=== PATIENT | female | born 1950 | race Caucasian/White ===

== ENCOUNTER 2021-08-24 08:28 | Inpatient (IN) | payer MEDICARE, MEDICAID, SELFPAY ==
[2021-08-24] VITALS (44 sets, daily range): BP systolic 87–152; BP diastolic 54–97; PULSE 95–133; RESP 16–34; TEMP 37.3–38.4; O2SAT 93–99; BMI 37.9
--- NOTE | 2021-08-24 08:39 | CT_ITS ---
WS: [id number] CT HEAD TECHNIQUE: Noncontrast CT of the head obtained from the skullbase to the vertex. CLINICAL INFORMATION: AMS COMPARISON: 2011 DLP: 1774.[address] scans at [facility] use at least one of these dose optimization techniques: automated e xposure control; mA and/or kV adjustment per patient size (includes targeted exams where dose is matc hed to clinical indication); or iterative reconstruction. FINDINGS: No evidence of intracranial hemorrhage or mass effect. Ventricular system and basal cisterns are guerrero nt. Mild small vessel changes with mild parenchymal volume loss. No extra-axial fluid collections. No evidence of mass or mass effect. Intracranial vascular calcification. Paranasal sinuses and mastoid air cells are well aerated. .Normal visualized soft tissues. CT/CT head wo con* [id number] IMPRESSION: 1. No evidence of intracranial hemorrhage or mass effect. 2. Mild small vessel changes. Mild parenchymal volume loss. 3. No acute intracranial findings.
--- NOTE | 2021-08-24 08:39 | XR_ITS ---
WS: [id number] Portable AP upright chest, 08/24/2021 Clinical Data: dyspnea/cough Comparison: Portable chest, 06/11/2011. Findings: No nodules, masses or effusions are seen. The heart is normal. The pulmonary vascularity is not increased. No pneumonia or pneumothorax is seen. The aortic arch and descending thoracic aorta s how mild tortuosity. Epidural stimulator leads overlie the mid thoracic epidural space. XR/XR chest 1V portable [id number] Impression: Atherosclerosis.
--- NOTE | 2021-08-24 08:45 | W.ED.AMS ---
HPI - Altered Mental Status General: Chief Complaint: Altered Mental Status Stated Complaint: ALOC Time Seen by Provider: 08/24/21 08:35 Source: EMS Mode of arrival: EMS Limitations: altered mental status History of Present Illness: 71-year-old female brought in by EMS from local skilled nursing. She is found this morning sitting in front of her wheelchair. Last evening. She has a low-grade fever and is requiring 10 L by mask to maintain oxygen sats. She is will grimace to painful stimuli but otherwise has no response she is mildly tachycardic and hypotensive. Legs are swollen and inflamed reddened she also has decubitus ulcers at the gluteal cleft. No other history given by nursing staff or EMS on their initial arrival here. Supposedly while she is demented normally she is up and ambulatory. MD complaint: altered mental status and decreased responsiveness Onset (ago): hour(s) Severity: severe Consistency of symptoms: Constant Context: recent fever, diabetes and other (Dementia) Treatments prior to arrival: oxygen Review of Systems General: Reports: ROS unobtainable due to medical condition PFSH ED PFSH: Medical History (Updated 08/24/21 @ 12:43 by López Connell DO) Bipolar disorder CHF (congestive heart failure) COPD (chronic obstructive pulmonary disease) Dementia Depression Diabetes mellitus type 2 in obese DJD (degenerative joint disease) Fibromyalgia GERD (gastroesophageal reflux disease) History of breast cancer History of DVT (deep vein thrombosis) Hyperlipidemia Hypertension Surgical History (Updated 08/24/21 @ 12:03 by Saturnino Hernandez MD) History of hysterectomy History of mastectomy Family History (Updated 08/24/21 @ 12:04 by Saturnino Hernandez MD) Other CAD (coronary artery disease) Diabetes Social History (Updated 08/24/21 @ 12:04 by Saturnino Hernandez MD) Smoking and tobacco status: never smoked Alcohol intake: never Physical Exam Const: NUTRITIONAL APPEARANCE: obese morbidly obese ORIENTATION/CONSCIOUSNESS: Yes patient obtunded HENMT: COMMON NORMALS: normocephalic and atraumatic HEAD & SCALP: normocephalic and atraumatic Cardio: COMMON NORMALS: regular rhythm RATE: tachycardic RHYTHM: regular rhythm GI: COMMON NORMALS: Soft to palpation; negative for No hepatosplenomegaly present AUSCULTATION: Yes normoactive bowel sounds PALPATION: Yes Soft to palpation, No Tenderness to palpation present (GI), No Guarding due to palpation present (GI) and No No hepatosplenomegaly present Back/Pelvis: OTHER: Decubitus ulcer at the superior aspect of the gluteal cleft bilaterally partial-thickness Extremity: OTHER: 3+ edema with erythema some vesicles of the skin from chronic edema redness erythema some ulcerations as well as some proximal lymphatic spread. Skin: OTHER: Lower extremities have thickening of the skin induration and some vesicle formation are reddened and warm to the touch. Additionally there is partial-thickness ulcerations in the superior gluteal area at the cleft does not seem to overlie the bone directly. Is also red and mildly inflamed with no induration. Course Vital Signs: Vital signs: Vital Signs Temperature 99.2 F 08/24/21 08:34 Pulse Rate 97 08/24/21 12:00 Respiratory Rate 18 08/24/21 12:00 Blood Pressure 144/81 08/24/21 12:00 Pulse Oximetry 95 08/24/21 12:00 MDM - Altered Mental Status Medical Decision Making Acute headache low kalemia cystitis and cellulitis discussed Dr. Hernandez. He has written orders. Admit to his services. EKG and CT did not show anything acute. Note patient is on Xarelto. Medical Records I reviewed the patient's medical records. Lab Data I reviewed the patient's lab results. : 08/24/21 09:40 08/24/21 09:40 Radiology Impressions Chest X-Ray 08/24/21 08:39 Impression: Atherosclerosis. Head CT 08/24/21 08:39 IMPRESSION: 1. No evidence of intracranial hemorrhage or mass effect. 2. Mild small vessel changes. Mild parenchymal volume loss. 3. No acute intracranial findings. Laboratory Results WBC 22.6 10^3/uL (4.0-10.0) H 08/24/21 09:40 RBC 4.84 10^6/uL (4.1-5.3) 08/24/21 09:40 Hgb 13.8 g/dL (11.5-15.3) 08/24/21 09:40 Hct 43.3 % (37.0-47.0) 08/24/21 09:40 MCV 89.5 fl (81-99) 08/24/21 09:40 MCH 28.5 pg (28.0-34.0) 08/24/21 09:40 MCHC 31.9 g/dL (30.0-36.0) 08/24/21 09:40 RDW 15.3 % (12.1-15.1) H 08/24/21 09:40 Plt Count 373 10^3/cmm (130-400) 08/24/21 09:40 MPV 9.7 fL (7.4-10.4) 08/24/21 09:40 Lymph % (Auto) Not Reportable 08/24/21 09:40 [place] % (Auto) Not Reportable 08/24/21 09:40 Lymph # (Auto) Not Reportable 08/24/21 09:40 [place] # (Auto) Not Reportable 08/24/21 09:40 Total Counted 100 (0-100) 08/24/21 09:40 Atypical Lymphs % 2.0 % (0-5) 08/24/21 09:40 Absolute Neutrophils 20.6 10^3/cmm (1.4-6.5) H 08/24/21 09:40 Segmented Neutrophils 70 % 08/24/21 09:40 Abs Segm Neuts (Man) 15.8 10/cmm (1.6-7.1) H 08/24/21 09:40 Band Neutrophils 21.0 % 08/24/21 09:40 Abs Band Neuts (Man) 4.7 10^3/cmm (0.0-1.2) H 08/24/21 09:40 Absolute Lymphocytes 1.6 10^3/cmm (1.2-3.4) 08/24/21 09:40 Lymphocytes (Manual) 5 % 08/24/21 09:40 Monocytes (Manual) 0.0 % 08/24/21 09:40 Absolute Monocytes 0.0 10^3/cmm (0.1-0.6) L 08/24/21 09:40 Eosinophils (Manual) 0 % 08/24/21 09:40 Absolute Eosinophils 0.0 10^3/cmm (0.0-0.7) 08/24/21 09:40 Basophils (Manual) 0.0 % 08/24/21 09:40 Absolute Basophils 0.0 10^3/cmm (0.0-0.2) 08/24/21 09:40 Metamyelocytes 2.0 % 08/24/21 09:40 Platelet Estimate Normal (Normal) 08/24/21 09:40 Specimen Type Arterial 08/24/21 09:22 Sample Site Radial, right 08/24/21 09:22 ABG pH 7.40 (7.35-7.45) 08/24/21 09:22 ABG pCO2 51.0 mmHg (35-45) H 08/24/21 09:22 ABG pO2 174.0 mmHg (80.0-100.0) H 08/24/21 09:22 ABG HCO3 31.8 mmol/L (22-26) H 08/24/21 09:22 ABG O2 Saturation 99.9 08/24/21 09:22 ABG Base Excess 5.7 mmol/L (-2.0-2.0) H 08/24/21 09:22 David Test Pos 08/24/21 09:22 Hematocrit 42.0 % (37-47) 08/24/21 09:22 Hgb O2 Saturation 98.2 % (95-100) 08/24/21 09:22 Carboxyhemoglobin 0.9 %THgb (0.4-20.1) 08/24/21 09:22 Methemoglobin 0.8 % (0.4-1.5) 08/24/21 09:22 Total Hemoglobin 13.7 g/dL (12-16) 08/24/21 09:22 Sodium 141.0 mmol/L (131-143) 08/24/21 09:22 Potassium 2.3 mmol/L (3.5-5.0) L 08/24/21 09:22 Glucose 191.0 mg/dL (70-115) H 08/24/21 09:22 Ionized Calcium 1.2 mmol/L (1.1-1.4) 08/24/21 09:22 O2 Delivery Device Nrb 08/24/21 09:22 O2 Liters/Min 10.0 % 08/24/21 09:22 Rn Radiation Oncology ID Ed 08/24/21 09:22 Sodium 140 mmol/L (136-145) 08/24/21 09:40 Potassium 2.6 mmol/L (3.5-5.1) L* 08/24/21 09:40 Chloride 93 mmol/L (98-107) L 08/24/21 09:40 Carbon Dioxide 30 mmol/L (22-29) H 08/24/21 09:40 Anion Gap 19.6 (5-19) H 08/24/21 09:40 BUN 30 mg/dL (8-23) H 08/24/21 09:40 Creatinine 1.9 mg/dL (0.5-0.9) H 08/24/21 09:40 GFR Calculation Not Reportable 08/24/21 09:40 Glucose 173 mg/dL (65-115) H 08/24/21 09:40 Calculated Osmolality 300 mOsm/kg (285-295) H 08/24/21 09:40 Lactic Acid 4.7 mmol/L (0.5-2.2) H* 08/24/21 09:40 Calcium 8.9 mg/dL (8.5-10.5) 08/24/21 09:40 Magnesium 1.8 mg/dL (1.7-2.3) 08/24/21 09:40 Total Bilirubin 0.6 mg/dL (0.15-1.2) 08/24/21 09:40 AST 30 U/L (0-32) 08/24/21 09:40 ALT 15 U/L (0-33) 08/24/21 09:40 Alkaline Phosphatase 88 IU/L (35-105) 08/24/21 09:40 Creatine Kinase 3268 U/L (26-192) H* 08/24/21 09:40 Total Protein 7.5 g/dL (6.6-8.7) 08/24/21 09:40 Albumin 3.8 g/dL (3.5-5.2) 08/24/21 09:40 Globulin 3.7 g/dL (1.3-4.6) 08/24/21 09:40 Lipase 9 U/L (13-60) L 08/24/21 09:40 Urine Color Yellow (Yellow) 08/24/21 11:14 Urine Appearance Cloudy (CLEAR) 08/24/21 11:14 Urine pH 5 (5-7) 08/24/21 11:14 Ur Specific Cecil 1.015 (1.005-1.030) 08/24/21 11:14 Urine Protein 1+ (Negative) H 08/24/21 11:14 Urine Glucose (UA) Norm (Normal) 08/24/21 11:14 Urine Ketones Negative (Negative) 08/24/21 11:14 Urine Blood 3+ (Negative) H 08/24/21 11:14 Urine Nitrate Positive (Negative) H 08/24/21 11:14 Urine Bilirubin Neg (Negative) 08/24/21 11:14 Urine Urobilinogen Norm mg/dL (Negative) 08/24/21 11:14 Ur Leukocyte Esterase 2+ (Negative) H 08/24/21 11:14 Urine RBC 0-4 /hpf (0-2) H 08/24/21 11:14 Urine WBC Too numerous to cnt /hpf (0-5) H 08/24/21 11:14 Ur Squamous Epith Cells 0-4 /hpf (0-5) H 08/24/21 11:14 Amorphous Sediment Not Reportable 08/24/21 11:14 Urine Bacteria 4+ /hpf (NONE) H 08/24/21 11:14 Discharge Plan Discharge Patient Disposition: Admitted As Inpatient Clinical Impression: Sepsis, Cellulitis, UTI (urinary tract infection), Acute metabolic encephalopathy, History of DVT (deep vein thrombosis), COPD (chronic obstructive pulmonary disease), Diabetes mellitus type 2 in obese Condition: Stable Prescriptions: No Action multivitamin Tablet 1 tab PO DAILY@08 0RF acetaminophen 325 mg Tablet 650 mg PO Q6H PRN (Reason: pain/temp) 0RF atorvastatin 20 mg Tablet 30 mg PO DAILY@20 0RF metolazone 5 mg tablet 5 mg PO BID@08,14 0RF hydralazine 25 mg tablet 25 mg PO TID@08,14,20 0RF Rx Instructions: hold for sbp <100,dbp <60, or hr<60 potassium chloride 20 mEq/15 mL liquid 40 meq PO BID@08,20 0RF pantoprazole 20 mg tablet,delayed release (DR/EC) 20 mg PO DAILY@08 0RF oxycodone-acetaminophen 5-325 mg tablet 1 tab PO Q6H PRN (Reason: Pain) 0RF Xanax 0.5 mg Tablet 0.5 mg PO Q6H PRN (Reason: Anxiety) 0RF amlodipine 10 mg Tablet 10 mg PO DAILY@08 0RF ropinirole 2 mg tablet 2 mg PO DAILY@08 0RF FeroSul 325 mg (65 mg iron) Tablet 325 mg PO .EVERY 2 DAYS 0RF metoprolol tartrate 50 mg tablet 50 mg PO BID 0RF Rx Instructions: hold for sbp <100,dbp <60, or hr<60 bumetanide 1 mg Tablet 1 mg PO DAILY@08 0RF gabapentin 100 mg capsule 200 mg PO TID@08,14,20 0RF Nyamyc 100,000 unit/gram powder 1 applic TOPICAL DAILY 0RF Rx Instructions: apply to abdominal folds albuterol sulfate 90 mcg/actuation Hfa Aerosol Inhaler 2 puff INHALATION Q4H PRN (Reason: Shortness Of Breath) 0RF Almacone-2 400-400-40 mg/5 mL Suspension 30 ml PO Q24H PRN (Reason: Heartburn) 0RF ropinirole 4 mg tablet 4 mg PO DAILY@20 0RF bisacodyl 5 mg Tablet 5 mg PO Q24H PRN (Reason: Constipation) 0RF duloxetine 60 mg Capsule,Delayed Release(Dr/Ec) 60 mg PO DAILY@08 0RF Lantus Solostar U-100 Insulin 100 unit/mL (3 mL) insulin pen 10 unit SUBCUT DAILY@08 0RF diclofenac sodium 1 % Gel See Rx Instructions .ROUTE .COMPLEX 0RF Rx Instructions: apply topically to bilateral knee every 8 hours prn pain Xarelto 10 mg tablet 10 mg PO DAILY@08 0RF Myrbetriq 50 mg tablet extended release 24 hr 50 mg PO DAILY@08 0RF Referrals: Darell Anaya MD [Referring] - Coding Level of Care Code ED Sweatband Flanger for Luisg Fwd Exam Expanded Problem Focused
[2021-08-24 09:32] LABS: Base Excess ABG 5.7 mmol/L (-2.0-2.0); Blood Gas Allen Test Pos; Blood Gas Sample Type Arterial; Carboxyhemoglobin 0.9 %THgb (0.4-20.1); HCO3 ABG 31.8 mmol/L (22-26); HGB O2 Sat 98.2 % (95-100); Ionized Calcium Level - ABG 1.2 mmol/L (1.1-1.4); Methemoglobin 0.8 % (0.4-1.5); Oxygen Saturation ABG 99.9; Potassium Level - ABG 2.3 mmol/L (3.5-5.0); Total Hemoglobin 13.7 g/dL (12-16)
[2021-08-24 09:33] LABS: Blood Gas Operator Identificat ED; Blood Gas Sample Site Radial, right; Oxygen Device NRB
[2021-08-24 09:57] LABS: Hematocrit 43.3 % (37.0-47.0); Hemoglobin 13.8 g/dL (11.5-15.3); Mean Corpuscular HGB Conc 31.9 g/dL (30.0-36.0); Mean Corpuscular Hemoglobin 28.5 pg (28.0-34.0); Mean Corpuscular Volume 89.5 fl (81-99); Mean Platelet Volume 9.7 fL (7.4-10.4); Platelet Count 373 10^3/cmm (130-400); Red Blood Count 4.84 10^6/uL (4.1-5.3); Red Cell Distribution Width 15.3 % (12.1-15.1); White Blood Count 22.6 10^3/uL (4.0-10.0)
[2021-08-24 10:15] LABS: Alanine Aminotransferase 15 U/L (0-33); Albumin Level 3.8 g/dL (3.5-5.2); Alkaline Phosphatase 88 IU/L (35-105); Blood Urea Nitrogen 30 mg/dL (8-23); Calcium 8.9 mg/dL (8.5-10.5); Carbon Dioxide 30 mmol/L (22-29); Chloride 93 mmol/L (98-107); Globulin 3.7 g/dL (1.3-4.6); Glucose 173 mg/dL (65-115); Lipase 9 U/L (13-60); Magnesium 1.8 mg/dL (1.7-2.3); Osmolality Calculated 300 mOsm/kg (285-295); Sodium 140 mmol/L (136-145); Total Bilirubin 0.6 mg/dL (0.15-1.2); Total Protein 7.5 g/dL (6.6-8.7)
[2021-08-24 10:22] LABS: Anion Gap 19.6 (5-19); Aspartate Amino Transferase 30 U/L (0-32); Potassium 2.6 mmol/L (3.5-5.1)
--- NOTE | 2021-08-24 10:25 | PC.PHAR ---
pt is from [facility] [phone]-per wilberto nurse at [facility] states the pt had no medications or prn meds today
[2021-08-24 10:28] LABS: Absolute Neutrophil 20.6 10^3/cmm (1.4-6.5); Absolute Segmented Neutrophil 15.8 10/cmm (1.6-7.1); Band Neutrophils Absolute 4.7 10^3/cmm (0.0-1.2); Eosinophils 0 %; Lymphocytes 5 %; Lymphocytes Absolute 1.6 10^3/cmm (1.2-3.4); Platelet Estimate Normal (Normal); Segmented Neutrophils 70 %; Slide Review Slide Review Perform; Total Cells Counted 100 (0-100)
[2021-08-24 10:29] LABS: Creatine Phosphokinase 3268 U/L (26-192); Lactic Sepsis W/Reflex 4.7 mmol/L (0.5-2.2)
[2021-08-24] MEDS: piperacillin-tazobactam 3.375 GM in sodium chloride 0.9% (plus) 50 ML IV ×2 (10:55→22:31)
--- NOTE | 2021-08-24 11:40 | PM.HP ---
Providers/Chief Complaint Admitting Physician: Saturnino Hernandez MD Primary Care Provider: Rasheeda Hernandez MD Chief Complaint: ALOC History of Present Illness Fany Webber is a 71 year old female nursing facility resident at [facility] with a diagnosis of underlying dementia who presents to the emergency department with lethargy, history of low blood pressure at the nursing facility, concerns of respiratory distress. According to nurses at the nursing facility she was acting normally yesterday. This morning she slid out of her wheelchair, did not sustain an injury, but was difficult to arouse. She would answer a few questions and immediately go back to sleep. She was noted to be hypotensive. There was concerns with erythema on her legs, particularly the right side. She was sent to the emergency department for evaluation, where there was concern for sepsis. A fluid bolus for sepsis was initiated. Vancomycin and Zosyn were ordered. Her was with her when I interviewed her. She was not able to give any history, arousing only briefly to say no once. Her indicates that she is verbal, usually in a wheelchair but can take steps, and is typically alert and oriented although Hetz x1 behavior is an issue. Review of Systems General: Reports: ROS unobtainable due to medical condition (Lethargic, not with reliable responses) Medications/Allergies Home Medications Medication Instructions Recorded Confirmed Last Taken Type acetaminophen 325 mg tablet 650 mg PO Q6H PRN 08/24/21 08/24/21 Unknown History albuterol sulfate 90 mcg/actuation 2 puff INHALATION Q4H PRN 08/24/21 08/24/21 Unknown History aerosol inhaler alprazolam 0.5 mg tablet (Xanax) 0.5 mg PO Q6H PRN 08/24/21 08/24/21 Unknown History aluminum-mag hydroxide-simethicone 30 ml PO Q24H PRN 08/24/21 08/24/21 Unknown History 400 mg-400 mg-40 mg/5 mL oral susp (Almacone-2) amlodipine 10 mg tablet 10 mg PO DAILY@08 08/24/21 08/24/21 08/23/21 History atorvastatin 20 mg tablet 30 mg PO DAILY@20 08/24/21 08/24/21 08/23/21 History bisacodyl 5 mg tablet 5 mg PO Q24H PRN 08/24/21 08/24/21 Unknown History bumetanide 1 mg tablet 1 mg PO DAILY@08 08/24/21 08/24/21 08/23/21 History diclofenac sodium 1 % topical gel See Rx Instructions .ROUTE .COMPLEX 08/24/21 08/24/21 Unknown History duloxetine 60 mg capsule,delayed 60 mg PO DAILY@08 08/24/21 08/24/21 08/23/21 History release ferrous sulfate 325 mg (65 mg 325 mg PO .EVERY 2 DAYS 08/24/21 08/24/21 08/23/21 History iron) tablet (FeroSul) gabapentin 100 mg capsule 200 mg PO TID@08,,08/24/21 08/24/21 08/23/21 History hydralazine 25 mg tablet 25 mg PO TID@08,,08/24/21 08/24/21 08/23/21 History insulin glargine 100 unit/mL (3 10 unit SUBCUT DAILY@08/24/21 08/24/21 08/23/21 History mL) subcutaneous pen (Lantus Solostar U-100 Insulin) metolazone 5 mg tablet 5 mg PO BID@08,14 08/24/21 08/24/21 08/23/21 History metoprolol tartrate 50 mg tablet 50 mg PO BID 08/24/21 08/24/21 08/23/21 History mirabegron 50 mg tablet,extended 50 mg PO DAILY@08 08/24/21 08/24/21 08/23/21 History release 24 hr (Myrbetriq) multivitamin 1 tab PO DAILY@08/24/21 08/24/21 08/23/21 History nystatin 100,000 unit/gram topical 1 applic TOPICAL DAILY 08/24/21 08/24/21 Unknown History powder (Nyamyc) oxycodone-acetaminophen 5 mg-325 1 tab PO Q6H PRN 08/24/21 08/24/21 08/23/21 13:30 History mg tablet pantoprazole 20 mg tablet,delayed 20 mg PO DAILY@08 08/24/21 08/24/21 08/23/21 History release potassium chloride 20 mEq/15 mL 40 meq PO BID@08,20 08/24/21 08/24/21 08/23/21 History oral liquid rivaroxaban 10 mg tablet (Xarelto) 10 mg PO DAILY@08/24/21 08/24/21 08/23/21 History ropinirole 2 mg tablet 2 mg PO DAILY@08/24/21 08/24/21 08/23/21 History ropinirole 4 mg tablet 4 mg PO DAILY@08/24/21 08/24/21 08/23/21 History Allergies Allergy/AdvReac Type Severity Reaction Status Date / Time levofloxacin [From Levaquin] Allergy Unknown Verified 08/24/21 09:55 PFSH Acute PFSH: Medical History (Updated 08/24/21 @ 12:10 by Saturnino Hernandez MD) Bipolar disorder CHF (congestive heart failure) COPD (chronic obstructive pulmonary disease) Dementia Depression Diabetes mellitus type 2 in obese DJD (degenerative joint disease) Fibromyalgia GERD (gastroesophageal reflux disease) History of breast cancer History of DVT (deep vein thrombosis) Hyperlipidemia Hypertension Surgical History (Updated 08/24/21 @ 12:03 by Saturnino Hernandez MD) History of hysterectomy History of mastectomy Family History (Updated 08/24/21 @ 12:04 by Saturnino Hernandez MD) Other CAD (coronary artery disease) Diabetes Social History (Updated 08/24/21 @ 12:04 by Saturnino Hernandez MD) Smoking and tobacco status: never smoked Alcohol intake: never Vitals/I&O/Wt Last Vital Signs Temp 99.2 F 08/24/21 08:34 Pulse 98 08/24/21 10:24 Resp 16 08/24/21 10:24 BP 134/90 08/24/21 10:24 Pulse Ox 95 08/24/21 10:24 Weight last 48 hrs Weight 106.594 kg Physical Exam Narrative: General exam is lethargic appearing white female, who can arouse with noxious stimuli and say 1 or 2 words before going back to sleep. HEENT: Pupils equally round. Oropharynx clear but with dry mucous membranes Neck is supple no lymphadenopathy thyromegaly Cardiovascular regular rate and rhythm, borderline tachycardic, with 3/6 systolic murmur heard best at the mitral area Lungs clear but with diminished breath sounds bilaterally. No wheezes or crackles Abdomen is soft obese nontender with positive bowel sounds. No obvious organomegaly demonstrates Wolfe, with slightly cloudy sharifa Tristin urine Buttock: Stage I decubitus noted, left buttock Extremities 2+ edema, with erythema and venous stasis changes with evidence of cellulitis, extending up the leg into the thigh on the right. Skin see findings above Neuro no obvious focal deficits, although lethargic and not cooperative with exam Data : 08/24/21 09:40 08/24/21 09:40 Other Labs: CT head no acute findings Chest x-ray atherosclerosis, no infiltrate. Epidural stimulator noted Blood cultures were collected ABG demonstrates pH 7.4, PCO2 51, PO2 174 Lactic acid 4.7, calcium 8.9, magnesium 1.8, LFTs normal, CK3 268, lipase 9 Urinalysis with too numerous to count white blood cells, 0-4 red blood cells Micro: Microbiology 08/24/21 10:15 Blood Culture - Preliminary Blood SPECIMEN COLLECTED 08/24/21 09:40 Blood Culture - Preliminary Blood SPECIMEN COLLECTED A&P Assessment and plan (1) Sepsis: Patient with evidence of acute severe sepsis present on admission with elevated lactic acid level, endorgan dysfunction with acute encephalopathy. This could be secondary to cellulitis in the right leg which is ascending, or UTI. Blood cultures have been drawn. Urine culture being done Continue vancomycin and Zosyn Appropriate fluid bolus ordered by emergency department. Monitor for fluid overload. Note she had some evidence of shock upon arrival with hypotension but this corrected quickly with fluid bolus. Status: Acute (2) Cellulitis: Significant cellulitis, right lower extremity, in the setting of underlying bilateral venous stasis. Status: Acute (3) Acute metabolic encephalopathy: Secondary to infection. CT head negative. Monitor closely for improvement. Patient's baseline mental status is alert and oriented, with some behavior secondary to her mental health/dementia issues. Status: Acute (4) UTI (urinary tract infection): Urine culture will be done Continue Zosyn and vancomycin IV Status: Acute (5) Heart murmur: Patient has a significant heart murmur. In the setting of sepsis, will obtain a transthoracic echocardiogram Status: Acute (6) Diabetes mellitus type 2 in obese: Mild sliding scale insulin initially Status: Acute (7) COPD (chronic obstructive pulmonary disease): DuoNeb as needed Status: Acute (8) History of DVT (deep vein thrombosis): Patient with history of DVT, for which she is on chronic anticoagulation. At this point secondary to sepsis we will continue DVT prophylaxis anticoagulation with Lovenox. I will obtain a bilateral venous duplex. If clot is still present could consider continuing full anticoagulation with Xarelto at discharge, or DVT prophylaxis with Xarelto at discharge depending upon shared decision making. Status: Acute Plan Multiple other medical problems as outlined in past medical history Does not want intubation/mechanical ventilation or CPR. Okay with ICU placement and/or pressors. Attestations Medical Necessity Statement*: Will need greater than 2 midnight stay for evaluation and treatment of sepsis, to include IV antibiotics. 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
[2021-08-24 11:42] LABS: Reflex Lactate Order REFLEX LACTIC ORDERD
[2021-08-24 11:44] LABS: Add Urine Culture? Yes; Add Urine Microscopic? YES; Bacteria Urine 4+ /hpf; Bilirubin Urine Neg (Negative); Blood Urine 3+ (Negative); Glucose Urine UA Norm (Normal); Ketones Urine Negative (Negative); Leukocyte Esterase Urine 2+ (Negative); Nitrate Urine Positive (Negative); Protein Urine 1+ (Negative); RBC Urine 0-4 /hpf (0-2); Specific Gravity, Urine 1.015 (1.005-1.030); Squamous Epithelial Cell Urine 0-4 /hpf (0-5); Urine Appearance Cloudy (CLEAR); Urine Color Yellow (Yellow); Urobilinogen Urine Norm (Negative); WBC Urine TOO NUMEROUS TO CNT /hpf (0-5); pH Urine 5 (5-7)
[2021-08-24] MEDS: vancomycin 1,000 MG in sodium chloride 0.9% 250 ML 250 MG IV (11:46)
[2021-08-24] MEDS: potassium chloride premix 100 ML 25 MEQ IV ×2 (12:03→17:29)
--- NOTE | 2021-08-24 12:05 | USCV_ITS ---
Fany Webber Age: 71 Gender: F : 1950 Exam Date: 08/24/2021 12:19 Ordering Phys: Saturnino Hernandez MD Technologist: Christopher Salvador [place] [facility] [place]: EDEMA PROCEDURES: Venous duplex imaging was performed in bilateral lower extremities. The following venous structures were evaluated: common femoral vein, profunda vein, proximal portion of the greater saphenous vein, superficial femoral vein, and the popliteal vein. In addition, the posterior tibial and peroneal trunk were evaluated. Serial compression, augmentation maneuvers, and spectral Doppler flow evaluation were performed. FINDINGS: TDS due to patient size and condition. Incomplete occlusive thrombus located within the RIGHT gsv/fem junction extending through the distal common femoral vein. The popliteal and peroneal veins were limited and technically difficult to examine bilaterally. All other veins examined appear free of thrombus at this time. CONCLUSIONS Incomplete occlusive thrombus right CFV junction with GSV. Maybe chronic . Otherwise negative for DVT. Dr. Radha Tavares DO (Electronically Signed) Final Date: 24 August 2021 14:43 S
[2021-08-24] MEDS: sodium chloride 0.9% 500 ML 125 ML IV (13:28)
[2021-08-24 13:33] LABS: Lactic Acid level (Lactate) 3.4 mmol/L (0.5-2.2)
[2021-08-24] MEDS: sodium chloride 0.9% 1,000 ML 75 ML IV (21:54)
[2021-08-24] MEDS: enoxaparin 40 mg/0.4 mL Syringe SUBCUT (21:54)
[2021-08-24 22:04] LABS: Glucose Point of Care 171 mg/dL (70-110)
--- NOTE | 2021-08-24 22:14 | PC.PHAR ---
Vancomycin is dosed at 1gm IVPB every 24 hours to produce a predicted trough level of 16.43 (population based pharmacokinetic analysis). A trough level has been ordered from the lab to be obtained before the fourth dose to confirm and adjust if needed.
[2021-08-24] MEDS: insulin lispro 100 unit/1 mL SUBCUT (22:25)
[2021-08-24] MEDS: metoprolol tartrate 1 mg/1 mL SDV 5 mL 5 MG IVP (22:40)
[2021-08-24] MEDS: acetaminophen 650 mg Supp PR (22:47)
[2021-08-24 23:07] LABS: ABG PCO2 39.3 mmHg (35-45); ABG PH Result 7.52 (7.35-7.45); Alveolar-Arterial Oxygen Gradi 3.1 mmHg (5-10); Arterial Blood Gas Hematocrit 42.2 % (37-47); Base Excess ABG 8.7 mmol/L (-2.0-2.0); Blood Gas Allen Test Pos; Blood Gas Sample Site Radial, right; Blood Gas Sample Type Arterial; Carboxyhemoglobin 1.1 %THgb (0.4-20.1); HCO3 ABG 32.2 mmol/L (22-26); Ionized Calcium Level - ABG 1.1 mmol/L (1.1-1.4); Methemoglobin 0.7 % (0.4-1.5); Oxygen Device NC; Oxygen Saturation ABG 97.8; PO2 ABG 78.5 mmHg (80.0-100.0); Potassium Level - ABG 2.9 mmol/L (3.5-5.0); Total Hemoglobin 13.8 g/dL (12-16)
[2021-08-24 23:13] LABS: Lactate (Lactic Acid level) 2.8 mmol/L (0.5-2.2)
[2021-08-25] VITALS (111 sets, daily range): BP systolic 87–176; BP diastolic 46–105; PULSE 90–139; RESP 12–32; TEMP 37.2–38.7; O2SAT 88–99
[2021-08-25] MEDS: piperacillin-tazobactam 3.375 GM in sodium chloride 0.9% (plus) 50 ML IV ×3 (05:21→21:10)
--- NOTE | 2021-08-25 05:30 | USCV_ITS ---
Fany Webber Age: 71 Gender: F : 1950 Exam Date: 08/25/2021 23:23 Ordering Phys: Saturnino Hernandez MD Technologist: Amanda Win [place] [facility] [place]: HEART MURMUR BP: 91 / 52 HR: 104 Rhythm: Other Technical Quality: Adequate MEASUREMENTS (Male / Female) Normal Values 2D ECHO LVOT Diameter 2.0 cm LV Ejection Fraction MOD 2C 72.8 % LV Ejection Fraction 2C AL 75.3 % LA Diameter 3.8 cm LA Width 2.5 cm LA Height 4.6 cm RA Width 3.1 cm RA Height 4.3 cm Aorta at Sinotubular Diameter 1.6 cm M-MODE Aortic Annulus Diameter 2.9 cm LA Ao Ratio MM 1.4 DOPPLER AV Peak Velocity 250.7 cm/s LVOT Peak Velocity 167.0 cm/s AV Area Cont Eq vti 2.0 cm squared AV Area Cont Eq pk 2.1 cm squared MV Area PHT 2.6 cm squared MV E' Velocity 77.5 cm/s Mitral E to MV E' Ratio 11.7 Mitral E to LV E' Lateral Ratio 11.0 Mitral E to LV E' Septal Ratio 12.7 TR Peak Velocity 245.1 cm/s TR Peak Gradient 24.0 mmHg TR Mean Velocity 169.0 cm/s TR Mean Gradient 12.9 mmHg TR Velocity Time Integral 50.7 cm TV Peak E Velocity 69.0 cm/s Right Atrial Pressure 3.0 mmHg Pulmonary Artery Systolic Pressu 27.0 mmHg FINDINGS Left Ventricle Limited visibility due to the ventricle is normal in size and function. No significant left ventricular hypertrophy. Ejection fraction is probably 65%. Grade 1 diastolic dysfunction. Right Ventricle Normal right ventricular size and systolic function. Right Atrium Normal right atrial size. Left Atrium Mildly increased left atrial size. Mitral Valve Structurally normal mitral valve. Mild mitral valve regurgitation. Aortic Valve Structurally normal aortic valve without significant sclerosis or stenosis. There is no aortic regurgitation. Tricuspid Valve Structurally normal tricuspid valve. Trace tricuspid valve regurgitation. Pulmonary artery pressure 27 mmHg. Pulmonic Valve Pulmonic valve not well visualized. Pericardium Normal pericardium without effusion. Aorta Normal ascending aorta dimension. CONCLUSIONS Limited visibility due to the ventricle is normal in size and function. No significant left ventricular hypertrophy. Ejection fraction is probably 65%. Grade 1 diastolic dysfunction. Mildly increased left atrial size. Structurally normal mitral valve. Mild mitral valve regurgitation. There are no prior echocardiogram studies to compare. Dr. Ventura Gallo MD (Electronically Signed) Final Date: 26 August 2021 07:43 S
[2021-08-25 05:53] LABS: Glucose Point of Care 161 mg/dL (70-110)
[2021-08-25] MEDS: metoprolol tartrate 1 mg/1 mL SDV 5 mL 5 MG IVP ×4 (05:57→21:09)
[2021-08-25 06:07] LABS: Basophils # 0.1 10^3/uL (0.0-0.1); Basophils % 0.4 %; Hematocrit 48.1 % (37.0-47.0); Hemoglobin 14.6 g/dL (11.5-15.3); Lymphocytes # 1.1 10^3/uL (0.8-4.8); Lymphocytes % 5.2 %; Mean Corpuscular HGB Conc 30.4 g/dL (30.0-36.0); Mean Corpuscular Hemoglobin 28.5 pg (28.0-34.0); Mean Corpuscular Volume 93.9 fl (81-99); Mean Platelet Volume 9.6 fL (7.4-10.4); Monocytes # 0.7 10^3/uL (0.2-0.9); Monocytes % 3.2 %; Neutrophils # 19.28 10^3/uL (1.8-7.7); Neutrophils % 90.8 %; Nucleated Red Blood Cells % 0 %; Platelet Count 308 10^3/cmm (130-400); Red Blood Count 5.12 10^6/uL (4.1-5.3); Red Cell Distribution Width 15.5 % (12.1-15.1); White Blood Count 21.2 10^3/uL (4.0-10.0)
[2021-08-25 06:25] LABS: Alanine Aminotransferase 14 U/L (0-33); Albumin Level 2.6 g/dL (3.5-5.2); Alkaline Phosphatase 81 IU/L (35-105); Anion Gap 13.7 (5-19); Aspartate Amino Transferase 47 U/L (0-32); Blood Urea Nitrogen 35 mg/dL (8-23); Calcium 8.6 mg/dL (8.5-10.5); Carbon Dioxide 30 mmol/L (22-29); Chloride 99 mmol/L (98-107); Globulin 4.8 g/dL (1.3-4.6); Glucose 174 mg/dL (65-115); Osmolality Calculated 302 mOsm/kg (285-295); Sodium 140 mmol/L (136-145); Total Bilirubin 0.6 mg/dL (0.15-1.2); Total Protein 7.4 g/dL (6.6-8.7)
[2021-08-25 06:47] LABS: Creatine Phosphokinase 3071 U/L (26-192); Potassium 2.7 mmol/L (3.5-5.1)
[2021-08-25 06:56] LABS: Slide Review Slide Review Perform
--- NOTE | 2021-08-25 07:16 | CT_ITS ---
WS: [id number] CT RIGHT TIBIA/FIBULA, NONCONTRAST. HISTORY: edema Technique: All CT scans at [facility] use at least one of these dose optimization techniques: automated exposure control; mA and/or kV adjustment per patient size (includes targeted exams where dose is matched to clinical indication); or iterative reconstruction. DLP: 1035.42 mGy.cm COMPARISON: None available. CT is performed from just above the knee joint to the distal tibia and fibula. Images are reformatted in sagittal and coronal planes. There is no fracture identified. Advanced degenerative changes at the patellofemoral and medial and l ateral compartments of the knee. There is bone upon bone and large osteophytes. Moderate suprapatella r effusion. No fractures or cortical destructive bone changes. There is extensive soft tissue edema throughout the lower extremity. There is only mild soft tissue e mildred around the knee to the mid tibia. Progressive increase in the amount of soft tissue edema and in tramuscular edema begins in the mid to distal tibia. There is no focal collection. This is a diffuse process with marked skin thickening. CT/CT lower leg RT wo con* 23057 IMPRESSION: 1. Extensive, severe subcutaneous edema and intramuscular edema which is progr essive beginning from the mid to distal lower extremity. 2. No focal fluid collection and no fracture. 3. Advanced osteoarthritic changes at the knee joint and a moderate suprapatel lar effusion.
--- NOTE | 2021-08-25 07:16 | CT_ITS ---
WS: [id number] CT RIGHT FOOT, NONCONTRAST. HISTORY: edema, possible abscess Technique: All CT scans at [facility] use at least one of these dose optimization techniques: automated exposure control; mA and/or kV adjustment per patient size (includes targeted exams where dose is matched to clinical indication); or iterative reconstruction. DLP: 256.13 mGy.cm COMPARISON: None available. There is extensive soft tissue edema and intramuscular edema throughout the ankle and foot. No focal collection is identified. Very difficult to evaluate for an abscess or cellulitis without IV contrast. The soft tissue edema is diffuse. Bones are osteopenic. Subchondral cystic changes are noted in the midfoot and the anterior talar process. These findings more likely degenerative than related to an acute infection. Moderate size calcaneal spur. Thickening along the plantar aponeurosis is edema. Rowena severino CT/CT foot RT wo con* [id number] IMPRESSION: 1. Severe diffuse soft tissue edema surrounding the ankle and foot. No focal c ollection is identified without IV contrast. 2. Advanced degenerative changes of osteoarthritis noted in the midfoot.
--- NOTE | 2021-08-25 07:22 | P.PN_ITS ---
Subjective Subjective: Fany is able to respond some to pain today. She is not yet talking. This limits her review of systems. Last night metoprolol was changed to IV as there was concerns with her taking p.o. Medications: Reviewed: Yes Vitals/I&O/Wt Last Vital Signs Temp 99.0 F 08/25/21 04:00 Pulse 110 H 08/25/21 06:00 Resp 21 H 08/25/21 06:00 BP 167/91 08/25/21 06:00 Pulse Ox 96 08/25/21 05:55 08/24/21 08/25/21 08/25/21 22:59 06:59 14:59 Intake Total 600 / 900 150 / 1050 Output Total 500 / 500 1150 / 1650 Balance 100 / 400 -1000 / -600 Weight last 48 hrs Weight 103.873 kg Weight 106.594 kg Physical Exam Narrative: General exam is a female who is resting, who responds to any noxious stimuli by withdrawing and seems to have purposeful movement. She is not yet verbal. Heart rate is tachycardic, sinus, with occasional premature beats. Neck is supple no lymphadenopathy thyromegaly Cardiovascular regular rate and rhythm, borderline tachycardic, with 3/6 systolic murmur heard best at the mitral area Lungs clear but with diminished breath sounds bilaterally. No wheezes or crackles Abdomen is soft obese nontender with positive bowel sounds. No obvious organomegaly demonstrates Wolfe, with slightly cloudy sharifa Tristin urine Buttock: Stage I decubitus noted, left buttock Extremities 2+ edema, with erythema and venous stasis changes with evidence of cellulitis, extending up the leg into the thigh on the right. The right foot is more swollen today than it was yesterday. Cap refill is brisk. Skin see findings above Neuro no obvious focal deficits, although nonverbal and not able to follow directions. Urinary Catheter Management: Wolfe: Cath Placed During This Visit: no Reason for Continuing Indwelling Catheter: Accurate Measurement of Urinary Output in Critically Ill Patients Data : 08/25/21 05:59 08/25/21 05:59 Micro: Microbiology 08/24/21 10:15 Blood Culture - Preliminary Blood SPECIMEN COLLECTED 08/24/21 09:40 Blood Culture - Preliminary Blood SPECIMEN COLLECTED A&P Assessment and plan (1) Sepsis: Patient with evidence of acute severe sepsis present on admission with elevated lactic acid level, endorgan dysfunction with acute encephalopathy. This could be secondary to cellulitis in the right leg which is ascending, or UTI. Blood cultures have been drawn. Urine culture has been ordered Continue vancomycin and Zosyn Continue hydration Note she had some evidence of shock upon arrival with hypotension but this corrected quickly with fluid bolus. Status: Acute (2) Cellulitis: Significant cellulitis, right lower extremity, in the setting of underlying bilateral venous stasis. Right foot appears more swollen today. Must rule out abscess. Will check CT right lower extremity and right foot without contrast. Concern regarding her renal function, prevents use of IV contrast currently. Although creatinine improving I am reluctant to give. Continue vancomycin and Zosyn Status: Acute (3) Acute metabolic encephalopathy: Secondary to infection. CT head negative. Monitor closely for improvement. Patient's baseline mental status is alert and oriented, with some behavior secondary to her mental health/dementia issues. This has not yet improved Status: Acute (4) UTI (urinary tract infection): Urine culture will be done Continue Zosyn and vancomycin IV Status: Acute (5) Heart murmur: Patient has a significant heart murmur. Await echocardiogram Status: Acute (6) Diabetes mellitus type 2 in obese: Mild sliding scale insulin initially Status: Acute (7) COPD (chronic obstructive pulmonary disease): DuoNeb as needed Status: Acute (8) History of DVT (deep vein thrombosis): Patient with history of DVT, for which she is on chronic anticoagulation. Venous duplex obtained demonstrates incomplete occlusive thrombus right common femoral vein at junction with greater saphenous vein. There is some evidence this may be chronic. Initiate full dose anticoagulation with Lovenox, her Xarelto was held on admission. Status: Acute Plan Rhabdomyolysis. CK improving. Continue to hold any diuretic. Continue hydration. Hypokalemia. Supplement. Magnesium level normal. Multiple other medical problems as outlined in past medical history Does not want intubation/mechanical ventilation or CPR. Okay with ICU placement and/or pressors. Attestations Medical Necessity Statement*: Needs continued hospital stay secondary to sepsis requiring IV antibiotics with underlying encephalopathy. Critical Care Time: The high probability of a clinically significant, sudden or life threatening deterioration of the patient's [neurologic, renal, infectious disease system(s) required my full and direct attention, intervention and personal management. The critical care time is as shown. This time is in addition to time spent performing any reported procedures but includes the following: [x] Data and vital sign review and interpretation [x] Patient assessment, examination and intervention [x] Documentation [x] Medication orders and management Critical Care Time (min): 33 Coding Level of Care Code Acute Nursing Executive for g Fwd Diagnoses Sepsis A41.9 Cellulitis L03.90 Acute metabolic encephalopathy G93.41 UTI (urinary tract infection) N39.0 Heart murmur R01.1 Diabetes mellitus type 2 in obese E11.69; E66.9 COPD (chronic obstructive pulmonary disease) J44.9 History of DVT (deep vein thrombosis) Z86.718
[2021-08-25] MEDS: lidocaine 1% 5 ML in potassium chloride premix 100 ML 25 ML IV ×2 (07:35→12:03)
[2021-08-25] MEDS: insulin lispro 100 unit/1 mL SUBCUT ×4 (07:36→21:09)
[2021-08-25] MEDS: pantoprazole 40 mg SDV IVP (08:13)
[2021-08-25] MEDS: acetaminophen 650 mg Supp PR (10:07)
[2021-08-25] MEDS: enoxaparin 100 mg/mL Syringe SUBCUT ×2 (10:30→21:08)
[2021-08-25] MEDS: vancomycin 1,000 MG in sodium chloride 0.9% 250 ML 250 MG IV (11:49)
[2021-08-25] MEDS: sodium chloride 0.9% 1,000 ML 75 ML IV ×2 (11:52→21:10)
[2021-08-25 11:56] LABS: Glucose Point of Care 179 mg/dL (70-110)
[2021-08-25 16:48] LABS: Glucose Point of Care 147 mg/dL (70-110)
[2021-08-25 23:26] LABS: Glucose Point of Care 151 mg/dL (70-110)
[2021-08-26] VITALS (32 sets, daily range): BP systolic 89–167; BP diastolic 50–104; PULSE 87–132; RESP 13–35; TEMP 37.2–38.5; O2SAT 90–98
[2021-08-26] MEDS: metoprolol tartrate 1 mg/1 mL SDV 5 mL 5 MG IVP ×5 (04:38→22:00)
--- NOTE | 2021-08-26 04:50 | PC.NURSE ---
Discussed with Dr. Dow regarding Metoprolol order being QID not q6hr. Noted she was having short runs of PAT. Changed Metoprolol order to Q6hr.
[2021-08-26 05:10] LABS: Basophils % 0.2 %; Lymphocytes # 1.2 10^3/uL (0.8-4.8); Mean Corpuscular HGB Conc 30.8 g/dL (30.0-36.0); Mean Corpuscular Hemoglobin 28.1 pg (28.0-34.0); Mean Corpuscular Volume 91.3 fl (81-99); Mean Platelet Volume 9.7 fL (7.4-10.4); Monocytes # 0.6 10^3/uL (0.2-0.9); Monocytes % 3.6 %; Neutrophils # 14.58 10^3/uL (1.8-7.7); Neutrophils % 88.5 %; Nucleated Red Blood Cells % 0 %; Platelet Count 278 10^3/cmm (130-400); Red Blood Count 4.27 10^6/uL (4.1-5.3); Red Cell Distribution Width 15.5 % (12.1-15.1); White Blood Count 16.5 10^3/uL (4.0-10.0)
[2021-08-26 05:28] LABS: Alanine Aminotransferase 13 U/L (0-33); Albumin Level 2.1 g/dL (3.5-5.2); Alkaline Phosphatase 95 IU/L (35-105); Anion Gap 13.5 (5-19); Aspartate Amino Transferase 41 U/L (0-32); Blood Urea Nitrogen 31 mg/dL (8-23); Calcium 8.5 mg/dL (8.5-10.5); Carbon Dioxide 29 mmol/L (22-29); Chloride 106 mmol/L (98-107); Globulin 4.5 g/dL (1.3-4.6); Glucose 143 mg/dL (65-115); Magnesium 2.1 mg/dL (1.7-2.3); Osmolality Calculated 311 mOsm/kg (285-295); Sodium 146 mmol/L (136-145); Total Bilirubin 0.6 mg/dL (0.15-1.2); Total Protein 6.6 g/dL (6.6-8.7)
[2021-08-26 05:35] LABS: Creatine Phosphokinase 949 U/L (26-192); Potassium 2.5 mmol/L (3.5-5.1)
[2021-08-26] MEDS: piperacillin-tazobactam 3.375 GM in sodium chloride 0.9% (plus) 50 ML IV ×3 (06:14→22:00)
[2021-08-26] MEDS: potassium chloride premix 100 ML 25 MEQ IV ×2 (06:21→15:21)
--- NOTE | 2021-08-26 07:30 | PC.NURSE ---
received bedside report. pt answers name correctly. pt repositioned, clean and dry. decub noted upon assessment of coccyx. reviewed plan of care and assumed care of patient.
[2021-08-26] MEDS: pantoprazole 40 mg SDV IVP (08:03)
[2021-08-26] MEDS: insulin lispro 100 unit/1 mL SUBCUT (08:04)
--- NOTE | 2021-08-26 08:59 | ECG_ITS ---
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 Measurements Intervals Lyons Rate: 101 P: 9 MD: 193 QRS: -19 QRSD: 109 T: 32 QT: 407 QTc: 528 Interpretive Statements SINUS TACHYCARDIA WITH OCCASIONAL VENTRICULAR PREMATURE COMPLEXES WITH OCCASIONAL SUPRAVENTRICULAR PREMATURE COMPLEXES ABNORMAL RHYTHM ECG No previous ECG available for comparison Electronically Signed On 08-26-2021 16:51:32 CDT by Ventura Gallo M.D. [id number]
--- NOTE | 2021-08-26 09:27 | PC.NURSE ---
Dr Moses at bedside. Pt in afib, rate 110-150's. 5mg metoprolol iv given. 12 lead ekg ordered. pt not in distress. will continue to monitor hr and vital signs.
--- NOTE | 2021-08-26 10:07 | PC.CHAP ---
Pastoral Care Encounter/Spiritual Assessment Type of Contact [] Declined circulation man visit [] Patient/Family/Request visit [] Outpatient visit [] Follow-up visit [] Physician referral [] Code/Alert [x] Routine visit [] Staff referral [] Actively dying [] Patient sleeping [] Family support [] [] Out of room [] Palliative care [] [] Receiving care in room [] Pre-surgical visit [] Trauma [] Long length of stay [x] ICU visit [] Other: Relational/Emotional Strength [] Patient feels connected with others/family/visitors/staff [] Distress [] Loneliness/isolation [] Abandonment Spirituality of Patient [] Person of [place] [] Attends Adventism of their [place] [] Believes in Prayer [] Reads Bible or Advent materials [] There are Spiritual issues to be addressed Child Study Team Director Interventions [x] Prayer [x] Active listening [x] Non-anxious presence [x] Spiritual/emotional support [] Crisis/trauma care [] Spiritual counseling [] Bereavement support [] Provided bereavement packet [] Provided Bible/devotional materials [] Provided toy/stuffed animal, coloring book to patient or family member [] Provided Communion [] Anointing/[place] [] Salvation [x] Completed spiritual assessment [] Other: Impact on Illness or Injury [] Angry [] Fearful [] Anxious [] Often cries [] Exhaustion [] Unable to work [] Unable to attend methodist [] Unable to walk/stand [] Unable to read [] Unable to drive [] Unable to eat/drink [] Unable to sleep [] Unable to be with family [] Patient intubated [] Other: Summary Time spent with patient
[2021-08-26] MEDS: enoxaparin 100 mg/mL Syringe SUBCUT ×2 (10:45→22:00)
--- NOTE | 2021-08-26 11:00 | PC.NURSE ---
Pt yelling more and getting more restless. Upon review of home medications we are currently not giving her any of her pain medication and several others. I informed Dr Moses of this and requested that she review the home medications. She stated that she would and gave me a verbal order to give 0.5 mg ativan iv prn for anxiety and aggitation.
[2021-08-26 11:15] LABS: Glucose Point of Care 119 mg/dL (70-110)
[2021-08-26] MEDS: LORazepam 2 mg/mL INJ 1 mL 0.5 MG IVP (11:54)
[2021-08-26] MEDS: vancomycin 1,000 MG in sodium chloride 0.9% 250 ML 250 MG IV (11:55)
--- NOTE | 2021-08-26 12:52 | PM.PN ---
Subjective Subjective: Seen this morning. Patient is confused and making different sounds in the room. She is unable to communicate with me today. However she does appear awake and alert. Vitals/I&O/Wt Last Vital Signs Temp 99.8 F H 08/26/21 09:00 Pulse 102 H 08/26/21 11:00 Resp 32 H 08/26/21 11:00 BP 141/92 08/26/21 11:00 Pulse Ox 94 08/26/21 11:00 08/25/21 08/26/21 08/26/21 22:59 06:59 14:59 Intake Total 852.5 / 2257.5 50 / 2307.5 1150 / 1150 Output Total 750 / 1450 950 / 2400 Balance 102.5 / 807.5 -900 / -92.5 1150 / 1150 Weight last 48 hrs Weight 104.326 kg Weight 103.873 kg Physical Exam Narrative: General exam is a female laying in bed. She is making loud noises but is awake and alert. She is confused however unable to fully answer any questions. Appears she is able to protect her airway. Cardiovascular tachycardic, irregular rhythm, 3/6 systolic murmur heard best at the mitral area Lungs clear but with diminished breath sounds bilaterally.? No wheezes or crackles Abdomen is soft obese nontender with positive bowel sounds.? No obvious organomegaly Buttock: Stage I decubitus noted, left buttock Extremities 1+ edema, with erythema and venous stasis changes with evidence of cellulitis, extending up the leg into the thigh on the right.? Do not have a visual comparison but swelling seems to be better. Cap refill is brisk. Skin see findings above Neuro no obvious focal deficits, although nonverbal and not able to follow directions. Urinary Catheter Management: Wolfe: Cath Placed During This Visit: no Reason for Continuing Indwelling Catheter: Accurate Measurement of Urinary Output in Critically Ill Patients Data : 08/26/21 04:35 08/26/21 04:35 Micro: Microbiology 08/24/21 11:14 Urine Culture - Final Urine,Clean Catch Escherichia coli 08/24/21 10:15 Blood Culture - Preliminary Blood NEGATIVE TO DATE 08/24/21 09:40 Blood Culture - Preliminary Blood NEGATIVE TO DATE Other data: 08/24/2021: Head CT: 1.? No evidence of intracranial hemorrhage or mass effect. 2.? Mild small vessel changes. Mild parenchymal volume loss. 3.? No acute intracranial findings. 08/24/2021: Venous Dopplers Incomplete occlusive thrombus right CFV junction with GSV may be chronic. 08/25/2021: Foot CT 1.? Severe diffuse soft tissue edema surrounding the ankle and foot. No focal collection is identified without IV contrast. 2.? Advanced degenerative changes of osteoarthritis noted in the midfoot. lower extremity CT 1.? Extensive, severe subcutaneous edema and intramuscular edema which is progressive beginning from the mid to distal lower extremity. 2.? No focal fluid collection and no fracture. 3.? Advanced osteoarthritic changes at the knee joint and a moderate suprapatellar effusion A&P Assessment and plan (1) History of DVT (deep vein thrombosis): Status: Acute (2) Heart murmur: Status: Acute (3) COPD (chronic obstructive pulmonary disease): Status: Acute (4) Diabetes mellitus type 2 in obese: Status: Acute (5) UTI (urinary tract infection): Status: Acute (6) Acute metabolic encephalopathy: Status: Acute (7) Cellulitis: Status: Acute (8) Sepsis: Status: Acute Plan #Sepsis secondary to right lower extremity cellulitis #Acute metabolic encephalopathy with underlying dementia #Acute UTI #Rhabdomyolysis #Hypokalemia #Mild mitral regurgitation #Diabetes mellitus type 2 #COPD #History of DVT, on chronic anticoagulation #Atrial fibrillation -WBC count still elevated, bandemia present. ? Blood cultures x2 drawn. Urine culture ordered and growing E. coli sensitive to Zosyn. ? Continue vancomycin and Zosyn. If leg does worsen will obtain orthopedic consult. - Continue IV hydration -Right foot appeared more swollen yesterday. CT right lower extremity and foot was done without contrast. Shows extensive severe subcutaneous edema and intramuscular edema which is progressive beginning from mid to distal lower extremity. No focal fluid collection and no fracture. Advanced osteoarthritic changes at knee. CT foot showed severe diffuse soft tissue edema surrounding ankle and foot. No focal collection identified without IV contrast. ? Monitor closely for mental status improvement. She does have underlying dementia. ? Echocardiogram reviewed. Normal EF. Mild mitral regurgitation noted ? Continue sliding scale insulin ? DuoNeb every 4 hours as needed ? Continue full dose Lovenox. Xarelto held at admission -Replete electrolytes as needed DNR DNI. Okay with ICU placement and or pressors. Attestations Medical Necessity Statement*: Requires ICU level care. Coding Level of Care Code Acute Delinquent Tax Collection Assistant for Chg Fwd Diagnoses History of DVT (deep vein thrombosis) Z86.718 Heart murmur R01.1 COPD (chronic obstructive pulmonary disease) J44.9 Diabetes mellitus type 2 in obese E11.69; E66.9 UTI (urinary tract infection) N39.0 Acute metabolic encephalopathy G93.41 Cellulitis L03.90 Sepsis A41.9
[2021-08-26 14:31] LABS: Anion Gap 15.5 (5-19); Blood Urea Nitrogen 23 mg/dL (8-23); Calcium 8.6 mg/dL (8.5-10.5); Carbon Dioxide 28 mmol/L (22-29); Chloride 104 mmol/L (98-107); Glucose 123 mg/dL (65-115); Osmolality Calculated 305 mOsm/kg (285-295); Sodium 145 mmol/L (136-145)
[2021-08-26 14:35] LABS: Creatinine Clr Calc Pharmacy 61.1504
[2021-08-26 14:38] LABS: Potassium 2.5 mmol/L (3.5-5.1)
[2021-08-26] MEDS: sodium chloride 0.9% 1,000 ML 100 ML IV (14:45)
[2021-08-26 19:39] LABS: Glucose Point of Care 117 mg/dL (70-110)
[2021-08-26] MEDS: acetaminophen 650 mg Supp PR (20:12)
[2021-08-27] VITALS (19 sets, daily range): BP systolic 80–170; BP diastolic 52–116; PULSE 79–107; RESP 10–28; TEMP 36.6–37.6; O2SAT 90–98
[2021-08-27 01:16] LABS: Glucose Point of Care 118 mg/dL (70-110)
[2021-08-27] MEDS: metoprolol tartrate 1 mg/1 mL SDV 5 mL 10 MG IVP (01:40)
[2021-08-27] MEDS: potassium chloride premix 100 ML 25 MEQ IV (01:40)
[2021-08-27 02:14] LABS: Basophils % 0.3 %; Eosinophils % 0.1 %; Hematocrit 41.4 % (37.0-47.0); Hemoglobin 13.2 g/dL (11.5-15.3); Lymphocytes # 2.1 10^3/uL (0.8-4.8); Lymphocytes % 13.2 %; Mean Corpuscular HGB Conc 31.9 g/dL (30.0-36.0); Mean Corpuscular Hemoglobin 28.3 pg (28.0-34.0); Mean Corpuscular Volume 88.7 fl (81-99); Mean Platelet Volume 9.4 fL (7.4-10.4); Monocytes # 0.8 10^3/uL (0.2-0.9); Monocytes % 4.7 %; Neutrophils # 12.86 10^3/uL (1.8-7.7); Neutrophils % 81.1 %; Nucleated Red Blood Cells % 0 %; Platelet Count 274 10^3/cmm (130-400); Red Blood Count 4.67 10^6/uL (4.1-5.3); White Blood Count 15.9 10^3/uL (4.0-10.0)
[2021-08-27 02:37] LABS: Anion Gap 16.2 (5-19); Blood Urea Nitrogen 17 mg/dL (8-23); Calcium 8.9 mg/dL (8.5-10.5); Chloride 102 mmol/L (98-107)
[2021-08-27 02:49] LABS: Carbon Dioxide 31 mmol/L (22-29); Glucose 145 mg/dL (65-115); Osmolality Calculated 306 mOsm/kg (285-295); Potassium 3.2 mmol/L (3.5-5.1); Sodium 146 mmol/L (136-145)
[2021-08-27 03:04] LABS: Magnesium 1.8 mg/dL (1.7-2.3)
[2021-08-27] MEDS: sodium chloride 0.9% 1,000 ML 100 ML IV (05:12)
[2021-08-27] MEDS: piperacillin-tazobactam 3.375 GM in sodium chloride 0.9% (plus) 50 ML IV ×2 (05:15→16:02)
--- NOTE | 2021-08-27 05:38 | PC.NURSE ---
Patient is becoming more alert and having appropriate conversations with staff. She wants her to be called cause she wants to go home. Explained to her that she was in the hospital for an infection and that she needed to stay for IV antibiotics. At which point she started screaming NO, and attempting to hit and kick at this RN. Explained that I would call her when it was later in the morning.
--- NOTE | 2021-08-27 07:21 | US_ITS ---
WS: [id number] RENAL ULTRASOUND HISTORY: urinary tract infection with sepsis COMPARISON: None available. TECHNIQUE: 2-D and color Doppler imaging of the kidney submitted. Right kidney: 11.1 cm x 5.1 cm x 4.2 cm. Normal echogenicity with no hydronephrosis or mass. Left kidney: Not visualized. Difficult patient due to inability to move. Aorta: Mild atherosclerosis aorta. Urinary Bladder: Wolfe catheter present in a nondistended bladder. US/US renal BI* [id number] IMPRESSION: 1. Normal RIGHT kidney. 2. LEFT kidney is not identified.
[2021-08-27 07:26] LABS: Glucose Point of Care 128 mg/dL (70-110)
[2021-08-27] MEDS: metoprolol tartrate 1 mg/1 mL SDV 5 mL 5 MG IVP ×2 (07:35→21:35)
--- NOTE | 2021-08-27 08:02 | PM.PN ---
Subjective Subjective: Fany is able to converse today. She denies any chest discomfort or shortness of breath. She relates she would like to eat. She also wants to set up. Medications: Reviewed: Yes Vitals/I&O/Wt Last Vital Signs Temp 99.1 F 08/26/21 22:00 Pulse 105 H 08/27/21 06:00 Resp 14 08/27/21 06:00 BP 149/90 08/27/21 06:00 Pulse Ox 92 08/27/21 06:00 08/26/21 08/27/21 08/27/21 22:59 06:59 14:59 Intake Total 50 / 1450 1050 / 2500 Output Total 1200 / 2800 2700 / 5500 Balance -1150 / -1350 -1650 / -3000 Weight last 48 hrs Weight 104.326 kg Weight 104.326 kg Physical Exam Narrative: General exam is a female who is able to talk with me, although there is some delay in responses. Neck is supple no lymphadenopathy thyromegaly Cardiovascular regular rate and rhythm, borderline tachycardic, with 3/6 systolic murmur heard best at the mitral area Lungs clear but with diminished breath sounds bilaterally. No wheezes or crackles Abdomen is soft obese nontender with positive bowel sounds. No obvious organomegaly demonstrates Wolfe Extremities 1+ edema, with erythema and venous stasis changes with evidence of cellulitis, extending up the leg into the thigh on the right. This has greatly improved as far as erythema, and edema. Skin see findings above Neuro no obvious focal deficits, verbal and able to follow directions. Urinary Catheter Management: Wolfe: Cath Placed During This Visit: no Reason for Continuing Indwelling Catheter: Accurate Measurement of Urinary Output in Critically Ill Patients Data : 08/27/21 02:06 08/27/21 02:06 Micro: Microbiology 08/24/21 11:14 Urine Culture - Final Urine,Clean Catch Escherichia coli A&P Assessment and plan (1) Sepsis: Patient with evidence of acute severe sepsis present on admission with elevated lactic acid level, endorgan dysfunction with acute encephalopathy. This could be secondary to cellulitis in the right leg which is ascending, or UTI. Blood cultures negative to date Urine culture is growing E. coli Continue vancomycin and Zosyn Note she had some evidence of shock upon arrival with hypotension but this corrected quickly with fluid bolus. Status: Acute (2) Cellulitis: Significant cellulitis, right lower extremity, in the setting of underlying bilateral venous stasis. This is now improving CT right lower extremity demonstrated no obvious fracture, or abscess. Status: Acute (3) Acute metabolic encephalopathy: Secondary to infection. CT head negative. Improving Initiate diet, pur?ed with nectar thick liquids. Speech therapy consult pending. Status: Acute (4) UTI (urinary tract infection): Continue Zosyn and vancomycin IV Status: Acute (5) Heart murmur: Patient has a significant heart murmur. Echocardiogram of poor quality but demonstrated preserved ejection fraction, mild mitral regurgitation, 1/4 diastolic dysfunction Status: Acute (6) Diabetes mellitus type 2 in obese: Mild sliding scale insulin initially Status: Acute (7) COPD (chronic obstructive pulmonary disease): DuoNeb as needed Status: Acute (8) History of DVT (deep vein thrombosis): Patient with history of DVT, for which she is on chronic anticoagulation. At this point secondary to sepsis we will continue DVT prophylaxis anticoagulation with Lovenox. Venous duplex demonstrated thrombus right side probably chronic. Currently on full dose Lovenox. Status: Acute Plan UTI. Urine culture grew E. coli. Secondary to the severity of her illness on presentation check renal ultrasound. Hypokalemia, supplement Paroxysmal atrial fibrillation. While in the hospital patient has been having paroxysmal atrial fibrillation, occasional episodes of supraventricular tachycardia. She has been receiving IV metoprolol as she was not able to receive her regular metoprolol p.o. As she is much more mentally alert today, will initiate metoprolol 50 mg twice daily which is her home dose regimen. Continue to monitor on telemetry. Multiple other medical problems as outlined in past medical history Does not want intubation/mechanical ventilation or CPR. Okay with ICU placement and/or pressors. 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
[2021-08-27] MEDS: duloxetine 60 mg Capsule PO (08:26)
[2021-08-27] MEDS: metoprolol tartrate 50 mg Tablet PO ×2 (08:26→17:16)
[2021-08-27] MEDS: sodium chlor 0.45% +KCl 20 mEq 20 MEQ/1,000 ML BAG 75 MEQ IV (08:27)
[2021-08-27] MEDS: pantoprazole 40 mg SDV IVP (08:29)
--- NOTE | 2021-08-27 08:42 | PC.SOCIAL ---
IMM Update pg 2 of IMM updated and reviewed w/ son Ken via telephone. Copy left @ Bedside and copy placed in chart.
[2021-08-27 08:59] LABS: Basophils % 0.3 %; Eosinophils % 0.3 %; Hematocrit 42.2 % (37.0-47.0); Hemoglobin 13.4 g/dL (11.5-15.3); Lymphocytes # 1.4 10^3/uL (0.8-4.8); Lymphocytes % 9.7 %; Mean Corpuscular HGB Conc 31.8 g/dL (30.0-36.0); Mean Corpuscular Hemoglobin 28.1 pg (28.0-34.0); Mean Corpuscular Volume 88.5 fl (81-99); Mean Platelet Volume 9.8 fL (7.4-10.4); Monocytes # 0.7 10^3/uL (0.2-0.9); Monocytes % 4.7 %; Neutrophils # 11.77 10^3/uL (1.8-7.7); Neutrophils % 84.5 %; Nucleated Red Blood Cells % 0 %; Platelet Count 304 10^3/cmm (130-400); Red Blood Count 4.77 10^6/uL (4.1-5.3); Red Cell Distribution Width 14.7 % (12.1-15.1); White Blood Count 13.9 10^3/uL (4.0-10.0)
--- NOTE | 2021-08-27 09:00 | PC.NURSE ---
Report called to TEODORO Toth. Patient and belongings taken to 273-1. Sitter at bedside.
[2021-08-27 09:30] LABS: Anion Gap 12.7 (5-19); Blood Urea Nitrogen 18 mg/dL (8-23); Calcium 9.8 mg/dL (8.5-10.5); Carbon Dioxide 32 mmol/L (22-29); Chloride 104 mmol/L (98-107); Glucose 139 mg/dL (65-115); Osmolality Calculated 306 mOsm/kg (285-295); Sodium 146 mmol/L (136-145)
--- NOTE | 2021-08-27 09:36 | PC.NURSE ---
Patient transferred from ICU. Patient is resting with eyes closed. Fluids hooked up to fluids per order. 1:1 sitter in at bedside
[2021-08-27 09:46] LABS: Potassium 2.7 mmol/L (3.5-5.1)
[2021-08-27] MEDS: enoxaparin 100 mg/mL Syringe SUBCUT ×2 (11:07→21:35)
[2021-08-27 11:24] LABS: Vancomycin Trough 7.5 ug/mL (10-15)
[2021-08-27] MEDS: vancomycin 1,000 MG in sodium chloride 0.9% 250 ML 250 MG IV ×2 (12:18→12:20)
[2021-08-27 18:43] LABS: Glucose Point of Care 127 mg/dL (70-110)
--- NOTE | 2021-08-27 21:12 | ECG_ITS ---
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 Measurements Intervals Delia Rate: 94 P: 63 CT: 145 QRS: -22 QRSD: 110 T: 57 QT: 394 QTc: 494 Interpretive Statements SINUS RHYTHM WITH OCCASIONAL VENTRICULAR PREMATURE COMPLEXES WITH OCCASIONAL SUPRAVENTRICULAR PREMATURE COMPLEXES POSSIBLE LATERAL MYOCARDIAL INFARCTION , PROBABLY OLD [30 ms Q WAVE IN I/aVL/V5/V6] Compared to ECG 08/26/2021 09:13:45 Myocardial infarct finding now present Sinus tachycardia no longer present Electronically Signed On 08-27-2021 23:50:57 CDT by Donta Ambrocio M.D. [id number]
[2021-08-27 21:34] LABS: Glucose Point of Care 167 mg/dL (70-110)
[2021-08-27 21:34] LABS: Glucose Point of Care 169 mg/dL (70-110)
[2021-08-27] MEDS: insulin lispro 100 unit/1 mL SUBCUT (21:35)
[2021-08-28] VITALS (10 sets, daily range): BP systolic 99–152; BP diastolic 65–86; PULSE 77–173; RESP 18–24; TEMP 36.3–36.9; O2SAT 93–98; BMI 35.2
[2021-08-28] MEDS: piperacillin-tazobactam 3.375 GM in sodium chloride 0.9% (plus) 50 ML IV ×3 (00:04→20:45)
[2021-08-28] MEDS: metoprolol tartrate 1 mg/1 mL SDV 5 mL 5 MG IVP (04:10)
[2021-08-28] MEDS: vancomycin 1,000 MG in sodium chloride 0.9% 250 ML 150 MG IV (05:47)
[2021-08-28 06:00] LABS: Basophils % 0.4 %; Eosinophils # 0.1 10^3/uL (0.0-0.8); Eosinophils % 1.3 %; Hematocrit 40.5 % (37.0-47.0); Hemoglobin 12.6 g/dL (11.5-15.3); Lymphocytes # 1.9 10^3/uL (0.8-4.8); Lymphocytes % 19.2 %; Mean Corpuscular HGB Conc 31.1 g/dL (30.0-36.0); Mean Corpuscular Hemoglobin 27.7 pg (28.0-34.0); Mean Platelet Volume 9.6 fL (7.4-10.4); Monocytes # 0.7 10^3/uL (0.2-0.9); Monocytes % 7.1 %; Neutrophils # 7.08 10^3/uL (1.8-7.7); Neutrophils % 71.4 %; Nucleated Red Blood Cells % 0 %; Platelet Count 309 10^3/cmm (130-400); Red Blood Count 4.55 10^6/uL (4.1-5.3); White Blood Count 9.9 10^3/uL (4.0-10.0)
[2021-08-28 06:42] LABS: Glucose Point of Care 152 mg/dL (70-110)
--- NOTE | 2021-08-28 08:07 | XRR_ITS ---
PROCEDURE INFORMATION: Exam: XR Chest Exam date and time: 08/28/2021 8:13 AM Age: 71 years old Clinical indication: Other: Hypoxia; Patient HX: AMS TECHNIQUE: Imaging protocol: XR of the chest. Views: 1 view. COMPARISON: CR XR chest 1V portable [id number] 08/24/2021 8:47 AM FINDINGS: Tubes, catheters and devices: Neurostimulator leads project over the midthoracic spine. Surgical clips are seen projecting over the left axillary region. Lungs: Low lung volumes. No consolidation. Pleural spaces: Unremarkable. No pleural effusion. No pneumothorax. Heart/Mediastinum: Stable cardiomediastinal silhouette. Bones/joints: Unremarkable. XR/XR chest 1V portable [id number] IMPRESSION: No evidence of active cardiopulmonary disease.
--- NOTE | 2021-08-28 08:10 | P.PN_ITS ---
Subjective Subjective: Fany is alert and oriented at this morning. Responses are brisk. She wonders when she can go back to the nursing facility. Overnight she had at least 2 episodes of SVT, treated with metoprolol IV. She denies any chest pain or shortness of breath. Medications: Reviewed: Yes Vitals/I&O/Wt Last Vital Signs Temp 97.6 F 08/28/21 08:00 Pulse 83 08/28/21 08:00 Resp 18 08/28/21 08:00 BP 152/69 08/28/21 08:00 Pulse Ox 93 08/28/21 08:00 08/27/21 08/28/21 08/28/21 22:59 06:59 14:59 Intake Total 310 / 1261.667 790 / 2051.667 120 / 120 Output Total 1301 / 1301 800 / 2101 Balance -991 / -39.333 -10 / -49.333 120 / 120 Weight last 48 hrs Weight 98.883 kg Weight 104.326 kg Physical Exam Narrative: General exam is a female without distress who is alert and oriented. Neck is supple no lymphadenopathy thyromegaly Cardiovascular regular rate and rhythm, borderline tachycardic, with 3/6 systolic murmur heard best at the mitral area Lungs clear but with diminished breath sounds bilaterally. No wheezes or crackles Abdomen is soft obese nontender with positive bowel sounds. No obvious organomegaly demonstrates Wolfe Extremities 1+ edema, with erythema and venous stasis changes with evidence of cellulitis, extending up the leg into the thigh on the right. This has significantly improved further. Skin see findings above Neuro no obvious focal deficits, verbal and able to follow directions. Urinary Catheter Management: Wolfe: Cath Placed During This Visit: no Reason for Continuing Indwelling Catheter: Accurate Measurement of Urinary Output in Critically Ill Patients Data : 08/28/21 05:47 08/27/21 08:10 A&P Assessment and plan (1) Sepsis: Patient with evidence of acute severe sepsis present on admission with elevated lactic acid level, endorgan dysfunction with acute encephalopathy. This could be secondary to cellulitis in the right leg which is ascending, or UTI. Blood cultures negative to date Urine culture is growing E. coli, sensitive to Zosyn Continue vancomycin and Zosyn Note she had some evidence of shock upon arrival with hypotension but this corrected quickly with fluid bolus. Status: Acute (2) Cellulitis: Significant cellulitis, right lower extremity, in the setting of underlying bilateral venous stasis. This is now improving CT right lower extremity demonstrated no obvious fracture, or abscess. Status: Acute (3) Acute metabolic encephalopathy: Secondary to infection. CT head negative. Back to baseline Initiate diet, pur?ed with nectar thick liquids. Speech therapy will advance diet as appropriate Status: Acute (4) UTI (urinary tract infection): Continue Zosyn. E. coli isolated. Status: Acute (5) Heart murmur: Patient has a significant heart murmur. Echocardiogram of poor quality but demonstrated preserved ejection fraction, mild mitral regurgitation, 1/4 diastolic dysfunction Status: Acute (6) Diabetes mellitus type 2 in obese: Mild sliding scale insulin initially Status: Acute (7) COPD (chronic obstructive pulmonary disease): DuoNeb as needed Status: Acute (8) History of DVT (deep vein thrombosis): Patient with history of DVT, for which she is on chronic anticoagulation. At this point secondary to sepsis we will continue DVT prophylaxis ant icoagulation with Lovenox. Venous duplex demonstrated thrombus right side probably chronic. We will change her Lovenox back to Xarelto, lower dose secondary to chronicity of abnormality right side Status: Acute Plan UTI. Urine culture grew E. coli. Renal ultrasound check no obvious obstruction Hypokalemia, awaiting level today. She has had significant hypokalemia during this hospital stay. Magnesium has been normal. Paroxysmal atrial fibrillation/SVT. this appears to be more significant for SVT overnight. Correct electrolyte abnormalities, continue metoprolol p.o Continue to monitor on telemetry. Oxygen need went up overnight. Check chest x-ray. I suspect this is secondary to fluids that were needed during her hospital stay. Hopefully can discontinue them today Multiple other medical problems as outlined in past medical history Does not want intubation/mechanical ventilation or CPR. Okay with ICU placement and/or pressors. 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
[2021-08-28] MEDS: duloxetine 60 mg Capsule PO (08:32)
[2021-08-28] MEDS: metoprolol tartrate 50 mg Tablet PO ×2 (08:32→18:11)
[2021-08-28] MEDS: rivaroxaban 10 mg Tablet PO (08:32)
[2021-08-28] MEDS: pantoprazole DR 40 mg Tablet PO (08:32)
[2021-08-28] MEDS: sodium chlor 0.45% +KCl 20 mEq 20 MEQ/1,000 ML BAG 75 MEQ IV ×2 (08:33→22:47)
[2021-08-28 09:02] LABS: Anion Gap 13.6 (5-19); Blood Urea Nitrogen 16 mg/dL (8-23); Calcium 9.2 mg/dL (8.5-10.5); Carbon Dioxide 31 mmol/L (22-29); Chloride 100 mmol/L (98-107); Glucose 146 mg/dL (65-115); Magnesium 1.8 mg/dL (1.7-2.3); Osmolality Calculated 298 mOsm/kg (285-295); Sodium 142 mmol/L (136-145)
[2021-08-28 09:03] LABS: Potassium 2.6 mmol/L (3.5-5.1)
[2021-08-28] MEDS: lidocaine 1% 5 ML in potassium chloride premix 100 ML 25 ML IV ×2 (10:08→16:23)
[2021-08-28 12:38] LABS: Glucose Point of Care 196 mg/dL (70-110)
[2021-08-28] MEDS: insulin lispro 100 unit/1 mL SUBCUT ×2 (12:46→20:45)
[2021-08-28 17:21] LABS: Glucose Point of Care 157 mg/dL (70-110)
[2021-08-28 21:40] LABS: Blood Urea Nitrogen 18 mg/dL (8-23); Carbon Dioxide 27 mmol/L (22-29); Chloride 105 mmol/L (98-107); Creatinine Clr Calc Pharmacy 66.0314; Glucose 169 mg/dL (65-115); Osmolality Calculated 306 mOsm/kg (285-295); Sodium 145 mmol/L (136-145)
[2021-08-28 21:53] LABS: Anion Gap 16.6 (5-19); Potassium 3.6 mmol/L (3.5-5.1)
[2021-08-29] VITALS (10 sets, daily range): BP systolic 128–180; BP diastolic 77–101; PULSE 72–107; RESP 16–24; TEMP 36.2–37.1; O2SAT 94–99
[2021-08-29] MEDS: vancomycin 1,000 MG in sodium chloride 0.9% 250 ML 250 MG IV (00:26)
[2021-08-29] MEDS: piperacillin-tazobactam 3.375 GM in sodium chloride 0.9% (plus) 50 ML IV ×2 (03:40→13:12)
[2021-08-29 04:46] LABS: Basophils # 0.1 10^3/uL (0.0-0.1); Basophils % 0.5 %; Eosinophils # 0.3 10^3/uL (0.0-0.8); Eosinophils % 2.9 %; Hematocrit 38.8 % (37.0-47.0); Hemoglobin 12.2 g/dL (11.5-15.3); Lymphocytes # 1.7 10^3/uL (0.8-4.8); Lymphocytes % 18.5 %; Mean Corpuscular HGB Conc 31.4 g/dL (30.0-36.0); Mean Corpuscular Volume 89.2 fl (81-99); Mean Platelet Volume 9.7 fL (7.4-10.4); Monocytes # 0.5 10^3/uL (0.2-0.9); Monocytes % 5.5 %; Neutrophils # 6.68 10^3/uL (1.8-7.7); Neutrophils % 71.7 %; Nucleated Red Blood Cells % 0 %; Platelet Count 325 10^3/cmm (130-400); Red Blood Count 4.35 10^6/uL (4.1-5.3); Red Cell Distribution Width 14.8 % (12.1-15.1); White Blood Count 9.3 10^3/uL (4.0-10.0)
[2021-08-29 05:12] LABS: Blood Urea Nitrogen 17 mg/dL (8-23); Calcium 9.1 mg/dL (8.5-10.5); Carbon Dioxide 28 mmol/L (22-29); Chloride 105 mmol/L (98-107); Glucose 129 mg/dL (65-115); Osmolality Calculated 305 mOsm/kg (285-295); Sodium 146 mmol/L (136-145)
[2021-08-29] MEDS: duloxetine 60 mg Capsule PO (08:05)
[2021-08-29] MEDS: rivaroxaban 10 mg Tablet PO (08:05)
[2021-08-29] MEDS: pantoprazole DR 40 mg Tablet PO (08:05)
[2021-08-29] MEDS: metoprolol tartrate 50 mg Tablet PO ×2 (08:05→17:37)
[2021-08-29] MEDS: insulin lispro 100 unit/1 mL SUBCUT ×2 (08:09→21:13)
[2021-08-29] MEDS: potassium chloride oral liq 20 mEq/15 mL UDC 40 MEQ PO ×2 (09:38→20:53)
[2021-08-29] MEDS: metoprolol tartrate 25 mg Tablet PO (09:38)
--- NOTE | 2021-08-29 10:30 | PC.SOCIAL ---
IMM Update pg 2 of IMM updated and reviewed w/ patient. Copy provided and copy in chart updated.
--- NOTE | 2021-08-29 11:20 | PC.NURSE ---
Dressings changed Cluster wound to sacral area with surrounding erythema and suspected deep tissue injury. Cleansed with NS and gauze 4x4, hydrofera blue applied and secured with optifoam. Right lateral leg wound cleansed with NS and gauze 4x4 covered with hydrofera blue ready and optifoam applied. Blister area to right calcaneus. Blister still intact and partially fluid filled covered with optifoam and heel protectors applied. Left lower leg stasis ulceraration left open to air. Moisturizer applied to dry legs. Verbal orders obtained by Dr. Taveras for dressing changes as described above.
--- NOTE | 2021-08-29 19:39 | PM.PN ---
Subjective Subjective: She is not feeling the best. He is having aches and pains in multiple locations. Calmer, does not appear to be trying to climb out of bed during my visit. Vitals/I&O/Wt Last Vital Signs Temp 98.3 F 08/29/21 15:00 Pulse 75 08/29/21 15:00 Resp 20 H 08/29/21 15:00 BP 176/82 08/29/21 15:00 Pulse Ox 97 08/29/21 15:00 08/29/21 08/29/21 08/29/21 06:59 14:59 22:59 Intake Total 445 / 3547.000 516 / 516 50 / 566 Output Total 1000 / 4901 Balance -555 / -1354.000 516 / 516 50 / 566 Weight last 48 hrs Weight 96.36 kg Weight 98.883 kg Physical Exam Const: COMMON NORMALS: alert GENERAL APPEARANCE: cooperative NUTRITIONAL APPEARANCE: obese ORIENTATION/CONSCIOUSNESS: Yes awake HENMT: COMMON NORMALS: normocephalic, EAC's normal, Normal external nose present and moist oral mucous membranes HEAD & SCALP: normocephalic NOSE: Normal external nose present EXTERNAL AUDITORY CANAL: EAC's normal Neck/C-Spine: COMMON NORMALS: no meningeal signs Chest: CHEST: Yes Symmetrical chest wall rise Resp: COMMON NORMALS: clear to auscultation bilaterally AUSCULTATION: clear to auscultation bilaterally Cardio: COMMON NORMALS: regular rate, regular rhythm and No murmurs present (Cardio) RATE: regular rate RHYTHM: regular rhythm GI: COMMON NORMALS: Normal to inspection, nondistended, normoactive bowel sounds present, Soft to palpation and non-tender PALPATION: Yes Soft to palpation Extremity: COMMON NORMALS: no pedal edema Neuro: COMMON NORMALS: moves all extremities SENSORIUM/ORIENTATION: Yes alert MENINGEAL SIGNS: Yes no meningeal signs Psych: COMMON NORMALS: mental status grossly normal Skin: NARRATIVE SKIN EXAM: Extensive area of deep tissue injury on buttocks, maceration, extending as stage 2 ulcer on sacrum Right heel posterior/medial blisters, heels floated RASHES: no rashes Urinary Catheter Management: Wolfe: Cath Placed During This Visit: no Reason for Continuing Indwelling Catheter: Accurate Measurement of Urinary Output in Critically Ill Patients Data : 08/29/21 04:20 08/29/21 04:20 Micro: Microbiology 08/24/21 10:15 Blood Culture - Final Blood NO GROWTH AFTER 5 DAYS 08/24/21 09:40 Blood Culture - Final Blood NO GROWTH AFTER 5 DAYS A&P Assessment and plan (1) Deep tissue injury: Buttocks. May benefit from debridement, please have surgery assess when back on Mon. Wound care for now. Reposition. Add protein supplements. Status: Acute (2) Cellulitis: Cont vanco, zosyn. Blisteration on posterior R heel, DTI buttocks would benefit from surgical assessment for debridement. Resolving cellulitis, right lower extremity, in the setting of underlying bilateral venous stasis. CT right lower extremity demonstrated no obvious fracture, or abscess. Status: Acute (3) Sepsis: Resolved. Patient with evidence of acute severe sepsis present on admission with elevated lactic acid level, endorgan dysfunction with acute encephalopathy. This could be secondary to cellulitis in the right leg which is ascending, or UTI. Shock upon arrival with hypotension but this corrected quickly with fluid bolus. Status: Acute (4) Acute metabolic encephalopathy: Secondary to infection. CT head negative. Back to baseline Initiate diet, pur?ed with nectar thick liquids. Speech therapy Status: Acute (5) UTI (urinary tract infection): Continue Zosyn. E. coli isolated. Status: Acute (6) Heart murmur: Patient has a significant heart murmur. Echocardiogram of poor quality but demonstrated preserved ejection fraction, mild mitral regurgitation, 1/4 diastolic dysfunction Status: Acute (7) Diabetes mellitus type 2 in obese: Mild sliding scale insulin initially Status: Acute (8) COPD (chronic obstructive pulmonary disease): DuoNeb as needed Status: Acute (9) History of DVT (deep vein thrombosis): Change to Lovenox in anticipation of possible wound debridement. Patient with history of DVT, for which she is on chronic anticoagulation. At this point secondary to sepsis we will continue DVT prophylaxis anticoagulation with Lovenox. Status: Acute Plan Hypokalemia: resume potassium supplements Paroxysmal atrial fibrillation/SVT: Increase metoprolol dose to 75 mg twice daily. Continue to monitor on telemetry. Oxygen need went up overnight. Stop IVF Multiple other medical problems as outlined in past medical history Does not want intubation/mechanical ventilation or CPR. Okay with ICU placement and/or pressors. Pending placement arrangements back to skilled nursing, will require skilled care, prior authorization. Attestations Medical Necessity Statement*: Continue admission for optimization of control of A. fib, assessment of DTI buttocks, continue treatment of cellulitis, UTI, arrangements for return to skilled care. Coding Level of Care Code Acute Physiotherapist'S Assistant for g Fwd Diagnoses Sepsis A41.9 Cellulitis L03.90 Acute metabolic encephalopathy G93.41 UTI (urinary tract infection) N39.0 Heart murmur R01.1 Diabetes mellitus type 2 in obese E11.69; E66.9 COPD (chronic obstructive pulmonary disease) J44.9 History of DVT (deep vein thrombosis) Z86.718 Deep tissue injury T14.8XXA
[2021-08-29 19:46] LABS: Vancomycin Trough 17.1 ug/mL (10-15)
[2021-08-30] VITALS (7 sets, daily range): BP systolic 124–161; BP diastolic 70–86; PULSE 75–109; RESP 17–20; TEMP 36.4–36.9; O2SAT 97–98
[2021-08-30] MEDS: vancomycin 1,000 MG in sodium chloride 0.9% 250 ML 250 MG IV ×2 (03:46→21:00)
[2021-08-30 04:54] LABS: Basophils % 0.5 %; Eosinophils # 0.3 10^3/uL (0.0-0.8); Eosinophils % 4.3 %; Hematocrit 40.2 % (37.0-47.0); Hemoglobin 12.2 g/dL (11.5-15.3); Lymphocytes # 1.8 10^3/uL (0.8-4.8); Lymphocytes % 22.8 %; Mean Corpuscular HGB Conc 30.3 g/dL (30.0-36.0); Mean Corpuscular Volume 92.4 fl (81-99); Monocytes # 0.4 10^3/uL (0.2-0.9); Monocytes % 5.6 %; Neutrophils # 5.04 10^3/uL (1.8-7.7); Neutrophils % 65.5 %; Nucleated Red Blood Cells % 0 %; Platelet Count 334 10^3/cmm (130-400); Red Blood Count 4.35 10^6/uL (4.1-5.3); Red Cell Distribution Width 14.9 % (12.1-15.1); White Blood Count 7.7 10^3/uL (4.0-10.0)
[2021-08-30 05:16] LABS: Anion Gap 15.3 (5-19); Blood Urea Nitrogen 15 mg/dL (8-23); Calcium 9.2 mg/dL (8.5-10.5); Carbon Dioxide 27 mmol/L (22-29); Chloride 104 mmol/L (98-107); Glucose 113 mg/dL (65-115); Osmolality Calculated 298 mOsm/kg (285-295); Potassium 3.3 mmol/L (3.5-5.1); Sodium 143 mmol/L (136-145)
[2021-08-30] MEDS: piperacillin-tazobactam 3.375 GM in sodium chloride 0.9% (plus) 50 ML IV ×3 (06:23→22:24)
[2021-08-30] MEDS: duloxetine 60 mg Capsule PO (08:46)
[2021-08-30] MEDS: potassium chloride oral liq 20 mEq/15 mL UDC 40 MEQ PO (08:46)
[2021-08-30] MEDS: metoprolol tartrate 50 mg Tablet 75 MG PO ×2 (08:46→16:35)
[2021-08-30] MEDS: pantoprazole DR 40 mg Tablet PO (08:46)
[2021-08-30] MEDS: enoxaparin 100 mg/mL Syringe SUBCUT (08:47)
[2021-08-30] MEDS: insulin lispro 100 unit/1 mL SUBCUT (17:28)
--- NOTE | 2021-08-30 20:33 | P.PN_ITS ---
Subjective Subjective: She says she is doing a bit better today. She is oriented to year, not to place. She states breathing is okay. Denies chest pain or pressure. No nausea or vomiting. No appetite, however, drink low bit of strawberry Ensure. Did not touch her breakfast. Vitals/I&O/Wt Last Vital Signs Temp 97.6 F 08/30/21 19:56 Pulse 75 08/30/21 19:56 Resp 17 08/30/21 19:56 BP 128/77 08/30/21 19:56 Pulse Ox 98 08/30/21 19:56 08/30/21 08/30/21 08/30/21 06:59 14:59 22:59 Intake Total 350 / 1156 50 / 50 50 / 100 Output Total 1000 / 1000 680 / 680 250 / 930 Balance -650 / 156 -630 / -630 -200 / -830 Weight last 48 hrs Weight 97.477 kg Weight 96.36 kg Physical Exam Const: COMMON NORMALS: alert GENERAL APPEARANCE: cooperative NUTRITIONAL APPEARANCE: obese ORIENTATION/CONSCIOUSNESS: Yes awake HENMT: COMMON NORMALS: normocephalic, EAC's normal, Normal external nose present and moist oral mucous membranes HEAD & SCALP: normocephalic NOSE: Normal external nose present EXTERNAL AUDITORY CANAL: EAC's normal Neck/C-Spine: COMMON NORMALS: no meningeal signs Chest: CHEST: Yes Symmetrical chest wall rise Resp: COMMON NORMALS: clear to auscultation bilaterally AUSCULTATION: clear to auscultation bilaterally Cardio: COMMON NORMALS: regular rate, regular rhythm and No murmurs present (Cardio) RATE: regular rate RHYTHM: regular rhythm GI: COMMON NORMALS: Normal to inspection, nondistended, normoactive bowel sounds present, Soft to palpation and non-tender PALPATION: Yes Soft to palpation Extremity: COMMON NORMALS: no pedal edema Neuro: COMMON NORMALS: moves all extremities SENSORIUM/ORIENTATION: Yes alert MENINGEAL SIGNS: Yes no meningeal signs Psych: COMMON NORMALS: mental status grossly normal Skin: NARRATIVE SKIN EXAM: Extensive area of deep tissue injury on buttocks, maceration, extending as stage 2 ulcer on sacrum Right heel posterior/medial blisters, heels floated RASHES: no rashes Urinary Catheter Management: Wolfe: Cath Placed During This Visit: no Reason for Continuing Indwelling Catheter: Accurate Measurement of Urinary Output in Critically Ill Patients Data : 08/30/21 04:10 08/30/21 04:10 A&P Assessment and plan (1) Deep tissue injury: Buttocks. May benefit from debridement, please have surgery assess when back on Mon. Wound care for now. Reposition. Add protein supplements. Status: Acute (2) Cellulitis: Cont vanco, zosyn. Blisteration on posterior R heel, DTI buttocks would benefit from surgical assessment for debridement. Resolving cellulitis, right lower extremity, in the setting of underlying bilateral venous stasis. CT right lower extremity demonstrated no obvious fracture, or abscess. Status: Acute (3) Sepsis: Resolved. Patient with evidence of acute severe sepsis present on admission with elevated lactic acid level, endorgan dysfunction with acute encephalopathy. This could be secondary to cellulitis in the right leg which is ascending, or UTI. Shock upon arrival with hypotension but this corrected quickly with fluid bolus. Status: Acute (4) Acute metabolic encephalopathy: Continue to improve. She is Colmer today. One-to-one sitter discontinued. Poor appetite. Encourage oral intake as tolerating. Secondary to infection. CT head negative. Continue speech therapy Status: Acute (5) UTI (urinary tract infection): Continue Zosyn. E. coli isolated. Status: Acute (6) Heart murmur: Patient has a significant heart murmur. Echocardiogram of poor quality but demonstrated preserved ejection fraction, mild mitral regurgitation, 1/4 diastolic dysfunction Status: Acute (7) Diabetes mellitus type 2 in obese: Mild sliding scale insulin initially Status: Acute (8) COPD (chronic obstructive pulmonary disease): DuoNeb as needed Status: Acute (9) History of DVT (deep vein thrombosis): Changed to Lovenox in anticipation of possible wound debridement. Patient with history of DVT, for which she is on chronic anticoagulation. At this point secondary to sepsis we will continue DVT prophylaxis anticoagulation with Lovenox. Status: Acute Plan Hypokalemia: resume potassium supplements Paroxysmal atrial fibrillation/SVT: Improved with increase of metoprolol dose to 75 mg twice daily. Continue to monitor on telemetry. Oxygen need went up overnight. Off IVF Multiple other medical problems as outlined in past medical history Does not want intubation/mechanical ventilation or CPR. Okay with ICU placement and/or pressors. Pending placement arrangements back to long term, will require skilled care, prior authorization. Attestations Medical Necessity Statement*: Continue admission for additional assessment and management of deep tissue injury of buttocks, treatment of cellulitis, pending also prior authorization for additional skilled care after discharge. Coding Level of Care Code Acute Business Management Specialist for [facility] Fwd Diagnoses Deep tissue injury T14.8XXA Cellulitis L03.90 Sepsis A41.9 Acute metabolic encephalopathy G93.41 UTI (urinary tract infection) N39.0 Heart murmur R01.1 Diabetes mellitus type 2 in obese E11.69; E66.9 COPD (chronic obstructive pulmonary disease) J44.9 History of DVT (deep vein thrombosis) Z86.718
--- NOTE | 2021-08-30 20:53 | PC.NURSE ---
Late Entry for 08/28 0500: At approx 2115 08/27, pt converted to SVT with rate sustaining 180s; no PRNs available; pt asymptomatic at this time. call placed to Dr Dow with orders received for metoprolol 5mg IVP scheduled; EKG obtained showing NSR 90s, notified MD with order received to change metoprolol to PRN HR >140s. MD states monitor pt and notify if metoprolol ineffective in controlling SVT. Pt again converted to SVT 180s sustaining, remains asymptomatic. Metoprolol 5mg given IVP at 2135. pt returned to SR with rate in 80s after about 15min (see tele strip recorded for 2199 assessment). pt remained SR throughout shift unit approx 0400 when pt again converted to SVT 160-180s sustaining. sitter at bedside states pt was resting quietly in bed at time of conversion, remains currently asymptomatic. Metoprolol 5mg given PRN IVP at 0410 with pt converting to NSR within 15 minutes of admin.
[2021-08-31] VITALS: BP 123/72; PULSE 72; PULSE 78; RESP 16; TEMP 36.6; O2SAT 95
[2021-08-31 04:00] VITALS: BP 143/84; PULSE 83; RESP 17; TEMP 36.3; O2SAT 100
[2021-08-31 04:23] VITALS: PULSE 78
[2021-08-31 04:50] LABS: Basophils # 0.1 10^3/uL (0.0-0.1); Basophils % 1.1 %; Eosinophils # 0.3 10^3/uL (0.0-0.8); Eosinophils % 4.3 %; Hematocrit 44.5 % (37.0-47.0); Hemoglobin 12.9 g/dL (11.5-15.3); Lymphocytes # 1.7 10^3/uL (0.8-4.8); Lymphocytes % 22.8 %; Mean Corpuscular Hemoglobin 28.2 pg (28.0-34.0); Mean Corpuscular Volume 97.4 fl (81-99); Mean Platelet Volume 10.6 fL (7.4-10.4); Monocytes # 0.5 10^3/uL (0.2-0.9); Monocytes % 6.1 %; Neutrophils # 4.75 10^3/uL (1.8-7.7); Neutrophils % 64.3 %; Nucleated Red Blood Cells % 0 %; Platelet Count 287 10^3/cmm (130-400); Red Blood Count 4.57 10^6/uL (4.1-5.3); White Blood Count 7.4 10^3/uL (4.0-10.0)
[2021-08-31] MEDS: piperacillin-tazobactam 3.375 GM in sodium chloride 0.9% (plus) 50 ML IV (05:21)
[2021-08-31 08:00] VITALS: BP 139/82; PULSE 84; RESP 17; RESP 20; TEMP 36.5; O2SAT 96; O2SAT 98
[2021-08-31 08:04] LABS: Glucose Point of Care 145 mg/dL (70-110)
[2021-08-31 08:04] LABS: Glucose Point of Care 106 mg/dL (70-110)
[2021-08-31 08:04] LABS: Glucose Point of Care 104 mg/dL (70-110)
[2021-08-31 08:04] LABS: Glucose Point of Care 127 mg/dL (70-110)
[2021-08-31 08:04] LABS: Glucose Point of Care 198 mg/dL (70-110)
[2021-08-31 08:04] LABS: Glucose Point of Care 117 mg/dL (70-110)
[2021-08-31 08:04] LABS: Glucose Point of Care 126 mg/dL (70-110)
[2021-08-31 08:04] LABS: Glucose Point of Care 159 mg/dL (70-110)
[2021-08-31 08:04] LABS: Glucose Point of Care 108 mg/dL (70-110)
[2021-08-31 08:04] LABS: Glucose Point of Care 154 mg/dL (70-110)
[2021-08-31] MEDS: metoprolol tartrate 50 mg Tablet 75 MG PO (08:29)
[2021-08-31] MEDS: enoxaparin 100 mg/mL Syringe SUBCUT (08:29)
[2021-08-31] MEDS: potassium chloride oral liq 20 mEq/15 mL UDC 40 MEQ PO (08:29)
[2021-08-31] MEDS: duloxetine 60 mg Capsule PO (08:29)
[2021-08-31] MEDS: pantoprazole DR 40 mg Tablet PO (08:29)
[2021-08-31] MEDS: sodium hypochlorite 0.25% Btl 473 mL 1 APPLIC TOPICAL (11:19)
--- NOTE | 2021-08-31 11:19 | PC.NURSE ---
Applied wet to dry dressing to both buttocks. Patient's heels floated and call light in reach.
[2021-08-31 11:28] VITALS: BP 128/81; PULSE 77; RESP 18; TEMP 36.2; O2SAT 94
[2021-08-31 11:29] LABS: Glucose Point of Care 102 mg/dL (70-110)
[2021-08-31 11:37] LABS: Glucose Point of Care 200 mg/dL (70-110)
[2021-08-31] MEDS: insulin lispro 100 unit/1 mL SUBCUT (11:54)
--- NOTE | 2021-08-31 12:38 | PM.DCS ---
Discharge Providers Date of Admission: 08/24/21 21:21 Date of Discharge: August 31, 2021 Attending Provider at Admission: Saturnino Hernandez MD Attending Provider at Discharge: Dimitri Do MD Primary Care Provider: Rasheeda Hernandez MD Diagnoses at Discharge Discharge Diagnosis (1) Deep tissue injury: Status: Acute (2) Cellulitis: Status: Acute (3) Sepsis: Status: Acute (4) Acute metabolic encephalopathy: Status: Acute (5) UTI (urinary tract infection): Status: Acute (6) Heart murmur: Status: Acute (7) Diabetes mellitus type 2 in obese: Status: Acute (8) COPD (chronic obstructive pulmonary disease): Status: Acute (9) History of DVT (deep vein thrombosis): Status: Acute Reason for Visit Reason for Visit: [place] Hospital Course Hospital Course This is a 71-year-old female longterm resident at [facility], with underlying dementia, CHF, COPD, type 2 diabetes mellitus, GERD, history of DVT on Xarelto, hypertension, hyperlipidemia Who presented to [facility] for acute encephalopathy, cellulitis of the right lower extremity and UTIs initial hypotension, acute kidney injury, with sepsis, rhabdomyolysis, endorgan dysfunction elevated lactic acid, endorgan dysfunction. Patient was admitted to the intensive care unit, received broad-spectrum antibiotic therapy, fluid therapy, and clinically improved. Patient was moved to general medical floors, her mentation improved, remained afebrile. Patient will be discharged on 7 remaining days of doxycycline and Augmentin with close follow-up with primary care provider as outpatient. For acute encephalopathy, her mentation did improve, however at baseline she intermittently is alert to person, place, not to time. Patient does have a sacral decubitus ulcer, stage II, measuring 1 x 1 cm, no significant tunneling, requires wound care, instruction provided to longterm,off loading, repositioning, follow-up up with wound care. She also has a heal ulcer on the right, 1 x 1 cm, superficial, that requires offloading, wound care wet-to-dry dressings, follow-up with wound care as outpatient. Patient was also found to have paroxysmal atrial fibrillation and SVT during hospitalization, metoprolol dose increased to 75 mg twice daily Also had hypokalemia during hospitalization, requiring replacement Physical Exam Const: COMMON NORMALS: no acute distress and patient oriented x3 Resp: COMMON NORMALS: normal respiratory effort, No retractions, No use of accessory muscles and clear to auscultation bilaterally AUSCULTATION: clear to auscultation bilaterally Cardio: COMMON NORMALS: regular rate, regular rhythm, S1 normal heart sound present and S2 normal heart sound present RATE: regular rate RHYTHM: regular rhythm HEART SOUNDS: S1 normal heart sound present and S2 normal heart sound present GI: COMMON NORMALS: Normal to inspection, nondistended, normoactive bowel sounds present, Soft to palpation and non-tender PALPATION: Yes Soft to palpation Extremity: COMMON NORMALS: no pedal edema Neuro: COMMON NORMALS: patient oriented x3 Psych: COMMON NORMALS: mental status grossly normal Urinary Catheter Management: Wolfe: Cath Placed During This Visit: no Reason for Continuing Indwelling Catheter: Assist Healing of Perineal & Sacral Wounds- Incontinent Patients Discharge Data Studies Completed and Pending Completed Studies During Hospitalization Category Date Time Status CT foot RT wo con* [id number] Routine Cat Scan 08/25/21 07:[address] head wo con* [id number] Stat Cat Scan 08/24/21 08:[address] lower leg RT wo con* [id number] Routine Cat Scan 08/25/21 07:16 Completed XR chest 1V portable [id number] Routine Exams 08/28/21 08:07 Completed XR chest 1V portable [id number] Stat Exams 08/24/21 08:39 Completed CV. echo complete* [id number] Routine Ultrasound 08/25/21 05:30 Completed US renal BI* [id number] Routine Ultrasound 08/27/21 07:21 Completed US venous duplex lower extremity bilat [CV venous Ultrasound 08/24/21 12:05 [place] [id number]] Routine Pending at discharge Category Date Time Status Arterial Blood Gas Full Stat Lab 08/24/21 09:22 Results Basic Metabolic Panel AM LABS Lab 09/01/21 04:00 Ordered Basic Metabolic Panel Routine Lab 08/31/21 11:53 Ordered Complete Blood Count w/Auto AM LABS Lab 09/01/21 04:00 Ordered Vancomycin Trough Timed Lab 08/31/21 14:00 Ordered Radiology Impressions Head CT 08/24/21 08:39 IMPRESSION: 1. No evidence of intracranial hemorrhage or mass effect. 2. Mild small vessel changes. Mild parenchymal volume loss. 3. No acute intracranial findings. Foot CT 08/25/21 07:16 IMPRESSION: 1. Severe diffuse soft tissue edema surrounding the ankle and foot. No focal collection is identified without IV contrast. 2. Advanced degenerative changes of osteoarthritis noted in the midfoot. Lower Extremity CT 08/25/21 07:16 IMPRESSION: 1. Extensive, severe subcutaneous edema and intramuscular edema which is progressive beginning from the mid to distal lower extremity. 2. No focal fluid collection and no fracture. 3. Advanced osteoarthritic changes at the knee joint and a moderate suprapatellar effusion. Renal Ultrasound 08/27/21 07:21 IMPRESSION: 1. Normal RIGHT kidney. 2. LEFT kidney is not identified. Chest X-Ray 08/28/21 08:07 IMPRESSION: No evidence of active cardiopulmonary disease. Laboratory Results WBC 7.4 10^3/uL (4.0-10.0) 08/31/21 04:05 Corrected WBC Cancelled 08/27/21 02:06 RBC 4.57 10^6/uL (4.1-5.3) 08/31/21 04:05 Hgb 12.9 g/dL (11.5-15.3) 08/31/21 04:05 Hct 44.5 % (37.0-47.0) 08/31/21 04:05 MCV 97.4 fl (81-99) D 08/31/21 04:05 MCH 28.2 pg (28.0-34.0) 08/31/21 04:05 MCHC 29.0 g/dL (30.0-36.0) L 08/31/21 04:05 RDW 15.0 % (12.1-15.1) 08/31/21 04:05 Plt Count 287 10^3/cmm (130-400) 08/31/21 04:05 MPV 10.6 fL (7.4-10.4) H 08/31/21 04:05 Gran % Cancelled 08/27/21 02:06 Neut % (Auto) 64.3 % 08/31/21 04:05 Lymph % (Auto) 22.8 % 08/31/21 04:05 Pender % (Auto) 6.1 % 08/31/21 04:05 Eos % (Auto) 4.3 % 08/31/21 04:05 Baso % (Auto) 1.1 % 08/31/21 04:05 Neut # (Auto) 4.75 10^3/uL (1.8-7.7) 08/31/21 04:05 Lymph # (Auto) 1.7 10^3/uL (0.8-4.8) 08/31/21 04:05 Pender # (Auto) 0.5 10^3/uL (0.2-0.9) 08/31/21 04:05 Eos # (Auto) 0.3 10^3/uL (0.0-0.8) 08/31/21 04:05 Baso # (Auto) 0.1 10^3/uL (0.0-0.1) 08/31/21 04:05 Absolute Gran (auto) Cancelled 08/27/21 02:06 Nucleated RBC % (auto) 0 % 08/31/21 04:05 Total Counted 100 (0-100) 08/24/21 09:40 Atypical Lymphs % 2.0 % (0-5) 08/24/21 09:40 Absolute Neutrophils 20.6 10^3/cmm (1.4-6.5) H 08/24/21 09:40 Segmented Neutrophils 70 % 08/24/21 09:40 Abs Segm Neuts (Man) 15.8 10/cmm (1.6-7.1) H 08/24/21 09:40 Band Neutrophils 21.0 % 08/24/21 09:40 Abs Band Neuts (Man) 4.7 10^3/cmm (0.0-1.2) H 08/24/21 09:40 Absolute Lymphocytes 1.6 10^3/cmm (1.2-3.4) 08/24/21 09:40 Lymphocytes (Manual) 5 % 08/24/21 09:40 Monocytes (Manual) 0.0 % 08/24/21 09:40 Absolute Monocytes 0.0 10^3/cmm (0.1-0.6) L 08/24/21 09:40 Eosinophils (Manual) 0 % 08/24/21 09:40 Absolute Eosinophils 0.0 10^3/cmm (0.0-0.7) 08/24/21 09:40 Basophils (Manual) 0.0 % 08/24/21 09:40 Absolute Basophils 0.0 10^3/cmm (0.0-0.2) 08/24/21 09:40 Metamyelocytes 2.0 % 08/24/21 09:40 Nucleated RBCs # 0.0 /100WBC 08/31/21 04:05 Platelet Estimate Normal (Normal) 08/24/21 09:40 Specimen Type Arterial 08/24/21 22:11 Sample Site Radial, right 08/24/21 22:11 ABG pH 7.52 (7.35-7.45) H 08/24/21 22:11 ABG pCO2 39.3 mmHg (35-45) 08/24/21 22:11 ABG pO2 78.5 mmHg (80.0-100.0) L 08/24/21 22:11 ABG HCO3 32.2 mmol/L (22-26) H 08/24/21 22:11 ABG O2 Saturation 97.8 08/24/21 22:11 ABG Base Excess 8.7 mmol/L (-2.0-2.0) H 08/24/21 22:11 David Test Pos 08/24/21 22:11 A-a O2 Gradient 3.1 mmHg (5-10) L 08/24/21 22:11 Hematocrit 42.2 % (37-47) 08/24/21 22:11 Hgb O2 Saturation 96.0 % (95-100) 08/24/21 22:11 Carboxyhemoglobin 1.1 %THgb (0.4-20.1) 08/24/21 22:11 Methemoglobin 0.7 % (0.4-1.5) 08/24/21 22:11 Total Hemoglobin 13.8 g/dL (12-16) 08/24/21 22:11 Sodium 141.0 mmol/L (131-143) 08/24/21 22:11 Potassium 2.9 mmol/L (3.5-5.0) L 08/24/21 22:11 Glucose 174.0 mg/dL (70-115) H 08/24/21 22:11 Ionized Calcium 1.1 mmol/L (1.1-1.4) 08/24/21 22:11 O2 Delivery Device Nc 08/24/21 22:11 O2 Liters/Min 2.0 % 08/24/21 22:11 Tearer ID ellpe 08/24/21 22:11 Sodium Cancelled 08/31/21 10:52 Potassium Cancelled 08/31/21 10:52 Chloride Cancelled 08/31/21 10:52 Carbon Dioxide Cancelled 08/31/21 10:52 Anion Gap Cancelled 08/31/21 10:52 BUN Cancelled 08/31/21 10:52 Creatinine Cancelled 08/31/21 10:52 GFR Calculation Cancelled 08/31/21 10:52 Glucose Cancelled 08/31/21 10:52 POC Glucose 200 mg/dL (70-110) H 08/31/21 11:20 Calculated Osmolality Cancelled 08/31/21 10:52 Lactic Acid 4.7 mmol/L (0.5-2.2) H* 08/24/21 09:40 Lactic Acid (Sepsis) 3.4 mmol/L (0.5-2.2) H 08/24/21 13:04 Lactate 2.8 mmol/L (0.5-2.2) H 08/24/21 22:40 Calcium Cancelled 08/31/21 10:52 Magnesium 2.0 mg/dL (1.7-2.3) 08/29/21 04:20 Total Bilirubin 0.6 mg/dL (0.15-1.2) 08/26/21 04:35 AST 41 U/L (0-32) H 08/26/21 04:35 ALT 13 U/L (0-33) 08/26/21 04:35 Alkaline Phosphatase 95 IU/L (35-105) 08/26/21 04:35 Creatine Kinase 949 U/L (26-192) H* 08/26/21 04:35 Creatine Kinase Cancelled 08/26/21 04:35 Total Protein 6.6 g/dL (6.6-8.7) 08/26/21 04:35 Albumin 2.1 g/dL (3.5-5.2) L 08/26/21 04:35 Globulin 4.5 g/dL (1.3-4.6) 08/26/21 04:35 Lipase 9 U/L (13-60) L 08/24/21 09:40 Urine Color Yellow (Yellow) 08/24/21 11:14 Urine Appearance Cloudy (CLEAR) 08/24/21 11:14 Urine pH 5 (5-7) 08/24/21 11:14 Ur Specific [place] 1.015 (1.005-1.030) 08/24/21 11:14 Urine Protein 1+ (Negative) H 08/24/21 11:14 Urine Glucose (UA) Norm (Normal) 08/24/21 11:14 Urine Ketones Negative (Negative) 08/24/21 11:14 Urine Blood 3+ (Negative) H 08/24/21 11:14 Urine Nitrate Positive (Negative) H 08/24/21 11:14 Urine Bilirubin Neg (Negative) 08/24/21 11:14 Urine Urobilinogen Norm mg/dL (Negative) 08/24/21 11:14 Ur Leukocyte Esterase 2+ (Negative) H 08/24/21 11:14 Urine RBC 0-4 /hpf (0-2) H 08/24/21 11:14 Urine WBC Too numerous to cnt /hpf (0-5) H 08/24/21 11:14 Ur Squamous Epith Cells 0-4 /hpf (0-5) H 08/24/21 11:14 Amorphous Sediment Not Reportable 08/24/21 11:14 Urine Bacteria 4+ /hpf (NONE) H 08/24/21 11:14 Vancomycin Trough 17.1 ug/mL (10-15) H 08/29/21 18:32 Vitals Last Vital Signs Temp 97.2 F L 08/31/21 11:28 Pulse 77 08/31/21 11:28 Resp 18 08/31/21 11:28 BP 128/81 08/31/21 11:28 Pulse Ox 94 08/31/21 11:28 Discharge Plan Discharge Patient Disposition: Xfer SNF Condition: Stable Prescriptions: New doxycycline hyclate 100 mg tablet 100 mg PO BID 7 Days Qty: 14 0RF amoxicillin-pot clavulanate 875-125 mg tablet 1 tab PO BID 7 Days Qty: 14 0RF insulin aspart U-100 [Novolog Flexpen U-100 Insulin] 100 unit/mL (3 mL) insulin pen See Rx Instructions .ROUTE .COMPLEX Qty: 15 0RF Rx Instructions: Inject, subcu, 3 times daily, after meals, based on sliding scale Continued multivitamin Tablet 1 tab PO DAILY@08 0RF acetaminophen 325 mg Tablet 650 mg PO Q6H PRN (Reason: pain/temp) 0RF atorvastatin 20 mg Tablet 30 mg PO DAILY@20 0RF potassium chloride 20 mEq/15 mL liquid 40 meq PO BID@08,20 0RF pantoprazole 20 mg tablet,delayed release (DR/EC) 20 mg PO DAILY@08 0RF oxycodone-acetaminophen 5-325 mg tablet 1 tab PO Q6H PRN (Reason: Pain) 0RF Xanax 0.5 mg Tablet 0.5 mg PO Q6H PRN (Reason: Anxiety) 0RF ropinirole 2 mg tablet 2 mg PO DAILY@08 0RF FeroSul 325 mg (65 mg iron) Tablet 325 mg PO .EVERY 2 DAYS 0RF bumetanide 1 mg Tablet 1 mg PO DAILY@08 0RF gabapentin 100 mg capsule 200 mg PO TID@08,,20 0RF Nyamyc 100,000 unit/gram powder 1 applic TOPICAL DAILY 0RF Rx Instructions: apply to abdominal folds albuterol sulfate 90 mcg/actuation Hfa Aerosol Inhaler 2 puff INHALATION Q4H PRN (Reason: Shortness Of Breath) 0RF Almacone-2 400-400-40 mg/5 mL Suspension 30 ml PO Q24H PRN (Reason: Heartburn) 0RF ropinirole 4 mg tablet 4 mg PO DAILY@20 0RF bisacodyl 5 mg Tablet 5 mg PO Q24H PRN (Reason: Constipation) 0RF duloxetine 60 mg Capsule,Delayed Release(Dr/Ec) 60 mg PO DAILY@08 0RF Lantus Solostar U-100 Insulin 100 unit/mL (3 mL) insulin pen 10 unit SUBCUT DAILY@08 0RF diclofenac sodium 1 % Gel See Rx Instructions .ROUTE .COMPLEX 0RF Rx Instructions: apply topically to bilateral knee every 8 hours prn pain Xarelto 10 mg tablet 10 mg PO DAILY@08 0RF Myrbetriq 50 mg tablet extended release 24 hr 50 mg PO DAILY@08 0RF Changed metoprolol tartrate 50 mg tablet 75 mg PO BID Qty: 0 0RF Rx Instructions: hold for sbp <100,dbp <60, or hr<60 Discontinued metolazone 5 mg tablet 5 mg PO BID@08,14 0RF hydralazine 25 mg tablet 25 mg PO TID@08,,20 0RF Rx Instructions: hold for sbp <100,dbp <60, or hr<60 amlodipine 10 mg Tablet 10 mg PO DAILY@08 0RF Discharge Orders: Discharge Order (Routine); Ordered 08/31/21 Ordered By: Dimitri Do Referrals: [facility] [Outside] Darell Anaya MD [Referring] - [facility], [Staff Physician] - 1-3 days (decubitus ulcer and right heel ulcer) Activity Restrictions/Additional Instructions: Wound care to Stage II Pressure Ulcer to sacrum BID and PRN for excessive drainage or dislodgment: Cleanse wound with saline moistened gauze and pat dry. Pack wound with 1/2 Dakins moistened gauze and cover with dry 4x4 gauze, cover with 4x4 gauze and/or ABD, secure with tegarderm. May use tape if Tegaderm doesn't hold. -Wound care for disturbance ulcer, right heel ulcer -Type 2 diabetes mellitus, will check blood sugars 3 times daily -If blood sugar in the 500, primary care -If blood sugar less than 60, drink or juice or eat a hard candy go to emergency room -NovoLog sliding scale Insulin sliding fingerstick? Insulin 141-180?2 units/sq 181-220?4 units/sq 221-260?6 units/sq 261-300?8 units/sq 301-350 10 units/sq 351-400 12 units/sq > 400? 14 units/sq NovoLog sliding scale as prescribed Discharge Attestations Time Spent in Discharge Care*: less than 30 min Quality Metrics Clinical Quality Measures [ No reported AMI, CVA or VTE this stay] Coding Level of Care Code Acute g FW DC note Diagnoses Deep tissue injury T14.8XXA Cellulitis L03.90 Sepsis A41.9 Acute metabolic encephalopathy G93.41 UTI (urinary tract infection) N39.0 Heart murmur R01.1 Diabetes mellitus type 2 in obese E11.69; E66.9 COPD (chronic obstructive pulmonary disease) J44.9 History of DVT (deep vein thrombosis) Z86.718
--- NOTE | 2021-08-31 12:49 | PC.SOCIAL ---
IMM Update Pg. 2 of IMM Updated. Patient sleeping. Called and explained to patient's over the phone, copy left at bedside.
[2021-08-31 14:48] LABS: Anion Gap 13.8 (5-19); Blood Urea Nitrogen 14 mg/dL (8-23); Calcium 7.9 mg/dL (8.5-10.5); Carbon Dioxide 28 mmol/L (22-29); Chloride 102 mmol/L (98-107); Glucose 173 mg/dL (65-115); Osmolality Calculated 295 mOsm/kg (285-295); Potassium 3.8 mmol/L (3.5-5.1); Sodium 140 mmol/L (136-145); Vancomycin Trough 13.9 ug/mL (10-15)
[2021-08-31 15:42] VITALS: BP 128/81; PULSE 77; RESP 18; TEMP 36.2; O2SAT 94
== END 2021-08-31 15:48 | disposition skilled nursing facility (03) | DRG 871 ==
LOC: ER 18:18 → ICU 18:54 → MEDSURG 08-27 09:11
PROVIDERS: Internal Medicine; Admitting Provider Internal Medicine; Emergency Provider Family Medicine; PCP Family Medicine; Visit Provider Family Medicine
DX: A41.9 Sepsis, unspecified organism (principal); R65.21 Severe sepsis with septic shock; G93.41 Metabolic encephalopathy; L03.115 Cellulitis of right lower limb; N39.0 Urinary tract infection, site not specified; I47.1 Supraventricular tachycardia; M62.82 Rhabdomyolysis; N17.9 Acute kidney failure, unspecified; F31.9 Bipolar disorder, unspecified; I50.9 Heart failure, unspecified; J44.9 Chronic obstructive pulmonary disease, unspecified; Z99.81 Dependence on supplemental oxygen; F03.90 Unspecified dementia, unspecified severity, without behavioral disturbance, psychotic disturbance, mood disturbance, and anxiety; E11.9 Type 2 diabetes mellitus without complications; E66.9 Obesity, unspecified; Z68.35 Body mass index [BMI] 35.0-35.9, adult; K21.9 Gastro-esophageal reflux disease without esophagitis; M79.7 Fibromyalgia; Z85.3 Personal history of malignant neoplasm of breast; Z86.718 Personal history of other venous thrombosis and embolism; E78.5 Hyperlipidemia, unspecified; I11.0 Hypertensive heart disease with heart failure; Z90.10 Acquired absence of unspecified breast and nipple; Z79.01 Long term (current) use of anticoagulants; Z79.51 Long term (current) use of inhaled steroids; Z79.891 Long term (current) use of opiate analgesic; C43.72 Malignant melanoma of left lower limb, including hip; L89.152 Pressure ulcer of sacral region, stage 2; B96.20 Unspecified Escherichia coli [E. coli] as the cause of diseases classified elsewhere; I48.0 Paroxysmal atrial fibrillation; I34.0 Nonrheumatic mitral (valve) insufficiency; E87.6 Hypokalemia; Z66 Do not resuscitate; R01.1 Cardiac murmur, unspecified; Z99.3 Dependence on wheelchair; I95.9 Hypotension, unspecified
CPT/HCPCS: 36415; 36416; 36600; 70450; 71045; 73700; 76770; 80048; 80051; 80053; 80202; 81001; 82330; 82550; 82805; 82962; 83605; 83690; 83735; 85007; 85025; 87040; 87077; 87086; 87186; 92523; 92526; 92610; 93005; 93306; 93970; 96365; 96366; 96367; 96372; 97161; 97167; 97530; 99285; C9113; J1650; J1815; J2060; J2543; J3370; J3475; J3480; J3490; J7030; J7040; J7050

== ENCOUNTER 2021-10-24 11:35 | Inpatient (IN) | payer MEDICARE, MEDICAID, SELFPAY ==
[2021-10-24] VITALS (26 sets, daily range): BP systolic 52–204; BP diastolic 34–127; PULSE 61–102; RESP 14–34; TEMP 39.2; O2SAT 87–99; BMI 40.3
--- NOTE | 2021-10-24 11:37 | W.ED.AMS ---
HPI - Altered Mental Status General: Chief Complaint: Altered Mental Status Stated Complaint: AMS; SOB Time Seen by Provider: 10/24/21 11:37 Limitations: altered mental status History of Present Illness: Ms. Webber is a 71-year-old lady with, per chart review, underlying dementia, CHF, COPD, diabetes, history of DVT on Xarelto, hypertension, hyperlipidemia, and sacral ulcer who presents from a long term due to altered mental status and concern for infection. Per EMS report patient has been more confused for approximately 1 week and has had fever. Upon initial evaluation here the patient provides no meaningful information and is ill-appearing. History is otherwise limited by mental status. Review of Systems General: Reports: ROS unobtainable due to mental status PFSH ED PFSH: Medical History Bipolar disorder CHF (congestive heart failure) COPD (chronic obstructive pulmonary disease) Dementia Depression Diabetes mellitus type 2 in obese DJD (degenerative joint disease) Fibromyalgia GERD (gastroesophageal reflux disease) History of breast cancer History of DVT (deep vein thrombosis) Hyperlipidemia Hypertension Surgical History History of hysterectomy History of mastectomy Family History Other CAD (coronary artery disease) Diabetes Social History Smoking and tobacco status: never smoked Alcohol intake: never Physical Exam Const: GENERAL APPEARANCE: disheveled and ill appearing ORIENTATION/CONSCIOUSNESS: Yes Other orientation findings (Somnolent) HENMT: COMMON NORMALS: normocephalic and atraumatic HEAD & SCALP: normocephalic and atraumatic OTHER: Dry mucous membranes Eye: COMMON NORMALS: conjunctivae normal CONJUNCTIVA: Yes conjunctivae normal SCLERA: sclerae normal Neck/C-Spine: COMMON NORMALS: supple GENERAL: Yes trachea midline Resp: EFFORT & INSPECTION: Yes tachypneic, No grunting and No uses accessory muscles AUSCULTATION: bronchial breath sounds Cardio: COMMON NORMALS: regular rhythm RATE: tachycardic RHYTHM: regular rhythm GI: COMMON NORMALS: Soft to palpation PALPATION: Yes Soft to palpation, Yes Tenderness to palpation present (GI), No Guarding due to palpation present (GI) and No Rigid due to palpation Extremity: NARRATIVE EXTREMITY EXAM: Chronic appearing wounds and chronic skin changes. Lower extremities GENERAL: Yes normal exam except as noted and Yes edema (Trace to 1+) Neuro: COMMON NORMALS: moves all extremities SENSORIUM/ORIENTATION: Yes Orientation impaired and Yes somnolent Psych: THOUGHT PROCESS: confused ATTENTION/CONCENTRATION: Yes attention grossly impaired MEMORY/COGNITION: Yes memory grossly impaired and Yes cognition grossly impaired Skin: NARRATIVE SKIN EXAM: Sacral ulcer present Procedures Central Line Placement Right IJ: Time Out Performed: Yes Patient Placed on Monitor/Pulse Ox: Yes MD Prep: mask, gown and gloves Central Line Prep: Chlorhexidine scrub and sterile drapes applied Local Anesthetic: lidocaine 1% Amount of anesthesia used (mL): 2 Ultrasound Used for Placement: Yes Complications: arterial puncture/cannulation (Inadvertent arterial puncture and guidewire insertion however no dilation, identified and removed, direct pressure held for greater than 20 minutes) Additional Comments: Unsuccessful as noted under complications. Course ED course: - Patient was seen and evaluated by me at bedside - Patient placed on cardiac monitors - Initial evaluation notable for exam as above. Febrile. - Labs personally interpreted by me - Fluids and antibiotics ordered. Unfortunately there was a delay due to difficulty with IV access. Multiple peripheral IVs initially successful but subsequently failed. Multiple attempts via ultrasound guidance. We did obtain IV access prior to patient leaving ED however significantly challenging. - Labs notable for leukocytosis, normal hemoglobin. Metabolic panel with hypokalemia, potassium replenishment ordered. Initial troponin elevated with negative delta troponin, No evidence of urinary tract infection. Viral studies negative. - EKG without evidence of STEMI. I feel that increased troponin is secondary to type II NSTEMI in the context of sepsis/critical illness. - Imaging notable for no acute finding on head CT. CT chest abdomen pelvis without acute pathology to explain patient's symptoms. - Given absence of obvious other etiology of infection I believe that skin/chronic wound is most likely - Upon serial reexamination after treatment the patient was similar - Based on patient history, evaluation, and testing as interpreted the most likely cause of the patient's condition is sepsis with altered mental status, hypokalemia, type II NSTEMI. - The results of ED evaluation were discussed with the patient including plan for admission due to requirement for level of care not available if discharged to prevent significant worsening/deterioration. - Admitting service was contacted and Dr Moses with the hospitalist service agreed to admit the patient - Patient was admitted without further deterioration or significant events. Note: Click bubbles or prepopulated rubio in note writing are used for assistance with data collection and billing and are inherently more limited than narrative and other text portions of this note. Please use narrative for additional clinical history and defer to narrative/free test for any case of contradictory information. If information appears in only free text or click bubble it should be considered present or absent as reported. Please contact note securities underwriter for clarifications of clinical information or contradictory information. MDM is a brief summary, contradictory or erroneous seeming information should be clarified and full note should be reviewed. Vital Signs: Vital signs: Vital Signs Temperature 102.5 F H 10/24/21 11:43 Pulse Rate 54 L 10/25/21 08:00 Respiratory Rate 14 10/25/21 08:00 Blood Pressure 106/64 10/25/21 04:10 Pulse Oximetry 100 10/25/21 08:00 MDM - Altered Mental Status Medical Decision Making 71-year-old lady with underlying dementia who resides at long term and complex past medical history presenting with 1 week history of increasing altered mental status with concern over infection. Patient appears to have sepsis with only etiology identified possibly skin. Unfortunately there was a delay in antibiotics as there was challenge getting peripheral IVs despite multiple attempts including ultrasound-guided peripheral IV attempts, we did eventually get peripheral IVs. Patient received 1 L bolus from EMS and the balance of fluids for 30 cc/kg ideal body weight (given patient's obesity/body habitus) were given. Patient admitted to ICU for further management. I was subsequently requested after admission to come to the ICU as the patient had developed torsades and her peripheral IVs had failed. Mental status prohibits informed consent and right IJ central line access was attempted. Unfortunately, despite attempted anxiolysis with medications the patient had difficulty staying still which made the procedure more challenging. Despite Trendelenburg position IVC was very collapsible and inadvertently finder needle went through the back wall and into the carotid artery. I did insert a guidewire however that identified to that wire was an incorrect location prior to dilation and the wire was removed. Direct pressure was held for prolonged period of time to ensure hemostasis. There was no evidence on serial reexamination of hematoma formation or continued bleeding. Given that patient still had intermittent episodes of torsades/arrhythmia I requested that Dr. Blanchard, and place a femoral line. Please see his note for separate documentation of his procedure. I have included critical care time from both the emergency department and subsequent ICU visit and procedure in this note. Medical Records I reviewed the patient's medical records. Lab Data I reviewed the patient's lab results. : 10/25/21 04:50 10/25/21 04:50 Radiology Impressions Chest/Abdomen/Pelvis CT 10/24/21 11:47 IMPRESSION: Multivessel atherosclerotic disease which involves the coronary arteries. IMPRESSION: No acute findings.Non acute findings as described above. Head CT 10/24/21 11:47 IMPRESSION: No change. Chest X-Ray 10/24/21 23:23 IMPRESSION: Endotracheal tube and NG tube in appropriate positions. Reinflation of the left lung. Laboratory Results WBC 20.5 10^3/uL (4.0-10.0) H 10/24/21 11:06 RBC 4.82 10^6/uL (4.1-5.3) 10/24/21 11:06 Hgb 13.5 g/dL (11.5-15.3) 10/24/21 11:06 Hct 41.2 % (37.0-47.0) 10/24/21 11:06 MCV 85.5 fl (81-99) 10/24/21 11:06 MCH 28.0 pg (28.0-34.0) 10/24/21 11:06 MCHC 32.8 g/dL (30.0-36.0) 10/24/21 11:06 RDW 16.2 % (12.1-15.1) H 10/24/21 11:06 Plt Count 246 10^3/cmm (130-400) 10/24/21 11:06 MPV 10.8 fL (7.4-10.4) H 10/24/21 11:06 Neut % (Auto) 88.5 % 10/24/21 11:06 Lymph % (Auto) 5.6 % 10/24/21 11:06 [place] % (Auto) 4.1 % 10/24/21 11:06 Eos % (Auto) 0.0 % 10/24/21 11:06 Baso % (Auto) 0.4 % 10/24/21 11:06 Neut # (Auto) 18.14 10^3/uL (1.8-7.7) H 10/24/21 11:06 Lymph # (Auto) 1.1 10^3/uL (0.8-4.8) 10/24/21 11:06 [place] # (Auto) 0.8 10^3/uL (0.2-0.9) 10/24/21 11:06 Eos # (Auto) 0.0 10^3/uL (0.0-0.8) 10/24/21 11:06 Baso # (Auto) 0.1 10^3/uL (0.0-0.1) 10/24/21 11:06 Nucleated RBC % (auto) 0 % 10/24/21 11:06 Nucleated RBCs # 0.0 /100WBC 10/24/21 11:06 Specimen Type Arterial 10/24/21 12:53 Sample Site Radial, left 10/24/21 12:53 ABG pH 7.54 (7.35-7.45) H 10/24/21 12:53 ABG pCO2 33.0 mmHg (35-45) L 10/24/21 12:53 ABG pO2 87.9 mmHg (80.0-100.0) 10/24/21 12:53 ABG HCO3 28.5 mmol/L (22-26) H 10/24/21 12:53 ABG Base Excess 6.2 mmol/L (-2.0-2.0) H 10/24/21 12:53 David Test Pos 10/24/21 12:53 Hematocrit 41.8 % (37-47) 10/24/21 12:53 O2 Delivery Device Nc 10/24/21 12:53 O2 Liters/Min 4.0 % 10/24/21 12:53 FiO2 36.0 % 10/24/21 12:53 Kitchen Food Assembler ID Cak 10/24/21 12:53 Sodium 139 mmol/L (136-145) 10/24/21 11:06 Potassium 2.6 mmol/L (3.5-5.1) L* 10/24/21 11:06 Chloride 97 mmol/L (98-107) L 10/24/21 11:06 Carbon Dioxide 27 mmol/L (22-29) 10/24/21 11:06 Anion Gap 17.6 (5-19) 10/24/21 11:06 BUN 15 mg/dL (8-23) 10/24/21 11:06 Creatinine 1.0 mg/dL (0.5-0.9) H 10/24/21 11:06 GFR Calculation Not Reportable 10/24/21 11:06 Glucose 160 mg/dL (65-115) H 10/24/21 11:06 POC Glucose 206 mg/dL (70-110) H 10/24/21 12:56 Estimat Average Glucose 146 10/24/21 11:06 Hemoglobin A1c 6.7 % (4.0-6.0) H 10/24/21 11:06 Calculated Osmolality 292 mOsm/kg (285-295) 10/24/21 11:06 Lactic Acid 2.0 mmol/L (0.5-2.2) 10/24/21 11:06 Calcium 9.4 mg/dL (8.5-10.5) 10/24/21 11:06 Magnesium 1.7 mg/dL (1.7-2.3) 10/24/21 11:06 Total Bilirubin 0.5 mg/dL (0.15-1.2) 10/24/21 11:06 AST 34 U/L (0-32) H 10/24/21 11:06 ALT 18 U/L (0-33) 10/24/21 11:06 Alkaline Phosphatase 99 IU/L (35-105) 10/24/21 11:06 Creatine Kinase 169 U/L (26-192) 10/24/21 11:06 Troponin T Baseline 260 ng/L (0-10) H* 10/24/21 11:06 C-Reactive Protein 76.4 mg/L (0.0-4.9) H 10/24/21 11:06 Total Protein 8.5 g/dL (6.6-8.7) 10/24/21 11:06 Albumin 3.9 g/dL (3.5-5.2) 10/24/21 11:06 Globulin 4.6 g/dL (1.3-4.6) 10/24/21 11:06 TSH 0.71 uIU/mL (0.27-4.20) 10/24/21 11:06 Urine Color Yellow (Yellow) 10/24/21 12:41 Urine Appearance Clear (CLEAR) 10/24/21 12:41 Urine pH 7 (5-7) 10/24/21 12:41 Ur Specific [place] 1.010 (1.005-1.030) 10/24/21 12:41 Urine Protein 3+ (Negative) H 10/24/21 12:41 Urine Glucose (UA) Norm (Normal) 10/24/21 12:41 Urine Ketones 1+ (Negative) H 10/24/21 12:41 Urine Blood 3+ (Negative) H 10/24/21 12:41 Urine Nitrate Negative (Negative) 10/24/21 12:41 Urine Bilirubin Neg (Negative) 10/24/21 12:41 Urine Urobilinogen Norm mg/dL (Negative) 10/24/21 12:41 Ur Leukocyte Esterase Negative (Negative) 10/24/21 12:41 Urine RBC 0-4 /hpf (0-2) H 10/24/21 12:41 Urine WBC None /hpf (0-5) 10/24/21 12:41 Ur Squamous Epith Cells Rare /hpf (0-5) 10/24/21 12:41 Amorphous Sediment Not Reportable 10/24/21 12:41 Urine Bacteria 1+ /hpf (NONE) H 10/24/21 12:41 Coronavirus 229E (PCR) Not detected (NOT DETECT) 10/24/21 12:41 SARS-CoV-2 (PCR) Not detected (NOT DETECT) 10/24/21 12:41 Critical Care Time Critical Care Time: Critical Care Time: Yes Total Critical Care Time: 110 Attestation: Due to a high probability of clinically significant, possibly life threatening deterioration, the patient required my highest level of attention and preparedness to intervene emergently and I personally spent this critical care time directly and personally managing the patient. This critical care time included obtaining a history; examining the patient; pulse oximetry; ordering and review of laboratory and imaging studies; arranging urgent treatment with development of a management plan; evaluation of patient's response to treatment; frequent reassessment; and, discussions with other providers as applicable. It was exclusive of separately billable procedures. Primary system involved is neuro, cardiovascular, and ID. Discharge Plan Discharge Patient Disposition: Admitted As Inpatient Admit Provider: Kat Moses Clinical Impression: Altered mental status, Sepsis, Fever, Leukocytosis, Hypokalemia, Acute non-ST elevation myocardial infarction (NSTEMI) Condition: Stable Coding Level of Care Code ED Cloth Grader for Chg Fwd Exam Comprehensive
--- NOTE | 2021-10-24 11:47 | CTR_ITS ---
PROCEDURE INFORMATION: Exam: CT Head Without Contrast Exam date and time: 10/24/2021 12:11 PM Age: 71 years old Clinical indication: Altered mental status/memory loss; Additional info: AMS TECHNIQUE: Imaging protocol: Computed tomography of the head without contrast. Radiation optimization: All CT scans at this facility use at least one of these dose optimization techniques: automated exposure control; mA and/or kV adjustment per patient size (includes targeted exams where dose is matched to clinical indication); or iterative reconstruction. COMPARISON: CT head wo con* [id number] 08/24/2021 8:57 AM RADIATION DOSE METRICS: Total DLP (mGy-cm): 1043.88 FINDINGS: Brain: Moderate central and cortical atrophy and small vessel ischemic changes. Cerebral ventricles: No ventriculomegaly. Paranasal sinuses: Visualized sinuses are unremarkable. No fluid levels. Mastoid air cells: Visualized mastoid air cells are well aerated. Bones/joints: Unremarkable. No acute fracture. Soft tissues: Unremarkable. Other findings: Motion is seen on the inferior images. CT/CT head wo con* [id number] IMPRESSION: No change.
--- NOTE | 2021-10-24 11:47 | CTR_ITS ---
PROCEDURE INFORMATION: Exam: CT Chest Without Contrast; Diagnostic Exam date and time: 10/24/2021 12:14 PM Age: 71 years old Clinical indication: Other: Sepsis, AMS TECHNIQUE: Imaging protocol: Diagnostic computed tomography of the chest without contrast. Radiation optimization: All CT scans at this facility use at least one of these dose optimization techniques: automated exposure control; mA and/or kV adjustment per patient size (includes targeted exams where dose is matched to clinical indication); or iterative reconstruction. COMPARISON: CR XR chest 1V portable [id number] 08/28/2021 8:13 AM RADIATION DOSE METRICS: Total DLP (mGy-cm): 2353.27 FINDINGS: Tubes, catheters and devices: There are stimulator leads posterior to the thoracic canal. Lungs: Unremarkable. No consolidation. No masses. Pleural spaces: Unremarkable. No pneumothorax. No pleural effusion. Heart: Multivessel atherosclerotic disease which involves the coronary arteries. Lymph nodes: Unremarkable. No enlarged lymph nodes. Vasculature: Unremarkable. No aortic aneurysm. Bones/joints: Unremarkable. No acute fracture. Soft tissues: Unremarkable. PROCEDURE INFORMATION: Exam: CT Abdomen And Pelvis Without Contrast Exam date and time: 10/24/2021 12:14 PM Age: 71 years old Clinical indication: Other: Sepsis, AMS TECHNIQUE: Imaging protocol: Computed tomography of the abdomen and pelvis without contrast. Radiation optimization: All CT scans at this facility use at least one of these dose optimization techniques: automated exposure control; mA and/or kV adjustment per patient size (includes targeted exams where dose is matched to clinical indication); or iterative reconstruction. COMPARISON: US renal BI* [id number] 08/27/2021 8:03 AM RADIATION DOSE METRICS: Total DLP (mGy-cm): 2353.27 FINDINGS: Tubes, catheters and devices: There is a stimulator device implanted in the subcutaneous soft tissues of the lumbar spine with leads extending superiorly. Resultant artifact obscures adjacent structures. The patient is status post L3 through S1 posterior and interbody lumbar fusion with decompression and instrumentation. There are bilateral pedicle screws with intervening stabilization bars from the L3 through the L5 levels. There are degenerative changes throughout the visualized spine. Grade 1 retrolisthesis of L2 on L3. Liver: Normal. No mass. Gallbladder and bile ducts: Normal. No calcified stones. No ductal dilation. Pancreas: Normal. No ductal dilation. Spleen: Normal. No splenomegaly. Adrenal glands: Normal. No mass. Kidneys and ureters: Normal. No hydronephrosis. Stomach and bowel: Unremarkable. No obstruction. No mucosal thickening. Appendix: No evidence of appendicitis. Intraperitoneal space: Unremarkable. No free air. No significant fluid collection. Vasculature: Unremarkable. No abdominal aortic aneurysm. Lymph nodes: Unremarkable. No enlarged lymph nodes. Urinary bladder: Unremarkable as visualized. Reproductive: The uterus is not visualized, consistent with hysterectomy. Bones/joints: See Tubes, catheters and devices finding. Soft tissues: Fat containing ventral abdominal hernia. CT/[place] [id number] IMPRESSION: Multivessel atherosclerotic disease which involves the coronary arteries. IMPRESSION: No acute findings.Non acute findings as described above.
--- NOTE | 2021-10-24 11:48 | ECG_ITS ---
[facility] Test Date: 2021-10-24 Pat Name: Fany Webber Department: Room: Gender: Female School Nurse: : 1950 Requested By: Russell Cox Order Number: [id number] Moshe MD: Donta Ambrocio M.D. Measurements Intervals [place] Rate: 98 P: 74 KS: 146 QRS: -9 QRSD: 113 T: 14 QT: 387 QTc: 496 Interpretive Statements SINUS RHYTHM WITH OCCASIONAL SUPRAVENTRICULAR PREMATURE COMPLEXES MODERATE INTRAVENTRICULAR CONDUCTION DELAY [110+ ms QRS DURATION] NONSPECIFIC T-WAVE ABNORMALITY Compared to ECG 08/27/2021 20:16:13 Intraventricular conduction delay now present T-wave abnormality now present Ventricular premature complex(es) no longer present Myocardial infarct finding no longer present Electronically Signed On 10-25-2021 12:30:28 CDT by Donta Ambrocio M.D. [id number]
[2021-10-24 12:13] LABS: Basophils # 0.1 10^3/uL (0.0-0.1); Basophils % 0.4 %; Hematocrit 41.2 % (37.0-47.0); Hemoglobin 13.5 g/dL (11.5-15.3); Lymphocytes # 1.1 10^3/uL (0.8-4.8); Lymphocytes % 5.6 %; Mean Corpuscular HGB Conc 32.8 g/dL (30.0-36.0); Mean Corpuscular Volume 85.5 fl (81-99); Mean Platelet Volume 10.8 fL (7.4-10.4); Monocytes # 0.8 10^3/uL (0.2-0.9); Monocytes % 4.1 %; Neutrophils # 18.14 10^3/uL (1.8-7.7); Neutrophils % 88.5 %; Nucleated Red Blood Cells % 0 %; Platelet Count 246 10^3/cmm (130-400); Red Blood Count 4.82 10^6/uL (4.1-5.3); Red Cell Distribution Width 16.2 % (12.1-15.1); White Blood Count 20.5 10^3/uL (4.0-10.0)
[2021-10-24 12:44] LABS: Troponin(5th) Baseline 260 ng/L (0-10)
[2021-10-24 12:49] LABS: Albumin Level 3.9 g/dL (3.5-5.2); Alkaline Phosphatase 99 IU/L (35-105); Blood Urea Nitrogen 15 mg/dL (8-23); C Reactive Protein 76.4 mg/L (0.0-4.9); Calcium 9.4 mg/dL (8.5-10.5); Carbon Dioxide 27 mmol/L (22-29); Chloride 97 mmol/L (98-107); Creatine Phosphokinase 169 U/L (26-192); Globulin 4.6 g/dL (1.3-4.6); Glucose 160 mg/dL (65-115); Osmolality Calculated 292 mOsm/kg (285-295); Sodium 139 mmol/L (136-145); Thyroid Stimulating Hormone 0.71 uIU/mL (0.27-4.20); Total Bilirubin 0.5 mg/dL (0.15-1.2); Total Protein 8.5 g/dL (6.6-8.7)
[2021-10-24 12:58] LABS: Anion Gap 17.6 (5-19); Aspartate Amino Transferase 34 U/L (0-32)
[2021-10-24 12:59] LABS: Alanine Aminotransferase 18 U/L (0-33)
[2021-10-24 12:59] LABS: Glucose Point of Care 206 mg/dL (70-110)
[2021-10-24 13:00] LABS: Potassium 2.6 mmol/L (3.5-5.1)
[2021-10-24 13:04] LABS: ABG PH Result 7.54 (7.35-7.45); Arterial Blood Gas Hematocrit 41.8 % (37-47); Base Excess ABG 6.2 mmol/L (-2.0-2.0); Blood Gas Allen Test Pos; Blood Gas Operator Identificat CAK; Blood Gas Sample Site Radial, left; Blood Gas Sample Type Arterial; HCO3 ABG 28.5 mmol/L (22-26); Oxygen Device NC; PO2 ABG 87.9 mmHg (80.0-100.0)
[2021-10-24 13:37] LABS: Add Urine Microscopic? YES; Bilirubin Urine Neg (Negative); Blood Urine 3+ (Negative); Glucose Urine UA Norm (Normal); Ketones Urine 1+ (Negative); Leukocyte Esterase Urine Negative (Negative); Nitrate Urine Negative (Negative); Protein Urine 3+ (Negative); Urine Appearance Clear (CLEAR); Urine Color Yellow (Yellow); Urobilinogen Urine Norm (Negative); pH Urine 7 (5-7)
[2021-10-24 13:39] LABS: RBC Urine 0-4 /hpf (0-2)
[2021-10-24 13:40] LABS: Bacteria Urine 1+ /hpf; Squamous Epithelial Cell Urine RARE /hpf (0-5)
[2021-10-24 13:41] LABS: Add Urine Culture? No
[2021-10-24 13:43] LABS: Magnesium 1.7 mg/dL (1.7-2.3)
--- NOTE | 2021-10-24 13:48 | ECG_ITS ---
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 Measurements Intervals [place] Rate: 97 P: 42 MS: 193 QRS: -19 QRSD: 113 T: 5 QT: 472 QTc: 600 Interpretive Statements SINUS RHYTHM WITH OCCASIONAL VENTRICULAR PREMATURE COMPLEXES WITH OCCASIONAL SUPRAVENTRICULAR PREMATURE COMPLEXES MODERATE INTRAVENTRICULAR CONDUCTION DELAY [110+ ms QRS DURATION] MODERATE T-WAVE ABNORMALITY, CONSIDER ANTERIOR ISCHEMIA [-0.1+ mV T-WAVE IN V3/V4] Compared to ECG 10/24/2021 11:56:49 Ventricular premature complex(es) now present Possible ischemia now present T-wave abnormality still present Electronically Signed On 10-25-2021 13:28:23 CDT by Donta Ambrocio M.D. [id number]
--- NOTE | 2021-10-24 14:07 | P.HP_ITS ---
Providers/Chief Complaint Primary Care Provider: Rasheeda Hernandez MD Chief Complaint: AMS; SOB History of Present Illness Fany Webber is a 71 year old female with PMH of breast cancer, IDDM, DJD, GERD, DVT, HLD, HTN, CHF, Bipolar disorder, Dementia, and bipolar disorder presented to hospital from assisted with complaint of altered mental status and some shortness of breath. No other information is available to me. Will att empt to call assisted for more info. Labs checked in ER showed WBC 20.5, fever 102.5, BP 134/78 on arrival, K 2.6, Cr 1.0, Trop 260 baseline, Delta negative, ketones in urine. Patient when seen is altered and asking for water. She is not staying put in bed. She does have a stage 2-3 sacral ulcer and cellulits on right upper and lower extremity. Wolfe is in place draining clear yellow urine. CT unremarkable, CT chest/abd/pelvis did not show acute pathology. Medications/Allergies Home Medications Medication Instructions Recorded Confirmed Last Taken Type acetaminophen 325 mg tablet 650 mg PO Q6H PRN 08/24/21 10/24/21 Unknown History albuterol sulfate 90 mcg/actuation 2 puff INHALATION Q4H PRN 08/24/21 10/24/21 Unknown History aerosol inhaler aluminum-mag hydroxide-simethicone 30 ml PO Q24H PRN 08/24/21 10/24/21 Unknown History 400 mg-400 mg-40 mg/5 mL oral susp (Almacone-2) atorvastatin 20 mg tablet 30 mg PO DAILY@20 08/24/21 10/24/21 08/23/21 History bisacodyl 5 mg tablet 5 mg PO Q24H PRN 08/24/21 10/24/21 Unknown History bumetanide 1 mg tablet 1 mg PO DAILY@08 08/24/21 10/24/21 08/23/21 History diclofenac sodium 1 % topical gel See Rx Instructions .ROUTE .COMPLEX 08/24/21 10/24/21 Unknown History duloxetine 60 mg capsule,delayed 60 mg PO DAILY@08 08/24/21 10/24/21 08/23/21 History release gabapentin 100 mg capsule 200 mg PO TID@08,14,20 08/24/21 10/24/21 08/23/21 History insulin glargine 100 unit/mL (3 10 unit SUBCUT DAILY@08 08/24/21 10/24/21 08/23/21 History mL) subcutaneous pen (Lantus Solostar U-100 Insulin) mirabegron 50 mg tablet,extended 50 mg PO DAILY@08 08/24/21 10/24/21 08/23/21 History release 24 hr (Myrbetriq) multivitamin 1 tab PO DAILY@08/24/21 10/24/21 08/23/21 History nystatin 100,000 unit/gram topical 1 applic TOPICAL DAILY 08/24/21 10/24/21 Unknown History powder ([facility]) oxycodone-acetaminophen 5 mg-325 1 tab PO Q6H PRN 08/24/21 10/24/21 08/23/21 13:30 History mg tablet pantoprazole 20 mg tablet,delayed 20 mg PO DAILY@08 08/24/21 10/24/21 08/23/21 History release potassium chloride 20 mEq/15 mL 40 meq PO DAILY 08/24/21 10/24/21 08/23/21 History oral liquid rivaroxaban 10 mg tablet (Xarelto) 10 mg PO DAILY@08 08/24/21 10/24/21 08/23/21 History ropinirole 2 mg tablet 2 mg PO DAILY@08/24/21 10/24/21 08/23/21 History ropinirole 4 mg tablet 4 mg PO DAILY@08/24/21 10/24/21 08/23/21 History insulin aspart U-100 100 unit/mL See Rx Instructions .ROUTE 08/31/21 10/24/21 Unknown Rx (3 mL) subcutaneous pen (Novolog .COMPLEX #15 ml Flexpen U-100 Insulin aspart) metoprolol tartrate 50 mg tablet 75 mg PO BID #0 tab 08/31/21 10/24/21 08/23/21 Rx alprazolam 0.25 mg tablet 0.25 mg PO BID PRN 10/24/21 10/24/21 Unknown History triamcinolone acetonide 0.1 % 1 applic TOPICAL BID 10/24/21 10/24/21 Unknown History topical cream Allergies Allergy/AdvReac Type Severity Reaction Status Date / Time levofloxacin [From Levaquin] Allergy Unknown Verified 08/24/21 09:55 PFSH Acute PFSH: Medical History (Updated 09/01/21 @ 00:00 by ) Bipolar disorder CHF (congestive heart failure) COPD (chronic obstructive pulmonary disease) Dementia Depression Diabetes mellitus type 2 in obese DJD (degenerative joint disease) Fibromyalgia GERD (gastroesophageal reflux disease) History of breast cancer History of DVT (deep vein thrombosis) Hyperlipidemia Hypertension Surgical History (Updated 08/24/21 @ 12:03 by Saturnino Hernandez MD) History of hysterectomy History of mastectomy Family History (Updated 08/24/21 @ 12:04 by Saturnino Hernandez MD) Other CAD (coronary artery disease) Diabetes Social History (Updated 08/24/21 @ 12:04 by Saturnino Hernandez MD) Smoking and tobacco status: never smoked Alcohol intake: never Vitals/I&O/Wt Last Vital Signs Temp 102.5 F H 10/24/21 11:43 Pulse 100 10/24/21 11:43 Resp 32 H 10/24/21 11:43 BP 177/118 10/24/21 11:43 Pulse Ox 99 10/24/21 11:43 Weight last 48 hrs Weight 113.398 kg Physical Exam Narrative: General: awake but altered, on NC 2L, saturating 95%, on room air 90% when she pulls it off, appears distressed and wants water. HEENT: Normocephalic, atraumatic, EOMI, breathing normally Cardio: Regular rate rhythm, normal S1-S2, muffled heart sounds due to body habitus Respiratory: Fair b/l air entry, no crackles at bases, clear to auscultation GI: Abdomen soft, nontender, obese, large rounded abdomen, bowel sounds + Extremities:CHronic venous statis changes present b/l LE. Large area of erythema LE with another wound on right thigh Sacral stage 2-3 ulcer present, skin breakdown present to adipose layer Data : 10/24/21 11:06 10/24/21 11:06 Micro: Microbiology 10/24/21 13:00 Blood Culture - Preliminary Blood SPECIMEN COLLECTED 10/24/21 12:53 Blood Culture - Preliminary Blood SPECIMEN COLLECTED A&P Assessment and plan (1) Deep tissue injury: Status: Acute (2) History of DVT (deep vein thrombosis): Status: Acute (3) Heart murmur: Status: Acute (4) COPD (chronic obstructive pulmonary disease): Status: Acute (5) Diabetes mellitus type 2 in obese: Status: Acute (6) UTI (urinary tract infection): Status: Acute Plan #Sepsis 2/2 cellulitis vs sacral ulcer #AMS 2/2 to above #HTN, HLD #COPD #IDDM #GERD #Bipolar disorder #Underlying dementia #Hx of DVT - Continue IV fluids - Replete electrolytes - IV access has been an issue. Will order for PICC line. Nurses trying for US guided IV right now - Continue on vanc and zosyn - Tylenol for fever - Check BCx, UCx, Sputum GSCx, - Sliding scale insuling - Will hold home gabapentin, xanax - Continue rest of home meds including xarelto - Pt vitally stable. Not requiring vasopressors - May use haldol for agitation - Monitor in ICU overnight - Due to pt's altered state, will keep NPO until swallow eval. RN updated. - Monitor labs daily for now. detention paperwork done 1 month prior lists patient has DNR/DNI Spoke to spouse on phone to confirm code status. Patient is DNR/DNI. DVT PPX: on xarelto Attestations Medical Necessity Statement*: Will cross > 2 midnights for tx of above. 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
[2021-10-24] MEDS: piperacillin-tazobactam 4.5 GM in sodium chloride 0.9% (plus) 50 ML IV (15:01)
[2021-10-24] MEDS: sodium chloride 0.9% 1,000 ML 75 ML IV (15:01)
[2021-10-24 15:25] LABS: Adenovirus Not Detected (NOT DETECT); Chlamydia Pneumoniae Not Detected (NOT DETECT); Coronavirus 229E,HKU1,NL63,OC4 Not Detected (NOT DETECT); Human Metapneumovirus Not Detected (NOT DETECT); Human Rhinovirus/Enterovirus Not Detected (NOT DETECT); Influenza A Not Detected (NOT DETECT); Influenza A H1 Not Detected (NOT DETECT); Influenza A H1-2009 Not Detected (NOT DETECT); Influenza A H3 Not Detected (NOT DETECT); Influenza B Not Detected (NOT DETECT); Mycoplasma Pneumoniae Not Detected (NOT DETECT); Parainfluenza Virus Type 1 Not Detected (NOT DETECT); Parainfluenza Virus Type 2 Not Detected (NOT DETECT); Parainfluenza Virus Type 3 Not Detected (NOT DETECT); Parainfluenza Virus Type 4 Not Detected (NOT DETECT); Respiratory Syncytial Virus A Not Detected (NOT DETECT); Respiratory Syncytial Virus B Not Detected (NOT DETECT); SARS-COV-2 Not Detected (NOT DETECT)
[2021-10-24 15:30] LABS: Troponin 5 2HR 252.9 ng/L (0-10); Troponin 5 2HR Delta -7.1 ABS# (0-10)
[2021-10-24] MEDS: potassium chloride premix 100 ML 25 MEQ IV ×2 (15:42→23:25)
[2021-10-24] MEDS: magnesium sulfate premix 2 GM/50 ML PIGGYBACK IV ×2 (15:42→22:08)
--- NOTE | 2021-10-24 15:47 | PC.NURSE ---
This nurse spoke to Dr. Moses about concerns over pt moving to Med-Surg. Primary concern is pt needs to be placed in ICU temporarily.
[2021-10-24 15:55] LABS: Estmated Average Glucose 146; Hemoglobin A1C 6.7 % (4.0-6.0)
--- NOTE | 2021-10-24 17:48 | ECG_ITS ---
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 Measurements Intervals [place] Rate: 83 P: 82 MD: 154 QRS: -20 QRSD: 106 T: -26 QT: 424 QTc: 499 Interpretive Statements SINUS RHYTHM MINIMAL VOLTAGE CRITERIA FOR LVH, CONSIDER NORMAL VARIANT [MEETS CRITERIA IN ONE OF: R(aVL), S(V1), R(V5), R(V5/V6)+S(V1)] ST DEVIATION AND MODERATE T-WAVE ABNORMALITY, CONSIDER ANTERIOR ISCHEMIA [-0.1+ mV T-WAVE IN V3/V4] Compared to ECG 10/24/2021 14:19:06 Ventricular premature complex(es) no longer present Intraventricular conduction delay no longer present T-wave abnormality still present Possible ischemia still present Electronically Signed On 10-25-2021 13:26:10 CDT by Donta Ambrocio M.D. [email or web address]
[2021-10-24] MEDS: midazolam 1 mg/mL INJ 2 mL 2 MG IVP (19:16)
[2021-10-24] MEDS: LORazepam 2 mg/mL INJ 1 mL IVP (19:17)
--- NOTE | 2021-10-24 19:41 | PC.NURSE ---
Patient brought to ICU at approximately 1738. Patient had pulled out 1 IV, and the other IV has infiltrated. Nurse attempted multiple times to get IV and was unsuccessful. Patient is very uncooperative, borderline compbative and does not allow placement of IV. At this point, nurse Completed admission assessment, besides skin issues nurse did not find anything remarkable. At at 1813, patient went into torsades rhythm briefly. This occurred multiple times with patient occasionally unresponsive. Nurse was unable to reach Dr Moses, Dr au from the ER called to bedside, he is attempting to gain central line access and nurse recieved orders for magnesium after venous access obtained. This nurse stayed at bedside helping Dr au with patient positioning for IV access whil ICU nurse marvel took over care.
[2021-10-24 20:44] LABS: Troponin 5 6HR 203.1 ng/L (0-10)
--- NOTE | 2021-10-24 21:25 | P.PNCC_ITS ---
Critical Care Event Note 71 year old female with PMH of breast cancer, IDDM, DJD, GERD, DVT, HLD, HTN, CHF, Bipolar disorder, Dementia, and bipolar disorder presented to hospital from senior care with complaint of altered mental status and some shortness of breath, was being managed for sepsis secondary to cellulitis, sacral ulcer Patient was going into recurrent intermittent polymorphic VT, she also briefly lost pulse, CODE BLUE was called, high-quality chest CPR was initiated, ROSC was achieved, patient ROSC was achieved in preparation for defibrillation. Patient has been intubated sedated on mechanical ventilation, currently she is on Versed fentanyl and propofol. Amiodarone and lidocaine drip was started after bolus. Discussion was held with the over the phone regarding goals of care, and it was agreed upon that for now we need to do everything to save her life, including mechanical ventilation. CODE STATUS was changed from DNR/DNI to full code. Right femoral central line was placed by Dr. Blanchard. But my understanding based on the discussion with the is that if she fails to show signs of improvement, family will possibly make her comfort care. The high probability of a clinically significant, sudden or life threatening deterioration of the patient's [] system(s) required my full and direct attention, intervention and personal management. The critical care time is as shown. This time is in addition to time spent performing any reported procedures but includes the following: [x] Data and vital sign review and interpretation [x] Patient assessment, examination and intervention [x] Documentation [x] Medication orders and management Critical Care Time Code activated: Yes Critical Care Time (min): 90 Procedures Intubation Time out performed: Yes Sedative: etomidate Mg given: 30 Paralytic: succinylcholine Mg given: 130 Laryngoscope: fiber optic video scope ET tube uncuffed: Yes Tube placement confirmation: visualized tube passing through cords, equal breath sounds bilaterally, no breath sounds over epigastrium, confirmation by capnometry and color change noted Patient tolerated procedure: well and no complications Intubation complications: none Coding Level of Care Code Acute 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
--- NOTE | 2021-10-24 21:28 | PM.ACPR ---
Acute Procedures Intubation: Time out performed: Yes Sedative: etomidate Mg given: 30 Paralytic: succinylcholine Mg given: 130 Laryngoscope: fiber optic video scope ET tube size: 8 ET tube uncuffed: Yes Tube secured depth (cm): 20 Tube secured location: lips Tube placement confirmation: visualized tube passing through cords, equal breath sounds bilaterally, no breath sounds over epigastrium, confirmation by capnometry and color change noted Patient tolerated procedure: well and no complications Intubation complications: none
--- NOTE | 2021-10-24 21:29 | XRR_ITS ---
PROCEDURE INFORMATION: Exam: XR Chest Exam date and time: 10/24/2021 9:39 PM Age: 71 years old Clinical indication: Device placement; Other: E. T. Tube placement; Additional info: Placement of e. T tube TECHNIQUE: Imaging protocol: Radiologic exam of the chest. Views: 1 view. COMPARISON: [place] [id number] 10/24/2021 12:14 PM FINDINGS: Tubes, catheters and devices: There is an endotracheal tube with its tip entering the right mainstem bronchus. This should be pulled back 4 centimetres. There is an NG tube projecting along expected course of the esophagus with its tip in the stomach and sidehole above the GE junction. This should be advanced 5-10 cm further into the stomach. Electronic stimulator device projecting over the spine. There is fusion hardware in the lumbar spine which appears intact. Lungs: Poorly defined consolidation throughout the left mid and lower lung consistent with pneumonia. The right lung appears clear. Pleural spaces: Unremarkable. No pleural effusion. No pneumothorax. Heart/Mediastinum: Unremarkable. No cardiomegaly. Bones/joints: See Tubes, catheters and devices finding. Soft tissues: There are surgical clips in the left axilla. XR/XR chest 1V portable [id number] IMPRESSION: Endotracheal tube in the right mainstem bronchus should be pulled back 4 cm. NG tube with its side hole above the GE junction should be advanced 5-10 cm. Left lower lung pneumonia.
[2021-10-24] MEDS: succinylcholine 20 mg/mL SDV 10mL IVP (22:12)
[2021-10-24] MEDS: propofol 1,000 MG/100 ML INJ 34.02 MG IV (22:14)
--- NOTE | 2021-10-24 23:09 | PC.RESP ---
ET tube extracted 3CM to 20CM @lip
--- NOTE | 2021-10-24 23:11 | PC.RESP ---
ET tube extracted another 3CM to 20CM @the lip per Dr. Monge
--- NOTE | 2021-10-24 23:23 | XRR_ITS ---
PROCEDURE INFORMATION: Exam: XR Chest Exam date and time: 10/24/2021 11:55 PM Age: 71 years old Clinical indication: Device placement; Ett placement (vent status); Prior surgery; Surgery type: Spinal stimulator. Lumbar fusion. Patient HX: Check S/P readjustment of et and og lines. ; Additional info: Line/tube placement TECHNIQUE: Imaging protocol: Radiologic exam of the chest. Views: 1 view. COMPARISON: CR (CHEST, ) 10/24/2021 9:39 PM FINDINGS: Tubes, catheters and devices: The endotracheal tube has been pulled back so that its tip is now 2.1 cm above the rhonda. The NG tube has been advanced so that its tip and side hole are in the stomach. Lungs: There has been improved aeration of the left lower lung. Previously seen infiltrates or most likely atelectasis. Pleural spaces: Unremarkable. No pleural effusion. No pneumothorax. Heart/Mediastinum: Unremarkable. No cardiomegaly. Bones/joints: Unremarkable. XR/XR chest 1V portable [id number] IMPRESSION: Endotracheal tube and NG tube in appropriate positions. Reinflation of the left lung.
[2021-10-24] MEDS: piperacillin-tazobactam 3.375 GM in sodium chloride 0.9% (plus) 50 ML IV (23:38)
[2021-10-24 23:40] LABS: ABG PCO2 30.2 mmHg (35-45); ABG PH Result 7.54 (7.35-7.45); Arterial Blood Gas Hematocrit 35.9 % (37-47); Base Excess ABG 3.8 mmol/L (-2.0-2.0); Blood Gas Sample Type Arterial; HCO3 ABG 25.9 mmol/L (22-26); HGB O2 Sat 93.5 % (95-100); Ionized Calcium Level - ABG 1.2 mmol/L (1.1-1.4); Methemoglobin 0.8 % (0.4-1.5); Oxygen Saturation ABG 95.2; Potassium Level - ABG 3.1 mmol/L (3.5-5.0); Total Hemoglobin 11.7 g/dL (12-16)
[2021-10-24 23:41] LABS: Alveolar-Arterial Oxygen Gradi 23.7 mmHg (5-10); Blood Gas Operator Identificat ED; Blood Gas Sample Site Brachial, right; Oxygen Device VENT
[2021-10-25] VITALS (209 sets, daily range): BP systolic 72–177; BP diastolic 45–97; PULSE 41–148; RESP 14; TEMP 36.1–37; O2SAT 96–100
--- NOTE | 2021-10-25 00:45 | ECG_ITS ---
[facility] Test Date: 2021-10-25 Pat Name: Fany Webber Department: Room: [facility] Gender: Female Inspector Weights And Measures: : 1950 Requested By: Wyatt Monge Order Number: [id number] Moshe MD: Donta Ambrocio M.D. Measurements Intervals [place] Rate: 66 P: 19 AR: 132 QRS: -7 QRSD: 101 T: -29 QT: 422 QTc: 445 Interpretive Statements SINUS RHYTHM WITH OCCASIONAL SUPRAVENTRICULAR PREMATURE COMPLEXES NONSPECIFIC T-WAVE ABNORMALITY Compared to ECG 10/24/2021 20:47:05 Possible ischemia no longer present T-wave abnormality still present Electronically Signed On 10-25-2021 12:28:47 CDT by Donta Ambrocio M.D. [id number]
[2021-10-25] MEDS: potassium chloride oral liq 20 mEq/15 mL UDC 40 MEQ PO ×4 (00:58→20:12)
[2021-10-25] MEDS: propofol 1,000 MG/100 ML INJ 27.22 MG IV ×2 (01:11→05:15)
--- NOTE | 2021-10-25 01:54 | PC.NURSE ---
At approximately 0038, patient entered pulseless torsades rhythm. CPR started and pads applied, code rubi called. Dr. Monge at bedside. See code sheet.
[2021-10-25] MEDS: ipratropium-albuterol 3 mL Neb INHALATION ×4 (02:19→20:09)
--- NOTE | 2021-10-25 02:45 | PC.NURSE ---
200mg IM ketamine given by Dr. Cox at 2007. 300mg ketamine wasted with TEODORO Jimenez.
--- NOTE | 2021-10-25 02:50 | PC.PHAR ---
Vancomycin is dosed at 2000mg IVPB every 24 hours to produce a predicted trough level of 14.28 (population based pharmacokinetic analysis). A trough level has been ordered from the lab to be obtained before the fourth dose to confirm and adjust if needed.
[2021-10-25] MEDS: lidocaine drip 2,000 MG/500 ML PREMIX 30 MG IV (02:55)
[2021-10-25 05:00] LABS: Glucose Point of Care 300 mg/dL (70-110)
[2021-10-25 05:54] LABS: Basophils % 0.1 %; Hematocrit 35.4 % (37.0-47.0); Hemoglobin 11.4 g/dL (11.5-15.3); Lymphocytes # 0.9 10^3/uL (0.8-4.8); Lymphocytes % 6.3 %; Mean Corpuscular HGB Conc 32.2 g/dL (30.0-36.0); Mean Corpuscular Hemoglobin 27.9 pg (28.0-34.0); Mean Corpuscular Volume 86.6 fl (81-99); Mean Platelet Volume 10.5 fL (7.4-10.4); Monocytes # 0.6 10^3/uL (0.2-0.9); Neutrophils # 12.38 10^3/uL (1.8-7.7); Nucleated Red Blood Cells % 0 %; Platelet Count 266 10^3/cmm (130-400); Red Blood Count 4.09 10^6/uL (4.1-5.3); Red Cell Distribution Width 16.2 % (12.1-15.1); White Blood Count 13.9 10^3/uL (4.0-10.0)
[2021-10-25 06:11] LABS: Alanine Aminotransferase 16 U/L (0-33); Albumin Level 2.9 g/dL (3.5-5.2); Alkaline Phosphatase 73 IU/L (35-105); Anion Gap 16.9 (5-19); Aspartate Amino Transferase 29 U/L (0-32); Blood Urea Nitrogen 24 mg/dL (8-23); Calcium 8.5 mg/dL (8.5-10.5); Carbon Dioxide 23 mmol/L (22-29); Chloride 100 mmol/L (98-107); Glucose 289 mg/dL (65-115); Magnesium 2.6 mg/dL (1.7-2.3); Osmolality Calculated 299 mOsm/kg (285-295); Sodium 137 mmol/L (136-145); Total Bilirubin 0.5 mg/dL (0.15-1.2); Total Protein 6.9 g/dL (6.6-8.7)
[2021-10-25 06:15] LABS: Potassium 2.9 mmol/L (3.5-5.1)
[2021-10-25] MEDS: piperacillin-tazobactam 3.375 GM in sodium chloride 0.9% (plus) 50 ML IV ×3 (07:07→22:07)
[2021-10-25] MEDS: enoxaparin 120 mg/0.8 mL Syringe 110 MG SUBCUT ×2 (07:09→18:24)
[2021-10-25] MEDS: ferrous sulfate EC 325 mg Tablet PO (07:37)
[2021-10-25] MEDS: potassium chloride premix 100 ML 25 MEQ IV (07:39)
[2021-10-25 08:23] LABS: Glucose Point of Care 252 mg/dL (70-110)
[2021-10-25] MEDS: insulin lispro 100 unit/1 mL SUBCUT ×4 (08:25→22:06)
--- NOTE | 2021-10-25 10:02 | XRR_ITS ---
PROCEDURE INFORMATION: Exam: XR Chest Exam date and time: 10/25/2021 10:28 AM Age: 71 years old Clinical indication: Device placement; Ett placement (vent status); Additional info: R/O pneumonia TECHNIQUE: Imaging protocol: Radiologic exam of the chest. Views: 1 view. COMPARISON: CR (CHEST, ) 10/24/2021 11:55 PM FINDINGS: Tubes, catheters and devices: Endotracheal tube tip is 14.7 mm above the rhonda.. NG tube extends into the stomach. Electronic stimulator wire extends to the lower dorsal spine Lungs: Left lower lobe atelectasis. No consolidation. Pleural spaces: Unremarkable. No pleural effusion. No pneumothorax. Heart/Mediastinum: Unremarkable. No cardiomegaly. Bones/joints: Unremarkable. XR/XR chest 1V portable [id number] IMPRESSION: 1. No acute findings. 2. Endotracheal tube is above the rhonda 3. NG tube extends into the stomach. 4. Electronic stimulator wire extends to the dorsal spine 5. Left lower lobe atelectasis
--- NOTE | 2021-10-25 10:27 | PM.CONSULT ---
Providers/Reason For Consult Consulting Physician/Specialty*: Donta Ambrocio MD/Cardiology Reason for Consult*: Polymorphic VT Requesting Physician: Dr Moses Attending Physician: Kat Moses MD Primary Care Provider: Rasheeda Hernandez MD History of Present Illness History of Present Illness Fany Webber is a 71 year old female with past medical history of breast cancer, insulin-dependent diabetes, DVT, hypertension, hyperlipidemia, congestive heart failure and dementia was brought from long term secondary to altered mental status and shortness of breath. Patient is currently treated for sepsis secondary to cellulitis. Last night she went into polymorphic ventricular tachycardia and briefly lost pulse. CPR was initiated. She was intubated. She was initiated on amiodarone drip and lidocaine drip. Has stayed stable since. Since then there area no more episodes of significant ventricular tachycardia. Review of Systems General: Reports: ROS unobtainable due to endotracheal tube Medications/Allergies Home Medications Medication Instructions Recorded Confirmed Last Taken Type acetaminophen 325 mg tablet 650 mg PO Q6H PRN 08/24/21 10/24/21 Unknown History albuterol sulfate 90 mcg/actuation 2 puff INHALATION Q4H PRN 08/24/21 10/24/21 Unknown History aerosol inhaler aluminum-mag hydroxide-simethicone 30 ml PO Q24H PRN 08/24/21 10/24/21 Unknown History 400 mg-400 mg-40 mg/5 mL oral susp (Almacone-2) atorvastatin 20 mg tablet 30 mg PO DAILY@20 08/24/21 10/24/21 08/23/21 History bisacodyl 5 mg tablet 5 mg PO Q24H PRN 08/24/21 10/24/21 Unknown History bumetanide 1 mg tablet 1 mg PO DAILY@08/24/21 10/24/21 08/23/21 History diclofenac sodium 1 % topical gel See Rx Instructions .ROUTE .COMPLEX 08/24/21 10/24/21 Unknown History duloxetine 60 mg capsule,delayed 60 mg PO DAILY@08/24/21 10/24/21 08/23/21 History release gabapentin 100 mg capsule 200 mg PO TID@08,14,20 08/24/21 10/24/21 08/23/21 History insulin glargine 100 unit/mL (3 10 unit SUBCUT DAILY@08 0410/24/21 08/23/21 History mL) subcutaneous pen (Lantus Solostar U-100 Insulin) mirabegron 50 mg tablet,extended 50 mg PO DAILY@08/24/21 10/24/21 08/23/21 History release 24 hr (Myrbetriq) multivitamin 1 tab PO DAILY@08 08/24/21 10/24/21 08/23/21 History nystatin 100,000 unit/gram topical 1 applic TOPICAL DAILY 08/24/21 10/24/21 Unknown History powder (Nyamyc) oxycodone-acetaminophen 5 mg-325 1 tab PO Q6H PRN 08/24/21 10/24/21 08/23/21 13:30 History mg tablet pantoprazole 20 mg tablet,delayed 20 mg PO DAILY@08/24/21 10/24/21 08/23/21 History release potassium chloride 20 mEq/15 mL 40 meq PO DAILY 08/24/21 10/24/21 08/23/21 History oral liquid rivaroxaban 10 mg tablet (Xarelto) 10 mg PO DAILY@08/24/21 10/24/21 08/23/21 History ropinirole 2 mg tablet 2 mg PO DAILY@08/24/21 10/24/21 08/23/21 History ropinirole 4 mg tablet 4 mg PO DAILY@08/24/21 10/24/21 08/23/21 History insulin aspart U-100 100 unit/mL See Rx Instructions .ROUTE 08/31/21 10/24/21 Unknown Rx (3 mL) subcutaneous pen (Novolog .COMPLEX #15 ml Flexpen U-100 Insulin aspart) metoprolol tartrate 50 mg tablet 75 mg PO BID #0 tab 08/31/21 10/24/21 08/23/21 Rx alprazolam 0.25 mg tablet 0.25 mg PO BID PRN 10/24/21 10/24/21 Unknown History triamcinolone acetonide 0.1 % 1 applic TOPICAL BID 10/24/21 10/24/21 Unknown History topical cream Allergies Allergy/AdvReac Type Severity Reaction Status Date / Time levofloxacin [From Levaquin] Allergy Unknown Verified 08/24/21 09:55 Current Medications Generic Name Dose Route Start Last Admin Trade Name Freq PRN Reason Stop Dose Admin Albuterol/Ipratropium 3 ml 10/25/21 03:00 10/25/21 08:11 Ipratropium-Albuterol 3 Ml Neb INHALATION 3 ml Q6H LANIE Administration Atorvastatin Calcium 30 mg 10/24/21 20:00 10/25/21 01:00 Atorvastatin 40 Mg Tablet PO Not Given DAILY@20 LANIE Enoxaparin Sodium 110 mg 10/25/21 07:00 10/25/21 07:09 Enoxaparin 120 Mg/0.8 Ml Syringe SUBCUT 110 mg Q12H LANIE Administration Ferrous Sulfate 325 mg 10/25/21 08:00 10/25/21 07:37 Ferrous Sulfate Ec 325 Mg Tablet PO 325 mg Q2D@0800 LANIE Administration Piperacillin Sod/Tazobactam 50 mls @ 12.5 mls/hr 10/24/21 23:00 10/25/21 07:07 Sod 3.375 gm/ Sodium Chloride IV 12.5 mls/hr Q8H LANIE Administration Protocol As Directed Amiodarone HCl 900 mg/ 518 mls @ 0 mls/hr 10/24/21 19:45 10/25/21 05:15 Dextrose/ IV Miscellaneous IV 0.5 mg/min Supplies .Q0M LANIE 17.27 mls/hr Titration Protocol Per Protocol Propofol 1,000 mg in 100 mls @ 0 mls/hr 10/24/21 21:15 10/25/21 07:52 Diprivan IV 15 mcg/kg/min .Q0M LANIE 10.21 mls/hr Titration Protocol Per Protocol Fentanyl 1,000 mcg/ Sodium 100 mls @ 0 mls/hr 10/24/21 21:15 10/25/21 05:10 Chloride IV 100 mcg/hr .Q0M LANIE 10 mls/hr Titration Protocol Per Protocol Midazolam HCl 100 mg/ Sodium 100 mls @ 0 mls/hr 10/24/21 21:15 10/24/21 23:16 Chloride IV 6 mg/hr .Q0M LANIE 6 mls/hr Titration Protocol Per Protocol Norepinephrine Bitartrate 4 mg 254 mls @ 0 mls/hr 10/24/21 23:15 10/25/21 07:52 / Dextrose IV 0 mcg/min .Q0M LANIE 0 mls/hr Titration Protocol Per Protocol Lidocaine HCl/Dextrose 2,000 mg in 500 mls @ 30 mls/hr 10/25/21 02:45 10/25/21 07:54 Lidocaine Drip IV 1 mg/min .[id number] LANIE 15 mls/hr Infusion 2 MG/MIN Potassium Chloride 100 mls @ 25 mls/hr 10/25/21 07:00 10/25/21 07:39 K-Jose M IV 10/25/21 10:59 25 mls/hr ONCE ONE Administration Potassium Chloride 100 mls @ 25 mls/hr 10/25/21 09:30 10/25/21 09:32 K-Jose M IV 10/25/21 17:29 Not Given Q4H LANIE Insulin Human Lispro 0 unit 10/24/21 18:00 10/25/21 08:23 Insulin Lispro 100 Unit/1 Ml SUBCUT Not Given WM&BEDTIME LANIE Protocol Insulin Human Lispro 0 unit 10/25/21 08:00 10/25/21 08:25 Insulin Lispro 100 Unit/1 Ml SUBCUT 6 unit WM&BEDTIME LANIE Administration Protocol Non-Formulary Medication 50 mg 10/25/21 08:00 10/25/21 08:34 Mirabegron [Myrbetriq] PO Not Given DAILY@08 LANIE Potassium Chloride 40 meq 10/24/21 20:00 10/25/21 07:37 Potassium Chloride Oral Liq 20 Meq/15 Ml Udc PO 40 meq BID@08,20 LANIE Administration PFSH Acute PFSH: Medical History Bipolar disorder CHF (congestive heart failure) COPD (chronic obstructive pulmonary disease) Dementia Depression Diabetes mellitus type 2 in obese DJD (degenerative joint disease) Fibromyalgia GERD (gastroesophageal reflux disease) History of breast cancer History of DVT (deep vein thrombosis) Hyperlipidemia Hypertension Surgical History History of hysterectomy History of mastectomy Family History Other CAD (coronary artery disease) Diabetes Social History Smoking and tobacco status: never smoked Alcohol intake: never Vitals/I&O/Wt Last Vital Signs Temp 96.9 F L 06/26/22 08:00 Pulse 72 10/25/21 09:10 Resp 14 10/25/21 10:10 BP 118/73 10/25/21 09:10 Pulse Ox 98 10/25/21 10:10 10/24/21 10/25/21 10/25/21 22:59 06:59 14:59 Intake Total 106.458 / 919.663 8177.639 / 3383.097 216.076 / 216.076 Output Total 925 / 925 200 / 1125 Balance -818.542 / -708.728 0048.639 / 2258.097 216.076 / 216.076 Weight last 48 hrs Weight 250 lb Physical Exam Narrative: GENERAL: Patient is intubated and sedated NECK: No jugular vein distension. [] HEENT: No cyanosis. No icterus. No pallor. [] HEART: Regular LUNGS: Diminished breath sounds bilaterally ABDOMEN: Soft CENTRAL NERVOUS SYSTEM: Grossly nonfocal. [] EXTREMITIES: Lower extremities with 1+ edema bilaterally. Urinary Catheter Management: Wolfe: Cath Placed During This Visit: yes Reason for Continuing Indwelling Catheter: Accurate Measurement of Urinary Output in Critically Ill Patients Urinary Catheter Date of Insertion: 10/24/21 Urinary Catheter Time of Insertion: 14:25 Data : 10/26/21 04:55 10/26/21 04:55 Micro: Microbiology 10/24/21 13:00 Blood Culture - Preliminary Blood SPECIMEN COLLECTED 10/24/21 12:53 Blood Culture - Preliminary Blood SPECIMEN COLLECTED A&P Assessment and plan (1) Elevated troponin: Status: Acute (2) Acute kidney failure: Status: Acute (3) Oliguria: Status: Acute (4) Cardiac arrest: Status: Acute (5) Ventricular tachyarrhythmia: Status: Acute (6) Altered mental status: Status: Acute (7) Sepsis: Status: Acute (8) History of DVT (deep vein thrombosis): Status: Acute Plan Patient had presented with altered mental status and was being treated for sepsis. She went into polymorphic ventricular tachycardia. Currently on both amiodarone and lidocaine drip. Wean off lidocaine drip. Continue amiodarone for today. Can switch to p.o. amiodarone tomorrow Troponin elevation is secondary to demand ischemia. As patient is DNR DNI and family wants conservative therapy, no plans for invasive cardiac procedures. LV systolic function is normal on limited echocardiogram that was performed post resuscitation. Thank you for involving us with care of this patient. We will continue to follow. Please call with questions. Consult Attestations Medical Necessity Statement: Care expected to cross 2 midnights. Coding Level of Care Code Acute Retouching Operator for g Fwd Diagnoses Elevated troponin R77.8 Acute kidney failure N17.9 Oliguria R34 Cardiac arrest I46.9 Ventricular tachyarrhythmia I47.2 Altered mental status R41.82 Sepsis A41.9 History of DVT (deep vein thrombosis) Z86.713
--- NOTE | 2021-10-25 10:32 | USCV_ITS ---
Fany Webber Age: 71 Gender: F : 1950 Exam Date: 10/25/2021 11:28 Ordering Phys: Kat Moses MD Technologist: Arias Campbell Exam Location: [facility] – [place] Indication: post code BP: 124 / 73 HR: 70 Rhythm: Sinus Technical Quality: Adequate MEASUREMENTS (Male / Female) Normal Values 2D ECHO LV Diastolic Diameter PLAX 4.2 cm 4.2 - 5.9 / 3.9 - 5.3 cm LV Systolic Diameter PLAX 3.0 cm IVS Diastolic Thickness 0.9 cm 0.6 - 1.0 / 0.6 - 0.9 cm IVS Systolic Thickness 1.8 cm LVPW Diastolic Thickness 1.1 cm 0.6 - 1.0 / 0.6 - 0.9 cm LVPW Systolic Thickness 1.5 cm LVOT Diameter 1.4 cm LV Ejection Fraction 2D Teich 30.6 % LV Ejection Fraction MOD 2C 60.7 % LV Ejection Fraction 2C AL 61.0 % LA Diameter 4.7 cm Aorta at Sinotubular Diameter 2.4 cm IVC Diameter 2.7 cm M-MODE Aortic Annulus Diameter 2.3 cm LA Ao Ratio MM 2.5 MV E Point Septal Separation 0.3 cm FINDINGS Left Ventricle Normal left ventricular size. LV systolic function is normal with EF of 55-60%. No regional wall motion abnormalities. Right Ventricle The right ventricle is normal in size and function. Right Atrium The right atrium is normal in size. Left Atrium The left atrium is mildly dilated Mitral Valve Moderate mitral annular calcification Aortic Valve Grossly normal Tricuspid Valve Grossly normal Pulmonic Valve Not well visualized. Pericardium Normal pericardium without effusion. Pericardial effusion is seen. Aorta Normal ascending aorta dimension. IVC CONCLUSIONS This is a limited echocardiogram performed to assess LV systolic function. LV systolic function is normal with EF 55 to 60%. Left atrium is mildly dilated. Moderate mitral annular calcification. Compared to prior echocardiogram from 08/25/2021, no significant difference in LV systolic function is seen. Donta Ambrocio MD (Electronically Signed) Final Date: 25 October 2021 13:04 S
[2021-10-25 10:39] LABS: Anion Gap 17.1 (5-19); Blood Urea Nitrogen 27 mg/dL (8-23); Calcium 8.8 mg/dL (8.5-10.5); Carbon Dioxide 23 mmol/L (22-29); Chloride 103 mmol/L (98-107); Glucose 247 mg/dL (65-115); Osmolality Calculated 301 mOsm/kg (285-295); Potassium 4.1 mmol/L (3.5-5.1); Sodium 139 mmol/L (136-145)
[2021-10-25 12:08] LABS: Glucose Point of Care 222 mg/dL (70-110)
[2021-10-25] MEDS: pantoprazole 40 mg SDV IVP ×2 (12:51→22:06)
--- NOTE | 2021-10-25 14:02 | P.PN_ITS ---
Subjective Subjective: Seen this AM. Intubated and sedated. Events from yesterday evening and overnight noted. Currently on amio, lido, versed, propofol, fentanyl drips Cr 1.4 today at bedside. He states he is not interested in cath if offered. Would like to change status to DNR (RNSameer in room as witness). Vitals/I&O/Wt Last Vital Signs Temp 96.9 F L 10/25/21 08:00 Pulse 72 10/25/21 09:10 Resp 14 10/25/21 13:23 BP 118/73 10/25/21 09:10 Pulse Ox 98 10/25/21 13:23 10/24/21 10/25/21 10/25/21 22:59 06:59 14:59 Intake Total 106.458 / 407.533 0045.639 / 3383.097 380.692 / 380.692 Output Total 925 / 925 200 / 1125 Balance -818.542 / -973.501 6077.639 / 2258.097 380.692 / 380.692 Weight last 48 hrs Weight 113.398 kg Physical Exam Narrative: General: INtubated, sedated HEENT: Normocephalic, atraumatic, on vent Cardio: Regular rate rhythm, normal S1-S2, muffled heart sounds due to body habitus Respiratory: Fair b/l air entry, no crackles at bases, clear to auscultation GI: Abdomen soft, nontender, obese, large rounded abdomen, bowel sounds + Extremities:CHronic venous statis changes present b/l LE. Large area of erythema LE with another wound on right thigh Sacral stage 2-3 ulcer present, skin breakdown present to adipose layer Wolfe in place, minimal UO since this AM. Barely 100 cc. Urinary Catheter Management: Wolfe: Cath Placed During This Visit: yes Reason for Continuing Indwelling Catheter: Accurate Measurement of Urinary Output in Critically Ill Patients Urinary Catheter Date of Insertion: 10/24/21 Urinary Catheter Time of Insertion: 14:25 Data : 10/25/21 04:50 10/25/21 10:02 Micro: Microbiology 10/24/21 13:00 Blood Culture - Preliminary Blood NEGATIVE TO DATE 10/24/21 12:53 Blood Culture - Preliminary Blood NEGATIVE TO DATE A&P Assessment and plan (1) Altered mental status: Status: Acute (2) Sepsis: Status: Acute (3) Fever: Status: Acute (4) Leukocytosis: Status: Acute (5) Hypokalemia: Status: Acute (6) Acute non-ST elevation myocardial infarction (NSTEMI): Status: Acute (7) Deep tissue injury: Status: Acute (8) History of DVT (deep vein thrombosis): Status: Acute (9) Heart murmur: Status: Acute (10) COPD (chronic obstructive pulmonary disease): Status: Acute (11) Diabetes mellitus type 2 in obese: Status: Acute (12) UTI (urinary tract infection): Status: Acute (13) Respiratory failure, acute: Status: Acute (14) Ventilator dependence: Status: Acute (15) Cardiac arrest: Status: Acute (16) Ventricular tachyarrhythmia: Status: Acute (17) Elevated troponin: Status: Acute (18) Oliguria: Status: Acute (19) Acute kidney failure: Status: Acute Plan #Sepsis 2/2 cellulitis vs sacral ulcer #AMS 2/2 to above #Vent dep Resp Failure #Recurrant V.Tach #S/P cardiac arrest 10/24 - Received CPR and ROSC achieved #PRINCE/ARF 2/2 pre-renal injury, s/p cardiac arrest #HTN, HLD #COPD #IDDM #GERD #Bipolar disorder #Underlying dementia #Hx of DVT - Continue IV fluids - Replete electrolytes - Has femoral line for IV access - Continue on vanc and zosyn - Tylenol for fever - Check BCx, UCx, Sputum GSCx, - Sliding scale insuling - Will hold home gabapentin, xanax - Continue rest of home meds including xarelto - COntinue levo and wean as able - COntinue amio drip for 24 hours total. Stop lido drip at 4 pm today - Continue to wean down on vent - Continue to wean sedation. Propofol off. Versed and fentanyl to be weaned as well. - Will plan for weaning trial in AM with potential extubation - May use haldol for agitation - COntinue OG tube - Replete electrolytes - Consult cardio. DVT PPX: on xarelto wishes to keep patient DNR at this point. IF another cardiac event, DO NOT RESCUSCITATE. RN updated. Attestations Medical Necessity Statement*: Continue on ICU level care. Coding Level of Care Code Acute Head Orthopedic Team Physician for Chg Fwd Diagnoses Altered mental status R41.82 Sepsis A41.9 Fever R50.9 Leukocytosis D72.829 Hypokalemia E87.6 Acute non-ST elevation myocardial infarction (NSTEMI) I21.4 Deep tissue injury T14.8XXA History of DVT (deep vein thrombosis) Z86.718 Heart murmur R01.1 COPD (chronic obstructive pulmonary disease) J44.9 Diabetes mellitus type 2 in obese E11.69; E66.9 UTI (urinary tract infection) N39.0 Respiratory failure, acute J96.00 Ventilator dependence Z99.11 Cardiac arrest I46.9 Ventricular tachyarrhythmia I47.2 Elevated troponin R77.8 Oliguria R34 Acute kidney failure N17.9
[2021-10-25 16:23] LABS: Basophils % 0.2 %; Hematocrit 34.3 % (37.0-47.0); Lymphocytes # 0.9 10^3/uL (0.8-4.8); Lymphocytes % 6.4 %; Mean Corpuscular HGB Conc 32.1 g/dL (30.0-36.0); Mean Corpuscular Hemoglobin 27.8 pg (28.0-34.0); Mean Corpuscular Volume 86.6 fl (81-99); Mean Platelet Volume 10.1 fL (7.4-10.4); Monocytes # 0.9 10^3/uL (0.2-0.9); Monocytes % 6.8 %; Neutrophils # 11.46 10^3/uL (1.8-7.7); Nucleated Red Blood Cells % 0 %; Platelet Count 273 10^3/cmm (130-400); Red Blood Count 3.96 10^6/uL (4.1-5.3); Red Cell Distribution Width 16.6 % (12.1-15.1); White Blood Count 13.3 10^3/uL (4.0-10.0)
[2021-10-25 16:40] LABS: Alanine Aminotransferase 15 U/L (0-33); Alkaline Phosphatase 67 IU/L (35-105); Aspartate Amino Transferase 20 U/L (0-32); Blood Urea Nitrogen 29 mg/dL (8-23); Calcium 9.1 mg/dL (8.5-10.5); Carbon Dioxide 23 mmol/L (22-29); Chloride 106 mmol/L (98-107); Globulin 3.8 g/dL (1.3-4.6); Glucose 209 mg/dL (65-115); Magnesium 2.5 mg/dL (1.7-2.3); Osmolality Calculated 302 mOsm/kg (285-295); Sodium 140 mmol/L (136-145); Total Bilirubin 0.4 mg/dL (0.15-1.2); Total Protein 6.8 g/dL (6.6-8.7)
[2021-10-25 18:30] LABS: Glucose Point of Care 214 mg/dL (70-110)
--- NOTE | 2021-10-25 18:36 | PC.NURSE ---
SHit SUmmary: Uneventful shift Patient rested in bed throughout the shift. Initial sedation at beggining of shift was 8 of versed, 100 of fentanyl, and 50 of propofol. Patient was titrated down on sedation. CUrrently on 80 of fentanyl and 25 of propofol. Lidocaine turned off at 1600 and no arrythmias noted since. Has been normal sinus all shift. Urine output has been low, 150mL for the entire 12 hour day shift.
[2021-10-25] MEDS: propofol 1,000 MG/100 ML INJ 20.41 MG IV (20:12)
[2021-10-25] MEDS: atorvastatin 40 mg Tablet 30 MG PO (20:12)
[2021-10-25 22:05] LABS: Glucose Point of Care 171 mg/dL (70-110)
[2021-10-25] MEDS: sodium chloride 0.9% 1,000 ML 125 ML IV (22:09)
--- NOTE | 2021-10-25 22:32 | PC.NURSE ---
FENTANYL WASTE When this nurse changed out fentanyl drip, it was noted that the bag was wet. Bag was inspected and found to have a small hole in it. Charge nurse notified and shown. Pharmacy notified. New bag ordered from pharmacy. Wasted remainder of bag (98 mL) with TEODORO Briones.
[2021-10-26] VITALS (28 sets, daily range): BP systolic 122–146; BP diastolic 63–90; PULSE 70–94; RESP 14; TEMP 37.1–37.2; O2SAT 96–99
[2021-10-26] MEDS: propofol 1,000 MG/100 ML INJ 27.22 MG IV ×4 (00:36→11:47)
[2021-10-26 01:58] LABS: Protein Urine 1+ (Negative); Urine Appearance SL Hazy (CLEAR); Urine Color Yellow (Yellow); pH Urine 5 (5-7)
[2021-10-26 01:59] LABS: Add Urine Microscopic? YES; Bilirubin Urine Neg (Negative); Blood Urine Neg (Negative); Glucose Urine UA Norm (Normal); Ketones Urine 1+ (Negative); Leukocyte Esterase Urine 2+ (Negative); Nitrate Urine Negative (Negative); Urobilinogen Urine Norm (Negative)
[2021-10-26 02:01] LABS: Amorphous Sediment Urine TRACE /hpf; Bacteria Urine TRACE /hpf; Mucus Urine 1+ /hpf; RBC Urine 0-4 /hpf (0-2); Squamous Epithelial Cell Urine 0-4 /hpf (0-5)
[2021-10-26 02:02] LABS: Add Urine Culture? No
[2021-10-26] MEDS: ipratropium-albuterol 3 mL Neb INHALATION ×4 (02:19→21:30)
[2021-10-26] MEDS: FUROsemide 10 mg/mL SDV 2mL 20 MG IVP (03:40)
[2021-10-26] MEDS: sodium chloride 0.9% 1,000 ML 125 ML IV ×3 (05:25→20:50)
[2021-10-26 05:30] LABS: Basophils % 0.1 %; Eosinophils % 0.1 %; Hematocrit 33.9 % (37.0-47.0); Hemoglobin 10.2 g/dL (11.5-15.3); Lymphocytes # 1.3 10^3/uL (0.8-4.8); Lymphocytes % 12.9 %; Mean Corpuscular HGB Conc 30.1 g/dL (30.0-36.0); Mean Corpuscular Hemoglobin 27.7 pg (28.0-34.0); Mean Corpuscular Volume 92.1 fl (81-99); Mean Platelet Volume 10.8 fL (7.4-10.4); Monocytes # 0.6 10^3/uL (0.2-0.9); Monocytes % 6.2 %; Neutrophils # 8.24 10^3/uL (1.8-7.7); Neutrophils % 80.1 %; Nucleated Red Blood Cells % 0 %; Platelet Count 247 10^3/cmm (130-400); Red Blood Count 3.68 10^6/uL (4.1-5.3); Red Cell Distribution Width 17.2 % (12.1-15.1); White Blood Count 10.3 10^3/uL (4.0-10.0)
[2021-10-26 05:56] LABS: Alanine Aminotransferase 14 U/L (0-33); Albumin Level 2.8 g/dL (3.5-5.2); Alkaline Phosphatase 63 IU/L (35-105); Aspartate Amino Transferase 19 U/L (0-32); Blood Urea Nitrogen 32 mg/dL (8-23); Calcium 8.4 mg/dL (8.5-10.5); Carbon Dioxide 21 mmol/L (22-29); Chloride 110 mmol/L (98-107); Globulin 3.7 g/dL (1.3-4.6); Glucose 139 mg/dL (65-115); Magnesium 2.3 mg/dL (1.7-2.3); Osmolality Calculated 305 mOsm/kg (285-295); Phosphorus 2.4 mg/dL (2.5-4.5); Sodium 143 mmol/L (136-145); Total Bilirubin 0.3 mg/dL (0.15-1.2); Total Protein 6.5 g/dL (6.6-8.7)
[2021-10-26 05:58] LABS: Anion Gap 16.6 (5-19); Potassium 4.6 mmol/L (3.5-5.1)
[2021-10-26] MEDS: piperacillin-tazobactam 3.375 GM in sodium chloride 0.9% (plus) 50 ML IV ×3 (06:00→23:55)
[2021-10-26] MEDS: enoxaparin 120 mg/0.8 mL Syringe 110 MG SUBCUT ×2 (06:00→17:50)
[2021-10-26 06:49] LABS: ABG PCO2 27.5 mmHg (35-45); ABG PH Result 7.51 (7.35-7.45); Alveolar-Arterial Oxygen Gradi 9.7 mmHg (5-10); Arterial Blood Gas Hematocrit 33.3 % (37-47); Base Excess ABG -0.3 mmol/L (-2.0-2.0); Blood Gas Allen Test Pos; Blood Gas Operator Identificat ED; Blood Gas Sample Site Radial, left; Blood Gas Sample Type Arterial; Carboxyhemoglobin 0.6 %THgb (0.4-20.1); HCO3 ABG 21.9 mmol/L (22-26); HGB O2 Sat 96.6 % (95-100); Ionized Calcium Level - ABG 1.2 mmol/L (1.1-1.4); Methemoglobin 1.1 % (0.4-1.5); Oxygen Device VENT; Oxygen Saturation ABG 98.3; PO2 ABG 91.1 mmHg (80.0-100.0); Potassium Level - ABG 4.6 mmol/L (3.5-5.0); Total Hemoglobin 10.9 g/dL (12-16)
[2021-10-26] MEDS: potassium chloride oral liq 20 mEq/15 mL UDC 40 MEQ PO ×2 (08:31→20:48)
[2021-10-26 09:50] LABS: Iron 22 ug/dL (37-145); Percent Saturation 10.1 % (20-50); Total Iron Binding Capacity 216 mcg/dl; Unsaturated Iron Binding 194 ug/dL (112-347)
--- NOTE | 2021-10-26 10:10 | P.PN_ITS ---
Subjective Subjective: Patient is stable. Intubated Vitals/I&O/Wt Last Vital Signs Temp 98.7 F 10/26/21 07:10 Pulse 77 10/26/21 08:28 Resp 14 10/26/21 08:28 BP 142/83 10/26/21 07:10 Pulse Ox 97 10/26/21 08:28 10/25/21 10/26/21 10/26/21 22:59 06:59 14:59 Intake Total 966.773 / 3175.406 5910.617 / 3025.615 198 / 198 Output Total 150 / 150 525 / 675 Balance 816.773 / 4647.339 5422.617 / 2350.615 198 / 198 Weight last 48 hrs Weight 250 lb Physical Exam Narrative: GENERAL: Patient is intubated and sedated NECK: No jugular vein distension. [] HEENT: No cyanosis. No icterus. No pallor. [] HEART: Regular LUNGS: Diminished breath sounds bilaterally ABDOMEN: Soft CENTRAL NERVOUS SYSTEM: Grossly nonfocal. [] EXTREMITIES: Lower extremities with 1+ edema bilaterally. Urinary Catheter Management: Wolfe: Cath Placed During This Visit: yes Reason for Continuing Indwelling Catheter: Accurate Measurement of Urinary Output in Critically Ill Patients Urinary Catheter Date of Insertion: 10/24/21 Urinary Catheter Time of Insertion: 14:25 Data : 10/28/21 04:56 10/28/21 04:56 Micro: Microbiology 10/24/21 21:30 Sputum Culture - Preliminary Sputum - Endotracheal Tube Aspirate 10/24/21 13:00 Blood Culture - Preliminary Blood NEGATIVE TO DATE 10/24/21 12:53 Blood Culture - Preliminary Blood NEGATIVE TO DATE A&P Assessment and plan (1) Elevated troponin: Status: Acute (2) Acute kidney failure: Status: Acute (3) Oliguria: Status: Acute (4) Cardiac arrest: Status: Acute (5) Ventricular tachyarrhythmia: Status: Acute (6) Altered mental status: Status: Acute (7) Sepsis: Status: Acute (8) History of DVT (deep vein thrombosis): Status: Acute Plan Patient had presented with altered mental status and was being treated for sepsis. She went into polymorphic ventricular tachycardia. On amiodarone gtt. Can switch to p.o. amiodarone today Metoprolol once BP allows Troponin elevation is secondary to demand ischemia. As patient is DNR DNI and family wants conservative therapy, no plans for invasive cardiac procedures. LV systolic function is normal on limited echocardiogram that was performed post resuscitation. Thank you for involving us with care of this patient. We will continue to follow. Please call with questions. Attestations Medical Necessity Statement*: Care expected to cross 2 midnights. Coding Level of Care Code Acute Ceramics Technician for g Fwd Diagnoses Elevated troponin R77.8 Acute kidney failure N17.9 Oliguria R34 Cardiac arrest I46.9 Ventricular tachyarrhythmia I47.2 Altered mental status R41.82 Sepsis A41.9 History of DVT (deep vein thrombosis) Z86.715
--- NOTE | 2021-10-26 10:16 | PC.CHAP ---
Pastoral Care Encounter/Spiritual Assessment Type of Contact [] Declined director merit system visit [] Patient/Family/Request visit [] Outpatient visit [] Follow-up visit [] Physician referral [] Code/Alert [x] Routine visit [] Staff referral [] Actively dying [x] Patient sleeping [x] Family support [] [] Out of room [] Palliative care [] [] Receiving care in room [] Pre-surgical visit [] Trauma [] Long length of stay [x] ICU visit [x] Other: patient still on vent-- visited twice tuesday Relational/Emotional Strength [] Patient feels connected with others/family/visitors/staff [] Distress [] Loneliness/isolation [] Abandonment Spirituality of Patient [] Person of [place] [] Attends [employer] of their [place] [] Believes in Prayer [] Reads Bible or Pentecostalism materials [] There are Spiritual issues to be addressed Store Sales Manager Interventions [x] Prayer [] Active listening [] Non-anxious presence [] Spiritual/emotional support [] Crisis/trauma care [] Spiritual counseling [] Bereavement support [] Provided bereavement packet [] Provided Bible/devotional materials [] Provided toy/stuffed animal, coloring book to patient or family member [] Provided Communion [] Anointing/[place] [] Salvation [x] Completed spiritual assessment [] Other: Impact on Illness or Injury [] Angry [] Fearful [] Anxious [] Often cries [] Exhaustion [] Unable to work [] Unable to attend religion [] Unable to walk/stand [] Unable to read [] Unable to drive [] Unable to eat/drink [] Unable to sleep [] Unable to be with family [] Patient intubated [] Other: Summary Time spent with patient
--- NOTE | 2021-10-26 10:22 | PM.PN ---
Subjective Subjective: Hospital course, labs appreciated. Today morning on examination patient seen sedated on, on mechanical ventilation. She is currently on amiodarone drip of 0.5, propofol, fentanyl with the fluids running at 125 cc/h. Urine output of 600 cc in last 24 hours. Off pressors. Family at bedside. Vitals/I&O/Wt Last Vital Signs Temp 98.7 F 10/26/21 07:10 Pulse 77 10/26/21 08:28 Resp 14 10/26/21 08:28 BP 142/83 10/26/21 07:10 Pulse Ox 97 10/26/21 08:28 10/25/21 10/26/21 10/26/21 22:59 06:59 14:59 Intake Total 966.773 / 4401.040 7703.617 / 3025.615 198 / 198 Output Total 150 / 150 525 / 675 Balance 816.773 / 4210.702 2182.617 / 2350.615 198 / 198 Weight last 48 hrs Weight 113.398 kg Physical Exam Narrative: General: Intubated, sedated HEENT: Normocephalic, atraumatic, on vent Cardio: Regular rate rhythm, normal S1-S2, muffled heart sounds due to body habitus Respiratory: Fair b/l air entry, no crackles at bases, clear to auscultation GI: Abdomen soft, nontender, obese, large rounded abdomen, bowel sounds + Extremities:Chronic venous statis changes present b/l LE. Large area of erythema LE with another wound on right thigh Sacral stage 2-3 ulcer present, skin breakdown present to adipose layer Wolfe in place, minimal UO since this AM. Barely 100 cc. Urinary Catheter Management: Wolfe: Cath Placed During This Visit: yes Reason for Continuing Indwelling Catheter: Accurate Measurement of Urinary Output in Critically Ill Patients Urinary Catheter Date of Insertion: 10/24/21 Urinary Catheter Time of Insertion: 14:25 Data : 10/26/21 04:55 10/26/21 04:55 Micro: Microbiology 10/24/21 21:30 Sputum Culture - Preliminary Sputum - Endotracheal Tube Aspirate 10/24/21 13:00 Blood Culture - Preliminary Blood NEGATIVE TO DATE 10/24/21 12:53 Blood Culture - Preliminary Blood NEGATIVE TO DATE A&P Assessment and plan (1) Respiratory failure, acute: Status: Acute (2) Ventilator dependence: Status: Acute (3) Cardiac arrest: Status: Acute (4) Ventricular tachyarrhythmia: Status: Acute (5) Acute kidney failure: Status: Acute (6) Oliguria: Status: Acute (7) Altered mental status: Status: Acute (8) Sepsis: Status: Acute (9) Hypokalemia: Status: Acute (10) Acute non-ST elevation myocardial infarction (NSTEMI): Status: Acute (11) Deep tissue injury: Status: Acute (12) History of DVT (deep vein thrombosis): Status: Acute (13) Heart murmur: Status: Acute (14) COPD (chronic obstructive pulmonary disease): Status: Acute (15) Diabetes mellitus type 2 in obese: Status: Acute (16) UTI (urinary tract infection): Status: Acute (17) Elevated troponin: Status: Acute Plan Ventilator dependent respiratory failure postcardiac arrest secondary to ventricular tachycardia: On minimal ventilator settings. Wean off sedation. Plan for extubation within next 24 to 48 hours if patient wakes up appropriately. DuoNebs every 6 hour. Keep saturation over 90, mean over 65. Chest x-ray in a.m. ABG in AM. Stop amiodarone drip. Switch to oral 200 mg twice daily. Start on metoprolol at 100 mg twice daily. Take 75 mg twice daily at home. Sepsis secondary to cellulitis: Continue with vancomycin and Zosyn for now. Check MRSA swab. Blood culture, sputum culture so far negative. If MRSA negative can stop vancomycin. Acute kidney injury/oliguria: Post cardiac arrest and CPR. Continue with IV fluid as above. Check urine lites, urine creatinine. Lasix 40 mg once stat. Monitor urine output. Elevated troponins: Most likely postventilatory cardiac, CPR, acute kidney injury. Discussed with at bedside. Does not want any aggressive management or cardiac catheterization for now. Cardiology on board. Restart home medications. History of DVT/PE: Continue with full dose Lovenox. Analgesia: Fentanyl, propofol. Glycemic control: Sliding scale every 6 hourly as patient is NPO. Nutrition: NPO. If not able to extubate in next 24 hours start on tube feeds. CODE STATUS: at bedside. DNR/DNI. PUD prophylaxis: Protonix DVT prophylaxis: Full dose Lovenox will suffice as DVT prophylaxis Discharge planning: Depending on further goals of care discussion post weaning trial. Continue with care at ICU. Attestations Medical Necessity Statement*: Requires further hospitalization for ventilator dependent respiratory failure, postcardiac arrest care, sepsis secondary cellulitis, acute kidney injury Critical Care Time: The high probability of a clinically significant, sudden or life threatening deterioration of the patient's renal, red pulmonary, cardiac system(s) required my full and direct attention, intervention and personal management. The critical care time is as shown. This time is in addition to time spent performing any reported procedures but includes the following: [x] Data and vital sign review and interpretation [x] Patient assessment, examination and intervention [x] Documentation [x] Medication orders and management Critical Care Time (min): 90 Coding Level of Care Code Acute Early Childhood Services Coordinator for g Fwd Diagnoses Altered mental status R41.82 Sepsis A41.9 Hypokalemia E87.6 Acute non-ST elevation myocardial infarction (NSTEMI) I21.4 Deep tissue injury T14.8XXA History of DVT (deep vein thrombosis) Z86.718 Heart murmur R01.1 COPD (chronic obstructive pulmonary disease) J44.9 Diabetes mellitus type 2 in obese E11.69; E66.9 UTI (urinary tract infection) N39.0 Respiratory failure, acute J96.00 Ventilator dependence Z99.11 Cardiac arrest I46.9 Ventricular tachyarrhythmia I47.2 Elevated troponin R77.8 Oliguria R34 Acute kidney failure N17.9
[2021-10-26] MEDS: FUROsemide 10 mg/mL SDV 4mL 40 MG IVP (11:16)
[2021-10-26 11:46] LABS: Glucose Point of Care 126 mg/dL (70-110)
[2021-10-26] MEDS: gabapentin 100 mg Capsule 200 MG PO ×2 (14:07→20:48)
[2021-10-26] MEDS: metoprolol tartrate 50 mg Tablet 100 MG PO ×2 (14:44→20:48)
--- NOTE | 2021-10-26 15:26 | US_ITS ---
WS: [id number] RENAL ULTRASOUND HISTORY: Acute kidney injury COMPARISON: 08/27/2021 TECHNIQUE: 2-D and color Doppler imaging of the kidney submitted. Right kidney: 10.8 cm x 3.7 cm x 4.0 cm. Normal echogenicity with no hydronephrosis or mass. Left kidney: 8.5 cm x 5.0 cm x 5.4 cm. Low normal size kidney difficult to visualize due to body habitus. No hydronephrosis or mass identifi ed. No cortical thinning. Aorta: Mild ectasia and atherosclerosis. Urinary Bladder: Nondistended. Wolfe catheter present. Fatty liver. US/US renal BI* [id number] IMPRESSION: 1. No hydronephrosis or mass identified. 2. Low normal size LEFT kidney.
[2021-10-26] MEDS: propofol 1,000 MG/100 ML INJ 20.41 MG IV ×2 (16:05→20:47)
[2021-10-26 17:30] LABS: Glucose Point of Care 124 mg/dL (70-110)
[2021-10-26] MEDS: amiodarone 200 mg Tablet PO (17:49)
[2021-10-26 18:10] LABS: Potassium, Radom Urine 33 mmol/L; Urine Creatinine 20 mg/dL (28-217); Urine Random Chloride 132 mmol/L; Urine Random Sodium 115 mmol/L
[2021-10-26 20:05] LABS: Eosinophil Urine Eosinophils Seen; Urine Eosinophil Count 1 (0-0)
[2021-10-26 20:31] LABS: Glucose Point of Care 113 mg/dL (70-110)
[2021-10-26] MEDS: atorvastatin 40 mg Tablet 30 MG PO (20:48)
[2021-10-26 20:53] LABS: Anion Gap 14.3 (5-19); Blood Urea Nitrogen 29 mg/dL (8-23); Calcium 8.8 mg/dL (8.5-10.5); Carbon Dioxide 23 mmol/L (22-29); Chloride 111 mmol/L (98-107); Glucose 121 mg/dL (65-115); Osmolality Calculated 305 mOsm/kg (285-295); Potassium 4.3 mmol/L (3.5-5.1); Sodium 144 mmol/L (136-145)
[2021-10-27] VITALS (38 sets, daily range): BP systolic 124–189; BP diastolic 64–112; PULSE 72–89; RESP 14–18; TEMP 36.7–38.1; O2SAT 90–100
[2021-10-27] MEDS: ipratropium-albuterol 3 mL Neb INHALATION ×4 (02:27→20:19)
[2021-10-27] MEDS: propofol 1,000 MG/100 ML INJ 20.41 MG IV ×2 (02:49→09:03)
[2021-10-27 03:41] LABS: Basophils % 0.6 %; Eosinophils # 0.1 10^3/uL (0.0-0.8); Eosinophils % 1.5 %; Hematocrit 34.6 % (37.0-47.0); Hemoglobin 10.6 g/dL (11.5-15.3); Lymphocytes # 1.9 10^3/uL (0.8-4.8); Lymphocytes % 26.3 %; Mean Corpuscular HGB Conc 30.6 g/dL (30.0-36.0); Mean Corpuscular Hemoglobin 27.3 pg (28.0-34.0); Mean Corpuscular Volume 89.2 fl (81-99); Mean Platelet Volume 10.1 fL (7.4-10.4); Monocytes # 0.5 10^3/uL (0.2-0.9); Monocytes % 6.9 %; Neutrophils # 4.65 10^3/uL (1.8-7.7); Neutrophils % 64.3 %; Nucleated Red Blood Cells % 0 %; Platelet Count 254 10^3/cmm (130-400); Red Blood Count 3.88 10^6/uL (4.1-5.3); Red Cell Distribution Width 17.5 % (12.1-15.1); White Blood Count 7.2 10^3/uL (4.0-10.0)
[2021-10-27 03:57] LABS: Alanine Aminotransferase 13 U/L (0-33); Alkaline Phosphatase 65 IU/L (35-105); Aspartate Amino Transferase 16 U/L (0-32); Blood Urea Nitrogen 28 mg/dL (8-23); Calcium 8.6 mg/dL (8.5-10.5); Carbon Dioxide 23 mmol/L (22-29); Chloride 111 mmol/L (98-107); Chol HDL Ratio 2.93 mg/dL (0.0-4.40); Cholesterol 135 mg/dL (0-200); Globulin 3.6 g/dL (1.3-4.6); Glucose 107 mg/dL (65-115); HDL Cholesterol 46 mg/dL (60-100); LDL Cholesterol Calculated 53 mg/dL (50-129); Osmolality Calculated 306 mOsm/kg (285-295); Sodium 145 mmol/L (136-145); Total Bilirubin 0.3 mg/dL (0.15-1.2); Total Protein 6.6 g/dL (6.6-8.7); Triglycerides 178 mg/dL (0-150); VLDL Cholestrol Calculation 36 mg/dL (0-30)
[2021-10-27 04:25] LABS: Estmated Average Glucose 137; Hemoglobin A1C 6.4 % (4.0-6.0)
[2021-10-27] MEDS: sodium chloride 0.9% 1,000 ML 125 ML IV (04:48)
[2021-10-27] MEDS: enoxaparin 120 mg/0.8 mL Syringe 110 MG SUBCUT ×2 (06:05→18:06)
[2021-10-27] MEDS: piperacillin-tazobactam 3.375 GM in sodium chloride 0.9% (plus) 50 ML IV ×3 (06:06→22:14)
[2021-10-27 06:07] LABS: Glucose Point of Care 103 mg/dL (70-110)
[2021-10-27] MEDS: ferrous sulfate EC 325 mg Tablet PO (08:01)
[2021-10-27] MEDS: gabapentin 100 mg Capsule 200 MG PO ×3 (08:02→19:35)
[2021-10-27] MEDS: amiodarone 200 mg Tablet PO ×2 (08:02→18:06)
[2021-10-27] MEDS: metoprolol tartrate 50 mg Tablet 100 MG PO ×2 (08:02→20:05)
[2021-10-27] MEDS: potassium chloride oral liq 20 mEq/15 mL UDC 40 MEQ PO ×2 (08:12→19:35)
[2021-10-27] MEDS: pantoprazole 40 mg SDV IVP (08:12)
--- NOTE | 2021-10-27 10:18 | PC.CHAP ---
Pastoral Care Encounter/Spiritual Assessment Type of Contact [] Declined software educator visit [] Patient/Family/Request visit [] Outpatient visit [] Follow-up visit [] Physician referral [] Code/Alert [x] Routine visit [] Staff referral [] Actively dying [x] Patient sleeping [] Family support [] [] Out of room [] Palliative care [] [] Receiving care in room [] Pre-surgical visit [] Trauma [] Long length of stay [x] ICU visit [x] Other: still on vent... eye movement when prayed over... possible vent removal today Relational/Emotional Strength [] Patient feels connected with others/family/visitors/staff [] Distress [] Loneliness/isolation [] Abandonment Spirituality of Patient [] Person of Lindsey [] Attends Scientology of their [place] [] Believes in Prayer [] Reads Bible or Yazdanism materials [] There are Spiritual issues to be addressed Gluing Machine Operator Electronic Interventions [x] Prayer [] Active listening [] Non-anxious presence [] Spiritual/emotional support [] Crisis/trauma care [] Spiritual counseling [] Bereavement support [] Provided bereavement packet [] Provided Bible/devotional materials [] Provided toy/stuffed animal, coloring book to patient or family member [] Provided Communion [] Anointing/[place] [] Salvation [x] Completed spiritual assessment [] Other: Impact on Illness or Injury [] Angry [] Fearful [] Anxious [] Often cries [] Exhaustion [] Unable to work [] Unable to attend roman catholic [] Unable to walk/stand [] Unable to read [] Unable to drive [] Unable to eat/drink [] Unable to sleep [] Unable to be with family [] Patient intubated [] Other: Summary Time spent with patient
[2021-10-27 10:57] LABS: Glucose Point of Care 100 mg/dL (70-110)
--- NOTE | 2021-10-27 11:36 | PC.SOCIAL ---
Pg 2 IMM Explained to pt's spouse Pg 2 IMM. No questions voiced. Provided spouse a copy. Initialed, dated, & timed a copy & placed in chart.
--- NOTE | 2021-10-27 14:45 | PM.PN ---
Subjective Subjective: No complaints overnight. Today morning on examination patient is on fentanyl 25, propofol at 30, sedated. Having occasional jerking movements of left lower limb and a gag reflex. Currently on ventilator setting of 21% FiO2, PEEP of 5, saturating 93 to 96%. Overnight patient required 1 dose of labetalol for her blood pressure. Heart rate well controlled. Has remained hemodynamically stable and afebrile otherwise. Today morning systolic blood pressures of 150. Urine output since Lasix yesterday around 5 L. Vitals/I&O/Wt Last Vital Signs Temp 98.1 F 10/27/21 12:00 Pulse 77 10/27/21 14:00 Resp 14 10/27/21 13:49 BP 162/91 10/27/21 13:49 Pulse Ox 93 10/27/21 13:49 10/26/21 10/27/21 10/27/21 22:59 06:59 14:59 Intake Total 1967.363 / 3453.120 1145.833 / 4598.953 258.205 / 258.205 Output Total 2600 / 2600 1700 / 4300 1750 / 1750 Balance -632.637 / 853.120 -554.167 / 298.953 -1491.795 / -1491.795 Physical Exam Narrative: General: Intubated, somnolent off sedation HEENT: Normocephalic, atraumatic, on vent Cardio: Regular rate rhythm, normal S1-S2, muffled heart sounds due to body habitus Respiratory: Fair b/l air entry, no crackles at bases, clear to auscultation GI: Abdomen soft, nontender, obese, large rounded abdomen, bowel sounds + Extremities:Chronic venous statis changes present b/l LE. Large area of erythema LE with another wound on right thigh Sacral stage 2-3 ulcer present, skin breakdown present to adipose layer Wolfe in place, Urinary Catheter Management: Wolfe: Cath Placed During This Visit: yes Reason for Continuing Indwelling Catheter: Not indwelling catheter Urinary Catheter Date of Insertion: 10/24/21 Urinary Catheter Time of Insertion: 14:25 Data : 10/27/21 03:18 10/27/21 03:18 Micro: Microbiology 10/24/21 21:30 Sputum Culture - Final Sputum - Endotracheal Tube Aspirate A&P Assessment and plan (1) Respiratory failure, acute: Status: Acute (2) Ventilator dependence: Status: Acute (3) Cardiac arrest: Status: Acute (4) Ventricular tachyarrhythmia: Status: Acute (5) Acute kidney failure: Status: Acute (6) Oliguria: Status: Acute (7) Altered mental status: Status: Acute (8) Sepsis: Status: Acute (9) Hypokalemia: Status: Acute (10) Acute non-ST elevation myocardial infarction (NSTEMI): Status: Acute (11) Deep tissue injury: Status: Acute (12) History of DVT (deep vein thrombosis): Status: Acute (13) Heart murmur: Status: Acute (14) COPD (chronic obstructive pulmonary disease): Status: Acute (15) Diabetes mellitus type 2 in obese: Status: Acute (16) UTI (urinary tract infection): Status: Acute (17) Elevated troponin: Status: Acute Plan Ventilator dependent respiratory failure postcardiac arrest secondary to ventricular tachycardia: On minimal ventilator settings. Wean off sedation. Plan for extubation within next 24 to 48 hours if patient wakes up appropriately. DuoNebs every 6 hour. Keep saturation over 90, mean over 65. Chest x-ray in a.m. ABG in AM. Stop amiodarone drip. Switch to oral 200 mg twice daily. Start on metoprolol at 100 mg twice daily. Take 75 mg twice daily at home. Sepsis secondary to cellulitis: Continue with vancomycin and Zosyn for now. Check MRSA swab. Blood culture, sputum culture so far negative. If MRSA negative can stop vancomycin. Acute kidney injury/oliguria: Post cardiac arrest and CPR. Continue with IV fluid as above. Check urine lites, urine creatinine. Lasix 40 mg once stat. Monitor urine output. Elevated troponins: Most likely postventilatory cardiac, CPR, acute kidney injury. Discussed with at bedside. Does not want any aggressive management or cardiac catheterization for now. Cardiology on board. Restart home medications. History of DVT/PE: Continue with full dose Lovenox. Analgesia: Fentanyl, propofol. Glycemic control: Sliding scale every 6 hourly as patient is NPO. Nutrition: NPO. If not able to extubate in next 24 hours start on tube feeds. CODE STATUS: at bedside. DNR/DNI. PUD prophylaxis: Protonix DVT prophylaxis: Full dose Lovenox will suffice as DVT prophylaxis Discharge planning: Depending on further goals of care discussion post weaning trial. Continue with care at ICU. Plan for today: Wean off sedation completely. Monitor for mentation. If patient does not wake up by evening we will start on low-dose fentanyl and Precedex drip for repeat sedation vacation tomorrow morning to assess mentation. If patient does not have any significant mentation will have to discuss further goals of care regarding possible terminal extubation tomorrow. Switch from NS to D5 half NS at 75 cc/h. Monitor input output. Continue vancomycin and Zosyn. MRSA awaited. If negative will stop vancomycin. Continue with oral metoprolol and amiodarone. Add amlodipine 10 mg oral daily. Attestations Medical Necessity Statement*: Requires further hospitalization for management of ventilator dependent respiratory failure postcardiac arrest secondary to ventricular tachycardia, resolving acute kidney injury Critical Care Time: The high probability of a clinically significant, sudden or life threatening deterioration of the patient's [renal, neurological system(s) required my full and direct attention, intervention and personal management. The critical care time is as shown. This time is in addition to time spent performing any reported procedures but includes the following: [x] Data and vital sign review and interpretation [x] Patient assessment, examination and intervention [x] Documentation [x] Medication orders and management Critical Care Time (min): 60 Coding Level of Care Code Acute Spindle Sander for [facility] Fwd Diagnoses Respiratory failure, acute J96.00 Ventilator dependence Z99.11 Cardiac arrest I46.9 Ventricular tachyarrhythmia I47.2 Acute kidney failure N17.9 Oliguria R34 Altered mental status R41.82 Sepsis A41.9 Hypokalemia E87.6 Acute non-ST elevation myocardial infarction (NSTEMI) I21.4 Deep tissue injury T14.8XXA History of DVT (deep vein thrombosis) Z86.718 Heart murmur R01.1 COPD (chronic obstructive pulmonary disease) J44.9 Diabetes mellitus type 2 in obese E11.69; E66.9 UTI (urinary tract infection) N39.0 Elevated troponin R77.8
[2021-10-27] MEDS: dextrose 5%-sod chloride 0.9% 1,000 ML 75 ML IV (14:51)
[2021-10-27] MEDS: amlodipine 10 mg Tablet PO (15:21)
[2021-10-27] MEDS: labetalol 5 mg/mL SDV 20mL 10 MG IVP ×2 (16:10→23:16)
[2021-10-27 16:54] LABS: Glucose Point of Care 130 mg/dL (70-110)
[2021-10-27] MEDS: atorvastatin 40 mg Tablet 30 MG PO (19:35)
[2021-10-27 20:38] LABS: Glucose Point of Care 127 mg/dL (70-110)
[2021-10-27 21:38] LABS: Anion Gap 15.6 (5-19); Blood Urea Nitrogen 24 mg/dL (8-23); Calcium 8.5 mg/dL (8.5-10.5); Carbon Dioxide 21 mmol/L (22-29); Chloride 110 mmol/L (98-107); Glucose 135 mg/dL (65-115); Osmolality Calculated 300 mOsm/kg (285-295); Potassium 4.6 mmol/L (3.5-5.1); Sodium 142 mmol/L (136-145)
[2021-10-27] MEDS: dexmedeTOMIDine 0.9 % NaCL 400 MCG/100 ML PREMIX IV (23:01)
--- NOTE | 2021-10-27 23:11 | PC.NURSE ---
Blood Pressure Patient's blood pressure 192/[address] Pressley notified and telephone order received to administer 10 mg IVP PRN labetalol now rather than at 0015. Medication administered per JUN.
[2021-10-28] VITALS (41 sets, daily range): BP systolic 127–208; BP diastolic 53–130; PULSE 64–88; RESP 13–20; TEMP 37.2–38.3; O2SAT 92–96; BMI 34.0
--- NOTE | 2021-10-28 | PC.NURSE ---
Temperature Patient's axillary temperature 101F. Only sheet remains on patient, ice packs placed in groin and under arms, 650 mg Tylenol administered per JUN. Will monitor.
[2021-10-28] MEDS: acetaminophen 325 mg Tablet 650 MG PO (00:27)
[2021-10-28] MEDS: chlorhexidine gluconate 4% Btl 118 mL 1 APPLIC TOPICAL (01:56)
[2021-10-28] MEDS: ipratropium-albuterol 3 mL Neb INHALATION ×4 (02:45→20:04)
[2021-10-28 03:24] LABS: Glucose Point of Care 140 mg/dL (70-110)
[2021-10-28] MEDS: dextrose 5%-sod chloride 0.9% 1,000 ML 75 ML IV ×2 (04:26→17:19)
[2021-10-28 05:27] LABS: Basophils % 0.3 %; Eosinophils # 0.2 10^3/uL (0.0-0.8); Eosinophils % 2.8 %; Hematocrit 34.3 % (37.0-47.0); Hemoglobin 10.4 g/dL (11.5-15.3); Lymphocytes # 1.7 10^3/uL (0.8-4.8); Lymphocytes % 23.5 %; Mean Corpuscular HGB Conc 30.3 g/dL (30.0-36.0); Mean Corpuscular Hemoglobin 27.4 pg (28.0-34.0); Mean Corpuscular Volume 90.5 fl (81-99); Monocytes # 0.6 10^3/uL (0.2-0.9); Monocytes % 7.6 %; Neutrophils # 4.67 10^3/uL (1.8-7.7); Neutrophils % 64.6 %; Nucleated Red Blood Cells % 0 %; Platelet Count 239 10^3/cmm (130-400); Red Blood Count 3.79 10^6/uL (4.1-5.3); Red Cell Distribution Width 17.4 % (12.1-15.1); White Blood Count 7.2 10^3/uL (4.0-10.0)
[2021-10-28 05:46] LABS: Alanine Aminotransferase 11 U/L (0-33); Albumin Level 3.1 g/dL (3.5-5.2); Alkaline Phosphatase 73 IU/L (35-105); Anion Gap 14.6 (5-19); Aspartate Amino Transferase 16 U/L (0-32); Blood Urea Nitrogen 20 mg/dL (8-23); Calcium 8.5 mg/dL (8.5-10.5); Carbon Dioxide 22 mmol/L (22-29); Chloride 111 mmol/L (98-107); Globulin 3.6 g/dL (1.3-4.6); Glucose 147 mg/dL (65-115); Osmolality Calculated 303 mOsm/kg (285-295); Potassium 3.6 mmol/L (3.5-5.1); Sodium 144 mmol/L (136-145); Total Bilirubin 0.5 mg/dL (0.15-1.2); Total Protein 6.7 g/dL (6.6-8.7)
[2021-10-28] MEDS: enoxaparin 120 mg/0.8 mL Syringe 110 MG SUBCUT (06:05)
[2021-10-28] MEDS: piperacillin-tazobactam 3.375 GM in sodium chloride 0.9% (plus) 50 ML IV ×3 (06:06→22:18)
[2021-10-28 07:16] LABS: Glucose Point of Care 147 mg/dL (70-110)
[2021-10-28] MEDS: potassium chloride oral liq 20 mEq/15 mL UDC 40 MEQ PO ×2 (08:38→19:26)
[2021-10-28] MEDS: amlodipine 10 mg Tablet PO (08:38)
[2021-10-28] MEDS: gabapentin 100 mg Capsule 200 MG PO ×3 (08:38→19:26)
[2021-10-28] MEDS: metoprolol tartrate 50 mg Tablet 100 MG PO ×2 (08:39→20:06)
[2021-10-28] MEDS: pantoprazole 40 mg SDV IVP (08:39)
[2021-10-28] MEDS: amiodarone 200 mg Tablet PO ×2 (08:39→17:19)
[2021-10-28] MEDS: oxyCODONE-APAP 5-325 mg Tablet 1 TAB PO ×3 (08:39→23:14)
--- NOTE | 2021-10-28 09:32 | PC.CHAP ---
Pastoral Care Encounter/Spiritual Assessment Type of Contact [] Declined turntable man visit [] Patient/Family/Request visit [] Outpatient visit [] Follow-up visit [] Physician referral [] Code/Alert [x] Routine visit [] Staff referral [] Actively dying [] Patient sleeping [] Family support [] [] Out of room [] Palliative care [] [] Receiving care in room [] Pre-surgical visit [] Trauma [] Long length of stay [x] ICU visit [x] Other: vent... Relational/Emotional Strength [] Patient feels connected with others/family/visitors/staff [] Distress [] Loneliness/isolation [] Abandonment Spirituality of Patient [] Person of Lindsey [] Attends Holiness of their [place] [] Believes in Prayer [] Reads Bible or Temple materials [] There are Spiritual issues to be addressed Lead Sql Developer Interventions [x] Prayer [] Active listening [] Non-anxious presence [] Spiritual/emotional support [] Crisis/trauma care [] Spiritual counseling [] Bereavement support [] Provided bereavement packet [] Provided Bible/devotional materials [] Provided toy/stuffed animal, coloring book to patient or family member [] Provided Communion [] Anointing/[place] [] Salvation [xx] Completed spiritual assessment [] Other: Impact on Illness or Injury [] Angry [] Fearful [] Anxious [] Often cries [] Exhaustion [] Unable to work [] Unable to attend denominational [] Unable to walk/stand [] Unable to read [] Unable to drive [] Unable to eat/drink [] Unable to sleep [] Unable to be with family [] Patient intubated [] Other: Summary Time spent with patient
[2021-10-28 11:24] LABS: Glucose Point of Care 149 mg/dL (70-110)
--- NOTE | 2021-10-28 11:52 | PM.PN ---
Subjective Subjective: Patient is still intubated. Stable Vitals/I&O/Wt Last Vital Signs Temp 99 F 10/28/21 10:00 Pulse 67 10/28/21 10:00 Resp 14 10/28/21 10:47 BP 162/85 10/28/21 10:00 Pulse Ox 96 10/28/21 10:47 10/27/21 10/28/21 10/28/21 22:59 06:59 14:59 Intake Total 50 / 578.218 8538.490 / 1532.695 120.291 / 120.291 Output Total 1925 / 3675 1200 / 4875 2150 / 2150 Balance -1875 / -3316.795 -25.510 / -3342.305 -2029.709 / -2028.709 Weight last 48 hrs Weight 211 lb Physical Exam Narrative: GENERAL: Patient is intubated and sedated NECK: No jugular vein distension. [] HEENT: No cyanosis. No icterus. No pallor. [] HEART: Regular LUNGS: Diminished breath sounds bilaterally ABDOMEN: Soft CENTRAL NERVOUS SYSTEM: Grossly nonfocal. [] EXTREMITIES: Lower extremities with 1+ edema bilaterally. Urinary Catheter Management: Wolfe: Cath Placed During This Visit: yes Reason for Continuing Indwelling Catheter: Accurate Measurement of Urinary Output in Critically Ill Patients Urinary Catheter Date of Insertion: 10/24/21 Urinary Catheter Time of Insertion: 14:25 Data : 11/03/21 03:29 11/03/21 03:29 Micro: Microbiology 10/26/21 11:40 MRSA Culture - Final Nose 10/24/21 21:30 Sputum Culture - Final Sputum - Endotracheal Tube Aspirate A&P Assessment and plan (1) Elevated troponin: (2) Acute kidney failure: (3) Oliguria: (4) Cardiac arrest: (5) Ventricular tachyarrhythmia: (6) Altered mental status: (7) Sepsis: (8) History of DVT (deep vein thrombosis): Plan Patient had presented with altered mental status and was being treated for sepsis. She went into polymorphic ventricular tachycardia. PO amiodarone PO metoprolol Troponin elevation is secondary to demand ischemia. As patient is DNR DNI and family wants conservative therapy, no plans for invasive cardiac procedures. LV systolic function is normal on limited echocardiogram that was performed post resuscitation. Thank you for involving us with care of this patient. We will sign off. Please call with questions. Please call with questions. Attestations Medical Necessity Statement*: Care expected to cross 2 midnights. Coding Level of Care Code Acute Entry Level Electrician for [facility] Diagnoses Elevated troponin R77.8 Acute kidney failure N17.9 Oliguria R34 Cardiac arrest I46.9 Ventricular tachyarrhythmia I47.2 Altered mental status R41.82 Sepsis A41.9 History of DVT (deep vein thrombosis) Z86.349
--- NOTE | 2021-10-28 13:52 | P.PN_ITS ---
Subjective Subjective: Seen multiple times yesterday. No acute events overnight. Patient did have 1 episode of overbreathing the vent and high blood pressure at that time she was started on low-dose fentanyl and Precedex. Currently on examination on 15 of fentanyl, 0.4 of Precedex. During examination the sedation was turned off. When seen again during the day in 3 hours post stopping sedation patient is laying comfortably in bed with eyes closed, waking up to physical stimulus, able to nod appropriately to questions. Nods that she is uncomfortable with cube in her mouth, able to nod head when asked questions, squeezes hands when possible. But still showing signs of getting tired over the event in 4 hours. Otherwise has remained hemodynamically stable and afebrile. Off pressors. On 28% FiO2 saturating 95% on ventilator settings. Documented urine output of over 5 L in last 24 hours. Net 300 cc negative since admission. Vitals/I&O/Wt Last Vital Signs Temp 99 F 10/28/21 10:00 Pulse 67 10/28/21 10:00 Resp 20 H 10/28/21 13:30 BP 162/85 10/28/21 10:00 Pulse Ox 92 10/28/21 13:30 10/27/21 10/28/21 10/28/21 22:59 06:59 14:59 Intake Total 50 / 395.537 4636.490 / 1532.695 120.291 / 120.291 Output Total 1925 / 3675 1200 / 4875 2150 / 2150 Balance -1875 / -3316.795 -25.510 / -3342.305 -2029.709 / -202.709 Weight last 48 hrs Weight 95.708 kg Physical Exam Narrative: General: Intubated, no acute distress, laying comfortably in bed, waking up appropriately and nodding appropriately and squeezing hand memo ropriately questions. HEENT: Normocephalic, atraumatic, on vent Cardio: Regular rate rhythm, normal S1-S2, muffled heart sounds due to body habitus Respiratory: Fair b/l air entry, no crackles at bases, clear to auscultation GI: Abdomen soft, nontender, obese, large rounded abdomen, bowel sounds + Extremities:Chronic venous statis changes present b/l LE. Large area of erythema LE with another wound on right thigh Sacral stage 2-3 ulcer present, skin breakdown present to adipose layer Wolfe in place, Urinary Catheter Management: Wolfe: Cath Placed During This Visit: yes Reason for Continuing Indwelling Catheter: Accurate Measurement of Urinary Output in Critically Ill Patients Urinary Catheter Date of Insertion: 10/24/21 Urinary Catheter Time of Insertion: 14:25 Data : 10/28/21 04:56 10/28/21 04:56 Micro: Microbiology 10/26/21 11:40 MRSA Culture - Final Nose 10/24/21 21:30 Sputum Culture - Final Sputum - Endotracheal Tube Aspirate A&P Assessment and plan (1) Respiratory failure, acute: Status: Acute (2) Ventilator dependence: Status: Acute (3) Cardiac arrest: Status: Acute (4) Ventricular tachyarrhythmia: Status: Acute (5) Acute kidney failure: Status: Acute (6) Oliguria: Status: Acute (7) Altered mental status: Status: Acute (8) Sepsis: Status: Acute (9) Hypokalemia: Status: Acute (10) Acute non-ST elevation myocardial infarction (NSTEMI): Status: Acute (11) Deep tissue injury: Status: Acute (12) History of DVT (deep vein thrombosis): Status: Acute (13) Heart murmur: Status: Acute (14) COPD (chronic obstructive pulmonary disease): Status: Acute (15) Diabetes mellitus type 2 in obese: Status: Acute (16) UTI (urinary tract infection): Status: Acute (17) Elevated troponin: Status: Acute Plan Ventilator dependent respiratory failure postcardiac arrest secondary to ventricular tachycardia: On minimal ventilator settings. Wean off sedation. Plan for extubation within next 24 to 48 hours if patient wakes up appropriately. If patient does not wake up appropriately within next 24 to 48 hours we will have to call regarding possible trach and PEG tube placement. DuoNebs every 6 hour. Keep saturation over 90, mean over 65. Chest x-ray in a.m. ABG in AM. Continue with metoprolol 100 mg twice daily, amiodarone 200 mg twice daily. Will plan to transition to 200 mg daily after 7 days of oral twice daily dose. Monitor heart rate when patient on Precedex. Sepsis secondary to cellulitis: MRSA negative. Stop vancomycin continue with Zosyn. Will try to finish 7-day course of Zosyn overall. Wound care appropriately. Blood cultures so far negative. Acute kidney injury/oliguria: Resolving. Creatinine stable at 1.3. Robust urine output. Post cardiac arrest and CPR. Urine eosinophils positive. Will start on low-dose prednisone 40 mg daily for 5 days. Monitor input output. Continue with D5 NS at 75 cc/h. Hypertension: Goal blood pressure less than 140/90 mmHg. Continue with metoprolol as above. Amlodipine 10 mg daily. If needed can add hydralazine. Type 2 diabetes mellitus: A1c 6.4. Insulin sliding scale every 6 hours for now. Elevated troponins: Most likely postventilatory cardiac, CPR, acute kidney injury. Discussed with at bedside. Does not want any aggressive management or cardiac catheterization for now. Cardiology on board. Restart home medications. History of DVT/PE: Continue with full dose Lovenox. Analgesia: Fentanyl, Precedex. Glycemic control: Sliding scale every 6 hourly as patient is NPO. Nutrition: NPO. Hold off on tube feeds as patient is at high possibility of extubation. CODE STATUS: at bedside. DNR/DNI. If patient remains intubated need to talk to regarding possible tracheostomy and PEG tube placement. PUD prophylaxis: Protonix DVT prophylaxis: Full dose Lovenox will suffice as DVT prophylaxis Discharge planning: Depending on further goals of care discussion post weaning trial. Continue with care at ICU. at bedside. Updated. Attestations Medical Necessity Statement*: Requires further hospitalization for management of ventilator dependent respiratory failure in a patient with cardiac arrest secondary to VT, resolving acute kidney injury Critical Care Time: The high probability of a clinically significant, sudden or life threatening deterioration of the patient's [pulmonary, neurological, cardiac, renal system(s) required my full and direct attention, intervention and personal management. The critical care time is as shown. This time is in addition to time spent performing any reported procedures but includes the following: [x] Data and vital sign review and interpretation [x] Patient assessment, examination and intervention [x] Documentation [x] Medication orders and management Critical Care Time (min): 90 Coding Level of Care Code Acute Engineering Assistant for Delma [facility]or Diagnoses Respiratory failure, acute J96.00 Ventilator dependence Z99.11 Cardiac arrest I46.9 Ventricular tachyarrhythmia I47.2 Acute kidney failure N17.9 Oliguria R34 Altered mental status R41.82 Sepsis A41.9 Hypokalemia E87.6 Acute non-ST elevation myocardial infarction (NSTEMI) I21.4 Deep tissue injury T14.8XXA History of DVT (deep vein thrombosis) Z86.718 Heart murmur R01.1 COPD (chronic obstructive pulmonary disease) J44.9 Diabetes mellitus type 2 in obese E11.69; E66.9 UTI (urinary tract infection) N39.0 Elevated troponin R77.8
[2021-10-28 14:52] LABS: ABG PCO2 37.6 mmHg (35-45); ABG PH Result 7.38 (7.35-7.45); Alveolar-Arterial Oxygen Gradi 11.5 mmHg (5-10); Arterial Blood Gas Hematocrit 33.5 % (37-47); Base Excess ABG -2.4 mmol/L (-2.0-2.0); Blood Gas Allen Test Pos; Blood Gas Operator Identificat BD; Blood Gas Sample Site Radial, right; Blood Gas Sample Type Arterial; Carboxyhemoglobin 1.6 %THgb (0.4-20.1); HCO3 ABG 22.4 mmol/L (22-26); Ionized Calcium Level - ABG 1.2 mmol/L (1.1-1.4); Oxygen Device VENT; Oxygen Saturation ABG 92.3; PO2 ABG 65.5 mmHg (80.0-100.0); Potassium Level - ABG 3.8 mmol/L (3.5-5.0); Total Hemoglobin 10.9 g/dL (12-16)
[2021-10-28] MEDS: enoxaparin 100 mg/mL Syringe SUBCUT (17:19)
[2021-10-28 17:35] LABS: Glucose Point of Care 167 mg/dL (70-110)
[2021-10-28] MEDS: labetalol 5 mg/mL SDV 20mL 10 MG IVP (18:29)
[2021-10-28] MEDS: atorvastatin 40 mg Tablet 30 MG PO (19:26)
[2021-10-28] MEDS: insulin lispro 100 unit/1 mL SUBCUT (20:16)
[2021-10-28 20:23] LABS: Glucose Point of Care 177 mg/dL (70-110)
[2021-10-28] MEDS: hyDRALAzine 20 mg/mL INJ 1 mL 10 MG IVP (21:57)
[2021-10-28] MEDS: hyDRALAzine 25 mg Tablet PO (23:45)
[2021-10-29] VITALS (57 sets, daily range): BP systolic 134–210; BP diastolic 64–127; PULSE 64–93; RESP 11–31; TEMP 37.2–37.9; O2SAT 90–100; BMI 33.2
[2021-10-29] MEDS: chlorhexidine gluconate 4% Btl 118 mL 1 APPLIC TOPICAL (02:15)
[2021-10-29] MEDS: ipratropium-albuterol 3 mL Neb INHALATION ×4 (02:26→20:01)
[2021-10-29] MEDS: insulin lispro 100 unit/1 mL SUBCUT ×4 (02:44→20:36)
[2021-10-29 03:03] LABS: Glucose Point of Care 166 mg/dL (70-110)
[2021-10-29] MEDS: labetalol 5 mg/mL SDV 20mL 10 MG IVP (03:07)
[2021-10-29] MEDS: acetaminophen 325 mg Tablet 650 MG PO (03:08)
[2021-10-29 05:23] LABS: Basophils % 0.3 %; Hematocrit 37.8 % (37.0-47.0); Hemoglobin 11.6 g/dL (11.5-15.3); Lymphocytes # 0.9 10^3/uL (0.8-4.8); Lymphocytes % 11.8 %; Mean Corpuscular HGB Conc 30.7 g/dL (30.0-36.0); Mean Corpuscular Hemoglobin 27.6 pg (28.0-34.0); Mean Corpuscular Volume 89.8 fl (81-99); Mean Platelet Volume 10.5 fL (7.4-10.4); Monocytes # 0.1 10^3/uL (0.2-0.9); Monocytes % 1.5 %; Neutrophils # 6.09 10^3/uL (1.8-7.7); Neutrophils % 83.7 %; Nucleated Red Blood Cells % 0 %; Platelet Count 276 10^3/cmm (130-400); Red Blood Count 4.21 10^6/uL (4.1-5.3); Red Cell Distribution Width 16.9 % (12.1-15.1); White Blood Count 7.3 10^3/uL (4.0-10.0)
[2021-10-29 05:44] LABS: Alanine Aminotransferase 15 U/L (0-33); Albumin Level 3.5 g/dL (3.5-5.2); Alkaline Phosphatase 96 IU/L (35-105); Anion Gap 17.2 (5-19); Aspartate Amino Transferase 19 U/L (0-32); Blood Urea Nitrogen 17 mg/dL (8-23); Carbon Dioxide 20 mmol/L (22-29); Chloride 107 mmol/L (98-107); Globulin 4.2 g/dL (1.3-4.6); Glucose 178 mg/dL (65-115); Osmolality Calculated 296 mOsm/kg (285-295); Potassium 4.2 mmol/L (3.5-5.1); Sodium 140 mmol/L (136-145); Total Bilirubin 0.4 mg/dL (0.15-1.2); Total Protein 7.7 g/dL (6.6-8.7)
[2021-10-29 05:51] LABS: ABG PH Result 7.38 (7.35-7.45); Arterial Blood Gas Hematocrit 50.2 % (37-47); Base Excess ABG -3.2 mmol/L (-2.0-2.0); Blood Gas Operator Identificat JB; Blood Gas Sample Site Brachial, right; Blood Gas Sample Type Arterial; Blood Gas Tidal Volume 0.45; Carboxyhemoglobin 1.1 %THgb (0.4-20.1); HCO3 ABG 21.2 mmol/L (22-26); HGB O2 Sat 92.4 % (95-100); Ionized Calcium Level - ABG 1.3 mmol/L (1.1-1.4); Methemoglobin 0.6 % (0.4-1.5); Oxygen Device VENT; PO2 ABG 70.8 mmHg (80.0-100.0); Potassium Level - ABG 4.1 mmol/L (3.5-5.0); Total Hemoglobin 16.4 g/dL (12-16)
--- NOTE | 2021-10-29 06:00 | XR_ITS ---
WS: [id number] PORTABLE CHEST HISTORY: intubated COMPARISON: 10/25/2021 Endotracheal tube is in good position ending several centimeters above the rhonda. Gastric tube has b een positioned with the tip extending towards the antrum of the stomach. Lung volumes are decreased. Curvilinear atelectasis posterior to the LEFT heart. No pulmonary congest ion. No pleural effusion or pneumothorax. Cardiac size: Mildly enlarged cardiac silhouette. Mediastinum/Aorta: Mild atherosclerosis aorta. Bones are osteopenic. Dorsal column stimulator wires noted over the mid thoracic spine. XR/XR chest 1V portable [id number] IMPRESSION: 1. Endotracheal nasogastric tubes are in good position. 2. Curvilinear atelectasis, subsegmental posterior to the LEFT heart.
[2021-10-29] MEDS: enoxaparin 100 mg/mL Syringe SUBCUT ×2 (06:18→17:58)
[2021-10-29] MEDS: piperacillin-tazobactam 3.375 GM in sodium chloride 0.9% (plus) 50 ML IV ×3 (06:18→22:18)
--- NOTE | 2021-10-29 07:05 | PC.NURSE ---
Blood Pressure At 2140, patient's blood pressure 193/113. Previous 100 mg PO metoprolol dose administered at 2006 in addition to PRN labetolol administered at 1829, no further medications ordered. Dr. Pressley contacted and orders placed by Dr. Pressley for a one time dose of 10 mg Hydralazine IVP and 25 mg Hydralazine PO PRN TID for hypertenstion >180. Hydralazine IVP administered per JUN. At 2323, patient's blood presssure 190/101. Dr. Pressley contacted to verify administration of first PO hydralazine dose following IVP dose at 2200. Order received to administer first PO hydralazine dose; medication administered per JUN.
[2021-10-29] MEDS: ferrous sulfate EC 325 mg Tablet PO (07:18)
[2021-10-29] MEDS: gabapentin 100 mg Capsule 200 MG PO ×3 (07:18→19:27)
[2021-10-29] MEDS: potassium chloride oral liq 20 mEq/15 mL UDC 40 MEQ PO ×2 (07:18→19:27)
[2021-10-29] MEDS: dextrose 5%-sod chloride 0.9% 1,000 ML 75 ML IV ×2 (07:46→22:17)
[2021-10-29] MEDS: hyDRALAzine 25 mg Tablet PO (08:04)
--- NOTE | 2021-10-29 08:04 | PC.SOCIAL ---
IMM update IMM not updated as patient isn't expected to dc in the next 24-48 hours.
[2021-10-29 08:55] LABS: ABG PCO2 32.5 mmHg (35-45); Arterial Blood Gas Hematocrit 39.1 % (37-47); Base Excess ABG -3.8 mmol/L (-2.0-2.0); Blood Gas Allen Test Pos; Blood Gas Sample Site Radial, right; Blood Gas Sample Type Arterial; HCO3 ABG 20.2 mmol/L (22-26); Oxygen Device VENT; PO2 ABG 96.9 mmHg (80.0-100.0)
--- NOTE | 2021-10-29 09:04 | XR_ITS ---
WS: [id number] XR chest 1V portable [id number] REASON FOR EXAM: NG tube placement FINDINGS: Nasogastric tube is in place the tip overlies the body/fundus of the stomach. Tube has been withdrawn somewhat from its previous position on the exam of earlier this a.m. but still remains clearly withi n the stomach. The endotracheal tube has been removed. Continued resolution of the atelectasis in the lung bases most notably on the left. No other interval change or new finding. XR/XR chest 1V portable [id number] IMPRESSION: The NG tube remains within the stomach. Improvement in the atelectasis in the lung bases. Endotracheal tube removal.
[2021-10-29 09:13] LABS: Glucose Point of Care 177 mg/dL (70-110)
[2021-10-29] MEDS: amiodarone 200 mg Tablet PO ×2 (10:27→17:58)
[2021-10-29] MEDS: metoprolol tartrate 50 mg Tablet 100 MG PO ×2 (10:27→20:35)
[2021-10-29] MEDS: pantoprazole 40 mg SDV IVP (10:27)
[2021-10-29] MEDS: amlodipine 10 mg Tablet PO (10:27)
[2021-10-29] MEDS: hyDRALAzine 50 mg Tablet PO (11:15)
[2021-10-29 12:38] LABS: Add Urine Microscopic? YES; Bilirubin Urine Neg (Negative); Blood Urine 3+ (Negative); Glucose Urine UA Trace (Normal); Ketones Urine Negative (Negative); Leukocyte Esterase Urine Negative (Negative); Nitrate Urine Negative (Negative); Protein Urine 1+ (Negative); Specific Gravity, Urine 1.015 (1.005-1.030); Urine Appearance Clear (CLEAR); Urine Color Yellow (Yellow); Urobilinogen Urine Norm (Negative); pH Urine 5 (5-7)
[2021-10-29 12:41] LABS: Bacteria Urine TRACE /hpf; RBC Urine 0-4 /hpf (0-2); Squamous Epithelial Cell Urine 0-4 /hpf (0-5); WBC Urine 0-4 /hpf (0-5)
--- NOTE | 2021-10-29 13:27 | PM.PN ---
Subjective Subjective: Today morning patient was off sedation. Awake and alert with eyes open. Agitated because of ET tube. Confused but following simple commands. Patient was successfully extubated to 2 L oxygen supplementation. Afterwards speech evaluation was done and she was cleared for pur?ed diet. Family at bedside. Has remained hemodynamically stable. Blood pressures elevated during the day. T-max within last 24 hours 100.3 Fahrenheit. Vitals/I&O/Wt Last Vital Signs Temp 99.5 F 10/29/21 12:00 Pulse 71 10/29/21 12:00 Resp 11 L 10/29/21 08:10 BP 178/95 10/29/21 12:00 Pulse Ox 97 10/29/21 12:00 10/28/21 10/29/21 10/29/21 22:59 06:59 14:59 Intake Total 1192.427 / 1462.718 100 / 4417.273 6395 / 1272 Output Total 1750 / 6950 1600 / 8550 Balance -557.573 / -5487.282 -1500 / -6987.282 1272 / 1272 Weight last 48 hrs Weight 93.304 kg Weight 95.708 kg Physical Exam Narrative: General: Intubated, no acute distress, laying comfortably in bed, waking up appropriately and nodding appropriately and squeezing hand appropriately questions. HEENT: Normocephalic, atraumatic, on vent Cardio: Regular rate rhythm, normal S1-S2, muffled heart sounds due to body habitus Respiratory: Fair b/l air entry, no crackles at bases, clear to auscultation GI: Abdomen soft, nontender, obese, large rounded abdomen, bowel sounds + Extremities:Chronic venous statis changes present b/l LE. Large area of erythema LE with another wound on right thigh Sacral stage 2-3 ulcer present, skin breakdown present to adipose layer Wolfe in place, Urinary Catheter Management: Wolfe: Cath Placed During This Visit: yes Reason for Continuing Indwelling Catheter: Accurate Measurement of Urinary Output in Critically Ill Patients Urinary Catheter Date of Insertion: 10/24/21 Urinary Catheter Time of Insertion: 14:25 Data : 10/29/21 04:41 10/29/21 04:41 Micro: Microbiology 10/24/21 12:53 Blood Culture - Final Blood NO GROWTH AFTER 5 DAYS 10/24/21 13:00 Blood Culture - Final Blood NO GROWTH AFTER 5 DAYS A&P Assessment and plan (1) Respiratory failure, acute: Status: Acute (2) Ventilator dependence: Status: Acute (3) Cardiac arrest: Status: Acute (4) Ventricular tachyarrhythmia: Status: Acute (5) Acute kidney failure: Status: Acute (6) Oliguria: Status: Acute (7) Altered mental status: Status: Acute (8) Sepsis: Status: Acute (9) Hypokalemia: Status: Acute (10) Acute non-ST elevation myocardial infarction (NSTEMI): Status: Acute (11) Deep tissue injury: Status: Acute (12) History of DVT (deep vein thrombosis): Status: Acute (13) Heart murmur: Status: Acute (14) COPD (chronic obstructive pulmonary disease): Status: Acute (15) Diabetes mellitus type 2 in obese: Status: Acute (16) UTI (urinary tract infection): Status: Acute (17) Elevated troponin: Status: Acute Plan Ventilator dependent respiratory failure postcardiac arrest secondary to ventricular tachycardia: Extubated to 2 L on 10/29. DuoNebs every 6 hour. Keep saturation over 90, mean over 65. Continue with metoprolol 100 mg twice daily, amiodarone 200 mg twice daily. Will plan to transition to 200 mg daily after 7 days of oral twice daily dose. Sepsis secondary to cellulitis: MRSA negative. Continue Zosyn to finish a 7-day course. Wound care appropriately. Blood cultures so far negative. Low-grade fever: Occasional episodes of spikes. Repeat blood culture, urinalysis. Could be secondary to atelectasis. Patient already on full dose anticoagulation so we will hold off on lower limb Dopplers. Will hold off next getting antibiotics for now. Acute kidney injury/oliguria: Resolved. Creatinine down to 1. Robust urine output. Most likely patient is in diuretic phase of kidney injury. Post cardiac arrest and CPR. Urine eosinophils positive. Continuing translaminal 30 mg twice daily. Will de-escalate from tomorrow. Monitor input output. Continue with D5 NS at 75 cc/h. Hypertension: Goal blood pressure less than 140/90 mmHg. Blood pressure is elevated. Continue with metoprolol, amlodipine. Add hydralazine at 50 mg 3 times a day. Type 2 diabetes mellitus: A1c 6.4. Insulin sliding scale before meals and at bedtime. Elevated troponins: Most likely postventilatory cardiac, CPR, acute kidney injury. Discussed with at bedside. Does not want any aggressive management or cardiac catheterization for now. Cardiology on board. Restart home medications. History of DVT/PE: Continue with full dose Lovenox. Analgesia: Fentanyl, Precedex. Glycemic control: Insulin sliding scale AC at bedtime Nutrition: Diet to be advanced as per swallow evaluation. Carb consistent.. CODE STATUS: at bedside. DNR/DNI. PUD prophylaxis: Protonix DVT prophylaxis: Full dose Lovenox will suffice as DVT prophylaxis Discharge planning: If continues to do better we will plan to discharge back to SNF. We will have physical therapy evaluation within next 24 hours for possible skilled level versus nonskilled level Continue with care at ICU. and family at bedside. Updated. Plan for day: Patient extubated today. Swallow evaluation. Advance diet accordingly. Add amlodipine 10 mg daily. Hydralazine 50 mg 3 times a day. Blood cultures in a.m., urinalysis for low-grade spike of fevers. Monitor urine output and increase fluid accordingly. Attestations Medical Necessity Statement*: Requires further hospitalization for resolving ventilator dependent respiratory failure patient is extubated today, resolving acute kidney injury, uncontrolled hypertension physical deconditioning Critical Care Time: The high probability of a clinically significant, sudden or life threatening deterioration of the patient's [pulmonary, renal, cardiac system(s) required my full and direct attention, intervention and personal management. The critical care time is as shown. This time is in addition to time spent performing any reported procedures but includes the following: [x] Data and vital sign review and interpretation [x] Patient assessment, examination and intervention [x] Documentation [x] Medication orders and management Critical Care Time (min): 90 Coding Level of Care Code Acute Multifocal Lens Inspector for [facility] Fwd Diagnoses Respiratory failure, acute J96.00 Ventilator dependence Z99.11 Cardiac arrest I46.9 Ventricular tachyarrhythmia I47.2 Acute kidney failure N17.9 Oliguria R34 Altered mental status R41.82 Sepsis A41.9 Hypokalemia E87.6 Acute non-ST elevation myocardial infarction (NSTEMI) I21.4 Deep tissue injury T14.8XXA History of DVT (deep vein thrombosis) Z86.718 Heart murmur R01.1 COPD (chronic obstructive pulmonary disease) J44.9 Diabetes mellitus type 2 in obese E11.69; E66.9 UTI (urinary tract infection) N39.0 Elevated troponin R77.8
[2021-10-29] MEDS: hyDRALAzine 50 mg Tablet 75 MG PO ×2 (14:05→20:34)
[2021-10-29 14:42] LABS: Glucose Point of Care 213 mg/dL (70-110)
[2021-10-29 15:13] LABS: Vancomycin Trough 11.4 ug/mL (10-15)
[2021-10-29] MEDS: oxyCODONE-APAP 5-325 mg Tablet 1 TAB PO ×2 (16:45→23:02)
[2021-10-29] MEDS: cloNIDine 0.2 mg/24 hr Patch 1 PATCH TRANSDERMA (17:16)
[2021-10-29] MEDS: hyDRALAzine 20 mg/mL INJ 1 mL 10 MG IVP (18:10)
[2021-10-29 18:23] LABS: Glucose Point of Care 192 mg/dL (70-110)
[2021-10-29] MEDS: atorvastatin 40 mg Tablet 30 MG PO (19:26)
[2021-10-29 20:29] LABS: Glucose Point of Care 301 mg/dL (70-110)
[2021-10-30] VITALS (34 sets, daily range): BP systolic 111–168; BP diastolic 57–99; PULSE 58–71; RESP 15–26; TEMP 36.4–37.1; O2SAT 88–98; BMI 33.6
--- NOTE | 2021-10-30 01:35 | PHA.FALL ---
A Pharmacy Consult Was Conducted For Fany Webber Due To: [place] Fall Scale Risk Level: High Fall Risk On 10/30/21 01:08 And A Medication Fall Risk Score Greater Than 10. The Recommendations Are As Follows: Amiodarone ERIN: 1,3,4,7,9,10 Amlodipine ERIN: 1,3,4,5,7,9,10 Clonidine ERIN: 1,3,4,5 Gabapentin ERIN: 1,3,4,5,6,7,8,10 Metoprolol ERIN: 1,2,3,4,5,9,10 Oxycodone/Apap ERIN: 1,2,3,4,5,6,7,8,9,10 Medications which cause/contribute to: 1= sedation/fatigue/lethargy 2= decreased alertness 3= postural/orthostatic hypotension 4= dizziness 5= decreased neuromuscular function/ataxia 6= decreased memory/cognitive impairment 7= blurred vision 8= confusion 9= arrhythmias 10= syncope 11= anemia
--- NOTE | 2021-10-30 02:10 | PC.NURSE ---
Toradol Patient complaining of pain in legs and chest. PRN oxycodone administered previously. Dr. Pressley contacted and order received for 15 mg Toradol IVP once. Medcation administered per JUN.
[2021-10-30] MEDS: chlorhexidine gluconate 4% Btl 118 mL 1 APPLIC TOPICAL (02:15)
[2021-10-30] MEDS: ketorolac 30 mg/mL INJ 15 MG IVP (02:28)
[2021-10-30] MEDS: insulin lispro 100 unit/1 mL SUBCUT ×4 (02:32→21:12)
[2021-10-30 02:39] LABS: Glucose Point of Care 224 mg/dL (70-110)
[2021-10-30] MEDS: ipratropium-albuterol 3 mL Neb INHALATION ×4 (03:12→20:47)
--- NOTE | 2021-10-30 03:40 | PC.NURSE ---
Fluids Patient's blood sugar 301 at 2025 and 224 at 0217. D5 NS administering per JUN. Dr. Pressley contacted to verify continuation of D5; Order received to continue fluids as is.
[2021-10-30 04:57] LABS: Basophils % 0.1 %; Hematocrit 39.2 % (37.0-47.0); Hemoglobin 11.9 g/dL (11.5-15.3); Lymphocytes # 0.9 10^3/uL (0.8-4.8); Lymphocytes % 10.3 %; Mean Corpuscular HGB Conc 30.4 g/dL (30.0-36.0); Mean Corpuscular Hemoglobin 27.4 pg (28.0-34.0); Mean Corpuscular Volume 90.3 fl (81-99); Mean Platelet Volume 10.5 fL (7.4-10.4); Monocytes # 0.4 10^3/uL (0.2-0.9); Neutrophils # 6.96 10^3/uL (1.8-7.7); Neutrophils % 82.9 %; Nucleated Red Blood Cells % 0 %; Platelet Count 300 10^3/cmm (130-400); Red Blood Count 4.34 10^6/uL (4.1-5.3); Red Cell Distribution Width 16.7 % (12.1-15.1); White Blood Count 8.4 10^3/uL (4.0-10.0)
[2021-10-30] MEDS: oxyCODONE-APAP 5-325 mg Tablet 1 TAB PO ×3 (05:03→21:15)
[2021-10-30] MEDS: enoxaparin 100 mg/mL Syringe SUBCUT (05:04)
[2021-10-30 05:22] LABS: Alanine Aminotransferase 17 U/L (0-33); Albumin Level 3.5 g/dL (3.5-5.2); Alkaline Phosphatase 94 IU/L (35-105); Aspartate Amino Transferase 18 U/L (0-32); Blood Urea Nitrogen 22 mg/dL (8-23); Calcium 9.3 mg/dL (8.5-10.5); Carbon Dioxide 20 mmol/L (22-29); Chloride 110 mmol/L (98-107); Globulin 4.1 g/dL (1.3-4.6); Glucose 156 mg/dL (65-115); Osmolality Calculated 297 mOsm/kg (285-295); Sodium 140 mmol/L (136-145); Total Bilirubin 0.3 mg/dL (0.15-1.2); Total Protein 7.6 g/dL (6.6-8.7)
--- NOTE | 2021-10-30 06:00 | XRR_ITS ---
PROCEDURE INFORMATION: Exam: XR Chest Exam date and time: 10/30/2021 5:28 AM Age: 71 years old Clinical indication: Device placement; Ett placement (vent status); Additional info: Intubated TECHNIQUE: Imaging protocol: Radiologic exam of the chest. Views: 1 view. COMPARISON: CR XR chest 1V portable [id number] 10/29/2021 9:11 AM FINDINGS: Tubes, catheters and devices: No endotracheal tube identified. Interval removal of previously noted enteric tube. Lungs: The lung parenchyma is clear. Pleural spaces: No pneumothorax. No pleural effusion. Heart/Mediastinum: The heart is mildly enlarged for size unchanged from prior exam. Bones/joints: Unremarkable. Soft tissues: Surgical clips in the left axillary region. XR/XR chest 1V portable [id number] IMPRESSION: 1. No endotracheal tube identified. 2. No acute cardiopulmonary abnormality identified.
[2021-10-30] MEDS: piperacillin-tazobactam 3.375 GM in sodium chloride 0.9% (plus) 50 ML IV ×2 (06:27→14:46)
[2021-10-30 07:42] LABS: Glucose Point of Care 163 mg/dL (70-110)
[2021-10-30] MEDS: amlodipine 10 mg Tablet PO (07:55)
[2021-10-30] MEDS: potassium chloride oral liq 20 mEq/15 mL UDC 40 MEQ PO ×2 (07:55→21:06)
[2021-10-30] MEDS: gabapentin 100 mg Capsule 200 MG PO ×3 (07:56→21:10)
[2021-10-30] MEDS: pantoprazole 40 mg SDV IVP (07:56)
[2021-10-30] MEDS: hyDRALAzine 50 mg Tablet 75 MG PO ×3 (07:56→21:10)
[2021-10-30] MEDS: metoprolol tartrate 50 mg Tablet 100 MG PO ×2 (08:01→21:10)
[2021-10-30] MEDS: amiodarone 200 mg Tablet PO ×2 (09:36→18:32)
--- NOTE | 2021-10-30 10:18 | PC.CHAP ---
Pastoral Care Encounter/Spiritual Assessment Type of Contact [] Declined closing manager visit [] Patient/Family/Request visit [] Outpatient visit [] Follow-up visit [] Physician referral [] Code/Alert [x] Routine visit [] Staff referral [] Actively dying [] Patient sleeping [x] Family support [] [] Out of room [] Palliative care [] [] Receiving care in room [] Pre-surgical visit [] Trauma [] Long length of stay [x] ICU visit [] Other: Relational/Emotional Strength [] Patient feels connected with others/family/visitors/staff [] Distress [] Loneliness/isolation [] Abandonment Spirituality of Patient [] Person of [place] [] Attends Scientologist of their [place] [] Believes in Prayer [] Reads Bible or Orthodox materials [] There are Spiritual issues to be addressed Communications Engineering Technician Interventions [x] Prayer [x] Active listening [x] Non-anxious presence [x] Spiritual/emotional support [] Crisis/trauma care [] Spiritual counseling [] Bereavement support [] Provided bereavement packet [] Provided Bible/devotional materials [] Provided toy/stuffed animal, coloring book to patient or family member [] Provided Communion [] Anointing/[place] [] Salvation [x] Completed spiritual assessment [] Other: Impact on Illness or Injury [] Angry [] Fearful [] Anxious [] Often cries [] Exhaustion [] Unable to work [] Unable to attend shinto [] Unable to walk/stand [] Unable to read [] Unable to drive [] Unable to eat/drink [] Unable to sleep [] Unable to be with family [] Patient intubated [] Other: Summary so excited about patients recovery... very talkative ... good humor... Time spent with patient 10 min
[2021-10-30 11:25] LABS: Glucose Point of Care 296 mg/dL (70-110)
[2021-10-30 13:11] LABS: Glucose Point of Care 295 mg/dL (70-110)
--- NOTE | 2021-10-30 13:15 | P.PN_ITS ---
Subjective Subjective: No events overnight. Last 24 hours patient was extubated. Currently on room air saturating more than 92%. Awake and alert. Able to have complete conversation. Denies any nausea, vomiting, headache. Recognizes me from yesterday. Complaining of pain in the chest on taking a deep breath. Able to eat as per swallow evaluation without problems. Blood pressures better controlled. Vitals/I&O/Wt Last Vital Signs Temp 97.6 F 10/30/21 12:00 Pulse 61 10/30/21 12:00 Resp 15 10/30/21 12:51 BP 138/74 10/30/21 12:00 Pulse Ox 95 10/30/21 12:51 10/29/21 10/30/21 10/30/21 22:59 06:59 14:59 Intake Total 2427 / 3699 50 / 3749 366 / 366 Output Total 600 / 1750 700 / 2450 Balance 1827 / 1949 -650 / 1299 366 / 366 Weight last 48 hrs Weight 94.574 kg Weight 93.304 kg Physical Exam Narrative: General: AOx3, no acute distress, able to have complete conversation, jovial HEENT: Normocephalic, atraumatic, on vent Cardio: Regular rate rhythm, normal S1-S2, muffled heart sounds due to body habi tus Respiratory: Fair b/l air entry, no crackles at bases, clear to auscultation GI: Abdomen soft, nontender, obese, large rounded abdomen, bowel sounds + Extremities:Chronic venous statis changes present b/l LE. Large area of erythema LE with another wound on right thigh Sacral stage 2-3 ulcer present, skin breakdown present to adipose layer Wolfe in place, Urinary Catheter Management: Wolfe: Cath Placed During This Visit: yes Reason for Continuing Indwelling Catheter: Accurate Measurement of Urinary Output in Critically Ill Patients Urinary Catheter Date of Insertion: 10/24/21 Urinary Catheter Time of Insertion: 14:25 Data : 10/30/21 04:40 10/30/21 04:40 Micro: Microbiology 10/30/21 04:40 Blood Culture - Preliminary Blood SPECIMEN COLLECTED 10/24/21 12:53 Blood Culture - Final Blood NO GROWTH AFTER 5 DAYS 10/24/21 13:00 Blood Culture - Final Blood NO GROWTH AFTER 5 DAYS A&P Assessment and plan (1) Respiratory failure, acute: Status: Acute (2) Ventilator dependence: Status: Acute (3) Cardiac arrest: Status: Acute (4) Ventricular tachyarrhythmia: Status: Acute (5) Acute kidney failure: Status: Acute (6) Oliguria: Status: Acute (7) Altered mental status: Status: Acute (8) Sepsis: Status: Acute (9) Hypokalemia: Status: Acute (10) Acute non-ST elevation myocardial infarction (NSTEMI): Status: Acute (11) Deep tissue injury: Status: Acute (12) History of DVT (deep vein thrombosis): Status: Acute (13) Heart murmur: Status: Acute (14) COPD (chronic obstructive pulmonary disease): Status: Acute (15) Diabetes mellitus type 2 in obese: Status: Acute (16) UTI (urinary tract infection): Status: Acute (17) Elevated troponin: Status: Acute Plan Ventilator dependent respiratory failure postcardiac arrest secondary to jim tricular tachycardia: Extubated to 2 L on 10/29. DuoNebs every 6 hour. Keep saturation over 90, mean over 65. Continue with metoprolol 100 mg twice daily, amiodarone 200 mg twice daily. Will plan to transition to 200 mg daily after 7 days of oral twice daily dose. Sepsis secondary to cellulitis: MRSA negative. Continue Zosyn to finish a 7-day course. Wound care appropriately. Blood cultures so far negative. Low-grade fever: Occasional episodes of spikes. Repeat blood culture, urinalysis. Could be secondary to atelectasis. Patient already on full dose anticoagulation so we will hold off on lower limb Dopplers. Will hold off next getting antibiotics for now. Acute kidney injury/oliguria: Resolved. Creatinine down to 1. Robust urine output. Most likely patient is in diuretic phase of kidney injury. Post cardiac arrest and CPR. Urine eosinophils positive. Continuing translaminal 30 mg twice daily. Will de-escalate from tomorrow. Monitor input output. Continue with D5 NS at 75 cc/h. Hypertension: Goal blood pressure less than 140/90 mmHg. Blood pressure is elevated. Continue with metoprolol, amlodipine. Add hydralazine at 50 mg 3 times a day. Type 2 diabetes mellitus: A1c 6.4. Insulin sliding scale before meals and at bedtime. Elevated troponins: Most likely postventilatory cardiac, CPR, acute kidney injury. Discussed with at bedside. Does not want any aggressive management or cardiac catheterization for now. Cardiology on board. Restart home medications. History of DVT/PE: Continue with full dose Lovenox. Analgesia: Fentanyl, Precedex. Glycemic control: Insulin sliding scale AC at bedtime Nutrition: Diet to be advanced as per swallow evaluation. Carb consistent.. CODE STATUS: at bedside. DNR/DNI. PUD prophylaxis: Protonix DVT prophylaxis: Full dose Lovenox will suffice as DVT prophylaxis Discharge planning: If continues to do better we will plan to discharge back to SNF. We will have physical therapy evaluation within next 24 hours for possible skilled level versus nonskilled level Continue with care at ICU. and family at bedside. Updated. Plan for day: DC Wolfe. Advance diet as per swallow evaluation. Start home dose of Cymbalta, Xanax as needed. Stop full dose Lovenox. Start Xarelto. Follow-up blood cultures. Last day of antibiotics today. Monitor input output. Switch from D5 half NS to half NS at 75 cc/h. Physical therapy evaluation. Out of bed to chair. Monitor blood pressures. Continue with clonidine 0.2 patch, metoprolol 100 mg twice daily, hydralazine 75 mg 3 times a day, amlodipine 10 mg a day. Target blood pressure less than 140/90 mmHg. DC catheter. Wean 1 of Solu-Medrol to 30 mg daily. We will put to oral tomorrow. Transfer to [facility] with telemetry. Attestations Medical Necessity Statement*: Requires further hospitalization for resolution of ventilator dependent respiratory failure, extubated yesterday, resolving acute kidney injury, severe physical deconditioning from prolonged hospitalization while safe discharge planning is sought. 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
[2021-10-30] MEDS: duloxetine 60 mg Capsule PO (14:45)
[2021-10-30] MEDS: sodium chloride 0.45% 1,000 ML 75 ML IV (14:48)
--- NOTE | 2021-10-30 16:43 | PC.NURSE ---
Report called to TEODORO Miller. Patient and belonging taken to room 259-1.
[2021-10-30] MEDS: rivaroxaban 10 mg Tablet PO (18:32)
[2021-10-30 20:20] LABS: Glucose Point of Care 405 mg/dL (70-110)
[2021-10-30] MEDS: atorvastatin 40 mg Tablet 30 MG PO (21:09)
[2021-10-31] VITALS (15 sets, daily range): BP systolic 111–149; BP diastolic 74–81; PULSE 51–68; RESP 15–18; TEMP 36.4–36.8; O2SAT 92–98
[2021-10-31] MEDS: piperacillin-tazobactam 3.375 GM in sodium chloride 0.9% (plus) 50 ML IV ×2 (00:13→07:15)
[2021-10-31] MEDS: chlorhexidine gluconate 4% Btl 118 mL 1 APPLIC TOPICAL (01:30)
[2021-10-31 05:33] LABS: Hematocrit 35.9 % (37.0-47.0); Hemoglobin 11.1 g/dL (11.5-15.3); Lymphocytes # 0.9 10^3/uL (0.8-4.8); Lymphocytes % 12.6 %; Mean Corpuscular HGB Conc 30.9 g/dL (30.0-36.0); Mean Corpuscular Hemoglobin 27.8 pg (28.0-34.0); Mean Corpuscular Volume 89.8 fl (81-99); Mean Platelet Volume 10.4 fL (7.4-10.4); Monocytes # 0.6 10^3/uL (0.2-0.9); Monocytes % 7.9 %; Neutrophils # 5.81 10^3/uL (1.8-7.7); Neutrophils % 77.5 %; Nucleated Red Blood Cells % 0 %; Platelet Count 256 10^3/cmm (130-400); Red Cell Distribution Width 16.5 % (12.1-15.1); White Blood Count 7.5 10^3/uL (4.0-10.0)
[2021-10-31 05:54] LABS: Alanine Aminotransferase 17 U/L (0-33); Albumin Level 3.2 g/dL (3.5-5.2); Alkaline Phosphatase 77 IU/L (35-105); Aspartate Amino Transferase 14 U/L (0-32); Blood Urea Nitrogen 36 mg/dL (8-23); Calcium 9.1 mg/dL (8.5-10.5); Carbon Dioxide 17 mmol/L (22-29); Chloride 108 mmol/L (98-107); Globulin 3.8 g/dL (1.3-4.6); Glucose 149 mg/dL (65-115); Osmolality Calculated 295 mOsm/kg (285-295); Sodium 137 mmol/L (136-145); Total Bilirubin 0.3 mg/dL (0.15-1.2)
[2021-10-31 06:03] LABS: Anion Gap 16.3 (5-19); Potassium 4.3 mmol/L (3.5-5.1)
--- NOTE | 2021-10-31 06:03 | PC.NURSE ---
bladder scanned for 632
[2021-10-31 06:44] LABS: Glucose Point of Care 134 mg/dL (70-110)
--- NOTE | 2021-10-31 07:41 | ECG_ITS ---
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 Measurements Intervals [place] Rate: 59 P: -14 MD: 126 QRS: -4 QRSD: 101 T: 1 QT: 481 QTc: 480 Interpretive Statements SINUS BRADYCARDIA PROLONGED QT INTERVAL Compared to ECG 10/25/2021 00:50:48 Prolonged QT interval now present Sinus rhythm no longer present T-wave abnormality no longer present Electronically Signed On 10-31-2021 12:36:55 CDT by Ventura Gallo M.D. [id number]
[2021-10-31] MEDS: potassium chloride oral liq 20 mEq/15 mL UDC 40 MEQ PO (09:02)
[2021-10-31] MEDS: ipratropium-albuterol 3 mL Neb INHALATION ×3 (09:02→20:22)
[2021-10-31] MEDS: hyDRALAzine 50 mg Tablet 75 MG PO ×3 (09:32→23:58)
[2021-10-31] MEDS: duloxetine 60 mg Capsule PO (09:32)
[2021-10-31] MEDS: ferrous sulfate EC 325 mg Tablet PO (09:33)
[2021-10-31] MEDS: gabapentin 100 mg Capsule 200 MG PO ×3 (09:33→21:32)
[2021-10-31] MEDS: amlodipine 10 mg Tablet PO (09:33)
[2021-10-31] MEDS: metoprolol tartrate 25 mg Tablet PO ×2 (09:33→22:00)
[2021-10-31] MEDS: pantoprazole 40 mg SDV IVP (09:36)
[2021-10-31] MEDS: amiodarone 200 mg Tablet PO (09:36)
[2021-10-31 11:49] LABS: Glucose Point of Care 150 mg/dL (70-110)
[2021-10-31] MEDS: insulin lispro 100 unit/1 mL SUBCUT ×3 (12:55→21:32)
--- NOTE | 2021-10-31 13:45 | PC.SOCIAL ---
IMM UPDATED IMM dated and initialed, copy given to patient and copy placed in chart
[2021-10-31] MEDS: oxyCODONE-APAP 5-325 mg Tablet 1 TAB PO ×2 (15:21→21:32)
--- NOTE | 2021-10-31 16:00 | PM.PN ---
Subjective Subjective: No acute events overnight. Today morning on examination patient sitting up in bed having her breakfast. Able to have complete conversation without any problem. Denies any nausea, vomiting, headache. Found to have bradycardia on quality assurance monitor chassis. EKG done which results revealed sinus bradycardia with prolonged QT. Vitals/I&O/Wt Last Vital Signs Temp 97.6 F 10/31/21 15:19 Pulse 66 10/31/21 15:19 Resp 16 10/31/21 15:19 BP 125/78 10/31/21 15:19 Pulse Ox 96 10/31/21 15:19 10/31/21 10/31/21 10/31/21 06:59 14:59 22:59 Intake Total 1935 840 / 840 Balance 1935 840 / 840 Weight last 48 hrs Weight 103.238 kg Weight 94.574 kg Physical Exam Narrative: General: AOx3, no acute distress, able to have complete conversation, jovial HEENT: Normocephalic, atraumatic, on vent Cardio: Regular rate rhythm, normal S1-S2, muffled heart sounds due to body habitus Respiratory: Fair b/l air entry, no crackles at bases, clear to auscultation GI: Abdomen soft, nontender, obese, large rounded abdomen, bowel sounds + Extremities:Chronic venous statis changes present b/l LE. Large area of erythema LE with another wound on right thigh Sacral stage 2-3 ulcer present, skin breakdown present to adipose layer Wolfe in place, Urinary Catheter Management: Wolfe: Cath Placed During This Visit: yes, but has since been removed by the nurse Reason for Continuing Indwelling Catheter: Not indwelling catheter Urinary Catheter Date of Insertion: 10/24/21 Urinary Catheter Time of Insertion: 14:25 Date Urinary Catheter Removed: 10/30/21 Time Urinary Catheter Discontinued: 16:45 Data : 10/31/21 04:37 10/31/21 04:37 Micro: Microbiology 10/30/21 04:40 Blood Culture - Preliminary Blood NEGATIVE TO DATE A&P Assessment and plan (1) Prolonged QT interval: Status: Acute (2) Uncontrolled hypertension: Status: Acute (3) Acute kidney failure: Resolved. Status: Acute (4) Ventricular tachyarrhythmia: Found to have bradycardia on the EKG again. Prolonged QT. Status: Acute (5) Respiratory failure, acute: Status: Acute (6) Sepsis: Status: Acute (7) Cardiac arrest: Status: Acute (8) Ventilator dependence: Resolved. Extubated on 10/29. Status: Acute (9) COPD (chronic obstructive pulmonary disease): Status: Acute (10) Diabetes mellitus type 2 in obese: Status: Acute (11) UTI (urinary tract infection): Status: Acute (12) Elevated troponin: Status: Acute (13) Altered mental status: Status: Acute (14) Oliguria: Resolved. Status: Acute (15) Deep tissue injury: Status: Acute (16) Hypokalemia: Status: Acute (17) Acute non-ST elevation myocardial infarction (NSTEMI): Status: Acute (18) History of DVT (deep vein thrombosis): Status: Acute Plan Ventilator dependent respiratory failure postcardiac arrest secondary to ventricular tachycardia: Extubated to 2 L on 10/29. DuoNebs every 6 hour. Keep saturation over 90, mean over 65. Continue with metoprolol 100 mg twice daily, amiodarone 200 mg twice daily. Will plan to transition to 200 mg daily after 7 days of oral twice daily dose. Sepsis secondary to cellulitis: MRSA negative. Continue Zosyn to finish a 7-day course. Wound care appropriately. Blood cultures so far negative. Low-grade fever: Occasional episodes of spikes. Repeat blood culture, urinalysis. Could be secondary to atelectasis. Patient already on full dose anticoagulation so we will hold off on lower limb Dopplers. Will hold off next getting antibiotics for now. Acute kidney injury/oliguria: Resolved. Creatinine down to 1. Robust urine output. Most likely patient is in diuretic phase of kidney injury. Post cardiac arrest and CPR. Urine eosinophils positive. Continuing translaminal 30 mg twice daily. Will de-escalate from tomorrow. Monitor input output. Continue with D5 NS at 75 cc/h. Hypertension: Goal blood pressure less than 140/90 mmHg. Blood pressure is elevated. Continue with metoprolol, amlodipine. Add hydralazine at 50 mg 3 times a day. Type 2 diabetes mellitus: A1c 6.4. Insulin sliding scale before meals and at bedtime. Elevated troponins: Most likely postventilatory cardiac, CPR, acute kidney injury. Discussed with at bedside. Does not want any aggressive management or cardiac catheterization for now. Cardiology on board. Restart home medications. History of DVT/PE: Continue with full dose Lovenox. Analgesia: Fentanyl, Precedex. Glycemic control: Insulin sliding scale AC at bedtime Nutrition: Diet to be advanced as per swallow evaluation. Carb consistent.. CODE STATUS: at bedside. DNR/DNI. PUD prophylaxis: Protonix DVT prophylaxis: Full dose Lovenox will suffice as DVT prophylaxis Discharge planning: Plan to discharge back to SNF once prior authorization is achieved as patient will be scheduled with physical therapy going forward. Continue with care at [facility] with telemetry. Plan for day: Wolfe removed yesterday. Continue with Xarelto. Antibiotic course finished. Increase normal saline to 100 cc/h. Monitor blood pressures. Continue med currently 0.2 mg patch, hydralazine 75 mg 3 times daily, amlodipine 10 mg daily. Found to have bradycardia and prolonged QT on EKG today. Decrease amiodarone to 100 mg daily, metoprolol to 25 mg twice daily. Changed to prednisone 40 mg daily for next 5 days. Attestations Medical Necessity Statement*: Requires further hospitalization for management of bradycardia, prolonged QT, uncontrolled hypertension in a patient was extubated on 10/29 while safe discharge planning to SNF to stop. 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
[2021-10-31] MEDS: rivaroxaban 10 mg Tablet PO (16:46)
[2021-10-31 17:02] LABS: Glucose Point of Care 259 mg/dL (70-110)
[2021-10-31] MEDS: sodium chloride 0.9% 1,000 ML 100 ML IV (18:49)
[2021-10-31 21:06] LABS: Glucose Point of Care 165 mg/dL (70-110)
[2021-10-31] MEDS: atorvastatin 40 mg Tablet 30 MG PO (21:34)
[2021-11-01] VITALS (17 sets, daily range): BP systolic 136–163; BP diastolic 75–88; PULSE 55–91; RESP 14–18; TEMP 36.2–36.6; O2SAT 93–97
[2021-11-01] MEDS: chlorhexidine gluconate 4% Btl 118 mL 1 APPLIC TOPICAL (02:41)
[2021-11-01] MEDS: sodium chloride 0.9% 1,000 ML 100 ML IV ×2 (04:31→15:14)
[2021-11-01 05:22] LABS: Basophils % 0.2 %; Hematocrit 35.6 % (37.0-47.0); Hemoglobin 11.1 g/dL (11.5-15.3); Lymphocytes # 1.1 10^3/uL (0.8-4.8); Lymphocytes % 16.7 %; Mean Corpuscular HGB Conc 31.2 g/dL (30.0-36.0); Mean Corpuscular Volume 89.7 fl (81-99); Mean Platelet Volume 10.2 fL (7.4-10.4); Monocytes # 0.6 10^3/uL (0.2-0.9); Monocytes % 8.7 %; Neutrophils # 4.53 10^3/uL (1.8-7.7); Neutrophils % 71.6 %; Nucleated Red Blood Cells % 0 %; Platelet Count 301 10^3/cmm (130-400); Red Blood Count 3.97 10^6/uL (4.1-5.3); Red Cell Distribution Width 16.2 % (12.1-15.1); White Blood Count 6.3 10^3/uL (4.0-10.0)
[2021-11-01 05:47] LABS: Alanine Aminotransferase 18 U/L (0-33); Albumin Level 3.4 g/dL (3.5-5.2); Alkaline Phosphatase 74 IU/L (35-105); Anion Gap 13.8 (5-19); Aspartate Amino Transferase 11 U/L (0-32); Blood Urea Nitrogen 34 mg/dL (8-23); Calcium 8.8 mg/dL (8.5-10.5); Carbon Dioxide 20 mmol/L (22-29); Chloride 108 mmol/L (98-107); Globulin 3.4 g/dL (1.3-4.6); Glucose 143 mg/dL (65-115); Osmolality Calculated 296 mOsm/kg (285-295); Potassium 3.8 mmol/L (3.5-5.1); Sodium 138 mmol/L (136-145); Total Bilirubin 0.3 mg/dL (0.15-1.2); Total Protein 6.8 g/dL (6.6-8.7)
[2021-11-01 06:43] LABS: Glucose Point of Care 130 mg/dL (70-110)
[2021-11-01] MEDS: ipratropium-albuterol 3 mL Neb INHALATION ×3 (08:34→20:21)
[2021-11-01] MEDS: amlodipine 10 mg Tablet PO (09:40)
[2021-11-01] MEDS: predniSONE 20 mg Tablet 40 MG PO (09:40)
[2021-11-01] MEDS: gabapentin 100 mg Capsule 200 MG PO ×3 (09:40→20:42)
[2021-11-01] MEDS: duloxetine 60 mg Capsule PO (09:40)
[2021-11-01] MEDS: hyDRALAzine 50 mg Tablet 75 MG PO ×3 (09:41→20:43)
[2021-11-01] MEDS: metoprolol tartrate 25 mg Tablet PO ×2 (09:41→20:43)
[2021-11-01] MEDS: pantoprazole 40 mg SDV IVP (09:42)
[2021-11-01] MEDS: amiodarone 200 mg Tablet 100 MG PO (09:43)
[2021-11-01] MEDS: oxyCODONE-APAP 5-325 mg Tablet 1 TAB PO ×2 (11:44→20:42)
[2021-11-01 12:16] LABS: Glucose Point of Care 168 mg/dL (70-110)
[2021-11-01] MEDS: insulin lispro 100 unit/1 mL SUBCUT ×3 (12:20→21:06)
--- NOTE | 2021-11-01 12:49 | PM.PN ---
Subjective Subjective: No events overnight. Working well with physical therapy today. Awake and alert. Eating meals. Denies any nausea,, headache. Heart rate better. Vitals/I&O/Wt Last Vital Signs Temp 97.7 F 11/01/21 07:47 Pulse 89 11/01/21 08:45 Resp 14 11/01/21 08:36 BP 145/82 11/01/21 07:47 Pulse Ox 95 11/01/21 08:36 10/31/21 11/01/21 11/01/21 22:59 06:59 14:59 Intake Total 240 / 1080 970 2049 Balance 240 / 1080 [id number] Weight last 48 hrs Weight 103.419 kg Weight 103.238 kg Physical Exam Narrative: General: AOx3, no acute distress, able to have complete conversation, jovial HEENT: Normocephalic, atraumatic, on vent Cardio: Regular rate rhythm, normal S1-S2, muffled heart sounds due to body habitus Respiratory: Fair b/l air entry, no crackles at bases, clear to auscultation GI: Abdomen soft, nontender, obese, large rounded abdomen, bowel sounds + Extremities:Chronic venous statis changes present b/l LE. Large area of erythema LE with another wound on right thigh Sacral stage 2-3 ulcer present, skin breakdown present to adipose layer Wolfe in place, Urinary Catheter Management: Wolfe: Cath Placed During This Visit: yes, but has since been removed by the nurse Reason for Continuing Indwelling Catheter: Not indwelling catheter Urinary Catheter Date of Insertion: 10/24/21 Urinary Catheter Time of Insertion: 14:25 Date Urinary Catheter Removed: 10/30/21 Time Urinary Catheter Discontinued: 16:45 Data : 11/01/21 05:12 11/01/21 05:12 A&P Assessment and plan (1) Prolonged QT interval: Status: Acute (2) Uncontrolled hypertension: Status: Acute (3) Acute kidney failure: Resolved. Status: Acute (4) Ventricular tachyarrhythmia: Found to have bradycardia on the EKG again. Prolonged QT. Status: Acute (5) Respiratory failure, acute: Status: Acute (6) Sepsis: Status: Acute (7) Cardiac arrest: Status: Acute (8) Ventilator dependence: Resolved. Extubated on 10/29. Status: Acute (9) COPD (chronic obstructive pulmonary disease): Status: Acute (10) Diabetes mellitus type 2 in obese: Status: Acute (11) UTI (urinary tract infection): Status: Acute (12) Elevated troponin: Status: Acute (13) Altered mental status: Status: Acute (14) Oliguria: Resolved. Status: Acute (15) Deep tissue injury: Status: Acute (16) Hypokalemia: Status: Acute (17) Acute non-ST elevation myocardial infarction (NSTEMI): Status: Acute (18) History of DVT (deep vein thrombosis): Status: Acute Plan Ventilator dependent respiratory failure postcardiac arrest secondary to ventricular tachycardia: Extubated to 2 L on 10/29. Currently on room air. DuoNebs every 6 hour. Keep saturation over 90, mean over 65. Continue with metoprolol 100 mg twice daily, amiodarone 200 mg twice daily. Will plan to transition to 200 mg daily after 7 days of oral twice daily dose. Sepsis secondary to cellulitis: MRSA negative. Finished antibiotic course with Zosyn. Wound care appropriately. Blood cultures so far negative. Low-grade fever: Occasional episodes of spikes. Resolved. Repeat blood cultures so far negative. Urinalysis benign. Could be secondary to atelectasis. Patient already on full dose anticoagulation so we will hold off on lower limb Dopplers. Will hold off next getting antibiotics for now. Acute kidney injury/oliguria: Resolved. Creatinine down to 1. Robust urine output. Most likely patient is in diuretic phase of kidney injury. Post cardiac arrest and CPR. Urine eosinophils positive. Continuing translaminal 30 mg twice daily. Will de-escalate from tomorrow. Monitor input output. Continue with D5 NS at 75 cc/h. Hypertension: Goal blood pressure less than 140/90 mmHg. Blood pressure is elevated. Continue with metoprolol, amlodipine. Add hydralazine at 50 mg 3 times a day. Type 2 diabetes mellitus: A1c 6.4. Insulin sliding scale before meals and at bedtime. Elevated troponins: Most likely postventilatory cardiac, CPR, acute kidney injury. Discussed with at bedside. Does not want any aggressive management or cardiac catheterization for now. Cardiology on board. Restart home medications. History of DVT/PE: Continue with full dose Lovenox. Analgesia: Fentanyl, Precedex. Glycemic control: Insulin sliding scale AC at bedtime Nutrition: Diet to be advanced as per swallow evaluation. Carb consistent.. CODE STATUS: at bedside. DNR/DNI. PUD prophylaxis: Protonix DVT prophylaxis: Full dose Lovenox will suffice as DVT prophylaxis Discharge planning: Plan to discharge back to SNF once prior authorization is achieved as patient will be scheduled with physical therapy going forward. Continue with care at [facility] with telemetry. Plan for day: Monitor vitals, heart rate. Recheck EKG. Continue with normal saline to 100 cc/h for 1 more bag Monitor blood pressures. Continue med currently 0.2 mg patch, hydralazine 75 mg 3 times daily, amlodipine 10 mg daily. Found to have bradycardia and prolonged QT on EKG today. Continue with decreasedamiodarone to 100 mg daily, metoprolol to 25 mg twice daily. Changed to prednisone 40 mg daily for next 5 days. Attestations Medical Necessity Statement*: Requires further hospitalization while she awaits authorization for safe discharge planning to SNF given recent episode of ventilator dependent respiratory failure, torsades in a patient with baseline advanced dementia Time Spent in Patient Care: 16 - 35 minutes Coding Level of Care Code Acute Manager Surgical for [facility] Fwd Diagnoses Prolonged QT interval R94.31 Uncontrolled hypertension I10 Acute kidney failure N17.9 Ventricular tachyarrhythmia I47.2 Respiratory failure, acute J96.00 Sepsis A41.9 Cardiac arrest I46.9 Ventilator dependence Z99.11 COPD (chronic obstructive pulmonary disease) J44.9 Diabetes mellitus type 2 in obese E11.69; E66.9 UTI (urinary tract infection) N39.0 Elevated troponin R77.8 Altered mental status R41.82 Oliguria R34 Deep tissue injury T14.8XXA Hypokalemia E87.6 Acute non-ST elevation myocardial infarction (NSTEMI) I21.4 History of DVT (deep vein thrombosis) Z86.718
[2021-11-01 17:18] LABS: Glucose Point of Care 226 mg/dL (70-110)
[2021-11-01] MEDS: rivaroxaban 10 mg Tablet PO (17:49)
[2021-11-01] MEDS: atorvastatin 40 mg Tablet 30 MG PO (20:43)
[2021-11-01 21:00] LABS: Glucose Point of Care 213 mg/dL (70-110)
[2021-11-02] VITALS (15 sets, daily range): BP systolic 122–153; BP diastolic 66–81; PULSE 56–85; RESP 16–18; TEMP 36.4–36.8; O2SAT 92–96
[2021-11-02] MEDS: chlorhexidine gluconate 4% Btl 118 mL 1 APPLIC TOPICAL (02:47)
[2021-11-02] MEDS: sodium chloride 0.9% 1,000 ML 100 ML IV (03:04)
[2021-11-02] MEDS: oxyCODONE-APAP 5-325 mg Tablet 1 TAB PO ×2 (04:43→20:26)
[2021-11-02 06:48] LABS: Glucose Point of Care 93 mg/dL (70-110)
[2021-11-02] MEDS: ipratropium-albuterol 3 mL Neb INHALATION ×3 (08:45→20:46)
[2021-11-02] MEDS: gabapentin 100 mg Capsule 200 MG PO ×3 (09:19→20:27)
[2021-11-02] MEDS: hyDRALAzine 50 mg Tablet 75 MG PO ×3 (09:20→20:26)
[2021-11-02] MEDS: predniSONE 20 mg Tablet 40 MG PO (09:20)
[2021-11-02] MEDS: duloxetine 60 mg Capsule PO (09:21)
[2021-11-02] MEDS: ferrous sulfate EC 325 mg Tablet PO (09:21)
[2021-11-02] MEDS: amiodarone 200 mg Tablet 100 MG PO (09:21)
[2021-11-02] MEDS: metoprolol tartrate 25 mg Tablet PO (09:21)
[2021-11-02] MEDS: amlodipine 10 mg Tablet PO (09:22)
[2021-11-02] MEDS: pantoprazole 40 mg SDV IVP (09:22)
[2021-11-02] MEDS: potassium chloride oral liq 20 mEq/15 mL UDC 40 MEQ PO (09:23)
--- NOTE | 2021-11-02 11:25 | PM.PN ---
Subjective Subjective: Patient was seen and examined this morning, she was complaining of left-sided chest pain, more musculoskeletal pain, likely due to prior CPR. No other acute events. Medications: Medication Review Details: Generic Name Dose Route Start Last Admin Trade Name Moshe PRN Reason Stop Dose Admin Acetaminophen 650 mg 10/24/21 14:00 10/29/21 03:08 Acetaminophen 32 5 Mg Tablet PO 650 mg Q6H PRN Administration Mild/Mod Pain Or Temp >/= 101 Albuterol/Ipratrop ium 3 ml 10/25/21 03:00 11/02/21 08:45 Ipratropium-Albu terol 3 Ml Neb INHALATION 3 ml Q6H LANIE Administration Amiodarone HCl 100 mg 11/01/21 09:00 11/02/21 09:21 Amiodarone 200 M g Tablet PO 100 mg DAILY LANIE Administration Amlodipine Besylat e 10 mg 10/27/21 14:45 11/02/21 09:22 Amlodipine 10 Mg Tablet PO 10 mg DAILY LANIE Administration Atorvastatin Calci um 30 mg 10/24/21 20:00 11/01/21 20:43 Atorvastatin 40 Mg Tablet PO 30 mg DAILY@20 LANIE Administration Chlorhexidine Gluc steven 1 applic 10/28/21 01:15 11/02/21 02:47 Chlorhexidine Gl uconate 4% Btl 118 Ml TOPICAL 1 applic Q24H LANIE Administration Clonidine HCl 1 patch 10/29/21 17:30 10/29/21 17:16 Clonidine 0.2 Mg /24 Hr Patch TRANSDERMA 1 patch Q7D LANIE Administration Duloxetine HCl 60 mg 10/30/21 13:15 11/02/21 09:21 Duloxetine 60 Mg Capsule PO 60 mg DAILY@08 LANIE Administration Ferrous Sulfate 325 mg 10/25/21 08:00 11/02/21 09:21 Ferrous Sulfate Ec 325 Mg Tablet PO 325 mg Q2D@0800 LANIE Administration Gabapentin 200 mg 10/26/21 14:00 11/02/21 09:19 Gabapentin 100 M g Capsule PO 200 mg TID@08,14,20 LANIE Administration Hydralazine HCl 75 mg 10/29/21 14:00 11/02/21 09:20 Hydralazine 50 M g Tablet PO 75 mg TID LANIE Administration Hydralazine HCl 10 mg 10/29/21 18:05 10/29/21 18:10 Hydralazine 20 M g/Ml Inj 1 Ml IVP 10 mg Q6H PRN Administration HYPERTENSION Insulin Human Lisp ro 0 unit 10/31/21 12:00 11/02/21 07:49 Insulin Lispro 1 00 Unit/1 Ml SUBCUT Not Given WM&BEDTIME [facility] Protocol Metoprolol Tartrat e 25 mg 10/31/21 09:00 11/02/21 09:21 Metoprolol Tartr ate 25 Mg Tablet PO 25 mg BID@0900,2100 LANIE Administration Non-Formulary Medi cation 50 mg 10/25/21 08:00 11/02/21 07:49 Mirabegron [Myrb etriq] PO Not Given DAILY@08 [facility] Oxycodone/Acetamin ophen 1 tab 10/24/21 14:08 11/02/21 04:43 Oxycodone-Apap 5 -325 Mg Tablet PO 1 tab Q6H PRN Administration MODERATE Pain Pantoprazole Sodiu m 40 mg 10/27/21 09:00 11/02/21 09:22 Pantoprazole 40 Mg Sdv IVP 40 mg DAILY LANIE Administration Potassium Chloride 40 meq 11/01/21 09:00 11/02/21 09:23 Potassium Chlori de Oral Liq 20 Meq /15 Ml Udc PO 40 meq DAILY LANIE Administration Prednisone 40 mg 11/01/21 09:00 11/02/21 09:20 Prednisone 20 Mg Tablet PO 11/05/21 08:59 40 mg DAILY LANIE Administration Rivaroxaban 10 mg 10/30/21 18:00 11/01/21 17:49 Rivaroxaban 10 M g Tablet PO 10 mg Q24H LANIE Administration Vitals/I&O/Wt Last Vital Signs Temp 97.7 F 11/02/21 11:01 Pulse 56 L 11/02/21 11:01 Resp 17 11/02/21 11:01 BP 137/74 11/02/21 11:01 Pulse Ox 92 11/02/21 11:01 11/01/21 11/02/21 11/02/21 22:59 06:59 14:59 Intake Total 1305.542 / 2305.542 1000 / 3305.542 480 / 480 Balance 1305.542 / 2305.542 1000 / 3305.542 480 / 480 Weight last 48 hrs Weight 105.007 kg Weight 103.419 kg Physical Exam Const: COMMON NORMALS: patient oriented x3 HENMT: COMMON NORMALS: normocephalic and atraumatic HEAD & SCALP: normocephalic and atraumatic Chest: CHEST: Yes Symmetrical chest wall rise Resp: COMMON NORMALS: clear to auscultation bilaterally EFFORT & INSPECTION: Yes symmetric chest movement AUSCULTATION: clear to auscultation bilaterally Cardio: COMMON NORMALS: regular rate, regular rhythm, S1 normal heart sound present, S2 normal heart sound present, No gallops present (Cardio), No murmurs present (Cardio), No rub (Cardio) and Peripheral pulses 2+ throughout RATE: regular rate RHYTHM: regular rhythm HEART SOUNDS: S1 normal heart sound present and S2 normal heart sound present PERIPHERAL PULSES: Peripheral pulses 2+ throughout GI: COMMON NORMALS: Normal to inspection, nondistended, normoactive bowel sounds present, Soft to palpation, non-tender, No hepatosplenomegaly present and no masses AUSCULTATION: Yes normoactive bowel sounds PALPATION: Yes Soft to palpation and Yes No hepatosplenomegaly present RECTAL EXAM: deferred Extremity: COMMON NORMALS: no clubbing, cyanosis or edema and no pedal edema Neuro: COMMON NORMALS: patient oriented x3 Urinary Catheter Management: Wolfe: Cath Placed During This Visit: yes, but has since been removed by the nurse Reason for Continuing Indwelling Catheter: Not indwelling catheter Urinary Catheter Date of Insertion: 10/24/21 Urinary Catheter Time of Insertion: 14:25 Date Urinary Catheter Removed: 10/30/21 Time Urinary Catheter Discontinued: 16:45 Data : 11/01/21 05:12 11/01/21 05:12 A&P Assessment and plan (1) Prolonged QT interval: Status: Acute (2) Uncontrolled hypertension: Status: Acute (3) Acute kidney failure: Resolved. Status: Acute (4) Ventricular tachyarrhythmia: Found to have bradycardia on the EKG again. Prolonged QT. Status: Acute (5) Respiratory failure, acute: Status: Acute (6) Sepsis: Status: Acute (7) Cardiac arrest: Status: Acute (8) Ventilator dependence: Resolved. Extubated on 10/29. Status: Acute (9) COPD (chronic obstructive pulmonary disease): Status: Acute (10) Diabetes mellitus type 2 in obese: Status: Acute (11) UTI (urinary tract infection): Status: Acute (12) Elevated troponin: Status: Acute (13) Altered mental status: Status: Acute (14) Oliguria: Resolved. Status: Acute (15) Deep tissue injury: Status: Acute (16) Hypokalemia: Status: Acute (17) Acute non-ST elevation myocardial infarction (NSTEMI): Status: Acute (18) History of DVT (deep vein thrombosis): Status: Acute Plan Ventilator dependent respiratory failure postcardiac arrest secondary to ventricular tachycardia: Extubated to 2 L on 10/29. Currently on room air. DuoNebs every 6 hour. Keep saturation over 90, mean over 65. Continue with metoprolol 100 mg twice daily, amiodarone 200 mg twice daily. Will plan to transition to 200 mg daily after 7 days of oral twice daily dose. Sepsis secondary to cellulitis: MRSA negative. Finished antibiotic course with Zosyn. Wound care appropriately. Blood cultures so far negative. Low-grade fever: Occasional episodes of spikes. Resolved. Repeat blood cultures so far negative. Urinalysis benign. Could be secondary to atelectasis. Patient already on full dose anticoagulation so we will hold off on lower limb Dopplers. Will hold off next getting antibiotics for now. Acute kidney injury/oliguria: Resolved. Creatinine down to 1. Robust urine output. Most likely patient is in diuretic phase of kidney injury. Post cardiac arrest and CPR. Urine eosinophils positive. Continuing translaminal 30 mg twice daily. Will de-escalate from tomorrow. Monitor input output. Continue with D5 NS at 75 cc/h. Hypertension: Goal blood pressure less than 140/90 mmHg. Blood pressure is elevated. Continue with metoprolol, amlodipine. Add hydralazine at 50 mg 3 times a day. Type 2 diabetes mellitus: A1c 6.4. Insulin sliding scale before meals and at bedtime. Elevated troponins: Most likely postventilatory cardiac, CPR, acute kidney injury. Discussed with at bedside. Does not want any aggressive management or cardiac catheterization for now. Cardiology on board. Restart home medications. History of DVT/PE: Continue with full dose Lovenox. Analgesia: Fentanyl, Precedex. Glycemic control: Insulin sliding scale AC at bedtime Nutrition: Diet to be advanced as per swallow evaluation. Carb consistent.. CODE STATUS: at bedside. DNR/DNI. PUD prophylaxis: Protonix DVT prophylaxis: Full dose Lovenox will suffice as DVT prophylaxis Discharge planning: Plan to discharge back to SNF once prior authorization is achieved as patient will be scheduled with physical therapy going forward. Continue with care at [facility] with telemetry. Attestations Medical Necessity Statement*: Patient is currently awaiting alf placement. Time Spent in Patient Care: Greater than 35 minutes (>than 50% of time spent in counselling and/or direct pt care on unit). Coding Level of Care Code Acute Maintenance Mechanic Telephone for Chg Fwd Diagnoses Prolonged QT interval R94.31 Uncontrolled hypertension I10 Acute kidney failure N17.9 Ventricular tachyarrhythmia I47.2 Respiratory failure, acute J96.00 Sepsis A41.9 Cardiac arrest I46.9 Ventilator dependence Z99.11 COPD (chronic obstructive pulmonary disease) J44.9 Diabetes mellitus type 2 in obese E11.69; E66.9 UTI (urinary tract infection) N39.0 Elevated troponin R77.8 Altered mental status R41.82 Oliguria R34 Deep tissue injury T14.8XXA Hypokalemia E87.6 Acute non-ST elevation myocardial infarction (NSTEMI) I21.4 History of DVT (deep vein thrombosis) Z86.718
[2021-11-02 11:35] LABS: Glucose Point of Care 165 mg/dL (70-110)
[2021-11-02] MEDS: insulin lispro 100 unit/1 mL SUBCUT ×3 (12:11→21:29)
--- NOTE | 2021-11-02 12:31 | PC.SOCIAL ---
IMM UPDATED IMM dated and initialed and copy given to patient
--- NOTE | 2021-11-02 15:36 | PC.NURSE ---
PT REFUSED TO BE TURNED
[2021-11-02 17:02] LABS: Glucose Point of Care 230 mg/dL (70-110)
[2021-11-02] MEDS: rivaroxaban 10 mg Tablet PO (17:27)
[2021-11-02] MEDS: atorvastatin 40 mg Tablet 30 MG PO (20:27)
[2021-11-02 20:48] LABS: Glucose Point of Care 238 mg/dL (70-110)
[2021-11-03] VITALS (13 sets, daily range): BP systolic 118–172; BP diastolic 62–92; PULSE 60–84; RESP 16–18; TEMP 36.6–36.8; O2SAT 92–98
[2021-11-03] MEDS: ALPRAZolam 0.5 mg Tablet 0.25 MG PO (01:33)
[2021-11-03] MEDS: chlorhexidine gluconate 4% Btl 118 mL 1 APPLIC TOPICAL (01:55)
[2021-11-03] MEDS: ipratropium-albuterol 3 mL Neb INHALATION ×4 (03:30→21:03)
[2021-11-03 04:03] LABS: Basophils % 0.1 %; Eosinophils % 0.2 %; Hematocrit 37.5 % (37.0-47.0); Hemoglobin 11.7 g/dL (11.5-15.3); Lymphocytes # 1.5 10^3/uL (0.8-4.8); Lymphocytes % 18.1 %; Mean Corpuscular HGB Conc 31.2 g/dL (30.0-36.0); Mean Corpuscular Hemoglobin 27.5 pg (28.0-34.0); Mean Corpuscular Volume 88.2 fl (81-99); Mean Platelet Volume 10.6 fL (7.4-10.4); Monocytes # 0.6 10^3/uL (0.2-0.9); Monocytes % 6.8 %; Neutrophils # 6.03 10^3/uL (1.8-7.7); Neutrophils % 73.2 %; Nucleated Red Blood Cells % 0.4 %; Platelet Count 317 10^3/cmm (130-400); Red Blood Count 4.25 10^6/uL (4.1-5.3); Red Cell Distribution Width 16.5 % (12.1-15.1); White Blood Count 8.2 10^3/uL (4.0-10.0)
[2021-11-03 04:26] LABS: Blood Urea Nitrogen 28 mg/dL (8-23); Calcium 8.8 mg/dL (8.5-10.5); Carbon Dioxide 23 mmol/L (22-29); Chloride 103 mmol/L (98-107); Glucose 153 mg/dL (65-115); Magnesium 2.1 mg/dL (1.7-2.3); Osmolality Calculated 293 mOsm/kg (285-295); Sodium 137 mmol/L (136-145)
[2021-11-03] MEDS: oxyCODONE-APAP 5-325 mg Tablet 1 TAB PO (04:50)
--- NOTE | 2021-11-03 05:09 | ECG_ITS ---
[facility] Test Date: 2021-11-03 Pat Name: Fany Webber Department: Room: 259 Gender: Female Key Account Manager: : [id number] Requested By: Teddy Taveras Order Number: [id number] Reading MD: Ventura Gallo M.D. Measurements Intervals [place] Rate: 64 P: 40 CA: 153 QRS: -10 QRSD: 109 T: 0 QT: 489 QTc: 506 Interpretive Statements SINUS RHYTHM PROLONGED QT INTERVAL Compared to ECG 10/31/2021 08:53:04 Sinus bradycardia no longer present Electronically Signed On 11-03-2021 16:52:08 CDT by Ventura Gallo M.D. [id number]
--- NOTE | 2021-11-03 05:10 | XRR_ITS ---
PROCEDURE INFORMATION: Exam: XR Chest Exam date and time: 11/03/2021 5:26 AM Age: 71 years old Clinical indication: Pain; Angina pectoris; Additional info: Chest pain TECHNIQUE: Imaging protocol: Radiologic exam of the chest. Views: 1 view. COMPARISON: CR XR chest 1V portable [id number] 10/30/2021 5:28 AM FINDINGS: Lungs: The lung parenchyma is clear. Pleural spaces: No pneumothorax. No pleural effusion. Heart/Mediastinum: Stable mild cardiomegaly. Bones/joints: Spinal lead wires again noted. Degenerative changes in the left shoulder joint. XR/XR chest 1V portable [id number] IMPRESSION: Stable cardiomegaly.
[2021-11-03 05:42] LABS: Troponin T (5th) Once 33 ng/L (0-10)
--- NOTE | 2021-11-03 05:48 | PC.NURSE ---
@0500 patient states she is having chest pain and doesn't think she is in the condition to move to facility today. patient repositioned for comfort and given prn pain medication patient states she is having trouble breathing RR 18 [id number] on room air. vitals are WNL. Physician made aware new orders obtained and noted.
[2021-11-03 06:43] LABS: Glucose Point of Care 165 mg/dL (70-110)
[2021-11-03] MEDS: potassium chloride oral liq 20 mEq/15 mL UDC 40 MEQ PO (09:44)
[2021-11-03] MEDS: insulin lispro 100 unit/1 mL SUBCUT ×2 (09:44→19:16)
[2021-11-03] MEDS: amiodarone 200 mg Tablet 100 MG PO (09:45)
[2021-11-03] MEDS: duloxetine 60 mg Capsule PO (09:45)
[2021-11-03] MEDS: amlodipine 10 mg Tablet PO (09:46)
[2021-11-03] MEDS: predniSONE 20 mg Tablet 40 MG PO (09:46)
[2021-11-03] MEDS: hyDRALAzine 50 mg Tablet 75 MG PO ×3 (09:47→20:54)
[2021-11-03] MEDS: pantoprazole 40 mg SDV IVP (09:48)
--- NOTE | 2021-11-03 10:07 | P.DS_ITS ---
Discharge Providers Date of Admission: 10/24/21 14:00 Date of Discharge: November 03, 2021 Attending Provider at Admission: Kat Moses MD Attending Provider at Discharge: Wyatt Monge MD Primary Care Provider: Rasheeda Hernandez MD Diagnoses at Discharge Discharge Diagnosis (1) Prolonged QT interval: Status: Acute (2) Uncontrolled hypertension: Status: Acute (3) Acute kidney failure: Status: Acute (4) Ventricular tachyarrhythmia: Status: Acute (5) Respiratory failure, acute: Status: Acute (6) Sepsis: Status: Acute (7) Cardiac arrest: Status: Acute (8) Ventilator dependence: Status: Acute (9) COPD (chronic obstructive pulmonary disease): Status: Acute (10) Diabetes mellitus type 2 in obese: Status: Acute (11) UTI (urinary tract infection): Status: Acute (12) Elevated troponin: Status: Acute (13) Altered mental status: Status: Acute (14) Oliguria: Status: Acute (15) Deep tissue injury: Status: Acute (16) Hypokalemia: Status: Acute (17) Acute non-ST elevation myocardial infarction (NSTEMI): Status: Acute (18) History of DVT (deep vein thrombosis): Status: Acute Reason for Visit Reason for Visit: AMS; SOB Hospital Course Hospital Course 71 year old female with PMH of breast cancer, IDDM, DJD, GERD, DVT, HLD, HTN, CHF, Bipolar disorder, Dementia, and bipolar disorder presented to hospital from shelter with complaint of altered mental status and some shortness of breath.During the hospital stay she was managed for sepsis secondary to cellulitis, she had a complicated hospital course, on the day of admission deedee ent was Going into recurrent polymorphic VT's , likely secondary to severe hypokalemia as well as sepsis, she also had cardiac arrest briefly for which CPR was done, and ROSC was achieved, prior to the code she was also intubated and placed on mechanical ventilation as she was extremely combative and altered and was having these episodes of polymorphic VTs. She was also started on lidocaine drip and amiodarone drip and was later switched to p.o. amiodarone, 2D echo: LV systolic function is normal with EF 55 to 60%.?Left atrium is mildly dilated.?Moderate mitral annular calcification. She has been discharged on p.o. amiodarone, most recent EKG; has shown: Sinus rhythm, with corrected QTc interval of 506. Cardiology was on board, family was interested in continuing conservative medical management. For sepsis she was kept on broad-spectrum antibiotics, blood cultures were negative. CT chest abdpel wo: Multivessel atherosclerotic disease which involves the coronary arteries. CT head without contrast: No acute intracranial pathology, hospital course was also complicated by development of: PRINCE: Likely prerenal secondary to sepsis, she responded well to conservative medical management, she was continued on IV hydration.Later she also needed, Lasix to kick start the kidneys.At the time of discharge kidney function has normalized serum creatinine was at baseline. She was also managed for NSTEMI most likely type II but cannot conclusively rule out NSTEMI type I: Initially she was kept on ACS protocol. She was on therapeutic anticoagulation, beta-bl ocker, statin. Patient was also managed for uncontrolled hypertension: She is being discharged on amlodipine hydralazine spironolactone. She was continued on Xarelto for history of DVT and PE. Patient has responded well to above medical management and is being discharged in stable condition to shelter. She will follow primary care physician as well as cardiology as outpatient. Physical Exam Const: COMMON NORMALS: patient oriented x3 HENMT: COMMON NORMALS: normocephalic and atraumatic HEAD & SCALP: normocephalic and atraumatic Chest: CHEST: Yes Symmetrical chest wall rise Resp: COMMON NORMALS: clear to auscultation bilaterally EFFORT & INSPECTION: Yes symmetric chest movement AUSCULTATION: clear to auscultation bilaterally Cardio: COMMON NORMALS: regular rate, regular rhythm, S1 normal heart sound present, S2 normal heart sound present, No gallops present (Cardio), No murmurs present (Cardio), No rub (Cardio) and Peripheral pulses 2+ throughout RATE: regular rate RHYTHM: regular rhythm HEART SOUNDS: S1 normal heart sound present and S2 normal heart sound present PERIPHERAL PULSES: Peripheral pulses 2+ throughout GI: COMMON NORMALS: Normal to inspection, nondistended, normoactive bowel sounds present, Soft to palpation, non-tender, No hepatosplenomegaly present and no masses AUSCULTATION: Yes normoactive bowel sounds PALPATION: Yes Soft to palpation and Yes No hepatosplenomegaly present RECTAL EXAM: deferred Extremity: COMMON NORMALS: no clubbing, cyanosis or edema and no pedal edema Neuro: COMMON NORMALS: patient oriented x3 Urinary Catheter Management: Wolfe: Cath Placed During This Visit: yes, but has since been removed by the nurse Reason for Continuing Indwelling Catheter: Not indwelling catheter Urinary Catheter Date of Insertion: 10/24/21 Urinary Catheter Time of Insertion: 14:25 Date Urinary Catheter Removed: 10/30/21 Time Urinary Catheter Discontinued: 16:45 Discharge Data Studies Completed and Pending Completed Studies During Hospitalization Category Date Time Status CT chest abdomen pelvis [[place] [id number] Cat Scan 10/24/21 11:47 Completed ] Stat CT head wo con* [id number] Urgent Cat Scan 10/24/21 11:47 Completed XR chest 1V portable [id number] NOW Exams 10/29/21 09:04 Completed XR chest 1V portable [id number] QAM Exams 10/29/21 06:00 Completed XR chest 1V portable [id number] QAM Exams 10/30/21 06:00 Completed XR chest 1V portable [id number] Routine Exams 10/24/21 21:29 Completed XR chest 1V portable [id number] Routine Exams 10/24/21 23:23 Completed XR chest 1V portable [id number] Stat Exams 10/25/21 10:02 Completed XR chest 1V portable [id number] Stat Exams 11/03/21 05:10 Completed CV. echo limited [id number] Routine Ultrasound 10/25/21 10:32 Completed US renal BI* [id number] Routine Ultrasound 10/26/21 15:26 Completed Pending at discharge Category Date Time Status BMP [Basic Metabolic Panel] AM LABS Lab 11/04/21 04:00 Ordered BMP [Basic Metabolic Panel] AM LABS Lab 11/05/21 04:00 Ordered Blood Culture AM LABS Lab 10/30/21 04:00 Results CBC Auto Diff [Complete Blood Count w/Auto] AM LABS Lab 11/04/21 04:00 Ordered CBC Auto Diff [Complete Blood Count w/Auto] AM LABS Lab 11/05/21 04:00 Ordered Radiology Impressions Chest/Abdomen/Pelvis CT 10/24/21 11:47 IMPRESSION: Multivessel atherosclerotic disease which involves the coronary arteries. IMPRESSION: No acute findings.Non acute findings as described above. Head CT 10/24/21 11:47 IMPRESSION: No change. Renal Ultrasound 10/26/21 15:26 IMPRESSION: 1. No hydronephrosis or mass identified. 2. Low normal size LEFT kidney. Chest X-Ray 11/03/21 05:10 IMPRESSION: Stable cardiomegaly. Laboratory Results WBC 8.2 10^3/uL (4.0-10.0) 11/03/21 03:29 RBC 4.25 10^6/uL (4.1-5.3) 11/03/21 03:29 Hgb 11.7 g/dL (11.5-15.3) 11/03/21 03:29 Hct 37.5 % (37.0-47.0) 11/03/21 03: MCV 88.2 fl (81-99) 11/03/21 03: MCH 27.5 pg (28.0-34.0) L 11/03/21 03: MCHC 31.2 g/dL (30.0-36.0) 11/03/21 03: RDW 16.5 % (12.1-15.1) H 11/03/21 03:29 Plt Count 317 10^3/cmm (130-400) 11/03/21 03:29 MPV 10.6 fL (7.4-10.4) H 11/03/21 03:29 Neut % (Auto) 73.2 % 11/03/21 03:29 Lymph % (Auto) 18.1 % 11/03/21 03:29 [place] % (Auto) 6.8 % 11/03/21 03:29 Eos % (Auto) 0.2 % 11/03/21 03:29 Baso % (Auto) 0.1 % 11/03/21 03:29 Neut # (Auto) 6.03 10^3/uL (1.8-7.7) 11/03/21 03:29 Lymph # (Auto) 1.5 10^3/uL (0.8-4.8) 11/03/21 03:29 [place] # (Auto) 0.6 10^3/uL (0.2-0.9) 11/03/21 03:29 Eos # (Auto) 0.0 10^3/uL (0.0-0.8) 11/03/21 03:29 Baso # (Auto) 0.0 10^3/uL (0.0-0.1) 11/03/21 03:29 Nucleated RBC % (auto) 0.4 % 11/03/21 03:29 Nucleated RBCs # 0.0 /100WBC 11/03/21 03:29 Specimen Type Arterial 10/29/21 08:50 Sample Site Radial, right 10/29/21 08:50 ABG pH 7.40 (7.35-7.45) 10/29/21 08:50 ABG pCO2 32.5 mmHg (35-45) L 10/29/21 08:50 ABG pO2 96.9 mmHg (80.0-100.0) 10/29/21 08:50 ABG HCO3 20.2 mmol/L (22-26) L 10/29/21 08:50 ABG O2 Saturation 94.0 10/29/21 05:25 ABG Base Excess -3.8 mmol/L (-2.0-2.0) L 10/29/21 08:50 David Test Pos 10/29/21 08:50 A-a O2 Gradient 11.0 mmHg (5-10) H 10/29/21 05:25 Hematocrit 39.1 % (37-47) 10/29/21 08:50 Hgb O2 Saturation 92.4 % (95-100) L 10/29/21 05:25 Carboxyhemoglobin 1.1 %THgb (0.4-20.1) 10/29/21 05:25 Methemoglobin 0.6 % (0.4-1.5) 10/29/21 05:25 Total Hemoglobin 16.4 g/dL (12-16) H 10/29/21 05:25 Sodium 142.0 mmol/L (131-143) 10/29/21 05:25 Potassium 4.1 mmol/L (3.5-5.0) 10/29/21 05:25 Glucose 181.0 mg/dL (70-115) H 10/29/21 05:25 Ionized Calcium 1.3 mmol/L (1.1-1.4) 10/29/21 05:25 O2 Delivery Device Vent 10/29/21 08:50 O2 Liters/Min 4.0 % 10/24/21 12:53 FiO2 28.0 % 10/29/21 08:50 Tidal Volume 0.45 10/29/21 05:25 PEEP 5.0 cmH20 10/29/21 05:25 CPAP 5.0 cmH20 10/29/21 08:50 [employer] ID Jaz 10/29/21 08:50 Sodium 137 mmol/L (136-145) 11/03/21 03:29 Potassium 4.0 mmol/L (3.5-5.1) 11/03/21 03:29 Chloride 103 mmol/L (98-107) 11/03/21 03:29 Carbon Dioxide 23 mmol/L (22-29) 11/03/21 03:29 Anion Gap 15.0 (5-19) 11/03/21 03:29 BUN 28 mg/dL (8-23) H 11/03/21 03:29 Creatinine 1.0 mg/dL (0.5-0.9) H 11/03/21 03:29 GFR Calculation Not Reportable 11/03/21 03:29 Glucose 153 mg/dL (65-115) H 11/03/21 03:29 POC Glucose 165 mg/dL (70-110) H 11/03/21 06:36 Estimat Average Glucose 137 10/27/21 03:18 Hemoglobin A1c 6.4 % (4.0-6.0) H 10/27/21 03:18 Calculated Osmolality 293 mOsm/kg (285-295) 11/03/21 03:29 Lactic Acid 2.0 mmol/L (0.5-2.2) 10/24/21 11:06 Calcium 8.8 mg/dL (8.5-10.5) 11/03/21 03:29 Phosphorus 2.4 mg/dL (2.5-4.5) L 10/26/21 04:55 Magnesium 2.1 mg/dL (1.7-2.3) 11/03/21 03:29 Iron 22 ug/dL (37-145) L 10/26/21 04:55 TIBC 216 mcg/dl 10/26/21 04:55 % Saturation 10.1 % (20-50) L 10/26/21 04:55 Unsat Iron Binding 194 ug/dL (112-347) 10/26/21 04:55 Total Bilirubin 0.3 mg/dL (0.15-1.2) 11/01/21 05:12 AST 11 U/L (0-32) 11/01/21 05:12 ALT 18 U/L (0-33) 11/01/21 05:12 Alkaline Phosphatase 74 IU/L (35-105) 11/01/21 05:12 Creatine Kinase 169 U/L (26-192) 10/24/21 11:06 Troponin T Gen 5 ng/L 33 ng/L (0-10) H 11/03/21 03:29 Troponin T Baseline 260 ng/L (0-10) H* 10/24/21 11:06 Troponin T 120 Minute 252.9 ng/L (0-10) H 10/24/21 14:35 Delta Troponin T -7.1 ABS# (0-10) L 10/24/21 14:35 Troponin T Hi Sens 6Hr 203.1 ng/L (0-10) H 10/24/21 19:45 Troponin T Hi Sens 6Hr Delta -56.9 ng/L (0-12) L 10/24/21 19:45 C-Reactive Protein 76.4 mg/L (0.0-4.9) H 10/24/21 11:06 Total Protein 6.8 g/dL (6.6-8.7) 11/01/21 05:12 Albumin 3.4 g/dL (3.5-5.2) L 11/01/21 05:12 Globulin 3.4 g/dL (1.3-4.6) 11/01/21 05:12 Triglycerides 178 mg/dL (0-150) H 10/27/21 03:18 Cholesterol 135 mg/dL (0-200) 10/27/21 03:18 LDL Cholesterol, Calc 53 mg/dL (50-129) 10/27/21 03:18 Total VLDL Cholesterol 36 mg/dL (0-30) H 10/27/21 03:18 HDL Cholesterol 46 mg/dL (60-100) L 10/27/21 03:18 Cholesterol/HDL Ratio 2.93 mg/dL (0.0-4.40) 10/27/21 03:18 TSH 0.71 uIU/mL (0.27-4.20) 10/24/21 11:06 Urine Color Yellow (Yellow) 10/29/21 11:19 Urine Appearance Clear (CLEAR) 10/29/21 11:19 Urine pH 5 (5-7) 10/29/21 11:19 Ur Specific [place] 1.015 (1.005-1.030) 10/29/21 11:19 Urine Protein 1+ (Negative) H 10/29/21 11:19 Urine Glucose (UA) Trace (Normal) H 10/29/21 11:19 Urine Ketones Negative (Negative) 10/29/21 11:19 Urine Blood 3+ (Negative) H 10/29/21 11:19 Urine Nitrate Negative (Negative) 10/29/21 11:19 Urine Bilirubin Neg (Negative) 10/29/21 11:19 Urine Urobilinogen Norm mg/dL (Negative) 10/29/21 11:19 Ur Leukocyte Esterase Negative (Negative) 10/29/21 11:19 Urine RBC 0-4 /hpf (0-2) H 10/29/21 11:19 Urine WBC 0-4 /hpf (0-5) H 10/29/21 11:19 Ur Eosinophil Smear 1 (0-0) H 10/26/21 17:38 Ur Squamous Epith Cells 0-4 /hpf (0-5) H 10/29/21 11:19 Amorphous Sediment Not Reportable 10/29/21 11:19 Urine Bacteria Trace /hpf (NONE) 10/29/21 11:19 Urine Mucus 1+ /hpf 10/26/21 01:43 Urine Eosinophils Eosinophils seen H 10/26/21 17:38 Ur Random Sodium 115 mmol/L 10/26/21 17:38 Ur Random Potassium 33 mmol/L 10/26/21 17:38 Ur Random Chloride 132 mmol/L 10/26/21 17:38 Urine Creatinine 20 mg/dL (28-217) L 10/26/21 17:38 Vancomycin Trough 11.4 ug/mL (10-15) 10/29/21 14:45 Coronavirus 229E (PCR) Not detected (NOT DETECT) 10/24/21 12:41 SARS-CoV-2 (PCR) Not detected (NOT DETECT) 10/24/21 12:41 Vitals Last Vital Signs Temp 98.2 F 11/03/21 07:28 Pulse 77 11/03/21 08:40 Resp 18 11/03/21 08:34 BP 151/81 11/03/21 07:28 Pulse Ox 95 11/03/21 08:34 Discharge Plan Discharge Patient Disposition: Xfer [facility] Condition: Stable Prescriptions: New Pacerone 200 mg Tablet 100 mg PO DAILY 30 Days Qty: 30 0RF amlodipine 10 mg Tablet 10 mg PO DAILY 30 Days Qty: 30 3RF hydralazine 50 mg Tablet 75 mg PO TID 30 Days Qty: 90 3RF spironolactone 25 mg tablet 25 mg PO DAILY 30 Days Qty: 30 0RF Continued multivitamin Tablet 1 tab PO DAILY@08 0RF acetaminophen 325 mg Tablet 650 mg PO Q6H PRN (Reason: pain/temp) 0RF atorvastatin 20 mg Tablet 30 mg PO DAILY@20 0RF potassium chloride 20 mEq/15 mL liquid 40 meq PO DAILY 0RF pantoprazole 20 mg tablet,delayed release (DR/EC) 20 mg PO DAILY@08 0RF oxycodone-acetaminophen 5-325 mg tablet 1 tab PO Q6H PRN (Reason: Pain) 0RF ropinirole 2 mg tablet 2 mg PO DAILY@08 0RF gabapentin 100 mg capsule 200 mg PO TID@08,14,20 0RF nystatin [Nyamyc] 100,000 unit/gram powder 1 applic TOPICAL DAILY 0RF Rx Instructions: apply to abdominal folds albuterol sulfate 90 mcg/actuation Hfa Aerosol Inhaler 2 puff INHALATION Q4H PRN (Reason: Shortness Of Breath) 0RF alum-mag hydroxide-simeth [Almacone-2] 400-400-40 mg/5 mL Suspension 30 ml PO Q24H PRN (Reason: Heartburn) 0RF ropinirole 4 mg tablet 4 mg PO DAILY@20 0RF bisacodyl 5 mg Tablet 5 mg PO Q24H PRN (Reason: Constipation) 0RF duloxetine 60 mg Capsule,Delayed Release(Dr/Ec) 60 mg PO DAILY@08 0RF insulin glargine [Lantus Solostar U-100 Insulin] 100 unit/mL (3 mL) insulin pen 10 unit SUBCUT DAILY@08 0RF diclofenac sodium 1 % Gel See Rx Instructions .ROUTE .COMPLEX 0RF Rx Instructions: apply topically to bilateral knee every 8 hours prn pain Xarelto 10 mg tablet 10 mg PO DAILY@08 0RF Myrbetriq 50 mg tablet extended release 24 hr 50 mg PO DAILY@08 0RF insulin aspart U-100 [Novolog Flexpen U-100 Insulin] 100 unit/mL (3 mL) insulin pen See Rx Instructions .ROUTE .COMPLEX Qty: 15 0RF Rx Instructions: Inject, subcu, 3 times daily, after meals, based on sliding scale alprazolam 0.25 mg Tablet 0.25 mg PO BID PRN (Reason: Anxiety) 0RF triamcinolone acetonide 0.1 % Cream 1 applic TOPICAL BID 0RF Held bumetanide 1 mg Tablet 1 mg PO DAILY@08 0RF Hold Instructions: Resume on 11/17/21. metoprolol tartrate 50 mg tablet 75 mg PO BID Qty: 0 0RF Hold Instructions: Resume on 11/24/21. Rx Instructions: hold for sbp <100,dbp <60, or hr<60 Discharge Orders: Discharge Order (Routine); Ordered 11/03/21 Ordered By: Wyatt Monge Referrals: Rasheeda Hernandez MD [Primary Care Provider] - 2 weeks Donta Ambrocio M.D [Physician] - 12/04/21 9:45 am (APPOINTMENT WITH DR GOMEZ) Discharge Attestations Time Spent in Discharge Care*: greater than 30 min Specific Discharge Activities: educating patient, educating and/or supporting family/caregiver, discussing with pcp/other providers, discussing with patient case manager/social workers/dc planners, documenting/other paperwork and evaluating patient/reviewing data Quality Metrics Clinical Quality Measures [ No reported AMI, CVA or VTE this stay] Coding Level of Care Code Acute Chg FW DC note Diagnoses Prolonged QT interval R94.31 Uncontrolled hypertension I10 Acute kidney failure N17.9 Ventricular tachyarrhythmia I47.2 Respiratory failure, acute J96.00 Sepsis A41.9 Cardiac arrest I46.9 Ventilator dependence Z99.11 COPD (chronic obstructive pulmonary disease) J44.9 Diabetes mellitus type 2 in obese E11.69; E66.9 UTI (urinary tract infection) N39.0 Elevated troponin R77.8 Altered mental status R41.82 Oliguria R34 Deep tissue injury T14.8XXA Hypokalemia E87.6 Acute non-ST elevation myocardial infarction (NSTEMI) I21.4 History of DVT (deep vein thrombosis) Z86.718
[2021-11-03 11:41] LABS: Glucose Point of Care 146 mg/dL (70-110)
--- NOTE | 2021-11-03 12:52 | PC.CHAP ---
Pastoral Care Encounter/Spiritual Assessment Type of Contact [] Declined bogger operator visit [] Patient/Family/Request visit [] Outpatient visit [] Follow-up visit [] Physician referral [] Code/Alert [x] Routine visit [] Staff referral [] Actively dying [] Patient sleeping [] Family support [] [] Out of room [] Palliative care [] [] Receiving care in room [] Pre-surgical visit [] Trauma [] Long length of stay [] ICU visit [] Other: Relational/Emotional Strength [x] Patient feels connected with others/family/visitors/staff [] Distress [] Loneliness/isolation [] Abandonment Spirituality of Patient [x] Person of [place] [] Attends Protestant of their [place] [x] Believes in Prayer [] Reads Bible or Orthodoxy materials [] There are Spiritual issues to be addressed Engraver Apprentice Decorative Interventions [x] Prayer [x] Active listening [] Non-anxious presence [] Spiritual/emotional support [] Crisis/trauma care [] Spiritual counseling [] Bereavement support [] Provided bereavement packet [] Provided Bible/devotional materials [] Provided toy/stuffed animal, coloring book to patient or family member [] Provided Communion [] Anointing/[place] [] Salvation [x] Completed spiritual assessment [] Other: Impact on Illness or Injury [] Angry [] Fearful [] Anxious [] Often cries [] Exhaustion [] Unable to work [] Unable to attend synagogue [] Unable to walk/stand [] Unable to read [] Unable to drive [] Unable to eat/drink [] Unable to sleep [] Unable to be with family [] Patient intubated [] Other: Summary Time spent with patient 10 min
[2021-11-03 16:21] LABS: Glucose Point of Care 281 mg/dL (70-110)
[2021-11-03] MEDS: gabapentin 100 mg Capsule 200 MG PO ×2 (16:41→20:54)
[2021-11-03] MEDS: rivaroxaban 10 mg Tablet PO (19:17)
[2021-11-03] MEDS: atorvastatin 40 mg Tablet 30 MG PO (20:54)
--- NOTE | 2021-11-03 21:16 | PC.NURSE ---
Patient transferred over to EMS stretcher with nursing staff and EMS staff. Patient alert and oriented at time of transport. Patient left the floor via stretcher with all belongings.
== END 2021-11-03 21:19 | disposition skilled nursing facility (03) | DRG 870 ==
LOC: ER 11:59 → ICU 16:02 → MEDSURG 10-30 17:04
PROVIDERS: Internal Medicine; Student in an Organized Health Care Education/Training Program; Admitting Provider Internal Medicine; Emergency Provider Emergency Medicine; PCP Family Medicine; Visit Provider Internal Medicine
DX: A41.9 Sepsis, unspecified organism (principal); L89.323 Pressure ulcer of left buttock, stage 3; I21.A1 Myocardial infarction type 2; J96.00 Acute respiratory failure, unspecified whether with hypoxia or hypercapnia; I46.9 Cardiac arrest, cause unspecified; I50.32 Chronic diastolic (congestive) heart failure; N17.9 Acute kidney failure, unspecified; I47.2 Ventricular tachycardia; L03.90 Cellulitis, unspecified; F03.90 Unspecified dementia, unspecified severity, without behavioral disturbance, psychotic disturbance, mood disturbance, and anxiety; I11.0 Hypertensive heart disease with heart failure; J44.9 Chronic obstructive pulmonary disease, unspecified; E11.9 Type 2 diabetes mellitus without complications; Z86.718 Personal history of other venous thrombosis and embolism; L89.322 Pressure ulcer of left buttock, stage 2; L89.310 Pressure ulcer of right buttock, unstageable; L89.519 Pressure ulcer of right ankle, unspecified stage; L89.619 Pressure ulcer of right heel, unspecified stage; F32.A Depression, unspecified; M79.7 Fibromyalgia; K21.9 Gastro-esophageal reflux disease without esophagitis; Z85.3 Personal history of malignant neoplasm of breast; E87.6 Hypokalemia; E66.9 Obesity, unspecified; Z68.37 Body mass index [BMI] 37.0-37.9, adult; I87.8 Other specified disorders of veins; Z79.01 Long term (current) use of anticoagulants; Z79.4 Long term (current) use of insulin; Z79.51 Long term (current) use of inhaled steroids; I25.10 Atherosclerotic heart disease of native coronary artery without angina pectoris; R00.1 Bradycardia, unspecified; Z66 Do not resuscitate; R01.1 Cardiac murmur, unspecified
CPT/HCPCS: 36415; 36416; 36556; 36592; 36600; 51702; 70450; 71045; 71250; 74176; 76770; 80048; 80051; 80053; 80061; 80202; 81001; 82330; 82436; 82550; 82570; 82803; 82805; 82962; 83036; 83540; 83550; 83605; 83735; 84100; 84133; 84300; 84443; 84484; 85025; 85999; 86140; 87040; 87070; 87635; 87641; 92523; 92526; 92610; 93005; 93308; 94002; 94003; 94640; 94799; 96365; 96366; 96367; 96372; 97110; 97162; 97530; 99285; A4570; C1751; C9113; J0282; J0330; J0360; J1650; J1815; J1885; J1940; J2001; J2060; J2250; J2543; J2704; J2920; J3010; J3370; J3475; J3480; J3490; J7030; J7040; J7060; J7512

== ENCOUNTER 2021-11-24 23:02 | Inpatient (IN) | payer MEDICARE, MEDICAID, SELFPAY ==
[2021-11-24 23:04] VITALS: BP 176/112; PULSE 115; RESP 20; TEMP 39.3; O2SAT 94; BMI 40.3
--- NOTE | 2021-11-24 23:04 | ECG_ITS ---
[facility] Test Date: 2021-11-24 Pat Name: Fany Webber Department: Room: Gender: Female Sheriff: : [id number] Requested By: Carrol Calvo Order Number: [id number] Moshe MD: Ventura Gallo M.D. Measurements Intervals [place] Rate: 121 P: 55 NM: 138 QRS: -47 QRSD: 108 T: 62 QT: 342 QTc: 486 Interpretive Statements SINUS TACHYCARDIA WITH OCCASIONAL VENTRICULAR PREMATURE COMPLEXES WITH FREQUENT SUPRAVENTRICULAR PREMATURE COMPLEXES LEFT ANTERIOR FASCICULAR BLOCK [QRS AXIS <= -45, QR IN I, RS IN II] POSSIBLE LATERAL MYOCARDIAL INFARCTION , PROBABLY OLD [30 ms Q WAVE IN I/aVL/V5/V6] Compared to ECG 11/03/2021 06:21:10 Ventricular premature complex(es) now present Left anterior fascicular block now present Myocardial infarct finding now present Sinus rhythm no longer present Prolonged QT interval no longer present Electronically Signed On 11-25-2021 16:28:19 CDT by Ventura Gallo M.D. [id number]
--- NOTE | 2021-11-24 23:04 | CTR_ITS ---
PROCEDURE INFORMATION: Exam: CT Head Without Contrast Exam date and time: 11/25/2021 12:04 AM Age: 71 years old Clinical indication: Altered mental status/memory loss and fever; Confusion or disorientation; Patient HX: Brought from residential for AMS and fever. Patient non verbal excecpt for grunting sounds. TECHNIQUE: Imaging protocol: Computed tomography of the head without contrast. Radiation optimization: All CT scans at this facility use at least one of these dose optimization techniques: automated exposure control; mA and/or kV adjustment per patient size (includes targeted exams where dose is matched to clinical indication); or iterative reconstruction. COMPARISON: CT head wo con* [id number] 10/24/2021 12:11 PM RADIATION DOSE METRICS: Total DLP (mGy-cm): 745.88 FINDINGS: Brain: No evidence of acute intracranial hemorrhage. There is no midline shift or significant mass effect. The basal cisterns are patent. Cerebral ventricles: Mild generalized cerebral volume loss with ex vacuo dilation of the ventricles. Periventricular hypoattenuation is a nonspecific finding but likely represent the sequela of chronic small vessel ischemic disease. Mild asymmetric prominence of the left lateral ventricle compared to the right lateral ventricle is likely a normal variant. Paranasal sinuses: Mild paranasal sinus disease. Mastoid air cells: The imaged mastoid air cells appear grossly clear. Orbital cavities: The orbits appear grossly unremarkable. Bones/joints: Unremarkable. No acute fracture. Soft tissues: Unremarkable. Vasculature: There are atherosclerotic calcifications of the carotid siphons and the V4 segments of the vertebral arteries. CT/CT head wo con* [id number] IMPRESSION: 1. No acute intracranial hemorrhage, mass effect, or midline shift. 2. Chronic findings as outlined above. 3. Please note that CT is insensitive to nonhemorrhagic strokes and MRI of the brain should be considered if there is continued clinical concern for acute cerebral infarction.
--- NOTE | 2021-11-24 23:04 | XRR_ITS ---
PROCEDURE INFORMATION: Exam: XR Chest Exam date and time: 11/24/2021 11:13 PM Age: 71 years old Clinical indication: Prior surgery; Surgery type: Mastectomy. Spinal stimulator. Patient HX: From retirement with fever and AMS. Patient non verbal except for grunting sounds. History of copd and chf. TECHNIQUE: Imaging protocol: Radiologic exam of the chest. Views: 1 view. COMPARISON: CR (CHEST, ) 11/03/2021 5:26 AM FINDINGS: Tubes, catheters and devices: Spinal stimulator leads are seen up to the level of the T7. Lungs: Low lung volumes and bronchovascular crowding. Mild increased pulmonary vascularity. Mild increased pulmonary vascular hilar shadows. Dependent opacities may represent edema, atelectasis, inflammation, or infection. Pleural spaces: The costophrenic angles are slightly obscured. Cannot exclude trace pleural effusion. No large pleural effusion. No pneumothorax. Heart/Mediastinum: Unremarkable. No cardiomegaly. Vasculature: Atherosclerotic disease of the aortic arch. Atherosclerotic disease of the coronary arteries. Bones/joints: There are degenerative changes of the spine and shoulder joints. XR/XR chest 1V portable [id number] IMPRESSION: Please see findings.
--- NOTE | 2021-11-24 23:15 | W.ED.AMS ---
HPI - Altered Mental Status General: Chief Complaint: Altered Mental Status Stated Complaint: AMS/SOB Time Seen by Provider: 11/24/21 23:03 Source: EMS Mode of arrival: EMS Limitations: altered mental status History of Present Illness: 71-year-old female who has a history of dementia is here from longterm with altered mental status along with fever. Patient was admitted earlier here this month for sepsis from cellulitis. She does have erythema to both legs with chronic foot ulcers. Patient here is alert but not able to answer any questions. She just makes unintelligible sounds and does not speak at this time. Per EMS longterm states she is typically verbal at baseline. She has had a slight cough per longterm. Review of Systems General: Reports: ROS unobtainable due to mental status PFSH ED PFSH: Medical History Bipolar disorder CHF (congestive heart failure) COPD (chronic obstructive pulmonary disease) Dementia Depression Diabetes mellitus type 2 in obese DJD (degenerative joint disease) Fibromyalgia GERD (gastroesophageal reflux disease) History of breast cancer History of DVT (deep vein thrombosis) Hyperlipidemia Hypertension Surgical History History of hysterectomy History of mastectomy Family History Other CAD (coronary artery disease) Diabetes Social History Smoking and tobacco status: never smoked Alcohol intake: never Physical Exam Const: COMMON NORMALS: negative for patient oriented x3 and negative for alert EXAM LIMITATIONS: altered mental status GENERAL APPEARANCE: in distress and ill appearing ORIENTATION/CONSCIOUSNESS: not oriented to person, not oriented to place and not oriented to time HENMT: COMMON NORMALS: normocephalic and atraumatic HEAD & SCALP: normocephalic and atraumatic Eye: COMMON NORMALS: conjunctivae normal CONJUNCTIVA: Yes conjunctivae normal Neck/C-Spine: COMMON NORMALS: supple Chest: COMMONS NORMALS: normal inspection of the chest and normal palpation of entire chest wall Resp: COMMON NORMALS: normal respiratory effort and clear to auscultation bilaterally AUSCULTATION: clear to auscultation bilaterally Cardio: COMMON NORMALS: regular rate RATE: regular rate GI: COMMON NORMALS: Normal to inspection, nondistended, normoactive bowel sounds present and non-tender Extremity: NARRATIVE EXTREMITY EXAM: Cellulitis along with chronic ulcers to both lower legs Neuro: COMMON NORMALS: negative for patient oriented x3 SENSORIUM/ORIENTATION: No alert, No oriented to person, No oriented to place and No oriented to time Psych: COMMON NORMALS: negative for mental status grossly normal Skin: COMMON NORMALS: no jaundice Course Vital Signs: Vital signs: Vital Signs Temperature 102.8 F H 11/24/21 23:04 Pulse Rate 101 H 11/25/21 00:32 Respiratory Rate 20 H 11/24/21 23:04 Blood Pressure 143/92 11/25/21 00:32 Pulse Oximetry 98 11/25/21 00:32 MDM - Altered Mental Status Medical Decision Making Patient presents here with fever and altered mental status likely from acute cystitis she also has hyponatremia spoke to the hospitalist will admit here her blood pressures been stable. Lab Data : 11/24/21 23:39 11/24/21 23:39 Radiology Impressions Chest X-Ray 11/24/21 23:04 IMPRESSION: Please see findings. Head CT 11/24/21 23:04 IMPRESSION: 1. No acute intracranial hemorrhage, mass effect, or midline shift. 2. Chronic findings as outlined above. 3. Please note that CT is insensitive to nonhemorrhagic strokes and MRI of the brain should be considered if there is continued clinical concern for acute cerebral infarction. Laboratory Results WBC 17.1 10^3/uL (4.0-10.0) H 11/24/21 23:39 RBC 4.77 10^6/uL (4.1-5.3) 11/24/21 23:39 Hgb 13.1 g/dL (11.5-15.3) 11/24/21 23:39 Hct 40.9 % (37.0-47.0) 11/24/21 23:39 MCV 85.7 fl (81-99) 11/24/21 23:39 MCH 27.5 pg (28.0-34.0) L 11/24/21 23:39 MCHC 32.0 g/dL (30.0-36.0) 11/24/21 23:39 RDW 15.8 % (12.1-15.1) H 11/24/21 23:39 Plt Count 290 10^3/cmm (130-400) 11/24/21 23:39 MPV 9.5 fL (7.4-10.4) 11/24/21 23:39 Neut % (Auto) 90.6 % 11/24/21 23:39 Lymph % (Auto) 4.0 % 11/24/21 23:39 [place] % (Auto) 4.3 % 11/24/21 23:39 Eos % (Auto) 0.0 % 11/24/21 23:39 Baso % (Auto) 0.2 % 11/24/21 23:39 Neut # (Auto) 15.46 10^3/uL (1.8-7.7) H 11/24/21 23:39 Lymph # (Auto) 0.7 10^3/uL (0.8-4.8) L 11/24/21 23:39 [place] # (Auto) 0.7 10^3/uL (0.2-0.9) 11/24/21 23:39 Eos # (Auto) 0.0 10^3/uL (0.0-0.8) 11/24/21 23:39 Baso # (Auto) 0.0 10^3/uL (0.0-0.1) 11/24/21 23:39 Nucleated RBC % (auto) 0 % 11/24/21 23:39 Nucleated RBCs # 0.0 /100WBC 11/24/21 23:39 PT 16.50 SECONDS (12.1-14.9) H 11/24/21 23:39 INR 1.29 (0.8-1.2) H 11/24/21 23:39 Specimen Type Arterial 11/24/21 23:48 Sample Site Radial, right 11/24/21 23:48 ABG pH 7.45 (7.35-7.45) 11/24/21 23:48 ABG pCO2 36.8 mmHg (35-45) 11/24/21 23:48 ABG pO2 74.3 mmHg (80.0-100.0) L 11/24/21 23:48 ABG HCO3 25.3 mmol/L (22-26) 11/24/21 23:48 ABG Base Excess 1.4 mmol/L (-2.0-2.0) 11/24/21 23:48 David Test Pos 11/24/21 23:48 Hematocrit 39.6 % (37-47) 11/24/21 23:48 O2 Delivery Device Nc 11/24/21 23:48 O2 Liters/Min 3.0 % 11/24/21 23:48 Candy Butcher ID [email or web address] 11/24/21 23:48 Sodium 125 mmol/L (136-145) L 11/24/21 23:39 Potassium 3.6 mmol/L (3.5-5.1) 11/24/21 23:39 Chloride 88 mmol/L (98-107) L 11/24/21 23:39 Carbon Dioxide 23 mmol/L (22-29) 11/24/21 23:39 Anion Gap 17.6 (5-19) 11/24/21 23:39 BUN 13 mg/dL (8-23) 11/24/21 23:39 Creatinine 1.2 mg/dL (0.5-0.9) H 11/24/21 23:39 GFR Calculation Not Reportable 11/24/21 23:39 Glucose 138 mg/dL (65-115) H 11/24/21 23:39 Calculated Osmolality 262 mOsm/kg (285-295) L 11/24/21 23:39 Lactic Acid 1.1 mmol/L (0.5-2.2) 11/24/21 23:39 Calcium 9.0 mg/dL (8.5-10.5) 11/24/21 23:39 Magnesium 1.6 mg/dL (1.7-2.3) L 11/24/21 23:39 Total Bilirubin 0.6 mg/dL (0.15-1.2) 11/24/21 23:39 AST 17 U/L (0-32) 11/24/21 23:39 ALT 15 U/L (0-33) 11/24/21 23:39 Alkaline Phosphatase 101 IU/L (35-105) 11/24/21 23:39 Troponin T Baseline 47 ng/L (0-10) H 11/24/21 23:39 NT-Pro-B Natriuret Pep 4736 pg/mL (0-125) H 11/24/21 23:39 Total Protein 7.0 g/dL (6.6-8.7) 11/24/21 23:39 Albumin 3.4 g/dL (3.5-5.2) L 11/24/21 23:39 Globulin 3.6 g/dL (1.3-4.6) 11/24/21 23:39 Urine Color Yellow (Yellow) 11/25/21 00:27 Urine Appearance Cloudy (CLEAR) 11/25/21 00:27 Urine pH 6 (5-7) 11/25/21 00:27 Ur Specific [place] 1.010 (1.005-1.030) 11/25/21 00:27 Urine Protein 2+ (Negative) H 11/25/21 00:27 Urine Glucose (UA) Norm (Normal) 11/25/21 00:27 Urine Ketones 1+ (Negative) H 11/25/21 00:27 Urine Blood 3+ (Negative) H 11/25/21 00:27 Urine Nitrate Positive (Negative) H 11/25/21 00:27 Urine Bilirubin Neg (Negative) 11/25/21 00:27 Urine Urobilinogen Norm mg/dL (Negative) 11/25/21 00:27 Ur Leukocyte Esterase 2+ (Negative) H 11/25/21 00:27 Urine RBC 0-4 /hpf (0-2) H 11/25/21 00:27 Urine WBC Too numerous to cnt /hpf (0-5) H 11/25/21 00:27 Ur Squamous Epith Cells 0-4 /hpf (0-5) H 11/25/21 00:27 Amorphous Sediment Not Reportable 11/25/21 00:27 Urine Bacteria 4+ /hpf (NONE) H 11/25/21 00:27 SARS-CoV-2 Ag (Rapid) Negative (Negative) 11/25/21 00:28 EKG Data EKG 1: I personally reviewed and interpreted this EKG as follows: EKG interpretation date: 11/24/21 EKG interpretation time: 23:08 Interpretation: sinus tach hr [address] or t wave abnormalities qrs 108 qtc 414 Discharge Plan Discharge Patient Disposition: Admitted As Inpatient Clinical Impression: Altered mental status, Hyponatremia, Acute cystitis Condition: Stable Prescriptions: No Action multivitamin Tablet 1 tab PO DAILY@08 0RF acetaminophen 325 mg Tablet 650 mg PO Q6H PRN (Reason: pain/temp) 0RF atorvastatin 20 mg Tablet 30 mg PO DAILY@20 0RF potassium chloride 20 mEq/15 mL liquid 40 meq PO DAILY 0RF pantoprazole 20 mg tablet,delayed release (DR/EC) 20 mg PO DAILY@08 0RF oxycodone-acetaminophen 5-325 mg tablet 1 tab PO Q6H PRN (Reason: Pain) 0RF ropinirole 2 mg tablet 2 mg PO DAILY@08 0RF bumetanide 1 mg Tablet 1 mg PO DAILY@08 0RF Hold Instructions: Resume on 11/17/21. gabapentin 100 mg capsule 200 mg PO TID@08,14,20 0RF nystatin [Nyamyc] 100,000 unit/gram powder 1 applic TOPICAL DAILY 0RF Rx Instructions: apply to abdominal folds albuterol sulfate 90 mcg/actuation Hfa Aerosol Inhaler 2 puff INHALATION Q4H PRN (Reason: Shortness Of Breath) 0RF alum-mag hydroxide-simeth [Almacone-2] 400-400-40 mg/5 mL Suspension 30 ml PO Q24H PRN (Reason: Heartburn) 0RF ropinirole 4 mg tablet 4 mg PO DAILY@20 0RF bisacodyl 5 mg Tablet 5 mg PO Q24H PRN (Reason: Constipation) 0RF duloxetine 60 mg Capsule,Delayed Release(Dr/Ec) 60 mg PO DAILY@08 0RF insulin glargine [Lantus Solostar U-100 Insulin] 100 unit/mL (3 mL) insulin pen 10 unit SUBCUT DAILY@08 0RF diclofenac sodium 1 % Gel See Rx Instructions .ROUTE .COMPLEX 0RF Rx Instructions: apply topically to bilateral knee every 8 hours prn pain Xarelto 10 mg tablet 10 mg PO DAILY@08 0RF Myrbetriq 50 mg tablet extended release 24 hr 50 mg PO DAILY@08 0RF insulin aspart U-100 [Novolog Flexpen U-100 Insulin] 100 unit/mL (3 mL) insulin pen See Rx Instructions .ROUTE .COMPLEX Qty: 15 0RF Rx Instructions: Inject, subcu, 3 times daily, after meals, based on sliding scale metoprolol tartrate 50 mg tablet 75 mg PO BID Qty: 0 0RF Hold Instructions: Resume on 11/24/21. Rx Instructions: hold for sbp <100,dbp <60, or hr<60 alprazolam 0.25 mg Tablet 0.25 mg PO BID PRN (Reason: Anxiety) 0RF triamcinolone acetonide 0.1 % Cream 1 applic TOPICAL BID 0RF Pacerone 200 mg Tablet 100 mg PO DAILY 30 Days Qty: 30 0RF amlodipine 10 mg Tablet 10 mg PO DAILY 30 Days Qty: 30 3RF hydralazine 50 mg Tablet 75 mg PO TID 30 Days Qty: 90 3RF spironolactone 25 mg tablet 25 mg PO DAILY 30 Days Qty: 30 0RF Referrals: Rasheeda Hernandez MD [Primary Care Provider] - Coding Level of Care Code ED Wheel Setter for Chg Fwd Exam Comprehensive
[2021-11-24 23:45] LABS: Basophils % 0.2 %; Hematocrit 40.9 % (37.0-47.0); Hemoglobin 13.1 g/dL (11.5-15.3); Lymphocytes # 0.7 10^3/uL (0.8-4.8); Mean Corpuscular Hemoglobin 27.5 pg (28.0-34.0); Mean Corpuscular Volume 85.7 fl (81-99); Mean Platelet Volume 9.5 fL (7.4-10.4); Monocytes # 0.7 10^3/uL (0.2-0.9); Monocytes % 4.3 %; Neutrophils # 15.46 10^3/uL (1.8-7.7); Neutrophils % 90.6 %; Nucleated Red Blood Cells % 0 %; Platelet Count 290 10^3/cmm (130-400); Red Blood Count 4.77 10^6/uL (4.1-5.3); Red Cell Distribution Width 15.8 % (12.1-15.1); White Blood Count 17.1 10^3/uL (4.0-10.0)
[2021-11-24] MEDS: sodium chloride 0.9% 1,000 ML 999 ML IV (23:47)
[2021-11-24] MEDS: piperacillin-tazobactam 3.375 GM in sodium chloride 0.9% (plus) 50 ML IV (23:47)
[2021-11-24 23:59] LABS: ABG PCO2 36.8 mmHg (35-45); ABG PH Result 7.45 (7.35-7.45); Arterial Blood Gas Hematocrit 39.6 % (37-47); Base Excess ABG 1.4 mmol/L (-2.0-2.0); Blood Gas Allen Test Pos; Blood Gas Sample Site Radial, right; Blood Gas Sample Type Arterial; HCO3 ABG 25.3 mmol/L (22-26); Oxygen Device NC; PO2 ABG 74.3 mmHg (80.0-100.0)
[2021-11-25] VITALS (15 sets, daily range): BP systolic 121–177; BP diastolic 73–116; PULSE 64–108; RESP 16–22; TEMP 37.2–39.2; O2SAT 91–98
[2021-11-25] MEDS: vancomycin 1,000 MG in sodium chloride 0.9% 250 ML 250 MG IV
[2021-11-25 00:02] LABS: INR 1.29 (0.8-1.2)
[2021-11-25 00:09] LABS: Lactic Sepsis W/Reflex 1.1 mmol/L (0.5-2.2); Troponin(5th) Baseline 47 ng/L (0-10)
[2021-11-25] MEDS: acetaminophen 650 mg Supp PR (00:16)
[2021-11-25 00:17] LABS: Alanine Aminotransferase 15 U/L (0-33); Albumin Level 3.4 g/dL (3.5-5.2); Alkaline Phosphatase 101 IU/L (35-105); Anion Gap 17.6 (5-19); Aspartate Amino Transferase 17 U/L (0-32); Blood Urea Nitrogen 13 mg/dL (8-23); Carbon Dioxide 23 mmol/L (22-29); Chloride 88 mmol/L (98-107); Globulin 3.6 g/dL (1.3-4.6); Glucose 138 mg/dL (65-115); Magnesium 1.6 mg/dL (1.7-2.3); NT Pro B Type Natriuretic Pept 4736 pg/mL (0-125); Osmolality Calculated 262 mOsm/kg (285-295); Potassium 3.6 mmol/L (3.5-5.1); Sodium 125 mmol/L (136-145); Total Bilirubin 0.6 mg/dL (0.15-1.2)
[2021-11-25 00:51] LABS: Add Urine Microscopic? YES; Bilirubin Urine Neg (Negative); Blood Urine 3+ (Negative); Glucose Urine UA Norm (Normal); Ketones Urine 1+ (Negative); Leukocyte Esterase Urine 2+ (Negative); Nitrate Urine Positive (Negative); Protein Urine 2+ (Negative); Urine Appearance Cloudy (CLEAR); Urine Color Yellow (Yellow); Urobilinogen Urine Norm (Negative); pH Urine 6 (5-7)
[2021-11-25 00:52] LABS: Add Urine Culture? Yes; Bacteria Urine 4+ /hpf; RBC Urine 0-4 /hpf (0-2); Squamous Epithelial Cell Urine 0-4 /hpf (0-5); WBC Urine TOO NUMEROUS TO CNT /hpf (0-5)
[2021-11-25 00:55] LABS: SARS Covid-2 Antigen Negative (Negative)
--- NOTE | 2021-11-25 01:04 | ECG_ITS ---
[facility] Test Date: 2021-11-25 Pat Name: Fany Webber Department: Room: Gender: Female Consultant Dietitian: : 1950 Requested By: Carrol Calvo Order Number: [id number] Moshe MD: Ventura Gallo M.D. Measurements Intervals [place] Rate: 109 P: 62 HI: 165 QRS: -49 QRSD: 106 T: 64 QT: 378 QTc: 511 Interpretive Statements SINUS TACHYCARDIA WITH FREQUENT SUPRAVENTRICULAR PREMATURE COMPLEXES LEFT ANTERIOR FASCICULAR BLOCK [QRS AXIS <= -45, QR IN I, RS IN II] POSSIBLE LATERAL MYOCARDIAL INFARCTION , PROBABLY OLD [30 ms Q WAVE IN I/aVL/V5/V6] Compared to ECG 11/03/2021 06:21:10 Left anterior fascicular block now present Myocardial infarct finding now present Sinus rhythm no longer present Prolonged QT interval no longer present Electronically Signed On 11-25-2021 16:32:26 CDT by Ventura Gallo M.D. [id number]
[2021-11-25 02:12] LABS: Troponin 5 2HR 46.46 ng/L (0-10)
--- NOTE | 2021-11-25 02:12 | PM.HP ---
Providers/Chief Complaint Admitting Physician: Yara Pressley MD Primary Care Provider: Rasheeda Hernandez MD Chief Complaint: AMS/SOB History of Present Illness Fany Webber is a 71 year old female with PMH of breast cancer, IDDM, DJD, GERD, DVT, HLD, HTN, CHF, Bipolar disorder, Dementia recently admitted here between 10/24-11/03 for sepsis from cellulitis, metabolic encephalopathy, recurrent V tach likely 2/2 sepsis and hypokalemia, PRINCE.. She improved with iv abx, amiodarone, lidocaine, iv diuresis. [facility]. She returned today with c/o AMS and fever, noted to have temp 102F today. No other history available at this time as patient is altered. Labs notable for leukocytosis, UA+, hyponatremia, CXR with B/L infiltrates with increased pulm vascular shadows. LE edema and wounds appear stable. Qtc 511. Rapid COVID negative Review of Systems General: Reports: ROS unobtainable due to medical condition Medications/Allergies Home Medications Medication Instructions Recorded Confirmed Last Taken Type acetaminophen 325 mg tablet 650 mg PO Q6H PRN pain/temp 08/24/21 10/24/21 Unknown History albuterol sulfate 90 mcg/actuation 2 puff inhalation Q4H PRN 08/24/21 10/24/21 Unknown History aerosol inhaler Shortness Of Breath aluminum-mag hydroxide-simethicone 30 ml PO Q24H PRN Heartburn 08/24/21 10/24/21 Unknown History 400 mg-400 mg-40 mg/5 mL oral susp (Almacone-2) atorvastatin 20 mg tablet 30 mg PO DAILY@20 08/24/21 10/24/21 08/23/21 History bisacodyl 5 mg tablet 5 mg PO Q24H PRN Constipation 08/24/21 10/24/21 Unknown History bumetanide 1 mg tablet 1 mg PO DAILY@08/24/21 10/24/21 08/23/21 History diclofenac sodium 1 % topical gel See Rx Instructions .Route .COMPLEX 08/24/21 10/24/21 Unknown History duloxetine 60 mg capsule,delayed 60 mg PO DAILY@08/24/21 10/24/21 08/23/21 History release gabapentin 100 mg capsule 200 mg PO TID@08,14,20 08/24/21 10/24/21 08/23/21 History insulin glargine 100 unit/mL (3 10 unit SUBCUT DAILY@08/24/21 10/24/21 08/23/21 History mL) subcutaneous pen (Lantus Solostar U-100 Insulin) mirabegron 50 mg tablet,extended 50 mg PO DAILY@08 08/24/21 10/24/21 08/23/21 History release 24 hr (Myrbetriq) multivitamin 1 tab PO DAILY@08 08/24/21 10/24/21 08/23/21 History nystatin 100,000 unit/gram topical 1 applic topical DAILY 08/24/21 10/24/21 Unknown History powder ([facility]) oxycodone-acetaminophen 5 mg-325 1 tab PO Q6H PRN Pain 08/24/21 10/24/21 08/23/21 13:30 History mg tablet pantoprazole 20 mg tablet,delayed 20 mg PO DAILY@08/24/21 10/24/21 08/23/21 History release potassium chloride 20 mEq/15 mL 40 meq PO DAILY 08/24/21 10/24/21 08/23/21 History oral liquid rivaroxaban 10 mg tablet (Xarelto) 10 mg PO DAILY@08/24/21 10/24/21 08/23/21 History ropinirole 2 mg tablet 2 mg PO DAILY@08 08/24/21 10/24/21 08/23/21 History ropinirole 4 mg tablet 4 mg PO DAILY@20 08/24/21 10/24/21 08/23/21 History insulin aspart U-100 100 unit/mL See Rx Instructions .Route 08/31/21 10/24/21 Unknown Rx (3 mL) subcutaneous pen (Novolog .COMPLEX #15 mL Flexpen U-100 Insulin aspart) metoprolol tartrate 50 mg tablet 75 mg PO BID #0 tabs 08/31/21 10/24/21 08/23/21 Rx alprazolam 0.25 mg tablet 0.25 mg PO BID PRN Anxiety 10/24/21 10/24/21 Unknown History triamcinolone acetonide 0.1 % 1 applic topical BID 10/24/21 10/24/21 Unknown History topical cream amiodarone 200 mg tablet (Pacerone) 100 mg PO DAILY 30 days #30 tabs 11/03/21 Unknown Rx amlodipine 10 mg tablet 10 mg PO DAILY 30 days #30 tabs 11/03/21 Unknown Rx hydralazine 50 mg tablet 75 mg PO TID 30 days #90 tabs 11/03/21 Unknown Rx spironolactone 25 mg tablet 25 mg PO DAILY 30 days #30 tabs 11/03/21 Unknown Rx Allergies Allergy/AdvReac Type Severity Reaction Status Date / Time levofloxacin [From Levaquin] Allergy Unknown Verified 08/24/21 09:55 PFSH Acute PFSH: Medical History Acute kidney failure Acute non-ST elevation myocardial infarction (NSTEMI) Altered mental status Bipolar disorder Cardiac arrest CHF (congestive heart failure) COPD (chronic obstructive pulmonary disease) Deep tissue injury Dementia Depression Diabetes mellitus type 2 in obese DJD (degenerative joint disease) Elevated troponin Fibromyalgia GERD (gastroesophageal reflux disease) Heart murmur History of breast cancer History of DVT (deep vein thrombosis) Hyperlipidemia Hypertension Hypokalemia Oliguria Prolonged QT interval Respiratory failure, acute Sepsis Uncontrolled hypertension UTI (urinary tract infection) Ventilator dependence Ventricular tachyarrhythmia Surgical History History of hysterectomy History of mastectomy Family History Other CAD (coronary artery disease) Diabetes Social History Smoking and tobacco status: never smoked Alcohol intake: never Vitals/I&O/Wt Last Vital Signs Temp 102.8 F H 11/24/21 23:04 Pulse 101 H 11/25/21 00:32 Resp 20 H 11/24/21 23:04 BP 143/92 11/25/21 00:32 Pulse Ox 98 11/25/21 00:32 11/24/21 11/24/21 11/25/21 14:59 22:59 06:59 Intake Total 1300 / 1300 Balance 1300 / 1300 Weight last 48 hrs Weight 113.398 kg Physical Exam Narrative: General: awake, opens eyes to calling name, AO x1 HEENT: PERRLA, pupils bilaterally equal and reactive, pallors not present Chest: poorly conducted breath sounds CVS: S1-S2 regular, no murmurs, no tachycardia, no gallops, no rubs Abdomen: Soft, nontender, no organomegaly, bowel sounds present Neuro: confused EXT: B/L LE stasis dermatitis Data : 11/24/21 23:39 11/24/21 23:39 Other Labs: Radiology Impressions Chest X-Ray 11/24/21 23:04 IMPRESSION: Please see findings. Head CT 11/24/21 23:04 IMPRESSION: 1. No acute intracranial hemorrhage, mass effect, or midline shift. 2. Chronic findings as outlined above. 3. Please note that CT is insensitive to nonhemorrhagic strokes and MRI of the brain should be considered if there is continued clinical concern for acute cerebral infarction. Laboratory Results WBC 17.1 10^3/uL (4.0-10.0) H 11/24/21 23:39 RBC 4.77 10^6/uL (4.1-5.3) 11/24/21 23:39 Hgb 13.1 g/dL (11.5-15.3) 11/24/21 23:39 Hct 40.9 % (37.0-47.0) 11/24/21 23:39 MCV 85.7 fl (81-99) 11/24/21 23:39 MCH 27.5 pg (28.0-34.0) L 11/24/21 23:39 MCHC 32.0 g/dL (30.0-36.0) 11/24/21 23:39 RDW 15.8 % (12.1-15.1) H 11/24/21 23:39 Plt Count 290 10^3/cmm (130-400) 11/24/21 23:39 MPV 9.5 fL (7.4-10.4) 11/24/21 23:39 Neut % (Auto) 90.6 % 11/24/21 23:39 Lymph % (Auto) 4.0 % 11/24/21 23:39 [place] % (Auto) 4.3 % 11/24/21 23:39 Eos % (Auto) 0.0 % 11/24/21 23:39 Baso % (Auto) 0.2 % 11/24/21 23:39 Neut # (Auto) 15.46 10^3/uL (1.8-7.7) H 11/24/21 23:39 Lymph # (Auto) 0.7 10^3/uL (0.8-4.8) L 11/24/21 23:39 [place] # (Auto) 0.7 10^3/uL (0.2-0.9) 11/24/21 23:39 Eos # (Auto) 0.0 10^3/uL (0.0-0.8) 11/24/21 23:39 Baso # (Auto) 0.0 10^3/uL (0.0-0.1) 11/24/21 23:39 Nucleated RBC % (auto) 0 % 11/24/21 23:39 Nucleated RBCs # 0.0 /100WBC 11/24/21 23:39 PT 16.50 SECONDS (12.1-14.9) H 11/24/21 23:39 INR 1.29 (0.8-1.2) H 11/24/21 23:39 Specimen Type Arterial 11/24/21 23:48 Sample Site Radial, right 11/24/21 23:48 ABG pH 7.45 (7.35-7.45) 11/24/21 23:48 ABG pCO2 36.8 mmHg (35-45) 11/24/21 23:48 ABG pO2 74.3 mmHg (80.0-100.0) L 11/24/21 23:48 ABG HCO3 25.3 mmol/L (22-26) 11/24/21 23:48 ABG Base Excess 1.4 mmol/L (-2.0-2.0) 11/24/21 23:48 David Test Pos 11/24/21 23:48 Hematocrit 39.6 % (37-47) 11/24/21 23:48 O2 Delivery Device Nc 11/24/21 23:48 O2 Liters/Min 3.0 % 11/24/21 23:48 Flat Folding Machine Operator ID [email or web address] 11/24/21 23:48 Sodium 125 mmol/L (136-145) L 11/24/21 23:39 Potassium 3.6 mmol/L (3.5-5.1) 11/24/21 23:39 Chloride 88 mmol/L (98-107) L 11/24/21 23:39 Carbon Dioxide 23 mmol/L (22-29) 11/24/21 23:39 Anion Gap 17.6 (5-19) 11/24/21 23:39 BUN 13 mg/dL (8-23) 11/24/21 23:39 Creatinine 1.2 mg/dL (0.5-0.9) H 11/24/21 23:39 GFR Calculation Not Reportable 11/24/21 23:39 Glucose 138 mg/dL (65-115) H 11/24/21 23:39 Calculated Osmolality 262 mOsm/kg (285-295) L 11/24/21 23:39 Lactic Acid 1.1 mmol/L (0.5-2.2) 11/24/21 23:39 Calcium 9.0 mg/dL (8.5-10.5) 11/24/21 23:39 Magnesium 1.6 mg/dL (1.7-2.3) L 11/24/21 23:39 Total Bilirubin 0.6 mg/dL (0.15-1.2) 11/24/21 23:39 AST 17 U/L (0-32) 11/24/21 23:39 ALT 15 U/L (0-33) 11/24/21 23:39 Alkaline Phosphatase 101 IU/L (35-105) 11/24/21 23:39 Troponin T Baseline 47 ng/L (0-10) H 11/24/21 23:39 NT-Pro-B Natriuret Pep 4736 pg/mL (0-125) H 11/24/21 23:39 Total Protein 7.0 g/dL (6.6-8.7) 11/24/21 23:39 Albumin 3.4 g/dL (3.5-5.2) L 11/24/21 23:39 Globulin 3.6 g/dL (1.3-4.6) 11/24/21 23:39 Urine Color Yellow (Yellow) 11/25/21 00:27 Urine Appearance Cloudy (CLEAR) 11/25/21 00:27 Urine pH 6 (5-7) 11/25/21 00:27 Ur Specific [place] 1.010 (1.005-1.030) 11/25/21 00:27 Urine Protein 2+ (Negative) H 11/25/21 00:27 Urine Glucose (UA) Norm (Normal) 11/25/21 00:27 Urine Ketones 1+ (Negative) H 11/25/21 00:27 Urine Blood 3+ (Negative) H 11/25/21 00:27 Urine Nitrate Positive (Negative) H 11/25/21 00:27 Urine Bilirubin Neg (Negative) 11/25/21 00:27 Urine Urobilinogen Norm mg/dL (Negative) 11/25/21 00:27 Ur Leukocyte Esterase 2+ (Negative) H 11/25/21 00:27 Urine RBC 0-4 /hpf (0-2) H 11/25/21 00:27 Urine WBC Too numerous to cnt /hpf (0-5) H 11/25/21 00:27 Ur Squamous Epith Cells 0-4 /hpf (0-5) H 11/25/21 00:27 Amorphous Sediment Not Reportable 11/25/21 00:27 Urine Bacteria 4+ /hpf (NONE) H 11/25/21 00:27 SARS-CoV-2 Ag (Rapid) Negative (Negative) 11/25/21 00:28 Micro: Microbiology 11/24/21 23:30 Blood Culture - Preliminary Blood SPECIMEN COLLECTED 11/24/21 23:32 Blood Culture - Preliminary Blood SPECIMEN COLLECTED Other data: 11/24/21 23:48 ABG pH 7.45 ABG pCO2 36.8 ABG pO2 74.3 L ABG HCO3 25.3 ABG Base Excess 1.4 A&P Assessment and plan (1) Sepsis: Suspected sepsis given leukocytosis, fever, tachycardia and positive UA. 's source may be acute cystitis Empiric piperacillin tazobactam and vancomycin started Blood culture taken prior to taking blood culture. Awaiting urine culture Sepsis bolus not given given history of CHF, elevated BNP, patient does not appear to be dehydrated, hemodynamically stable, negative lactate. Chest x-ray shows bilateral infiltrates, however these infiltrates also noted to be present on chest x-ray from November 03 per my interpretation. No gross consolidation. Check COVID PCR Status: Acute Qualifiers: Sepsis acute organ dysfunction status: with acute organ dysfunction Sepsis type: sepsis due to unspecified organism Severe sepsis acute organ dysfunction type: encephalopathy Severe sepsis shock status: without septic shock Qualified Code(s): A41.9 - Sepsis, unspecified organism; R65.20 - Severe sepsis without septic shock; G93.40 - Encephalopathy, unspecified (2) Altered mental status: Suspect that this is related to acute encephalopathy from acute infection Status: Acute (3) Acute cystitis: Awaiting urine culture Empiric piperacillin tazobactam and vancomycin in the interim Status: Acute (4) Hyponatremia: Hypoosmolar hyponatremia. Check urine lites, urine osmolality May be related to SIADH. Patient does not appear grossly dehydrated at this time. Status: Acute Plan recent h/o VT: Continue amiodarone, b blockers at this time, closely monitor qtc while on amiodarone, noted to be prlonged at 511 currently. Telemtery monitoring. Attestations Medical Necessity Statement*: anticipate >2midnight admission for above defined care Coding Level of Care Code Acute Senior [employer] Laboratory Director for [facility] Fwd Diagnoses Sepsis A41.9; R65.20; G93.40 Sepsis acute organ dysfunction status: with acute organ dysfunction Sepsis type: sepsis due to unspecified organism Severe sepsis acute organ dysfunction type: encephalopathy Severe sepsis shock status: without septic shock Altered mental status R41.82 Acute cystitis N30.00 Hyponatremia E87.1
[2021-11-25 02:20] LABS: Troponin 5 2HR Delta -0.54 ABS# (0-10)
[2021-11-25 02:38] LABS: Thyroid Stimulating Hormone 0.85 uIU/mL (0.27-4.20)
[2021-11-25] MEDS: acetaminophen 1,000 MG/100 ML PIGGYBACK 400 MG IV (02:47)
[2021-11-25] MEDS: lidocaine 1% 5 ML in potassium chloride premix 100 ML 50 ML IV (02:47)
[2021-11-25 04:37] LABS: Potassium, Radom Urine 57 mmol/L; Urine Random Chloride 57 mmol/L; Urine Random Sodium 57 mmol/L
[2021-11-25 04:38] LABS: Adenovirus Not Detected (NOT DETECT); Chlamydia Pneumoniae Not Detected (NOT DETECT); Coronavirus 229E,HKU1,NL63,OC4 Not Detected (NOT DETECT); Human Metapneumovirus Not Detected (NOT DETECT); Human Rhinovirus/Enterovirus Not Detected (NOT DETECT); Influenza A Not Detected (NOT DETECT); Influenza A H1 Not Detected (NOT DETECT); Influenza A H1-2009 Not Detected (NOT DETECT); Influenza A H3 Not Detected (NOT DETECT); Influenza B Not Detected (NOT DETECT); Mycoplasma Pneumoniae Not Detected (NOT DETECT); Parainfluenza Virus Type 1 Not Detected (NOT DETECT); Parainfluenza Virus Type 2 Not Detected (NOT DETECT); Parainfluenza Virus Type 3 Not Detected (NOT DETECT); Parainfluenza Virus Type 4 Not Detected (NOT DETECT); Respiratory Syncytial Virus A Not Detected (NOT DETECT); Respiratory Syncytial Virus B Not Detected (NOT DETECT); SARS-COV-2 Not Detected (NOT DETECT)
--- NOTE | 2021-11-25 05:04 | ECG_ITS ---
[facility] Test Date: 2021-11-25 Pat Name: Fany Webber Department: Room: EDIP Gender: Female Flake Or Shred Roll Operator: : 1950 Requested By: Carrol Calvo Order Number: [id number] Moshe MD: Ventura Gallo M.D. Measurements Intervals [place] Rate: 98 P: 47 ND: 139 QRS: -42 QRSD: 108 T: 36 QT: 384 QTc: 491 Interpretive Statements SINUS RHYTHM WITH SINUS ARRHYTHMIA LEFT AXIS DEVIATION [QRS AXIS < -30] Compared to ECG 11/25/2021 01:10:00 Left-axis deviation now present Sinus tachycardia no longer present Left anterior fascicular block no longer present Myocardial infarct finding no longer present Electronically Signed On 11-25-2021 16:33:08 CDT by Ventura Gallo M.D. [email or web address] [id number]
[2021-11-25 07:05] LABS: Glucose Point of Care 127 mg/dL (70-110)
[2021-11-25 07:36] LABS: Glucose Point of Care 124 mg/dL (70-110)
[2021-11-25] MEDS: piperacillin-tazobactam 3.375 GM in sodium chloride 0.9% (plus) 50 ML IV (10:21)
[2021-11-25 11:34] LABS: Glucose Point of Care 146 mg/dL (70-110)
[2021-11-25 11:47] LABS: Blood Urea Nitrogen 12 mg/dL (8-23); Calcium 8.9 mg/dL (8.5-10.5); Carbon Dioxide 22 mmol/L (22-29); Chloride 91 mmol/L (98-107); Glucose 121 mg/dL (65-115); Osmolality Calculated 267 mOsm/kg (285-295); Sodium 128 mmol/L (136-145)
[2021-11-25 11:48] LABS: Anion Gap 18.6 (5-19); Potassium 3.6 mmol/L (3.5-5.1)
[2021-11-25] MEDS: ALPRAZolam 0.5 mg Tablet 0.25 MG PO (12:46)
[2021-11-25] MEDS: amlodipine 10 mg Tablet PO (12:47)
[2021-11-25] MEDS: acetaminophen 325 mg Tablet 650 MG PO ×2 (12:48→21:38)
[2021-11-25] MEDS: amiodarone 200 mg Tablet 100 MG PO (12:48)
[2021-11-25] MEDS: hyDRALAzine 50 mg Tablet 75 MG PO ×2 (12:50→21:11)
[2021-11-25] MEDS: rivaroxaban 10 mg Tablet PO (12:53)
[2021-11-25 14:08] LABS: Troponin 5 6HR 51.52 ng/L (0-10)
[2021-11-25 14:23] LABS: Troponin 5 6HR Delta 4.52 ng/L (0-12)
--- NOTE | 2021-11-25 14:44 | PM.PN ---
Subjective Subjective: Patient was seen this morning she is alert to person, not to place, to time, she remains confused, remains febrile Vitals/I&O/Wt Last Vital Signs Temp 101 F H 11/25/21 11:56 Pulse 101 H 11/25/21 11:56 Resp 20 H 11/25/21 11:56 BP 140/96 11/25/21 11:56 Pulse Ox 91 11/25/21 11:56 O2 Del Method 11/25/21 11:56 O2 Flow Rate 3 11/25/21 06:12 11/24/21 11/25/21 11/25/21 22:59 06:59 14:59 Intake Total 1557 / 1557 120 / 120 Output Total 550 / 550 Balance 1007 / 1007 120 / 120 Weight last 48 hrs Weight 113.398 kg Physical Exam Const: COMMON NORMALS: no acute distress Resp: COMMON NORMALS: normal respiratory effort, No retractions, No use of accessory muscles and clear to auscultation bilaterally AUSCULTATION: clear to auscultation bilaterally Cardio: COMMON NORMALS: regular rate, regular rhythm, S1 normal heart sound present and S2 normal heart sound present RATE: regular rate RHYTHM: regular rhythm HEART SOUNDS: S1 normal heart sound present and S2 normal heart sound present GI: COMMON NORMALS: Normal to inspection, nondistended, normoactive bowel sounds present, non-tender, no masses and no bruits Extremity: COMMON NORMALS: no pedal edema Urinary Catheter Management: Wolfe: Cath Placed During This Visit: yes Reason for Continuing Indwelling Catheter: Assist Healing of Perineal & Sacral Wounds- Incontinent Patients Urinary Catheter Date of Insertion: 11/25/21 Urinary Catheter Time of Insertion: 00:00 Data : 11/24/21 23:39 11/25/21 10:00 Micro: Microbiology 11/24/21 23:32 Blood Culture - Preliminary Blood 11/24/21 23:30 Blood Culture - Preliminary Blood A&P Assessment and plan (1) Sepsis: Suspected sepsis given leukocytosis, fever, tachycardia and positive UA. Source likely UTI Remains febrile, will do renal ultrasound Continue vancomycin, switch to Primaxin Blood culture taken prior to taking blood culture. Awaiting urine culture Sepsis bolus not given given history of CHF, elevated BNP, patient does not appear to be dehydrated, hemodynamically stable, negative lactate. Chest x-ray shows bilateral infiltrates, however these infiltrates also noted to be present on chest x-ray from November 03 per my interpretation. No gross consolidation. COVID PCR negative Status: Acute Qualifiers: Sepsis type: sepsis due to unspecified organism Sepsis acute organ dysfunction status: with acute organ dysfunction Severe sepsis acute organ dysfunction type: encephalopathy Severe sepsis shock status: without septic shock Qualified Code(s): A41.9 - Sepsis, unspecified organism; R65.20 - Severe sepsis without septic shock; G93.40 - Encephalopathy, unspecified (2) Altered mental status: Suspect that this is related to acute encephalopathy from acute infection Status: Acute (3) Acute cystitis: Awaiting urine culture Currently on Primaxin Status: Acute (4) Hyponatremia: Hypoosmolar hyponatremia. Check urine lites, urine osmolality May be related to SIADH. Patient does not appear grossly dehydrated at this time. Repeat sodium 128, continue to monitor Status: Acute Plan recent h/o VT: Continue amiodarone, b blockers at this time, closely monitor qtc while on amiodarone, noted to be prlonged at 511 currently. Telemtery monitoring. Attestations Medical Necessity Statement*: Patient requires hospitalization for altered mental status secondary to UTI, hyponatremia Coding Level of Care Code Acute Trailer Sections Assembler for [facility] Fw Diagnoses Sepsis A41.9; R65.20; G93.40 Sepsis type: sepsis due to unspecified organism Sepsis acute organ dysfunction status: with acute organ dysfunction Severe sepsis acute organ dysfunction type: encephalopathy Severe sepsis shock status: without septic shock Altered mental status R41.82 Acute cystitis N30.00 Hyponatremia E87.1
--- NOTE | 2021-11-25 14:45 | US_ITS ---
WS: [id number] RENAL ULTRASOUND HISTORY: Urinary tract infection. COMPARISON: 10/26/2021 TECHNIQUE: 2-D and color Doppler imaging of the kidney submitted. Right kidney: 10.0 cm x 5.1 cm x 5.9 cm. Normal size kidney. Kidney is very slightly echogenic but no hydronephrosis or mass. Tiny echogenic f oci may be small parenchymal calcifications. Left kidney: 9.3 cm x 4.1 cm x 5.3 cm. Low normal size kidney with no hydronephrosis or mass. Mild increased echogenicity. Aorta: Mild atherosclerosis. Urinary Bladder: Nondistended. Wolfe catheter present. US/US renal BI* [id number] IMPRESSION: 1. No hydronephrosis. 2. Mild chronic medical renal disease.
[2021-11-25 15:15] LABS: Glucose Point of Care 168 mg/dL (70-110)
[2021-11-25 17:08] LABS: Glucose Point of Care 144 mg/dL (70-110)
--- NOTE | 2021-11-25 17:51 | PC.SLP ---
DIVORCE ATTORNEY attempted to evaluate the patient, however, the patient was not alert enough to participate. DIVORCE ATTORNEY will follow up the patient tomorrow.
[2021-11-25] MEDS: metoprolol tartrate 50 mg Tablet 75 MG PO (21:10)
[2021-11-25] MEDS: atorvastatin 40 mg Tablet 20 MG PO (21:10)
[2021-11-25] MEDS: ropinirole 2 mg Tablet 4 MG PO (21:10)
[2021-11-25 21:11] LABS: Glucose Point of Care 176 mg/dL (70-110)
[2021-11-25] MEDS: insulin lispro 100 unit/1 mL SUBCUT (21:38)
[2021-11-26] VITALS (10 sets, daily range): BP systolic 108–150; BP diastolic 68–78; PULSE 73–99; RESP 18–19; TEMP 36.7–37.2; O2SAT 93–100
[2021-11-26 05:34] LABS: Basophils # 0.1 10^3/uL (0.0-0.1); Basophils % 0.4 %; Eosinophils # 0.1 10^3/uL (0.0-0.8); Hemoglobin 12.3 g/dL (11.5-15.3); Lymphocytes # 1.2 10^3/uL (0.8-4.8); Lymphocytes % 8.4 %; Mean Corpuscular HGB Conc 29.3 g/dL (30.0-36.0); Mean Corpuscular Hemoglobin 26.9 pg (28.0-34.0); Mean Corpuscular Volume 91.9 fl (81-99); Mean Platelet Volume 9.7 fL (7.4-10.4); Monocytes # 0.8 10^3/uL (0.2-0.9); Monocytes % 5.8 %; Neutrophils # 11.41 10^3/uL (1.8-7.7); Neutrophils % 83.8 %; Nucleated Red Blood Cells % 0 %; Platelet Count 231 10^3/cmm (130-400); Red Blood Count 4.57 10^6/uL (4.1-5.3); Red Cell Distribution Width 15.9 % (12.1-15.1); White Blood Count 13.6 10^3/uL (4.0-10.0)
[2021-11-26 05:57] LABS: Lactate (Lactic Acid level) 1.2 mmol/L (0.5-2.2)
[2021-11-26 06:03] LABS: NT Pro B Type Natriuretic Pept 6009 pg/mL (0-125)
[2021-11-26 06:14] LABS: Alanine Aminotransferase 13 U/L (0-33); Albumin Level 2.7 g/dL (3.5-5.2); Alkaline Phosphatase 98 IU/L (35-105); Blood Urea Nitrogen 17 mg/dL (8-23); C Reactive Protein 190.7 mg/L (0.0-4.9); Calcium 8.8 mg/dL (8.5-10.5); Carbon Dioxide 23 mmol/L (22-29); Chloride 93 mmol/L (98-107); Globulin 2.9 g/dL (1.3-4.6); Glucose 101 mg/dL (65-115); Osmolality Calculated 272 mOsm/kg (285-295); Sodium 130 mmol/L (136-145); Total Bilirubin 0.4 mg/dL (0.15-1.2); Total Protein 5.6 g/dL (6.6-8.7)
[2021-11-26 06:17] LABS: Creatinine Clr Calc Pharmacy 58.2006
[2021-11-26 06:18] LABS: Anion Gap 18.4 (5-19); Aspartate Amino Transferase 22 U/L (0-32); Potassium 4.4 mmol/L (3.5-5.1)
[2021-11-26 06:37] LABS: Glucose Point of Care 110 mg/dL (70-110)
[2021-11-26] MEDS: ropinirole 2 mg Tablet PO (09:27)
[2021-11-26] MEDS: hyDRALAzine 50 mg Tablet 75 MG PO ×3 (09:27→20:58)
[2021-11-26] MEDS: rivaroxaban 10 mg Tablet PO (09:28)
[2021-11-26] MEDS: metoprolol tartrate 50 mg Tablet 75 MG PO ×2 (09:28→17:46)
[2021-11-26] MEDS: duloxetine 60 mg Capsule PO (09:28)
[2021-11-26] MEDS: pantoprazole DR 40 mg Tablet PO (09:29)
[2021-11-26] MEDS: amiodarone 200 mg Tablet 100 MG PO (09:29)
[2021-11-26] MEDS: amlodipine 10 mg Tablet PO (09:30)
--- NOTE | 2021-11-26 09:48 | PC.CHAP ---
Pastoral Care Encounter/Spiritual Assessment Type of Contact [] Declined manager architecture visit [] Patient/Family/Request visit [] Outpatient visit [] Follow-up visit [] Physician referral [] Code/Alert [x] Routine visit [] Staff referral [] Actively dying [] Patient sleeping [] Family support [] [] Out of room [] Palliative care [] [x] Receiving care in room [] Pre-surgical visit [] Trauma [x] Long length of stay [] ICU visit [] Other: Relational/Emotional Strength [x] Patient feels connected with others/family/visitors/staff [] Distress [] Loneliness/isolation [] Abandonment Spirituality of Patient [x] Person of Lindsey [] Attends Buddhism of their [place] [x] Believes in Prayer [] Reads Bible or Alevism materials [] There are Spiritual issues to be addressed Dispute Specialist Interventions [x] Prayer [x] Active listening [x] Non-anxious presence [x] Spiritual/emotional support [] Crisis/trauma care [x] Spiritual counseling [] Bereavement support [] Provided bereavement packet [] Provided Bible/devotional materials [] Provided toy/stuffed animal, coloring book to patient or family member [] Provided Communion [] Anointing/[place] [] Salvation [x] Completed spiritual assessment [] Other: Impact on Illness or Injury [] Angry [] Fearful [x] Anxious [] Often cries [] Exhaustion [] Unable to work [] Unable to attend oriental orthodox [] Unable to walk/stand [] Unable to read [] Unable to drive [] Unable to eat/drink [] Unable to sleep [] Unable to be with family [] Patient intubated [] Other: Summary 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
[2021-11-26 10:53] LABS: Glucose Point of Care 229 mg/dL (70-110)
--- NOTE | 2021-11-26 11:48 | P.PN_ITS ---
Subjective Subjective: Patient was seen this morning, she sitting up in bed, alert to person, to place, to time, she is complaining about her clinical diet, she wants to try something more substantial, denies any nausea, no vomiting, no abdominal pain, she asked me why she is here in the hospital, I advised her that she has had a UTI Vitals/I&O/Wt Last Vital Signs Temp 98.3 F 11/26/21 08:00 Pulse 99 11/26/21 08:48 Resp 18 11/26/21 08:00 BP 116/76 11/26/21 08:00 Pulse Ox 93 11/26/21 08:48 O2 Del Method 11/26/21 08:48 O2 Flow Rate 3 11/26/21 08:48 11/25/21 11/26/21 11/26/21 22:59 06:59 14:59 Intake Total 970 / 1090 250 / 1340 120 / 120 Output Total 1200 / 1200 300 / 300 Balance 970 / 1090 -950 / 140 -180 / -180 Weight last 48 hrs Weight 113.398 kg Physical Exam Const: COMMON NORMALS: no acute distress OTHER: Alert to person, to place, not time Resp: COMMON NORMALS: normal respiratory effort, No retractions, No use of accessory muscles and clear to auscultation bilaterally AUSCULTATION: clear to auscultation bilaterally Cardio: COMMON NORMALS: regular rate, regular rhythm, S1 normal heart sound present and S2 normal heart sound present RATE: regular rate RHYTHM: regular rhythm HEART SOUNDS: S1 normal heart sound present and S2 normal heart sound present GI: COMMON NORMALS: Normal to inspection, nondistended, normoactive bowel sounds present, Soft to palpation and non-tender PALPATION: Yes Soft to palpation Extremity: COMMON NORMALS: no pedal edema Psych: COMMON NORMALS: mental status grossly normal Urinary Catheter Management: Wolfe: Cath Placed During This Visit: yes Reason for Continuing Indwelling Catheter: Other Urinary Catheter Date of Insertion: 11/25/21 Urinary Catheter Time of Insertion: 00:00 Data : 11/26/21 05:20 11/26/21 05:20 Micro: Microbiology 11/24/21 23:32 Blood Culture - Preliminary Blood Staphylococcus aureus 11/24/21 23:30 Blood Culture - Preliminary Blood Staphylococcus aureus 11/26/21 04:59 C.difficile Toxin B Gene (PCR) - Final Stool Routine Collection 11/25/21 00:27 Urine Culture - Preliminary Urine,Clean Catch Gram Negative Rods A&P Assessment and plan (1) Sepsis: Suspected sepsis given leukocytosis, fever, tachycardia and positive UA. Source likely UTI Renal ultrasound within normal limits Continue vancomycin, continue Primaxin Blood culture taken prior to taking blood culture. Awaiting urine culture Sepsis bolus not given given history of CHF, elevated BNP, patient does not appear to be dehydrated, hemodynamically stable, negative lactate. Chest x-ray shows bilateral infiltrates, however these infiltrates also noted to be present on chest x-ray from November 03 per my interpretation. No gross consolidation. COVID PCR negative Status: Acute Qualifiers: Sepsis type: sepsis due to unspecified organism Sepsis acute organ dysfunction status: with acute organ dysfunction Severe sepsis acute organ dysfunction type: encephalopathy Severe sepsis shock status: without septic shock Qualified Code(s): A41.9 - Sepsis, unspecified organism; R65.20 - Severe sepsis without septic shock; G93.40 - Encephalopathy, unspecified (2) Altered mental status: Patient requires hospitalization for UTI suspect that this is related to acute encephalopathy from acute infection Status: Acute (3) Acute cystitis: Awaiting urine culture Currently on Primaxin Status: Acute (4) Hyponatremia: Hypoosmolar hyponatremia. Check urine lites, urine osmolality May be related to SIADH. Patient does not appear grossly dehydrated at this time. Repeat sodium 128, continue to monitor Status: Acute Plan recent h/o VT: Continue amiodarone, b blockers at this time, closely monitor qtc while on amiodarone, noted to be prlonged at 511 currently. Telemtery monitoring. Attestations Medical Necessity Statement*: Patient requires hospitalization for her UTI, altered mental status Coding Level of Care Code Acute Glove Turner And Former for [facility] Fw Diagnoses Sepsis A41.9; R65.20; G93.40 Sepsis type: sepsis due to unspecified organism Sepsis acute organ dysfunction status: with acute organ dysfunction Severe sepsis acute organ dysfunction type: encephalopathy Severe sepsis shock status: without septic shock Altered mental status R41.82 Acute cystitis N30.00 Hyponatremia E87.1
[2021-11-26 11:56] LABS: Erythrocyte Sedimentation Rate 71 mm/hr (0-15)
[2021-11-26] MEDS: insulin lispro 100 unit/1 mL SUBCUT ×2 (13:43→17:47)
[2021-11-26 16:51] LABS: Glucose Point of Care 207 mg/dL (70-110)
[2021-11-26 20:44] LABS: Glucose Point of Care 127 mg/dL (70-110)
[2021-11-26] MEDS: ropinirole 2 mg Tablet 4 MG PO (20:58)
[2021-11-26] MEDS: atorvastatin 40 mg Tablet 20 MG PO (20:58)
[2021-11-27] VITALS (10 sets, daily range): BP systolic 110–134; BP diastolic 57–86; PULSE 68–100; RESP 15–21; TEMP 36.4–36.8; O2SAT 95–98
[2021-11-27] MEDS: acetaminophen 325 mg Tablet 650 MG PO ×2 (05:45→15:07)
[2021-11-27 06:19] LABS: Glucose Point of Care 123 mg/dL (70-110)
--- NOTE | 2021-11-27 07:55 | USCV_ITS ---
Fany Webber Age: 71 Gender: F : 1950 Exam Date: 11/27/2021 08:14 Ordering Phys: Dimitri Do MD Technologist: Arias Campbell Exam Location: [facility] [place] Indication: STAPH BACTEREMIA BP: 124 / 72 HR: 77 Rhythm: Sinus Technical Quality: Adequate MEASUREMENTS (Male / Female) Normal Values 2D ECHO LV Diastolic Diameter PLAX 3.6 cm 4.2 - 5.9 / 3.9 - 5.3 cm LV Systolic Diameter PLAX 2.4 cm IVS Diastolic Thickness 1.2 cm 0.6 - 1.0 / 0.6 - 0.9 cm IVS Systolic Thickness 1.2 cm LVPW Diastolic Thickness 1.1 cm 0.6 - 1.0 / 0.6 - 0.9 cm LVPW Systolic Thickness 1.0 cm LVOT Diameter 2.1 cm LV Ejection Fraction 2D Teich 64.2 % LV Ejection Fraction MOD 2C 74.4 % LV Ejection Fraction 2C AL 75.0 % LA Diameter 4.2 cm M-MODE Aortic Annulus Diameter 3.4 cm LA Ao Ratio MM 1.3 DOPPLER AV Peak Velocity 235.0 cm/s LVOT Peak Velocity 108.0 cm/s AV Area Cont Eq vti 1.9 cm squared AV Area Cont Eq pk 1.5 cm squared MV Area PHT 5.0 cm squared Mitral E to A Ratio 0.7 MV E' Velocity 49.0 cm/s Mitral E to MV E' Ratio 13.5 Mitral E to LV E' Lateral Ratio 12.2 Mitral E to LV E' Septal Ratio 15.1 TR Peak Velocity 235.7 cm/s TR Peak Gradient 22.2 mmHg PV Peak Velocity 180.0 cm/s FINDINGS Left Ventricle Normal left ventricular size, systolic function and wall thickness, with no regional wall motion abnormalities. Grade I/IV diastolic dysfunction (abnormal relaxation filling pattern), normal to mildly elevated filling pressures. Left ventricular ejection fraction is estimated at 60 %. Right Ventricle Normal right ventricular size and systolic function. Right Atrium The right atrium is normal in size. Left Atrium The left atrium is normal in size. Mitral Valve Structurally normal mitral valve. Mild mitral annular calcification. The annular calcification is especially prominent in the posterior leaflet. In this area there is, just in 1 view, a portion of the mitral valve leaflet which looks mildly suspicious for vegetation. This is difficult given the lack of clarity and the calcified mitral valve. This does not perfectly fit the criteria for vegetation but is mildly suspicious. If there is high enough clinical suspicion for endocarditis, transesophageal echo should be considered. Aortic Valve Structurally normal aortic valve without significant sclerosis or stenosis. There is no aortic regurgitation. Tricuspid Valve Structurally normal tricuspid valve without significant stenosis or regurgitation. Pulmonary artery systolic pressure is normal. Pulmonic Valve Pulmonic valve not well visualized. Pericardium Normal pericardium without effusion. Aorta Normal ascending aorta dimension. IVC The inferior vena cava pulmonary and hepatic veins appear normal. CONCLUSIONS Normal left ventricular size, systolic function and wall thickness, with no regional wall motion abnormalities. Grade I/IV diastolic dysfunction (abnormal relaxation filling pattern), normal to mildly elevated filling pressures. Left ventricular ejection fraction is estimated at 60 %. Structurally normal mitral valve. Mild mitral annular calcification. The annular calcification is especially prominent in the posterior leaflet. In this area there is, just in 1 view, a portion of the mitral valve leaflet which looks mildly suspicious for vegetation. This is difficult given the lack of clarity and the calcified mitral valve. This does not perfectly fit the criteria for vegetation but is mildly suspicious. If there is high enough clinical suspicion for endocarditis, transesophageal echo should be considered. Dr. Ventura Gallo MD (Electronically Signed) Final Date: 27 November 2021 14:44 S
[2021-11-27] MEDS: metoprolol tartrate 50 mg Tablet 75 MG PO ×2 (08:58→17:28)
[2021-11-27] MEDS: ropinirole 2 mg Tablet PO (08:58)
[2021-11-27] MEDS: hyDRALAzine 50 mg Tablet 75 MG PO ×3 (08:58→21:00)
[2021-11-27] MEDS: duloxetine 60 mg Capsule PO (08:58)
[2021-11-27] MEDS: amiodarone 200 mg Tablet 100 MG PO (08:59)
[2021-11-27] MEDS: amlodipine 10 mg Tablet PO (08:59)
[2021-11-27] MEDS: pantoprazole DR 40 mg Tablet PO (08:59)
[2021-11-27] MEDS: rivaroxaban 10 mg Tablet PO (08:59)
[2021-11-27 11:06] LABS: Glucose Point of Care 213 mg/dL (70-110)
[2021-11-27] MEDS: insulin lispro 100 unit/1 mL SUBCUT ×3 (12:10→21:00)
--- NOTE | 2021-11-27 13:25 | CT_ITS ---
WS: [id number] CT LUMBAR SPINE TECHNIQUE: Noncontrast CT of the lumbar spine with coronal and sagittal reformatted images. CLINICAL INFORMATION: mrsa bacteremia COMPARISON: None. DLP: 1482.[address] scans at [facility] use at least one of these dose optimization techniques: automated e xposure control; mA and/or kV adjustment per patient size (includes targeted exams where dose is matc hed to clinical indication); or iterative reconstruction. FINDINGS: Lumbar curve. Extensive postoperative changes pedicle screw fixation L3-L5. Interbody bony fusion. Sl ight anterolisthesis L3 on L4 and L4 on L5. Interbody bony fusion at T12-L1 and L1-L2. Dorsal spinal stimulator ascends cephalad off the [id number]. Laminectomy defects in the lower lumbar spine. Patel grant degrades images with beam hardening artifact L1-L2: Disc osteophyte complex with endplate ridging. Prior interbody fusion at this level. Moderate to severe central canal stenosis at this level due to osteophytic ridging combination with facet arth ropathy. Moderate bilateral bony foraminal narrowing. L2-L3: Moderate central canal stenosis with slight retrolisthesis. Disc osteophyte complex. Impingeme nt on the LEFT subarticular recess. Dorsal laminectomy defects. Moderate bilateral bony foraminal shireen rowing. L3-L4: Pedicle screw fixation. Mild residual central canal stenosis. Laminectomy defects. Moderate LE FT foraminal narrowing. L4-L5: Pedicle screw fixation with laminectomy defects. Spinal canal is patent. Moderate LEFT greater than RIGHT bony foraminal narrowing. L5-S1: Pedicle screw fixation. Disc osteophytic ridging eccentric to the LEFT. Slight impingement LEF T S1 nerve root. Laminectomy defects. Moderate facet arthropathy. Moderate RIGHT and mild LEFT forami nal narrowing. Degenerative arthritis sacroiliac joints. CT/CT lumbar spine wo con* [id number] IMPRESSION: Exam is limited by beam hardening artifact from hardware scoliosis and osteopenia. 1. Advanced spondylitic changes lumbar spine with extensive postoperative fried ges. 2. Pedicle Screw fixation L3-L5 with interbody fusion. 3. Moderate to severe central canal stenosis at L1-L2 due to bony osteophytic ridging with moderate facet arthropathy. 4. Moderate central canal stenosis L2-L3 with impingement on the LEFT subartic ular recess. 5. Multilevel bony foraminal narrowing described above. 6. Interbody bony fusion T12-L1 and L1-L2. 7. Grade 1 anterolisthesis L3 on L4 and L4 on L5. 8. No evidence of discitis or osteomyelitis considering limitations.
--- NOTE | 2021-11-27 13:25 | CT_ITS ---
WS: [id number] CT CERVICAL SPINE TECHNIQUE: Noncontrast CT of the cervical spine with coronal and sagittal reformatted images. CLINICAL INFORMATION: mrsa bacteremia COMPARISON: None. DLP: 256.[address] scans at [facility] use at least one of these dose optimization techniques: automated e xposure control; mA and/or kV adjustment per patient size (includes targeted exams where dose is matc hed to clinical indication); or iterative reconstruction. FINDINGS: Cervical curve convex RIGHT. Normal dens. Normal C1-C2 articulation. Grade 1 anterolisthesis C3 on C4 measuring 3.8 mm. Disc space narrowing worse at C4-C6. Advanced spondylitic changes. C2-C3: Disc osteophyte complex with endplate ridging. Moderate LEFT facet arthropathy. Mild RIGHT for aminal narrowing. Mild central canal stenosis. C3-C4: Grade 1 anterolisthesis. Disc osteophyte complex with mild central canal stenosis. Advanced LE FT facet arthropathy. Mild LEFT greater than RIGHT bony foraminal narrowing. C4-C5: Disc osteophyte complex with endplate ridging. Moderate central canal stenosis with slight ind entation on cervical cord. Mild bilateral bony foraminal narrowing. Moderate facet arthropathy. C5-C6: Disc osteophyte complex with endplate ridging. Severe RIGHT and mild LEFT bony foraminal narro wing. Moderate facet arthropathy. C6-C7: Disc osteophyte complex with endplate ridging. Moderate RIGHT and no significant LEFT foramina l narrowing. Spinal canal is patent. C7-T1: Mild disc osteophytic ridging. Spinal canal and foramen are patent. Mastoid air cells well aerated. Cavernous carotid calcification. Dense carotid bulb calcification. Visualized posterior nasopharynx: Normal. Prevertebral soft tissues: Normal. Nodular RIGHT thyroid partially evaluated. CT/CT cervical spin wo con* [id number] IMPRESSION: 1. Moderate to advanced spondylitic changes cervical spine with grade 1 abdirashid listhesis C3 on C4 measuring 3.8 mm. 2. Disc space narrowing worse at C4-C6 with disc osteophyte complexes. 3. Advanced cervical curve convex RIGHT. 4. Moderate central canal stenosis C4-C5 due to disc osteophyte complex 5. Mild central canal stenosis C5-C6. 6. Multilevel bony foraminal narrowing severe at RIGHT C5-C6 and moderate RIGH T C6-C7.
--- NOTE | 2021-11-27 13:25 | CT_ITS ---
WS: [id number] CT CHEST, ABDOMEN, AND PELVIS TECHNIQUE: Noncontrast CT of the chest, abdomen, and pelvis with coronal and sagittal reformatted sofy ges. CLINICAL INFORMATION: mrsa bacteremai, esbl uti COMPARISON: CT October 24, 2021 DLP: 1070.[address] scans at [facility] use at least one of these dose optimization techniques: automated e xposure control; mA and/or kV adjustment per patient size (includes targeted exams where dose is matc hed to clinical indication); or iterative reconstruction. CT CHEST: Both lungs are well aerated. No acute pulmonary infiltrates. No focal consolidation. Trace pleural fl uid LEFT lower lobe. Bibasilar atelectasis. Cardiomegaly. No mediastinal or hilar lymphadenopathy. Normal caliber thoracic aorta. Mild aortic indra cification. Coronary calcification. Dorsal spinal stimulator. Thoracic scoliosis and kyphosis. Modera te spondylitic changes thoracic spine. CT ABDOMEN AND PELVIS: Noncontrast liver is normal. Air-fluid level in the stomach distended stomach. Normal GE junction. No rmal noncontrast pancreas. Noncontrast spleen is normal. Adrenal glands are normal. No hydronephrosis in either kidney. No drainable fluid collections in the abdomen or pelvis. Wolfe catheter. Fat-conta ining umbilical hernia. Fat-containing LEFT inguinal hernia. Prior postoperative changes lower lumbar spine with extensive pedicle screw fixation and dorsal laminectomy defects. Bilateral pedicle screw fixation L3-L5. Retrolisthesis L2 on L3. Interbody bony fusion T12-L2. Moderate rectal constipation with rectal distention. No evidence of high-grade small or large bowel o bstruction. No other remarkable findings. CT/[place] [id number] IMPRESSION: 1. Both lungs are well aerated. No acute pulmonary infiltrates. 2. Trace LEFT pleural fluid. No focal pneumonia. 3. Vascular and coronary calcification. Normal caliber thoracic and abdominal aorta. 4. No drainable fluid collections in the abdomen or pelvis. 5. No hydronephrosis in either kidney. 6. Fat-containing umbilical hernia and fat-containing LEFT inguinal hernia. 7. Wolfe catheter. 8. Rectal constipation. 9. Postoperative changes lower lumbar spine described above.
--- NOTE | 2021-11-27 13:25 | CT_ITS ---
WS: [id number] CT THORACIC SPINE TECHNIQUE: Noncontrast CT of the thoracic spine with coronal and sagittal reformatted images. CLINICAL INFORMATION: mrsa bacteremia COMPARISON: None. DLP: 1110.[address] scans at [facility] use at least one of these dose optimization techniques: automated e xposure control; mA and/or kV adjustment per patient size (includes targeted exams where dose is matc hed to clinical indication); or iterative reconstruction. FINDINGS: Mild thoracic curve. Mild thoracic kyphosis. Moderate to advanced spondylitic changes thoracic spine. Aortic calcification. Spinal stimulator in the dorsal spinal canal. Disc space narrowing throughout the thoracic spine. Interbody bony fusion in the lower thoracic and upper lumbar spine. No high-grade central canal stenosis. Moderate RIGHT T9-T10 bony foraminal narrowing. Mild central ca nal stenosis T10-T11 and T11-T12. Mild to moderate bilateral foraminal narrowing T10-T11, T11-T12, an d T12-L1. CT/CT thoracic spin wo con* [id number] IMPRESSION: 1. Advanced spondylitic changes thoracic spine with moderate thoracic curve an d kyphosis. Multilevel degenerative disc disease. 2. Spinal stimulator in the mid dorsal spinal canal. 3. No evidence of discitis or osteomyelitis. 4. No high-grade central canal stenosis. 5. Disc osteophyte complex T9-T10 with mild central canal stenosis and slight indentation on the RIGHT ventricle thoracic cord. 6. Mild central canal stenosis T10-T11 and T11-T12 7. Multilevel bony foraminal narrowing in the lower thoracic spine described a prince.
--- NOTE | 2021-11-27 13:27 | PM.PN ---
Subjective Subjective: Patient was seen this morning, I advised her that she has a significant bacteremia, MRSA bacteremia, with ESBL E. coli UTI. In terms of the ESBL E. coli UTI, likely the source of it is a bladder infection, recurrent UTI especially as she is a long term resident. She denies any artificial metal in her body, but she does have evidence of L3 -S1 fusion, with elevated ESR, will need to see if this is a source of infection for her MRSA bacteremia as a source is known to her, she all has a murmur on exam, will need to do a cardiac echocardiogram, the bacteremia so far is cleared, she is afebrile overall she is clinically improving, however I do not know the source of her significant MRSA bacteremia I did discuss with her about the possibility of a transesophageal echocardiogram, she tells that she does not want to have any transesophageal cardiogram she does not want aggressive testing Vitals/I&O/Wt Last Vital Signs Temp 98.1 F 11/27/21 12:00 Pulse 68 11/27/21 12:00 Resp 18 11/27/21 12:00 BP 110/71 11/27/21 12:00 Pulse Ox 97 11/27/21 12:00 O2 Del Method 11/27/21 12:00 O2 Flow Rate 3 11/27/21 08:25 11/26/21 11/27/21 11/27/21 22:59 06:59 14:59 Intake Total 150 / 370 240 / 610 710 / 710 Output Total 1600 / 1900 Balance 150 / 70 -1360 / -1290 710 / 710 Physical Exam Const: COMMON NORMALS: no acute distress ORIENTATION/CONSCIOUSNESS: Yes awake, Yes oriented to person and Yes oriented to place Resp: COMMON NORMALS: normal respiratory effort, No retractions, No use of accessory muscles and clear to auscultation bilaterally AUSCULTATION: clear to auscultation bilaterally Cardio: COMMON NORMALS: regular rate, regular rhythm, S1 normal heart sound present and S2 normal heart sound present RATE: regular rate RHYTHM: regular rhythm HEART SOUNDS: S1 normal heart sound present and S2 normal heart sound present GI: COMMON NORMALS: Normal to inspection, nondistended, normoactive bowel sounds present, Soft to palpation and non-tender PALPATION: Yes Soft to palpation Extremity: COMMON NORMALS: no pedal edema Neuro: SENSORIUM/ORIENTATION: Yes oriented to person and Yes oriented to place Urinary Catheter Management: Wolfe: Cath Placed During This Visit: yes Reason for Continuing Indwelling Catheter: Acute Urinary Retention or Obstruction Urinary Catheter Date of Insertion: 11/25/21 Urinary Catheter Time of Insertion: 00:00 Data : 11/26/21 05:20 11/26/21 05:20 Micro: Microbiology 11/26/21 12:58 Blood Culture - Preliminary Blood NEGATIVE TO DATE 11/26/21 12:53 Blood Culture - Preliminary Blood NEGATIVE TO DATE 11/24/21 23:32 Blood Culture - Final Blood Methicillin Resis Staph Aureus 11/24/21 23:30 Blood Culture - Final Blood Methicillin Resis Staph Aureus 11/25/21 00:27 Urine Culture - Final Urine,Clean Catch Escherichia coli esbl 11/26/21 04:59 C.difficile Toxin B Gene (PCR) - Final Stool Routine Collection A&P Assessment and plan (1) UTI due to extended-spectrum beta lactamase (ESBL) producing Escherichia coli: Status: Acute (2) MRSA bacteremia: Status: Acute (3) Sepsis: Suspected sepsis given leukocytosis, fever, tachycardia and positive UA. Urine culture positive for ESBL E. coli UTI, is a long term resident, sensitive to Primaxin continue Primaxin, will do CT scan abdomen pelvis to rule out nephrolithiasis as an source Renal ultrasound within normal limits MRSA bacteremia, repeat blood cultures negative, source is unclear? -However does have a systolic murmur on exam we will do an transthoracic echocardiogram, she declines transesophageal echocardiogram -Pro-Dwayne 2.5, CRP 190, sed rate 71 -Under CT scan abdomen pelvis in the past she has evidence of L3-S1 posterior and interbody lumbar fusion, with bilateral pedicle screws, stabilization bars L3-L5 -I am quite concerned that this may be a source of her MRSA bacteremia including discitis, vertebral osteomyelitis, possible epidural abscess -We will do nunez CT scan of the spine, CT chest abdomen pelvis -Sensitive to vancomycin continue vancomycin Follow repeat blood cultures No pressors required Mentation significantly improved Chest x-ray shows bilateral infiltrates, however these infiltrates also noted to be present on chest x-ray from November 03 per my interpretation. No gross consolidation. COVID PCR negative Status: Acute Qualifiers: Sepsis type: sepsis due to unspecified organism Sepsis acute organ dysfunction status: with acute organ dysfunction Severe sepsis acute organ dysfunction type: encephalopathy Severe sepsis shock status: without septic shock Qualified Code(s): A41.9 - Sepsis, unspecified organism; R65.20 - Severe sepsis without septic shock; G93.40 - Encephalopathy, unspecified (4) Altered mental status: CT of the head Brain: No evidence of acute intracranial hemorrhage. There is no midline shift or significant mass effect. The basal cisterns are patent. Cerebral ventricles: Mild generalized cerebral volume loss with ex vacuo dilation of the ventricles. Periventricular hypoattenuation is a nonspecific finding but likely represent the sequela of chronic small vessel ischemic disease. Mild asymmetric prominence of the left lateral ventricle compared to the right lateral ventricle is likely a normal variant. Paranasal sinuses: Mild paranasal sinus disease. Mastoid air cells: The imaged mastoid air cells appear grossly clear. Orbital cavities: The orbits appear grossly unremarkable. Bones/joints: Unremarkable. No acute fracture. Soft tissues: Unremarkable. Vasculature: There are atherosclerotic calcifications of the carotid siphons and the V4 segments of the vertebral arteries. Secondary to UTI, MRSA bacteremia Status: Acute (5) Acute cystitis: Secondary ESBL E. coli UTI Currently on Primaxin Status: Acute (6) Hyponatremia: Resolved Hypoosmolar hyponatremia. Check urine lites, urine osmolality May be related to SIADH. Patient does not appear grossly dehydrated at this time. Repeat sodium 128, continue to monitor Status: Acute Plan recent h/o VT: Continue amiodarone, b blockers at this time, closely monitor qtc while on amiodarone, noted to be prlonged at 511 currently. Telemtery monitoring. Attestations Medical Necessity Statement*: Patient requires hospitalization for ESBL E. coli UTI, MRSA bacteremia without a clear source, requiring IV antibiotics, further work-up Coding Level of Care Code Acute Director Cpg for [facility] Fwd Diagnoses UTI due to extended-spectrum beta lactamase (ESBL) producing Escherichia coli N39.0; B96.29; Z16.12 MRSA bacteremia R78.81; B95.62 Sepsis A41.9; R65.20; G93.40 Sepsis type: sepsis due to unspecified organism Sepsis acute organ dysfunction status: with acute organ dysfunction Severe sepsis acute organ dysfunction type: encephalopathy Severe sepsis shock status: without septic shock Altered mental status R41.82 Acute cystitis N30.00 Hyponatremia E87.1
[2021-11-27 16:57] LABS: Glucose Point of Care 141 mg/dL (70-110)
[2021-11-27] MEDS: polyethylene glycol 3350 Pkt 17 gm PO (17:24)
[2021-11-27] MEDS: docusate sodium 100 mg Capsule PO (17:29)
[2021-11-27] MEDS: atorvastatin 40 mg Tablet 20 MG PO (20:59)
[2021-11-27 21:00] LABS: Glucose Point of Care 165 mg/dL (70-110)
[2021-11-27] MEDS: ropinirole 2 mg Tablet 4 MG PO (21:00)
[2021-11-27] MEDS: vancomycin 1,500 MG/300 ML PIGGYBACK 200 MG IV (21:17)
[2021-11-28] VITALS (10 sets, daily range): BP systolic 113–133; BP diastolic 62–82; PULSE 60–78; RESP 17–19; TEMP 36.7–36.9; O2SAT 94–97
[2021-11-28 05:51] LABS: Basophils % 0.4 %; Eosinophils # 0.1 10^3/uL (0.0-0.8); Eosinophils % 1.5 %; Hematocrit 41.8 % (37.0-47.0); Hemoglobin 12.9 g/dL (11.5-15.3); Lymphocytes # 1.5 10^3/uL (0.8-4.8); Lymphocytes % 16.3 %; Mean Corpuscular HGB Conc 30.9 g/dL (30.0-36.0); Mean Corpuscular Hemoglobin 27.3 pg (28.0-34.0); Mean Corpuscular Volume 88.4 fl (81-99); Mean Platelet Volume 9.4 fL (7.4-10.4); Monocytes # 0.7 10^3/uL (0.2-0.9); Monocytes % 7.8 %; Neutrophils # 6.65 10^3/uL (1.8-7.7); Neutrophils % 71.5 %; Nucleated Red Blood Cells % 0 %; Platelet Count 307 10^3/cmm (130-400); Red Blood Count 4.73 10^6/uL (4.1-5.3); Red Cell Distribution Width 15.5 % (12.1-15.1); White Blood Count 9.3 10^3/uL (4.0-10.0)
[2021-11-28] MEDS: lanolin oint 7 gm 1 APPLIC TOPICAL (05:58)
[2021-11-28 06:18] LABS: Glucose Point of Care 103 mg/dL (70-110)
[2021-11-28 06:31] LABS: NT Pro B Type Natriuretic Pept 2885 pg/mL (0-125); Procalcitonin 0.72 ng/mL (0-0.5)
[2021-11-28 06:43] LABS: Alanine Aminotransferase 32 U/L (0-33); Albumin Level 2.4 g/dL (3.5-5.2); Alkaline Phosphatase 151 IU/L (35-105); Anion Gap 15.7 (5-19); Aspartate Amino Transferase 40 U/L (0-32); Blood Urea Nitrogen 16 mg/dL (8-23); C Reactive Protein 59.6 mg/L (0.0-4.9); Calcium 9.3 mg/dL (8.5-10.5); Carbon Dioxide 24 mmol/L (22-29); Chloride 95 mmol/L (98-107); Creatinine Clr Calc Pharmacy 80.0258; Globulin 4.1 g/dL (1.3-4.6); Glucose 111 mg/dL (65-115); Osmolality Calculated 274 mOsm/kg (285-295); Phosphorus 3.3 mg/dL (2.5-4.5); Potassium 3.7 mmol/L (3.5-5.1); Sodium 131 mmol/L (136-145); Total Bilirubin 0.3 mg/dL (0.15-1.2); Total Protein 6.5 g/dL (6.6-8.7)
[2021-11-28] MEDS: amiodarone 200 mg Tablet 100 MG PO (08:00)
[2021-11-28] MEDS: docusate sodium 100 mg Capsule PO ×2 (08:00→18:38)
[2021-11-28] MEDS: hyDRALAzine 50 mg Tablet 75 MG PO ×3 (08:01→20:29)
[2021-11-28] MEDS: pantoprazole DR 40 mg Tablet PO (08:01)
[2021-11-28] MEDS: ALPRAZolam 0.5 mg Tablet 0.25 MG PO (08:02)
[2021-11-28] MEDS: ropinirole 2 mg Tablet PO (08:02)
[2021-11-28] MEDS: rivaroxaban 10 mg Tablet PO (08:03)
[2021-11-28] MEDS: amlodipine 10 mg Tablet PO (08:03)
[2021-11-28] MEDS: metoprolol tartrate 50 mg Tablet 75 MG PO ×2 (08:03→18:38)
[2021-11-28] MEDS: duloxetine 60 mg Capsule PO (08:04)
[2021-11-28] MEDS: polyethylene glycol 3350 Pkt 17 gm PO (08:04)
[2021-11-28] MEDS: FUROsemide 10 mg/mL SDV 4mL 40 MG IVP (09:41)
[2021-11-28] MEDS: potassium chloride ER 20 mEq Tablet 40 MEQ PO (09:42)
[2021-11-28 11:20] LABS: Glucose Point of Care 134 mg/dL (70-110)
--- NOTE | 2021-11-28 12:16 | PM.PN ---
Subjective Subjective: Patient was seen this morning, she is alert oriented x3, I discussed with her her MRSA bacteremia, my concerns, for multiple sources of infection, including her spinal stimulator and her prior lumbar surgery with pedicle screws and metal josefa however the CT scan of her spine did not show any evidence of discitis or epidural abscess however it still a concern for source of infection, but also her mitral valve shows thickening that could be potentially a source of infection. However she would require further evaluation including a transesophageal echocardiogram, she declines transesophageal echocardiogram, she does not want to have aggressive testing, discussed risks and benefits she voiced understanding all questions answered agreed to decline testing for now. I did discuss with her that if she does have endocarditis there is a risk of embolization causing a large stroke. She again does not want to have any further testing. I advised that she is nonetheless will require 6 weeks of IV antibiotics. In terms of surgical intervention, if she does not want to do a transesophageal echocardiogram, she also does not want to do any surgery for infected mitral valve. Given her age and risk factors, at this time she would not be high risk candidate for any mitral valve surgery. In terms of her possibility that she could have infected hardware, the only way to know for sure is to do an MRI of her spine however she has a spinal stimulator in place. The other option would be to discuss with surgery, and remove her hardware, however she does not want to have any surgical intervention. I advised that we could do 6 weeks of vancomycin however this is not adequate source control, she might develop recurrent bacteremia, sepsis septic shock, complications for infected hardware, complications from endocarditis. -I advised her that even if she received 6 weeks of IV antibiotics, she might be recurrently bacteremic or symptomatic, and might require some surgical intervention, due to inadequate source control, but she declines to have any further interventions she is okay with antibiotics However she does not want to have any more aggressive testing does not want any aggressive interventions, she wants to see how a trial of IV antibiotics will go. Discussed risk of benefits of IV antibiotics, she voiced understanding all questions answered agreed to proceed. Did discuss her ESBL UTI, she is are being appropriately treated with antibiotic therapy. -I reached out to patient's , however the voicemail was full -I discussed with patient's son Ken Webber in detail opportunity answer questions, voiced understanding all questions answered, he also agrees with the plan, agreeable for IV antibiotics, discussed with my concerns as above, he voiced understanding all questions answered agreed to proceed Vitals/I&O/Wt Last Vital Signs Temp 98.3 F 11/28/21 04:00 Pulse 78 11/28/21 08:00 Resp 17 11/28/21 08:00 BP 120/75 11/28/21 08:00 Pulse Ox 96 11/28/21 08:00 O2 Del Method 11/27/21 22:00 O2 Flow Rate 3 11/27/21 22:00 11/27/21 11/28/21 11/28/21 22:59 06:59 14:59 Intake Total 700 / 1510 840 / 2350 100 / 100 Output Total 350 / 350 1100 / 1450 Balance 350 / 1160 -260 / 900 100 / 100 Physical Exam Const: COMMON NORMALS: no acute distress and patient oriented x3 Resp: COMMON NORMALS: normal respiratory effort, No retractions, No use of accessory muscles and clear to auscultation bilaterally AUSCULTATION: clear to auscultation bilaterally Cardio: COMMON NORMALS: regular rate, regular rhythm, S1 normal heart sound present and S2 normal heart sound present RATE: regular rate RHYTHM: regular rhythm HEART SOUNDS: S1 normal heart sound present and S2 normal heart sound present GI: COMMON NORMALS: Normal to inspection, nondistended, normoactive bowel sounds present, Soft to palpation, non-tender and no bruits PALPATION: Yes Soft to palpation Extremity: COMMON NORMALS: no pedal edema Neuro: COMMON NORMALS: patient oriented x3 Psych: COMMON NORMALS: mental status grossly normal Urinary Catheter Management: Wolfe: Cath Placed During This Visit: yes Reason for Continuing Indwelling Catheter: Acute Urinary Retention or Obstruction Urinary Catheter Date of Insertion: 11/25/21 Urinary Catheter Time of Insertion: 00:00 Data : 11/28/21 05:35 11/28/21 05:35 Micro: Microbiology 11/26/21 12:58 Blood Culture - Preliminary Blood NEGATIVE TO DATE 11/26/21 12:53 Blood Culture - Preliminary Blood NEGATIVE TO DATE 11/24/21 23:32 Blood Culture - Final Blood Methicillin Resis Staph Aureus 11/24/21 23:30 Blood Culture - Final Blood Methicillin Resis Staph Aureus 11/25/21 00:27 Urine Culture - Final Urine,Clean Catch Escherichia coli esbl A&P Assessment and plan (1) UTI due to extended-spectrum beta lactamase (ESBL) producing Escherichia coli: Status: Acute (2) MRSA bacteremia: Status: Acute (3) Sepsis: Suspected sepsis given leukocytosis, fever, tachycardia and positive UA. Urine culture positive for ESBL E. coli UTI, is a [place] [facility] resident, sensitive to Primaxin continue Primaxin, will do CT scan abdomen pelvis to rule out nephrolithiasis as an source Renal ultrasound within normal limits MRSA bacteremia, repeat blood cultures negative, source is endocarditis versus infected spinal hardware/spinal stimulator -Has a systolic murmur on exam ?Normal left ventricular size, systolic function and wall ?thickness, with no regional wall motion abnormalities. Grade ?I/IV diastolic dysfunction (abnormal relaxation filling ?pattern), normal to mildly elevated filling pressures. Left ?ventricular ejection fraction is estimated at 60 %. ?Structurally normal mitral valve. Mild mitral annular ?calcification.? The annular calcification is especially ?prominent in the posterior leaflet.? In this area there is, just ?in 1 view, a portion of the mitral valve leaflet which looks ?mildly suspicious for vegetation.? This is difficult given the ?lack of clarity and the calcified mitral valve.? This does not ?perfectly fit the criteria for vegetation but is mildly ?suspicious.? If there is high enough clinical suspicion for ?endocarditis, transesophageal echo should be considered. -Pro-Dwayne 2.5, CRP 190, sed rate 71 -CT scan of spine CT lumbar spine lumbar curve. Extensive postoperative changes pedicle screw fixation L3-L5. Interbody bony fusion. Slight anterolisthesis L3 on L4 and L4 on L5. Interbody bony fusion at T12-L1 and L1-L2. Dorsal spinal stimulator ascends cephalad off the [id number]. Laminectomy defects in the lower lumbar spine. Hardware degrades images with beam hardening artifact L1-L2: Disc osteophyte complex with endplate ridging. Prior interbody fusion at this level. Moderate to severe central canal stenosis at this level due to osteophytic ridging combination with facet arthropathy. Moderate bilateral bony foraminal narrowing. L2-L3: Moderate central canal stenosis with slight retrolisthesis. Disc osteophyte complex. Impingement on the LEFT subarticular recess. Dorsal laminectomy defects. Moderate bilateral bony foraminal narrowing. L3-L4: Pedicle screw fixation. Mild residual central canal stenosis. Laminectomy defects. Moderate LEFT foraminal narrowing. L4-L5: Pedicle screw fixation with laminectomy defects. Spinal canal is patent. Moderate LEFT greater than RIGHT bony foraminal narrowing. 1.? Advanced spondylitic changes thoracic spine with moderate thoracic curve and kyphosis. Multilevel degenerative disc disease. 2.? Spinal stimulator in the mid dorsal spinal canal. 3.? No evidence of discitis or osteomyelitis. 4.? No high-grade central canal stenosis. 5.? Disc osteophyte complex T9-T10 with mild central canal stenosis and slight indentation on the RIGHT ventricle thoracic cord. 6.? Mild central canal stenosis T10-T11 and T11-T12 7.? Multilevel bony foraminal narrowing in the lower thoracic spine described above. L5-S1: Pedicle screw fixation. Disc osteophytic ridging eccentric to the LEFT. Slight impingement LEFT S1 nerve root. Laminectomy defects. Moderate facet arthropathy. Moderate RIGHT and mild LEFT foraminal narrowing. -Pro-Dwayne 2.5, CRP 190, sed rate 71 -I am quite concerned that this may be a source of her MRSA bacteremia is endocarditis versus infected spinal hardware however patient does not want further work-up -MRSA secondary to vancomycin Follow repeat blood cultures negative No pressors required Mentation significantly improved COVID PCR negative Plan -Patient does not want any further work-up -She does not want any surgery -She does not want to have a transesophageal echocardiogram -She understands the risks of infected hardware, risk of endocarditis, risk of embolization, risk of complications, morbidity mortality associated, she voiced understanding, all questions answered -Agreed to proceed with at least 6 weeks of IV antibiotics vancomycin -Follow repeat blood cultures -If repeat blood cultures are positive she tells me she still does not want to have any further surgical intervention -We will need to arrange IV vancomycin, -We will need to follow-up with infectious disease Status: Acute Qualifiers: Sepsis type: sepsis due to unspecified organism Sepsis acute organ dysfunction status: with acute organ dysfunction Severe sepsis acute organ dysfunction type: encephalopathy Severe sepsis shock status: without septic shock Qualified Code(s): A41.9 - Sepsis, unspecified organism; R65.20 - Severe sepsis without septic shock; G93.40 - Encephalopathy, unspecified (4) Altered mental status: CT of the head Brain: No evidence of acute intracranial hemorrhage. There is no midline shift or significant mass effect. The basal cisterns are patent. Cerebral ventricles: Mild generalized cerebral volume loss with ex vacuo dilation of the ventricles. Periventricular hypoattenuation is a nonspecific finding but likely represent the sequela of chronic small vessel ischemic disease. Mild asymmetric prominence of the left lateral ventricle compared to the right lateral ventricle is likely a normal variant. Paranasal sinuses: Mild paranasal sinus disease. Mastoid air cells: The imaged mastoid air cells appear grossly clear. Orbital cavities: The orbits appear grossly unremarkable. Bones/joints: Unremarkable. No acute fracture. Soft tissues: Unremarkable. Vasculature: There are atherosclerotic calcifications of the carotid siphons and the V4 segments of the vertebral arteries. Secondary to UTI, MRSA bacteremia Status: Acute (5) Acute cystitis: Secondary ESBL E. coli UTI Currently on Primaxin Status: Acute (6) Hyponatremia: Resolved Hypoosmolar hyponatremia. Check urine lites, urine osmolality May be related to SIADH. Patient does not appear grossly dehydrated at this time. Repeat sodium 128, continue to monitor Status: Acute Plan recent h/o VT: Continue amiodarone, b blockers at this time, closely monitor qtc while on amiodarone, noted to be prlonged at 511 currently. Telemtery monitoring. Attestations Medical Necessity Statement*: Patient requires hospitalization for MRSA bacteremia, ESBL E. coli UTI, requiring 6 weeks of IV vancomycin, 7 days of Primaxin Coding Level of Care Code Acute Electric Refrigerator Preparer for [facility] Fwd Diagnoses UTI due to extended-spectrum beta lactamase (ESBL) producing Escherichia coli N39.0; B96.29; Z16.12 MRSA bacteremia R78.81; B95.62 Sepsis A41.9; R65.20; G93.40 Sepsis type: sepsis due to unspecified organism Sepsis acute organ dysfunction status: with acute organ dysfunction Severe sepsis acute organ dysfunction type: encephalopathy Severe sepsis shock status: without septic shock Altered mental status R41.82 Acute cystitis N30.00 Hyponatremia E87.1
[2021-11-28 17:12] LABS: Glucose Point of Care 143 mg/dL (70-110)
[2021-11-28 20:19] LABS: Glucose Point of Care 139 mg/dL (70-110)
[2021-11-28] MEDS: ropinirole 2 mg Tablet 4 MG PO (20:30)
[2021-11-28] MEDS: atorvastatin 40 mg Tablet 20 MG PO (20:30)
[2021-11-28 21:37] LABS: Vancomycin Trough 13.9 ug/mL (10-15)
[2021-11-28] MEDS: vancomycin 1,500 MG/300 ML PIGGYBACK 200 MG IV (22:13)
--- NOTE | 2021-11-28 22:14 | PC.NURSE ---
VANC T Vanc trough 13.9
[2021-11-29] VITALS (9 sets, daily range): BP systolic 121–130; BP diastolic 67–79; PULSE 61–82; RESP 17–23; TEMP 36.1–37.3; O2SAT 92–99
[2021-11-29 04:21] LABS: Basophils # 0.1 10^3/uL (0.0-0.1); Basophils % 0.7 %; Eosinophils # 0.1 10^3/uL (0.0-0.8); Eosinophils % 1.4 %; Hematocrit 42.5 % (37.0-47.0); Hemoglobin 13.5 g/dL (11.5-15.3); Lymphocytes # 1.6 10^3/uL (0.8-4.8); Lymphocytes % 15.3 %; Mean Corpuscular HGB Conc 31.8 g/dL (30.0-36.0); Mean Corpuscular Hemoglobin 27.4 pg (28.0-34.0); Mean Corpuscular Volume 86.4 fl (81-99); Mean Platelet Volume 9.6 fL (7.4-10.4); Monocytes # 0.9 10^3/uL (0.2-0.9); Monocytes % 8.4 %; Neutrophils % 71.7 %; Nucleated Red Blood Cells % 0 %; Platelet Count 342 10^3/cmm (130-400); Red Blood Count 4.92 10^6/uL (4.1-5.3); Red Cell Distribution Width 15.7 % (12.1-15.1); White Blood Count 10.2 10^3/uL (4.0-10.0)
[2021-11-29 04:54] LABS: Alanine Aminotransferase 20 U/L (0-33); Albumin Level 2.4 g/dL (3.5-5.2); Alkaline Phosphatase 140 IU/L (35-105); Aspartate Amino Transferase 20 U/L (0-32); Blood Urea Nitrogen 14 mg/dL (8-23); Calcium 9.3 mg/dL (8.5-10.5); Carbon Dioxide 24 mmol/L (22-29); Chloride 94 mmol/L (98-107); Creatinine Clr Calc Pharmacy 80.0258; Globulin 4.1 g/dL (1.3-4.6); Glucose 107 mg/dL (65-115); Magnesium 1.9 mg/dL (1.7-2.3); Osmolality Calculated 273 mOsm/kg (285-295); Phosphorus 3.4 mg/dL (2.5-4.5); Sodium 131 mmol/L (136-145); Total Bilirubin 0.3 mg/dL (0.15-1.2); Total Protein 6.5 g/dL (6.6-8.7)
[2021-11-29 05:12] LABS: Anion Gap 16.5 (5-19); Potassium 3.5 mmol/L (3.5-5.1)
[2021-11-29 06:05] LABS: Glucose Point of Care 130 mg/dL (70-110)
--- NOTE | 2021-11-29 08:41 | PC.SOCIAL ---
IMM UPDATED IMM dated and initialed copy given to patient and placed in chart.
[2021-11-29] MEDS: pantoprazole DR 40 mg Tablet PO (09:58)
[2021-11-29] MEDS: polyethylene glycol 3350 Pkt 17 gm PO (09:58)
[2021-11-29] MEDS: metoprolol tartrate 50 mg Tablet 75 MG PO ×2 (09:58→17:53)
[2021-11-29] MEDS: amlodipine 10 mg Tablet PO (09:59)
[2021-11-29] MEDS: rivaroxaban 10 mg Tablet PO (10:00)
[2021-11-29] MEDS: ropinirole 2 mg Tablet PO (10:00)
[2021-11-29] MEDS: amiodarone 200 mg Tablet 100 MG PO (10:00)
[2021-11-29] MEDS: duloxetine 60 mg Capsule PO (10:00)
[2021-11-29] MEDS: docusate sodium 100 mg Capsule PO ×2 (10:01→17:53)
[2021-11-29] MEDS: hyDRALAzine 50 mg Tablet 75 MG PO ×2 (10:05→20:39)
[2021-11-29] MEDS: FUROsemide 10 mg/mL SDV 4mL 40 MG IVP (11:26)
[2021-11-29 12:09] LABS: Glucose Point of Care 120 mg/dL (70-110)
--- NOTE | 2021-11-29 13:06 | PM.PN ---
Subjective Subjective: patient was seen this morning she is a bit drowsy, she does awaken but want to go back to sleep, she initially declined repeat blood cultures, now agreeable, she has no complaints, discussed that repeat blood culture was positive, could be that the blood culture was drawn to early, will redraw Vitals/I&O/Wt Last Vital Signs Temp 98.4 F 11/29/21 11:23 Pulse 70 11/29/21 11:23 Resp 22 H 11/29/21 11:23 BP 127/75 11/29/21 11:23 Pulse Ox 97 11/29/21 11:23 O2 Del Method 11/29/21 11:23 O2 Flow Rate 3 11/29/21 08:31 11/28/21 11/29/21 11/29/21 22:59 06:59 14:59 Intake Total 220 / 420 1100 / 1520 Output Total 2200 / 2650 Balance 220 / -30 -1100 / -1130 Physical Exam Const: COMMON NORMALS: no acute distress and patient oriented x3 Resp: COMMON NORMALS: normal respiratory effort, No retractions, No use of accessory muscles and clear to auscultation bilaterally AUSCULTATION: clear to auscultation bilaterally Cardio: COMMON NORMALS: regular rate, regular rhythm, S1 normal heart sound present and S2 normal heart sound present RATE: regular rate RHYTHM: regular rhythm HEART SOUNDS: S1 normal heart sound present and S2 normal heart sound present GI: COMMON NORMALS: Normal to inspection, nondistended, normoactive bowel sounds present, Soft to palpation and non-tender PALPATION: Yes Soft to palpation Extremity: COMMON NORMALS: no pedal edema Neuro: COMMON NORMALS: patient oriented x3 Psych: COMMON NORMALS: mental status grossly normal Urinary Catheter Management: Wolfe: Cath Placed During This Visit: yes Reason for Continuing Indwelling Catheter: Other Urinary Catheter Date of Insertion: 11/25/21 Urinary Catheter Time of Insertion: 00:00 Data : 11/29/21 04:09 11/29/21 04:09 Micro: Microbiology 11/29/21 10:30 Blood Culture - Preliminary Blood SPECIMEN COLLECTED 11/29/21 09:13 Blood Culture - Preliminary Blood SPECIMEN COLLECTED 11/26/21 12:53 Blood Culture - Preliminary Blood A&P Assessment and plan (1) UTI due to extended-spectrum beta lactamase (ESBL) producing Escherichia coli: Status: Acute (2) MRSA bacteremia: Status: Acute (3) Sepsis: Suspected sepsis given leukocytosis, fever, tachycardia and positive UA. Urine culture positive for ESBL E. coli UTI, is a [facility] resident, sensitive to Primaxin continue Primaxin, will do CT scan abdomen pelvis to rule out nephrolithiasis as an source Renal ultrasound within normal limits MRSA bacteremia, repeat blood cultures negative, source is endocarditis versus infected spinal hardware/spinal stimulator -Has a systolic murmur on exam ?Normal left ventricular size, systolic function and wall ?thickness, with no regional wall motion abnormalities. Grade ?I/IV diastolic dysfunction (abnormal relaxation filling ?pattern), normal to mildly elevated filling pressures. Left ?ventricular ejection fraction is estimated at 60 %. ?Structurally normal mitral valve. Mild mitral annular ?calcification.? The annular calcification is especially ?prominent in the posterior leaflet.? In this area there is, just ?in 1 view, a portion of the mitral valve leaflet which looks ?mildly suspicious for vegetation.? This is difficult given the ?lack of clarity and the calcified mitral valve.? This does not ?perfectly fit the criteria for vegetation but is mildly ?suspicious.? If there is high enough clinical suspicion for ?endocarditis, transesophageal echo should be considered. -Pro-Dwayne 2.5, CRP 190, sed rate 71 -CT scan of spine CT lumbar spine lumbar curve. Extensive postoperative changes pedicle screw fixation L3-L5. Interbody bony fusion. Slight anterolisthesis L3 on L4 and L4 on L5. Interbody bony fusion at T12-L1 and L1-L2. Dorsal spinal stimulator ascends cephalad off the [id number]. Laminectomy defects in the lower lumbar spine. Hardware degrades images with beam hardening artifact L1-L2: Disc osteophyte complex with endplate ridging. Prior interbody fusion at this level. Moderate to severe central canal stenosis at this level due to osteophytic ridging combination with facet arthropathy. Moderate bilateral bony foraminal narrowing. L2-L3: Moderate central canal stenosis with slight retrolisthesis. Disc osteophyte complex. Impingement on the LEFT subarticular recess. Dorsal laminectomy defects. Moderate bilateral bony foraminal narrowing. L3-L4: Pedicle screw fixation. Mild residual central canal stenosis. Laminectomy defects. Moderate LEFT foraminal narrowing. L4-L5: Pedicle screw fixation with laminectomy defects. Spinal canal is patent. Moderate LEFT greater than RIGHT bony foraminal narrowing. 1.? Advanced spondylitic changes thoracic spine with moderate thoracic curve and kyphosis. Multilevel degenerative disc disease. 2.? Spinal stimulator in the mid dorsal spinal canal. 3.? No evidence of discitis or osteomyelitis. 4.? No high-grade central canal stenosis. 5.? Disc osteophyte complex T9-T10 with mild central canal stenosis and slight indentation on the RIGHT ventricle thoracic cord. 6.? Mild central canal stenosis T10-T11 and T11-T12 7.? Multilevel bony foraminal narrowing in the lower thoracic spine described above. L5-S1: Pedicle screw fixation. Disc osteophytic ridging eccentric to the LEFT. Slight impingement LEFT S1 nerve root. Laminectomy defects. Moderate facet arthropathy. Moderate RIGHT and mild LEFT foraminal narrowing. -Pro-Dwayne 2.5, CRP 190, sed rate 71 -I am quite concerned that this may be a source of her MRSA bacteremia is endocarditis versus infected spinal hardware however patient does not want further work-up -MRSA secondary to vancomycin Follow repeat blood cultures negative No pressors required Mentation significantly improved COVID PCR negative Plan -Patient does not want any further work-up -She does not want any surgery -She does not want to have a transesophageal echocardiogram -She understands the risks of infected hardware, risk of endocarditis, risk of embolization, risk of complications, morbidity mortality associated, she voiced understanding, all questions answered -Agreed to proceed with at least 6 weeks of IV antibiotics vancomycin -Follow repeat blood cultures -If repeat blood cultures are positive she tells me she still does not want to have any further surgical intervention -We will need to arrange IV vancomycin, repeat blood culture 1/4 gram +ve cocci, will hold on placing picc line until ensure bactremia is clear -We will need to follow-up with infectious disease Status: Acute Qualifiers: Sepsis type: sepsis due to unspecified organism Sepsis acute organ dysfunction status: with acute organ dysfunction Severe sepsis acute organ dysfunction type: encephalopathy Severe sepsis shock status: without septic shock Qualified Code(s): A41.9 - Sepsis, unspecified organism; R65.20 - Severe sepsis without septic shock; G93.40 - Encephalopathy, unspecified (4) Altered mental status: CT of the head Brain: No evidence of acute intracranial hemorrhage. There is no midline shift or significant mass effect. The basal cisterns are patent. Cerebral ventricles: Mild generalized cerebral volume loss with ex vacuo dilation of the ventricles. Periventricular hypoattenuation is a nonspecific finding but likely represent the sequela of chronic small vessel ischemic disease. Mild asymmetric prominence of the left lateral ventricle compared to the right lateral ventricle is likely a normal variant. Paranasal sinuses: Mild paranasal sinus disease. Mastoid air cells: The imaged mastoid air cells appear grossly clear. Orbital cavities: The orbits appear grossly unremarkable. Bones/joints: Unremarkable. No acute fracture. Soft tissues: Unremarkable. Vasculature: There are atherosclerotic calcifications of the carotid siphons and the V4 segments of the vertebral arteries. Secondary to UTI, MRSA bacteremia Status: Acute (5) Acute cystitis: Secondary ESBL E. coli UTI Currently on Primaxin Status: Acute (6) Hyponatremia: Resolved Hypoosmolar hyponatremia. Check urine lites, urine osmolality May be related to SIADH. Patient does not appear grossly dehydrated at this time. Repeat sodium 128, continue to monitor Status: Acute Plan recent h/o VT: Continue amiodarone, b blockers at this time, closely monitor qtc while on amiodarone, noted to be prlonged at 511 currently. Telemtery monitoring. Attestations Medical Necessity Statement*: patient requires hospitalization for MRSA bacteremia, ESBL UTI Coding Level of Care Code Acute Ultrasonic Cleaner for [facility] Diagnoses UTI due to extended-spectrum beta lactamase (ESBL) producing Escherichia coli N39.0; B96.29; Z16.12 MRSA bacteremia R78.81; B95.62 Sepsis A41.9; R65.20; G93.40 Sepsis type: sepsis due to unspecified organism Sepsis acute organ dysfunction status: with acute organ dysfunction Severe sepsis acute organ dysfunction type: encephalopathy Severe sepsis shock status: without septic shock Altered mental status R41.82 Acute cystitis N30.00 Hyponatremia E87.1
[2021-11-29 17:06] LABS: Glucose Point of Care 177 mg/dL (70-110)
[2021-11-29] MEDS: insulin lispro 100 unit/1 mL SUBCUT (17:54)
[2021-11-29] MEDS: ropinirole 2 mg Tablet 4 MG PO (20:38)
[2021-11-29] MEDS: atorvastatin 40 mg Tablet 20 MG PO (20:38)
[2021-11-29 21:37] LABS: Glucose Point of Care 124 mg/dL (70-110)
[2021-11-29] MEDS: vancomycin 1,500 MG/300 ML PIGGYBACK 150 MG IV (21:41)
[2021-11-30] VITALS (8 sets, daily range): BP systolic 122–145; BP diastolic 62–81; PULSE 52–74; RESP 16–18; TEMP 36.1–37.1; O2SAT 92–97
[2021-11-30 05:10] LABS: Basophils # 0.1 10^3/uL (0.0-0.1); Basophils % 0.7 %; Eosinophils # 0.2 10^3/uL (0.0-0.8); Eosinophils % 1.3 %; Hematocrit 40.4 % (37.0-47.0); Hemoglobin 13.2 g/dL (11.5-15.3); Lymphocytes # 1.9 10^3/uL (0.8-4.8); Lymphocytes % 14.2 %; Mean Corpuscular HGB Conc 32.7 g/dL (30.0-36.0); Mean Corpuscular Hemoglobin 26.8 pg (28.0-34.0); Mean Corpuscular Volume 81.9 fl (81-99); Mean Platelet Volume 9.6 fL (7.4-10.4); Monocytes % 7.7 %; Neutrophils # 9.64 10^3/uL (1.8-7.7); Neutrophils % 73.8 %; Nucleated Red Blood Cells % 0 %; Platelet Count 400 10^3/cmm (130-400); Red Blood Count 4.93 10^6/uL (4.1-5.3); Red Cell Distribution Width 15.7 % (12.1-15.1); White Blood Count 13.1 10^3/uL (4.0-10.0)
[2021-11-30 05:37] LABS: Alanine Aminotransferase 16 U/L (0-33); Albumin Level 2.5 g/dL (3.5-5.2); Alkaline Phosphatase 140 IU/L (35-105); Blood Urea Nitrogen 16 mg/dL (8-23); Calcium 9.4 mg/dL (8.5-10.5); Carbon Dioxide 24 mmol/L (22-29); Chloride 95 mmol/L (98-107); Creatinine Clr Calc Pharmacy 80.0258; Globulin 4.1 g/dL (1.3-4.6); Glucose 116 mg/dL (65-115); Osmolality Calculated 274 mOsm/kg (285-295); Phosphorus 3.5 mg/dL (2.5-4.5); Sodium 131 mmol/L (136-145); Total Bilirubin 0.3 mg/dL (0.15-1.2); Total Protein 6.6 g/dL (6.6-8.7)
[2021-11-30 05:38] LABS: Anion Gap 15.8 (5-19); Aspartate Amino Transferase 17 U/L (0-32); Potassium 3.8 mmol/L (3.5-5.1)
[2021-11-30 05:41] LABS: Procalcitonin 0.21 ng/mL (0-0.5)
[2021-11-30 06:29] LABS: Glucose Point of Care 131 mg/dL (70-110)
[2021-11-30] MEDS: hyDRALAzine 50 mg Tablet 75 MG PO (08:54)
[2021-11-30] MEDS: ropinirole 2 mg Tablet PO (08:54)
[2021-11-30] MEDS: rivaroxaban 10 mg Tablet PO (08:54)
[2021-11-30] MEDS: docusate sodium 100 mg Capsule PO ×2 (08:55→17:54)
[2021-11-30] MEDS: amlodipine 10 mg Tablet PO (08:55)
[2021-11-30] MEDS: pantoprazole DR 40 mg Tablet PO (08:55)
[2021-11-30] MEDS: duloxetine 60 mg Capsule PO (08:55)
[2021-11-30] MEDS: metoprolol tartrate 50 mg Tablet 75 MG PO ×2 (08:55→17:54)
[2021-11-30] MEDS: polyethylene glycol 3350 Pkt 17 gm PO (08:55)
[2021-11-30] MEDS: amiodarone 200 mg Tablet 100 MG PO (08:55)
--- NOTE | 2021-11-30 09:46 | PC.SOCIAL ---
IMM Updated Updated pt's on IMM. No questions voiced. Provided pt a copy. Initialed, dated, & timed copy in chart.
[2021-11-30 11:09] LABS: Glucose Point of Care 176 mg/dL (70-110)
[2021-11-30] MEDS: insulin lispro 100 unit/1 mL SUBCUT (11:56)
--- NOTE | 2021-11-30 13:35 | P.PN_ITS ---
Subjective Subjective: She denies pain or discomfort. No chest pain or pressure. No trouble breathing. States she would not want to do CYRIL. States she would just [facility] to [facility], although discussing with her regarding MRSA bacteremia, concern for possible seeding of infection, possibly including endoc arditis, she states is agreeable to antibiotics treatment. Vitals/I&O/Wt Last Vital Signs Temp 98.3 F 11/30/21 12:00 Pulse 66 11/30/21 12:00 Resp 18 11/30/21 12:00 BP 122/74 11/30/21 12:00 Pulse Ox 92 11/30/21 12:00 O2 Del Method 11/30/21 12:00 O2 Flow Rate 2 11/30/21 10:29 11/29/21 11/30/21 11/30/21 22:59 06:59 14:59 Intake Total 560 / 800 400 / 1200 460 / 460 Output Total 1999 725 / 2725 Balance -1440 / -1200 -325 / -1525 460 / 460 Physical Exam Const: COMMON NORMALS: alert GENERAL APPEARANCE: cooperative NUTRITIONAL APPEARANCE: obese ORIENTATION/CONSCIOUSNESS: Yes awake HENMT: COMMON NORMALS: oropharynx normal Neck/C-Spine: COMMON NORMALS: no JVD Resp: COMMON NORMALS: normal respiratory effort and clear to auscultation bilaterally AUSCULTATION: clear to auscultation bilaterally Cardio: COMMON NORMALS: no JVD, regular rhythm, S1 normal heart sound present, S2 normal heart sound present and No murmurs present (Cardio) RHYTHM: regular rhythm HEART SOUNDS: S1 normal heart sound present and S2 normal heart sound present GI: COMMON NORMALS: Normal to inspection, nondistended, normoactive bowel sounds present, Soft to palpation and non-tender PALPATION: Yes Soft to palpation Extremity: COMMON NORMALS: no joint enlargement and no pedal edema Neuro: COMMON NORMALS: moves all extremities SENSORIUM/ORIENTATION: Yes alert Skin: COMMON NORMALS: no rashes or lesions noted GENERAL SKIN EXAM: no rashes or lesions noted Urinary Catheter Management: Wolfe: Cath Placed During This Visit: yes Reason for Continuing Indwelling Catheter: Assist Healing of Perineal & Sacral Wounds- Incontinent Patients Urinary Catheter Date of Insertion: 11/25/21 Urinary Catheter Time of Insertion: 00:00 Data : 11/30/21 04:40 11/30/21 04:50 Micro: Microbiology 11/29/21 10:30 Blood Culture - Preliminary Blood NEGATIVE TO DATE 11/29/21 09:13 Blood Culture - Preliminary Blood NEGATIVE TO DATE 11/26/21 12:53 Blood Culture - Preliminary Blood Methicillin Resis Staph Aureus A&P Assessment and plan (1) MRSA bacteremia: Follow-up blood culture. Discussed with her consideration of PICC line placement tomorrow if blood cultures from 11/29 remains negative. Continue vancomycin. Declines CYRIL or additional work-up. [facility], although is agreeable to antibiotic therapy. Status: Acute (2) UTI due to extended-spectrum beta lactamase (ESBL) producing Escherichia coli: Continue Primaxin. Status: Acute (3) Sepsis: Renal ultrasound within normal limits MRSA bacteremia, repeat blood cultures negative, source is endocarditis versus infected spinal hardware/spinal stimulator -Has a systolic murmur on exam ?Normal left ventricular size, systolic function and wall ?thickness, with no regional wall motion abnormalities. Grade ?I/IV diastolic dysfunction (abnormal relaxation filling ?pattern), normal to mildly elevated filling pressures. Left ?ventricular ejection fraction is estimated at 60 %. ?Structurally normal mitral valve. Mild mitral annular ?calcification.? The annular calcification is especially ?prominent in the posterior leaflet.? In this area there is, just ?in 1 view, a portion of the mitral valve leaflet which looks ?mildly suspicious for vegetation.? This is difficult given the ?lack of clarity and the calcified mitral valve.? This does not ?perfectly fit the criteria for vegetation but is mildly ?suspicious.? If there is high enough clinical suspicion for ?endocarditis, transesophageal echo should be considered. -Pro-Dwayne 2.5, CRP 190, sed rate 71 -CT scan of spine CT lumbar spine lumbar curve. Extensive postoperative changes pedicle screw fixation L3-L5. Interbody bony fusion. Slight anterolisthesis L3 on L4 and L4 on L5. Interbody bony fusion at T12-L1 and L1-L2. Dorsal spinal stimulator ascends cephalad off the [id number]. Laminectomy defects in the lower lumbar spine. Hardware degrades images with beam hardening artifact L1-L2: Disc osteophyte complex with endplate ridging. Prior interbody fusion at this level. Moderate to severe central canal stenosis at this level due to osteophytic ridging combination with facet arthropathy. Moderate bilateral bony foraminal narrowing. L2-L3: Moderate central canal stenosis with slight retrolisthesis. Disc osteophyte complex. Impingement on the LEFT subarticular recess. Dorsal la minectomy defects. Moderate bilateral bony foraminal narrowing. L3-L4: Pedicle screw fixation. Mild residual central canal stenosis. Laminectomy defects. Moderate LEFT foraminal narrowing. L4-L5: Pedicle screw fixation with laminectomy defects. Spinal canal is patent. Moderate LEFT greater than RIGHT bony foraminal narrowing. 1.? Advanced spondylitic changes thoracic spine with moderate thoracic curve and kyphosis. Multilevel degenerative disc disease. 2.? Spinal stimulator in the mid dorsal spinal canal. 3.? No evidence of discitis or osteomyelitis. 4.? No high-grade central canal stenosis. 5.? Disc osteophyte complex T9-T10 with mild central canal stenosis and slight indentation on the RIGHT ventricle thoracic cord. 6.? Mild central canal stenosis T10-T11 and T11-T12 7.? Multilevel bony foraminal narrowing in the lower thoracic spine described above. L5-S1: Pedicle screw fixation. Disc osteophytic ridging eccentric to the LEFT. Slight impingement LEFT S1 nerve root. Laminectomy defects. Moderate facet arthropathy. Moderate RIGHT and mild LEFT foraminal narrowing. -Pro-Dwayne 2.5, CRP 190, sed rate 71 -I am quite concerned that this may be a source of her MRSA bacteremia is endocarditis versus infected spinal hardware however patient does not want further work-up -MRSA secondary to vancomycin Follow repeat blood cultures negative No pressors required Mentation significantly improved COVID PCR negative Status: Acute Qualifiers: Sepsis acute organ dysfunction status: with acute organ dysfunction Sepsis type: sepsis due to unspecified organism Severe sepsis acute organ dysfunction type: encephalopathy Severe sepsis shock status: without septic shock Qualified Code(s): A41.9 - Sepsis, unspecified organism; R65.20 - Severe sepsis without septic shock; G93.40 - Encephalopathy, unspecified (4) Altered mental status: She is currently awake and alert, interactive. Mental status change appears to have resolved. CT of the head Brain: No evidence of acute intracranial hemorrhage. There is no midline shift or significant mass effect. The basal cisterns are patent. Cerebral ventricles: Mild generalized cerebral volume loss with ex vacuo dilation of the ventricles. Periventricular hypoattenuation is a nonspecific finding but likely represent the sequela of chronic small vessel ischemic disease. Mild asymmetric prominence of the left lateral ventricle compared to the right lateral ventricle is likely a normal variant. Paranasal sinuses: Mild paranasal sinus disease. Mastoid air cells: The imaged mastoid air cells appear grossly clear. Orbital cavities: The orbits appear grossly unremarkable. Bones/joints: Unremarkable. No acute fracture. Soft tissues: Unremarkable. Vasculature: There are atherosclerotic calcifications of the carotid siphons and the V4 segments of the vertebral arteries. Secondary to UTI, MRSA bacteremia Status: Acute (5) Acute cystitis: Secondary ESBL E. coli UTI Currently on Primaxin Status: Acute (6) Hyponatremia: Resolved Status: Acute Plan recent h/o VT: Continue amiodarone, b blockers at this time, closely monitor qtc while on amiodarone. Telemtery monitoring. Attestations 2 Medical Necessity Statement*: Continue admission for management of MRSA bacteremia with possible occult infection source, possible endocarditis, possible other infection. Coding Level of Care Code Acute Bioinformatics Support Specialist for [facility] Fwd Exam Comprehensive Diagnoses MRSA bacteremia R78.81; B95.62 UTI due to extended-spectrum beta lactamase (ESBL) producing Escherichia coli N39.0; B96.29; Z16.12 Sepsis A41.9; R65.20; G93.40 Sepsis acute organ dysfunction status: with acute organ dysfunction Sepsis type: sepsis due to unspecified organism Severe sepsis acute organ dysfunction type: encephalopathy Severe sepsis shock status: without septic shock Altered mental status R41.82 Acute cystitis N30.00 Hyponatremia E87.1
[2021-11-30 17:57] LABS: Glucose Point of Care 129 mg/dL (70-110)
[2021-12-01] VITALS (9 sets, daily range): BP systolic 124–143; BP diastolic 71–81; PULSE 68–86; RESP 12–18; TEMP 36.8–37.3; O2SAT 93–98
--- NOTE | 2021-12-01 04:12 | ECG_ITS ---
[facility] Test Date: 2021-12-01 Pat Name: Fany Webber Department: Room: 253 Gender: Female Medical Historian: : 1950 Requested By: Kat Moses Order Number: [id number] Moshe MD: Andrew Gilbert M.D. Measurements Intervals Rosine Rate: 76 P: 60 ME: 152 QRS: -31 QRSD: 108 T: 30 QT: 426 QTc: 480 Interpretive Statements SINUS RHYTHM LEFT AXIS DEVIATION [QRS AXIS < -30] Compared to ECG 11/25/2021 05:09:31 Sinus arrhythmia no longer present Electronically Signed On 12-01-2021 21:09:43 CDT by Andrew Gilbert M.D. [id number]
[2021-12-01] MEDS: nitroglycerin 0.4 mg sublingual Tablet SUBLINGUAL (04:21)
[2021-12-01 05:42] LABS: Basophils % 0.3 %; Eosinophils # 0.1 10^3/uL (0.0-0.8); Eosinophils % 0.9 %; Hematocrit 41.7 % (37.0-47.0); Hemoglobin 13.5 g/dL (11.5-15.3); Lymphocytes # 1.6 10^3/uL (0.8-4.8); Lymphocytes % 13.3 %; Mean Corpuscular HGB Conc 32.4 g/dL (30.0-36.0); Mean Corpuscular Hemoglobin 26.8 pg (28.0-34.0); Mean Corpuscular Volume 82.9 fl (81-99); Mean Platelet Volume 9.1 fL (7.4-10.4); Monocytes # 0.8 10^3/uL (0.2-0.9); Monocytes % 6.7 %; Neutrophils # 9.24 10^3/uL (1.8-7.7); Neutrophils % 76.6 %; Nucleated Red Blood Cells % 0 %; Platelet Count 358 10^3/cmm (130-400); Red Blood Count 5.03 10^6/uL (4.1-5.3); Red Cell Distribution Width 15.8 % (12.1-15.1); White Blood Count 12.1 10^3/uL (4.0-10.0)
[2021-12-01 06:04] LABS: Troponin(5th) Baseline 69 ng/L (0-10)
[2021-12-01 06:07] LABS: Alanine Aminotransferase 11 U/L (0-33); Albumin Level 2.7 g/dL (3.5-5.2); Alkaline Phosphatase 122 IU/L (35-105); Blood Urea Nitrogen 16 mg/dL (8-23); C Reactive Protein 52.4 mg/L (0.0-4.9); Calcium 9.2 mg/dL (8.5-10.5); Carbon Dioxide 25 mmol/L (22-29); Chloride 93 mmol/L (98-107); Creatinine Clr Calc Pharmacy 80.0258; Glucose 118 mg/dL (65-115); Osmolality Calculated 276 mOsm/kg (285-295); Phosphorus 3.6 mg/dL (2.5-4.5); Sodium 132 mmol/L (136-145); Total Bilirubin 0.4 mg/dL (0.15-1.2); Total Protein 6.7 g/dL (6.6-8.7)
[2021-12-01 06:08] LABS: Anion Gap 17.6 (5-19); Aspartate Amino Transferase 15 U/L (0-32); Potassium 3.6 mmol/L (3.5-5.1)
[2021-12-01] MEDS: morphine 4 mg/mL SDV 1 mL 2 MG IM (06:09)
[2021-12-01] MEDS: lidocaine 2% viscous 15 ML, aluminum-mag hydrox-simethicon 30 ML, sucralfate oral liq 1 GM PO (06:10)
[2021-12-01 06:14] LABS: Procalcitonin 0.17 ng/mL (0-0.5)
--- NOTE | 2021-12-01 06:24 | PC.NURSE ---
pt given GI cocktail, pt drank half half of the cocktail and refused the remaining half
[2021-12-01 07:00] LABS: Glucose Point of Care 122 mg/dL (70-110)
[2021-12-01 07:57] LABS: Troponin 5 2HR 69.68 ng/L (0-10)
[2021-12-01 07:58] LABS: Troponin 5 2HR Delta 0.68 ABS# (0-10)
[2021-12-01] MEDS: polyethylene glycol 3350 Pkt 17 gm PO (09:43)
[2021-12-01] MEDS: duloxetine 60 mg Capsule PO (09:44)
[2021-12-01] MEDS: hyDRALAzine 50 mg Tablet 75 MG PO (09:44)
[2021-12-01] MEDS: ropinirole 2 mg Tablet PO (09:44)
[2021-12-01] MEDS: amlodipine 10 mg Tablet PO (09:44)
[2021-12-01] MEDS: rivaroxaban 10 mg Tablet PO (09:45)
[2021-12-01] MEDS: metoprolol tartrate 50 mg Tablet 75 MG PO (09:45)
[2021-12-01] MEDS: docusate sodium 100 mg Capsule PO (09:45)
[2021-12-01] MEDS: amiodarone 200 mg Tablet 100 MG PO (09:45)
[2021-12-01] MEDS: pantoprazole DR 40 mg Tablet PO (09:46)
[2021-12-01 10:58] LABS: Glucose Point of Care 194 mg/dL (70-110)
[2021-12-01 12:24] LABS: Troponin 5 6HR 63.86 ng/L (0-10)
[2021-12-01 12:25] LABS: Troponin 5 6HR Delta -5.14 ng/L (0-12)
--- NOTE | 2021-12-01 13:27 | P.DS_ITS ---
Discharge Providers Date of Admission: 11/25/21 00:55 Date of Discharge: December 01, 2021 Attending Provider at Admission: Yara Pressley MD Attending Provider at Discharge: Teddy Taveras Primary Care Provider: Rasheeda Hernandez MD Diagnoses at Discharge Discharge Diagnosis (1) MRSA bacteremia: Status: Acute (2) UTI due to extended-spectrum beta lactamase (ESBL) producing Escherichia coli: Status: Acute (3) Sepsis: Status: Acute Qualifiers: Sepsis type: sepsis due to unspecified organism Sepsis acute organ dysfunction status: with acute organ dysfunction Severe sepsis acute organ dysfunction type: encephalopathy Severe sepsis shock status: without septic shock Qualified Code(s): A41.9 - Sepsis, unspecified organism; R65.20 - Severe sepsis without septic shock; G93.40 - Encephalopathy, unspecified (4) Altered mental status: Status: Acute (5) Acute cystitis: Status: Acute (6) Hyponatremia: Status: Acute Reason for Visit Reason for Visit: AMS/SOB Hospital Course Hospital Course Pleasant 71-year-old lady with a number of committees including history of degenerative disc disease and spinal surgeries with hardware implantation, was admitted for assessment and management after presenting with altered mental status, acute metabolic encephalopathy secondary to sepsis and complicated urinary tract infection eventually growing ESBL resistant organism, at presentation also with hyponatremia, sodium 125. Blisters initially with Zosyn, however, subsequently antibiotic transition to Primaxin. During hospitalization was also noted to have MRSA bacteremia. Unclear source of MRSA bacteremia. Assessment with TTE was not particularly revealing. Mitral valve with calcification, prominent posterior leaflet. In this there was an area in just 1 view with a portion of the mitral valve leaflet mildly suspicious for vegetation. Difficult to assess well due to lack of clarity and calcified mitral valve. Did not perfectly fit criteria for vegetation but mildly suspicious. She was additionally assessed with CT chest abdomen pelvis, CT c ervical lumbar and thoracic spine. Head CT showed no acute findings. Renal ultrasound without hydronephrosis. CT chest abdomen pelvis with trace left pleural fluid, no focal pneumonia. Vascular and coronary calcification. Normal caliber thoracic and abdominal aorta. No drainable fluid collections in the abdomen or pelvis. No hydronephrosis. Fat-containing umbilical hernia and fat-containing left inguinal hernia. Wolfe catheter. Rectal constipation. Postoperative changes lower lumbar spine. CT cervical spine: 1. Moderate to advanced spondylitic changes cervical spine with grade 1 a nterolisthesis C3 on C4 measuring 3.8 mm. 2. Disc space narrowing worse at C4-C6 with disc osteophyte complexes. 3. Advanced cervical curve convex RIGHT. 4. Moderate central canal stenosis C4-C5 due to disc osteophyte complex 5. Mild central canal stenosis C5-C6. 6. Multilevel bony foraminal narrowing severe at RIGHT C5-C6 and moderate RIGHT C6-C7. CT thoracic spine: 1. Advanced spondylitic changes thoracic spine with moderate thoracic curve and kyphosis. Multilevel degenerative disc disease. 2. Spinal stimulator in the mid dorsal spinal canal. 3. No evidence of discitis or osteomyelitis. 4. No high-grade central canal stenosis. 5. Disc osteophyte complex T9-T10 with mild central canal stenosis and slight indentation on the RIGHT ventricle thoracic cord. 6. Mild central canal stenosis T10-T11 and T11-T12 7. Multilevel bony foraminal narrowing in the lower thoracic spine described above. CT lumbar spine: 1. Advanced spondylitic changes lumbar spine with extensive postoperative changes. 2. Pedicle Screw fixation L3-L5 with interbody fusion. 3. Moderate to severe central canal stenosis at L1-L2 due to bony osteophytic ridging with moderate facet arthropathy. 4. Moderate central canal stenosis L2-L3 with impingement on the LEFT subarticular recess. 5. Multilevel bony foraminal narrowing described above. 6. Interbody bony fusion T12-L1 and L1-L2. 7. Grade 1 anterolisthesis L3 on L4 and L4 on L5. 8. No evidence of discitis or osteomyelitis considering limitations. Please see full evaluations for details. However, due to limited goals of care she declined additional assessment by CYRIL, was agreeable to continuation of antibiotics and as discussed with her therapy would continue for 6 weeks of IV vancomycin empirically via PICC line due to presence of mild suspicion of possible vegetation, although difficult also to exclude infection of spinal hardware. Target vanc level 15-20. Tagged WBC scan has been requested on outpatient basis for her as well to help assess hardware and assist in gauging duration of antibiotic therapy as well as further discussions of goals of care. Her encephalopathy improved. Hyponatremia improved to mild, 132. Please follow up. She completed a course of Primaxin while in the hospital. Physical Exam Narrative: She is requesting for discharge soon as PICC line can be obtained. Const: COMMON NORMALS: alert GENERAL APPEARANCE: cooperative NUTRITIONAL APPEARANCE: obese ORIENTATION/CONSCIOUSNESS: Yes awake HENMT: COMMON NORMALS: oropharynx normal Neck/C-Spine: COMMON NORMALS: no JVD Resp: COMMON NORMALS: normal respiratory effort and clear to auscultation bilaterally AUSCULTATION: clear to auscultation bilaterally Cardio: COMMON NORMALS: no JVD, regular rhythm, S1 normal heart sound present, S2 normal heart sound present and No murmurs present (Cardio) RHYTHM: regular rhythm HEART SOUNDS: S1 normal heart sound present and S2 normal heart sound present GI: COMMON NORMALS: Normal to inspection, nondistended, normoactive bowel sounds present, Soft to palpation and non-tender PALPATION: Yes Soft to palpation Extremity: COMMON NORMALS: no joint enlargement and no pedal edema Neuro: COMMON NORMALS: moves all extremities SENSORIUM/ORIENTATION: Yes alert Skin: COMMON NORMALS: no rashes or lesions noted GENERAL SKIN EXAM: no rashes or lesions noted Urinary Catheter Management: Wolfe: Cath Placed During This Visit: yes Reason for Continuing Indwelling Catheter: Acute Urinary Retention or Obstruc tion Urinary Catheter Date of Insertion: 11/25/21 Urinary Catheter Time of Insertion: 00:00 Discharge Data Studies Completed and Pending Completed Studies During Hospitalization Category Date Time Status CT cervical spine wo con [CT cervical spin wo con* Cat Scan 11/27/21 13:25 Completed [id number]] [place] [id number] Routine Cat Scan 11/27/21 13:[address] head wo con* [id number] Urgent Cat Scan 11/24/21 23:[address] lumbar spine wo con* [id number] Routine Cat Scan 11/27/21 13:[address] thoracic spine wo con [CT thoracic spin wo con* Cat Scan 11/27/21 13:25 Completed [id number]] Routine XR chest 1V portable [id number] Urgent Exams 11/24/21 23:04 Completed CV. echo complete* [id number] Stat Ultrasound 11/27/21 07:55 Completed US renal BI* [id number] Routine Ultrasound 11/25/21 14:45 Completed Pending at discharge Category Date Time Status Blood Culture Stat Lab 11/29/21 10:30 Results C Reactive Protein AM LABS Lab 12/02/21 04:00 Ordered Complete Blood Count w/Auto AM LABS Lab 12/02/21 04:00 Ordered Comprehensive Metabolic Panel AM LABS Lab 12/02/21 04:00 Ordered Magnesium AM LABS Lab 12/02/21 04:00 Ordered Phosphorus AM LABS Lab 12/02/21 04:00 Ordered Procalcitonin AM LABS Lab 12/02/21 04:00 Ordered Vancomycin Trough Timed Lab 12/01/21 20:30 Ordered NM IN-111 WBC scan [id number] Routine Nuc Med 12/02/21 07:00 Ordered Radiology Impressions Chest X-Ray 11/24/21 23:04 IMPRESSION: Please see findings. Head CT 11/24/21 23:04 IMPRESSION: 1. No acute intracranial hemorrhage, mass effect, or midline shift. 2. Chronic findings as outlined above. 3. Please note that CT is insensitive to nonhemorrhagic strokes and MRI of the brain should be considered if there is continued clinical concern for acute cerebral infarction. Renal Ultrasound 11/25/21 14:45 IMPRESSION: 1. No hydronephrosis. 2. Mild chronic medical renal disease. Cervical Spine CT 11/27/21 13:25 IMPRESSION: 1. Moderate to advanced spondylitic changes cervical spine with grade 1 anterolisthesis C3 on C4 measuring 3.8 mm. 2. Disc space narrowing worse at C4-C6 with disc osteophyte complexes. 3. Advanced cervical curve convex RIGHT. 4. Moderate central canal stenosis C4-C5 due to disc osteophyte complex 5. Mild central canal stenosis C5-C6. 6. Multilevel bony foraminal narrowing severe at RIGHT C5-C6 and moderate RIGHT C6-C7. Chest/Abdomen/Pelvis CT 11/27/21 13:25 IMPRESSION: 1. Both lungs are well aerated. No acute pulmonary infiltrates. 2. Trace LEFT pleural fluid. No focal pneumonia. 3. Vascular and coronary calcification. Normal caliber thoracic and abdominal aorta. 4. No drainable fluid collections in the abdomen or pelvis. 5. No hydronephrosis in either kidney. 6. Fat-containing umbilical hernia and fat-containing LEFT inguinal hernia. 7. Wolfe catheter. 8. Rectal constipation. 9. Postoperative changes lower lumbar spine described above. Lumbar Spine CT 11/27/21 13:25 IMPRESSION: Exam is limited by beam hardening artifact from hardware scoliosis and osteopenia. 1. Advanced spondylitic changes lumbar spine with extensive postoperative changes. 2. Pedicle Screw fixation L3-L5 with interbody fusion. 3. Moderate to severe central canal stenosis at L1-L2 due to bony osteophytic ridging with moderate facet arthropathy. 4. Moderate central canal stenosis L2-L3 with impingement on the LEFT subarticular recess. 5. Multilevel bony foraminal narrowing described above. 6. Interbody bony fusion T12-L1 and L1-L2. 7. Grade 1 anterolisthesis L3 on L4 and L4 on L5. 8. No evidence of discitis or osteomyelitis considering limitations. Thoracic Spine CT 11/27/21 13:25 IMPRESSION: 1. Advanced spondylitic changes thoracic spine with moderate thoracic curve and kyphosis. Multilevel degenerative disc disease. 2. Spinal stimulator in the mid dorsal spinal canal. 3. No evidence of discitis or osteomyelitis. 4. No high-grade central canal stenosis. 5. Disc osteophyte complex T9-T10 with mild central canal stenosis and slight indentation on the RIGHT ventricle thoracic cord. 6. Mild central canal stenosis T10-T11 and T11-T12 7. Multilevel bony foraminal narrowing in the lower thoracic spine described above. Laboratory Results WBC 12.1 10^3/uL (4.0-10.0) H 12/01/21 05:30 RBC 5.03 10^6/uL (4.1-5.3) 12/01/21 05:30 Hgb 13.5 g/dL (11.5-15.3) 12/01/21 05:30 Hct 41.7 % (37.0-47.0) 12/01/21 05:30 MCV 82.9 fl (81-99) 12/01/21 05:30 MCH 26.8 pg (28.0-34.0) L 12/01/21 05:30 MCHC 32.4 g/dL (30.0-36.0) 12/01/21 05:30 RDW 15.8 % (12.1-15.1) H 12/01/21 05:30 Plt Count 358 10^3/cmm (130-400) 12/01/21 05:30 MPV 9.1 fL (7.4-10.4) 12/01/21 05:30 Neut % (Auto) 76.6 % 12/01/21 05:30 Lymph % (Auto) 13.3 % 12/01/21 05:30 [place] % (Auto) 6.7 % 12/01/21 05:30 Eos % (Auto) 0.9 % 12/01/21 05:30 Baso % (Auto) 0.3 % 12/01/21 05:30 Neut # (Auto) 9.24 10^3/uL (1.8-7.7) H 12/01/21 05:30 Lymph # (Auto) 1.6 10^3/uL (0.8-4.8) 12/01/21 05:30 [place] # (Auto) 0.8 10^3/uL (0.2-0.9) 12/01/21 05:30 Eos # (Auto) 0.1 10^3/uL (0.0-0.8) 12/01/21 05:30 Baso # (Auto) 0.0 10^3/uL (0.0-0.1) 12/01/21 05:30 Nucleated RBC % (auto) 0 % 12/01/21 05:30 Nucleated RBCs # 0.0 /100WBC 12/01/21 05:30 ESR 71 mm/hr (0-15) H 11/26/21 05:20 PT 16.50 SECONDS (12.1-14.9) H 11/24/21 23:39 INR 1.29 (0.8-1.2) H 11/24/21 23:39 Specimen Type Arterial 11/24/21 23:48 Sample Site Radial, right 11/24/21 23:48 ABG pH 7.45 (7.35-7.45) 11/24/21 23:48 ABG pCO2 36.8 mmHg (35-45) 11/24/21 23:48 ABG pO2 74.3 mmHg (80.0-100.0) L 11/24/21 23:48 ABG HCO3 25.3 mmol/L (22-26) 11/24/21 23:48 ABG Base Excess 1.4 mmol/L (-2.0-2.0) 11/24/21 23:48 David Test Pos 11/24/21 23:48 Hematocrit 39.6 % (37-47) 11/24/21 23:48 O2 Delivery Device Nc 11/24/21 23:48 O2 Liters/Min 3.0 % 11/24/21 23:48 Dough Molder Hand ID Cwalters 11/24/21 23:48 Sodium 132 mmol/L (136-145) L 12/01/21 05:30 Potassium 3.6 mmol/L (3.5-5.1) 12/01/21 05:30 Chloride 93 mmol/L (98-107) L 12/01/21 05:30 Carbon Dioxide 25 mmol/L (22-29) 12/01/21 05:30 Anion Gap 17.6 (5-19) 12/01/21 05:30 BUN 16 mg/dL (8-23) 12/01/21 05:30 Creatinine 0.8 mg/dL (0.5-0.9) 12/01/21 05:30 GFR Calculation Not Reportable 12/01/21 05:30 Glucose 118 mg/dL (65-115) H 12/01/21 05:30 POC Glucose 194 mg/dL (70-110) H 12/01/21 10:49 Calculated Osmolality 276 mOsm/kg (285-295) L 12/01/21 05:30 Lactic Acid 1.1 mmol/L (0.5-2.2) 11/24/21 23:39 Lactate 1.0 mmol/L (0.5-2.2) 11/28/21 05:35 Calcium 9.2 mg/dL (8.5-10.5) 12/01/21 05:30 Phosphorus 3.6 mg/dL (2.5-4.5) 12/01/21 05:30 Magnesium 2.0 mg/dL (1.7-2.3) 12/01/21 05:30 Total Bilirubin 0.4 mg/dL (0.15-1.2) 12/01/21 05:30 AST 15 U/L (0-32) 12/01/21 05:30 ALT 11 U/L (0-33) 12/01/21 05:30 Alkaline Phosphatase 122 IU/L (35-105) H 12/01/21 05:30 Troponin T Baseline 69 ng/L (0-10) H 12/01/21 05:30 Troponin T 120 Minute 69.68 ng/L (0-10) H 12/01/21 07:25 Delta Troponin T 0.68 ABS# (0-10) 12/01/21 07:25 Troponin T Hi Sens 6Hr 63.86 ng/L (0-10) H 12/01/21 11:50 Troponin T Hi Sens 6Hr Delta -5.14 ng/L (0-12) L 12/01/21 11:50 C-Reactive Protein 52.4 mg/L (0.0-4.9) H 12/01/21 05:30 NT-Pro-B Natriuret Pep 2885 pg/mL (0-125) H 11/28/21 05:35 Total Protein 6.7 g/dL (6.6-8.7) 12/01/21 05:30 Albumin 2.7 g/dL (3.5-5.2) L 12/01/21 05:30 Globulin 4.0 g/dL (1.3-4.6) 12/01/21 05:30 Procalcitonin 0.17 ng/mL (0-0.5) 12/01/21 05:30 Procalcitonin Cancelled 12/01/21 05:30 TSH 0.85 uIU/mL (0.27-4.20) 11/25/21 01:50 Urine Color Yellow (Yellow) 11/25/21 00:27 Urine Appearance Cloudy (CLEAR) 11/25/21 00:27 Urine pH 6 (5-7) 11/25/21 00:27 Ur Specific [place] 1.010 (1.005-1.030) 11/25/21 00:27 Urine Protein 2+ (Negative) H 11/25/21 00:27 Urine Glucose (UA) Norm (Normal) 11/25/21 00:27 Urine Ketones 1+ (Negative) H 11/25/21 00:27 Urine Blood 3+ (Negative) H 11/25/21 00:27 Urine Nitrate Positive (Negative) H 11/25/21 00:27 Urine Bilirubin Neg (Negative) 11/25/21 00:27 Urine Urobilinogen Norm mg/dL (Negative) 11/25/21 00:27 Ur Leukocyte Esterase 2+ (Negative) H 11/25/21 00:27 Urine RBC 0-4 /hpf (0-2) H 11/25/21 00:27 Urine WBC Too numerous to cnt /hpf (0-5) H 11/25/21 00:27 Ur Squamous Epith Cells 0-4 /hpf (0-5) H 11/25/21 00:27 Amorphous Sediment Not Reportable 11/25/21 00:27 Urine Bacteria 4+ /hpf (NONE) H 11/25/21 00:27 Ur Random Sodium 57 mmol/L 11/25/21 00:27 Ur Random Potassium 57 mmol/L 11/25/21 00:27 Ur Random Chloride 57 mmol/L 11/25/21 00:27 Vancomycin Trough 13.9 ug/mL (10-15) 11/28/21 20:39 Coronavirus 229E (PCR) Not detected (NOT DETECT) 11/25/21 02:30 SARS-CoV-2 (PCR) Not detected (NOT DETECT) 11/25/21 02:30 SARS-CoV-2 Ag (Rapid) Negative (Negative) 11/25/21 00:28 Vitals Last Vital Signs Temp 99.0 F 12/01/21 11:42 Pulse 73 12/01/21 11:42 Resp 16 12/01/21 11:42 BP 126/71 12/01/21 11:42 Pulse Ox 94 12/01/21 11:42 O2 Del Method 12/01/21 11:42 O2 Flow Rate 2 11/30/21 20:00 Discharge Plan Discharge Patient Disposition: Xfer SNF Condition: Stable Prescriptions: New vancomycin-water inject (PEG) 1.5 gram/300 mL Piggyback 1,500 mg continuous IV infusion Q24H 42 Days Qty: 74342 0RF Continued multivitamin Tablet 1 tab PO DAILY@08 acetaminophen 325 mg Tablet 650 mg PO Q6H PRN (Reason: pain/temp) atorvastatin 20 mg Tablet 30 mg PO DAILY@20 pantoprazole 20 mg tablet,delayed release (DR/EC) 20 mg PO DAILY@08 ropinirole 2 mg tablet 2 mg PO DAILY@08 nystatin [Nyamyc] 100,000 unit/gram powder 1 applic TOPICAL DAILY Rx Instructions: apply to abdominal folds albuterol sulfate 90 mcg/actuation Hfa Aerosol Inhaler 2 puff INHALATION Q4H PRN (Reason: Shortness Of Breath) alum-mag hydroxide-simeth [Almacone-2] 400-400-40 mg/5 mL Suspension 30 ml PO Q24H PRN (Reason: Heartburn) ropinirole 4 mg tablet 4 mg PO DAILY@20 bisacodyl 5 mg Tablet 5 mg PO Q24H PRN (Reason: Constipation) duloxetine 60 mg Capsule,Delayed Release(Dr/Ec) 60 mg PO DAILY@08 Xarelto 10 mg tablet 10 mg PO DAILY@08 Myrbetriq 50 mg tablet extended release 24 hr 50 mg PO DAILY@08 insulin aspart U-100 [Novolog Flexpen U-100 Insulin] 100 unit/mL (3 mL) insulin pen See Rx Instructions .ROUTE .COMPLEX Qty: 15 0RF Rx Instructions: Inject, subcu, 3 times daily, after meals, based on sliding scale metoprolol tartrate 50 mg tablet 75 mg PO BID Qty: 0 0RF Hold Instructions: Resume on 11/24/21. Rx Instructions: hold for sbp <100,dbp <60, or hr<60 alprazolam 0.25 mg Tablet 0.25 mg PO BID PRN (Reason: Anxiety) triamcinolone acetonide 0.1 % Cream 1 applic TOPICAL BID amiodarone [Pacerone] 200 mg Tablet 100 mg PO DAILY 30 Days Qty: 30 0RF amlodipine 10 mg Tablet 10 mg PO DAILY 30 Days Qty: 30 3RF hydralazine 50 mg Tablet 75 mg PO TID 30 Days Qty: 90 3RF spironolactone 25 mg tablet 25 mg PO DAILY 30 Days Qty: 30 0RF Pro-Stat AWC 17-100 gram-kcal/30 mL Liquid 30 ea PO BID Changed bumetanide 1 mg Tablet 1 mg PO DAILY@08 PRN (Reason: Edema) Qty: 1 0RF potassium chloride 20 mEq/15 mL liquid 20 meq PO DAILY Qty: 1 0RF Discontinued oxycodone-acetaminophen 5-325 mg tablet 1 tab PO Q6H PRN (Reason: Pain) gabapentin 100 mg capsule 200 mg PO TID@08,14,20 insulin glargine [Lantus Solostar U-100 Insulin] 100 unit/mL (3 mL) insulin pen 10 unit SUBCUT DAILY@08 diclofenac sodium 1 % Gel See Rx Instructions .ROUTE .COMPLEX Rx Instructions: apply topically to bilateral knee every 8 hours prn pain Discharge Orders: Discharge Order (Routine); Ordered 12/01/21 Ordered By: Teddy Taveras Other Ambulatory Orders: [place] IN-111 WBC scan [id number] (Routine) Timeframe: 3 Days Facility: [facility] - Location: Radiology Ordered By: Teddy Taveras Referrals: [facility] Disease [facility] [Provider Group] - 12/03/21 1:30 pm (MRSA bacteremia [phone]) [facility] [Outside] Rasheeda Hernandez MD [Primary Care Provider] - 4-7 days Discharge Diet: Advance as tolerated and Diabetic Discharge Activity: As per PT/OT instructions Patient Instructions: MRSA (Methicillin-Resistant Staphylococcus Aureus) (GEN), Urinary Tract Infection in Women (GEN), Extended Spectrum Beta-Lactamase (GEN), Bacteremia (GEN), Urinary Tract Infection in Older Adults (GEN), Opioid Safety Activity Restrictions/Additional Instructions: Please recheck vancomycin trough tomorrow. Target vancomycin trough 15-20. If within target, draw every 7 days as long as renal function remained steady. Follow-up with infectious disease regarding MRSA bacteremia of unclear source, spinal hardware. ESBL E. coli in urine. Continue discussions regarding goals of care. Discharge Attestations Time Spent in Discharge Care*: greater than 30 min Quality Metrics Clinical Quality Measures [ No reported AMI, CVA or VTE this stay] Coding Level of Care Code Acute [facility] note Diagnoses MRSA bacteremia R78.81; B95.62 UTI due to extended-spectrum beta lactamase (ESBL) producing Escherichia coli N39.0; B96.29; Z16.12 Sepsis A41.9; R65.20; G93.40 Sepsis type: sepsis due to unspecified organism Sepsis acute organ dysfunction status: with acute organ dysfunction Severe sepsis acute organ dysfunction type: encephalopathy Severe sepsis shock status: without septic shock Altered mental status R41.82 Acute cystitis N30.00 Hyponatremia E87.1
[2021-12-01 16:30] LABS: SARS Covid-2 Antigen Negative (Negative)
[2021-12-01 16:54] LABS: Glucose Point of Care 124 mg/dL (70-110)
--- NOTE | 2021-12-01 18:07 | PC.NURSE ---
Called report to [facility] voice mail to call this nurse back about one of their patients that will be returning to them.
== END 2021-12-01 18:17 | disposition intermediate care facility (04) | DRG 689 ==
LOC: ER 11-25 00:57 → ER IP 11-25 02:32 → MEDSURG 11-25 06:01
PROVIDERS: Family Medicine; Internal Medicine; Admitting Provider Student in an Organized Health Care Education/Training Program; Emergency Provider Emergency Medicine; PCP Family Medicine; Visit Provider Internal Medicine
DX: N30.00 Acute cystitis without hematuria (principal); G93.41 Metabolic encephalopathy; E87.1 Hypo-osmolality and hyponatremia; Z16.12 Extended spectrum beta lactamase (ESBL) resistance; Z68.41 Body mass index [BMI] 40.0-44.9, adult; L97.929 Non-pressure chronic ulcer of unspecified part of left lower leg with unspecified severity; L97.919 Non-pressure chronic ulcer of unspecified part of right lower leg with unspecified severity; R78.81 Bacteremia; B96.20 Unspecified Escherichia coli [E. coli] as the cause of diseases classified elsewhere; B95.62 Methicillin resistant Staphylococcus aureus infection as the cause of diseases classified elsewhere; I34.8 Other nonrheumatic mitral valve disorders; K42.9 Umbilical hernia without obstruction or gangrene; K40.90 Unilateral inguinal hernia, without obstruction or gangrene, not specified as recurrent; K59.00 Constipation, unspecified; R01.1 Cardiac murmur, unspecified; M43.26 Fusion of spine, lumbar region; I50.9 Heart failure, unspecified; I11.0 Hypertensive heart disease with heart failure; E11.9 Type 2 diabetes mellitus without complications; F31.9 Bipolar disorder, unspecified; K21.9 Gastro-esophageal reflux disease without esophagitis; E66.9 Obesity, unspecified; E78.5 Hyperlipidemia, unspecified; Z79.01 Long term (current) use of anticoagulants; Z79.4 Long term (current) use of insulin
CPT/HCPCS: 36415; 36416; 36600; 51702; 70450; 71045; 71250; 72125; 72128; 72131; 74176; 76770; 80048; 80053; 80202; 81001; 82436; 82803; 82962; 83605; 83735; 83880; 84100; 84133; 84145; 84300; 84443; 84484; 85025; 85610; 85651; 86140; 87040; 87077; 87086; 87186; 87205; 87426; 87493; 87635; 92523; 92526; 92610; 93005; 93306; 96372; 96374; 96375; 96376; 99285; J0743; J1815; J1940; J2270; J2543; J3370; J3475; J3480; J7030; J7050

== ENCOUNTER → 2021-12-04 10:03 | Outpatient (BNVA) | payer MEDICARE, MEDICAID, SELFPAY | PROVIDERS: PCP Family Medicine; Visit Provider Internal Medicine Cardiovascular Disease | DX: I11.0 Hypertensive heart disease with heart failure (principal); I50.9 Heart failure, unspecified; R78.81 Bacteremia; B95.62 Methicillin resistant Staphylococcus aureus infection as the cause of diseases classified elsewhere; E87.1 Hypo-osmolality and hyponatremia; N17.9 Acute kidney failure, unspecified; R41.82 Altered mental status, unspecified; J44.9 Chronic obstructive pulmonary disease, unspecified; F03.90 Unspecified dementia, unspecified severity, without behavioral disturbance, psychotic disturbance, mood disturbance, and anxiety; Z86.718 Personal history of other venous thrombosis and embolism; E78.5 Hyperlipidemia, unspecified; I25.2 Old myocardial infarction | CPT/HCPCS: 99213; 99214 ==

== ENCOUNTER 2021-12-07 19:51 | Observation (INO) | payer MEDICARE, MEDICAID, SELFPAY ==
--- NOTE | 2021-12-07 19:54 | W.ED.AMS ---
HPI - Altered Mental Status General: Chief Complaint: Altered Mental Status Stated Complaint: AMS Time Seen by Provider: 12/07/21 19:54 Limitations: altered mental status History of Present Illness: Ms. Webber is a 71-year-old lady with, per chart review, dementia, heart failure, history of CAD/NSTEMI, history of DVT on anticoagulation, history of MRSA bacteremia likely secondary to urinary tract infection discharged from hospital on 12/01 now presenting with altered mental status. She currently resides in a nursing facility and apparently was progressively worsening throughout the day. History is otherwise limited by marked limitation to patient's mental status. Review of Systems General: Reports: ROS unobtainable due to mental status PFSH ED PFSH: Medical History Acute kidney failure Acute non-ST elevation myocardial infarction (NSTEMI) Acute UTI PRINCE (acute kidney injury) Altered mental status Altered mental status Bipolar disorder Cardiac arrest CHF (congestive heart failure) COPD (chronic obstructive pulmonary disease) Deep tissue injury Dementia Depression Diabetes mellitus type 2 in obese DJD (degenerative joint disease) Elevated troponin Fibromyalgia GERD (gastroesophageal reflux disease) Heart murmur History of breast cancer History of DVT (deep vein thrombosis) Hyperlipidemia Hypertension Hypokalemia Metabolic encephalopathy MRSA bacteremia MRSA infection within last 3 months Oliguria Prolonged QT interval Respiratory failure, acute Sepsis Sepsis Skin ulcer Skin ulcer of foot Uncontrolled hypertension UTI (urinary tract infection) UTI (urinary tract infection) UTI due to extended-spectrum beta lactamase (ESBL) producing Escherichia coli Ventilator dependence Ventricular tachyarrhythmia Surgical History History of hysterectomy History of mastectomy Family History Other CAD (coronary artery disease) Diabetes Social History Smoking and tobacco status: never smoked Alcohol intake: never Physical Exam Const: COMMON NORMALS: alert GENERAL APPEARANCE: combative and ill appearing HENMT: COMMON NORMALS: normocephalic and atraumatic HEAD & SCALP: normocephalic and atraumatic Eye: COMMON NORMALS: conjunctivae normal CONJUNCTIVA: Yes conjunctivae normal SCLERA: sclerae normal Neck/C-Spine: COMMON NORMALS: supple GENERAL: Yes trachea midline Resp: COMMON NORMALS: clear to auscultation bilaterally AUSCULTATION: clear to auscultation bilaterally Cardio: COMMON NORMALS: regular rate and regular rhythm RATE: regular rate RHYTHM: regular rhythm GI: COMMON NORMALS: Soft to palpation PALPATION: Yes Soft to palpation, Yes Tenderness to palpation present (GI), No Guarding due to palpation present (GI) and No Rigid due to palpation PERCUSSION: normal to percussion Extremity: GENERAL: Yes normal exam except as noted and No edema Neuro: SENSORIUM/ORIENTATION: Yes alert and Yes Orientation impaired Psych: ATTENTION/CONCENTRATION: Yes attention grossly impaired MEMORY/COGNITION: Yes cognition grossly impaired Skin: NARRATIVE SKIN EXAM: Decubitus ulcer present. Various areas of superficial skin breakdown. More prominent skin ulceration right medial heel. Course ED course: - Patient was seen and evaluated by me at bedside - Patient placed on cardiac monitors, IV access obtained - Initial evaluation notable for exam as above. Patient with grossly impaired mental status. She phonates frequently yelling no but does not follow commands. - Labs personally interpreted by me. EKG shows sinus tachycardia with no STEMI. - Given patient's mental status/agitation level medication ordered - Labs notable for leukocytosis, normal hemoglobin. Metabolic panel with some evidence of dehydration, creatinine elevated from 1 week ago. Lactic acid is elevated. - Fluids and antibiotics given, per discharge summary patient had blisters to Zosyn and was switched to imipenem. I reviewed previous cultures and patient requires vancomycin coverage as well. Urinalysis obtained from swapped Wolfe, 40-55 WBC seen. - Imaging notable for negative head CT and neck CT for acute pathology. CT chest abdomen pelvis notable for chronic findings - Upon serial reexamination after treatment the patient was mildly improved with regards to level of agitation though still significantly altered - Based on patient history, evaluation, and testing as interpreted the most likely cause of the patient's condition is recurrent sepsis with altered mental status - The results of ED evaluation were discussed with the patient including plan for admission due to requirement for level of care not available if discharged to prevent significant worsening/deterioration. - Admitting service was contacted and Dr Do with the hospitalist service agreed to admit the patient - Patient was admitted without further deterioration or significant events. Note: Click bubbles or prepopulated rubio in note writing are used for assistance with data collection and billing and are inherently more limited than narrative and other text portions of this note. Please use narrative for additional clinical history and defer to narrative/free test for any case of contradictory information. If information appears in only free text or click bubble it should be considered present or absent as reported. Please contact note internal communications writer for clarifications of clinical information or contradictory information. MDM is a brief summary, contradictory or erroneous seeming information should be clarified and full note should be reviewed. Vital Signs: Vital signs: Vital Signs Temperature 98.1 F 12/09/21 15:16 Pulse Rate 67 12/09/21 15:16 Respiratory Rate 18 12/09/21 15:16 Blood Pressure 114/63 12/09/21 15:16 Pulse Oximetry 95 12/09/21 15:16 Oxygen Delivery Me thod 12/09/21 15:16 MDM - Altered Mental Status Medical Decision Making 71-year-old lady with complex past medical history presenting with altered mental status. Patient has various laboratory abnormalities and concern for sepsis. Admitted for further management. Medical Records I reviewed the patient's medical records. Lab Data I reviewed the patient's lab results. : 12/09/21 09:00 12/09/21 09:[address] 12/07/21 20:00 IMPRESSION: No acute intracranial abnormality. Cervical Spine CT 12/07/21 20:02 IMPRESSION: 1. Grade 1 anterolisthesis of C3 relative to C4 of 4.2 mm appears chronic and degenerative. 2. Multilevel severe disc space narrowing and productive degenerative changes throughout the spine. Chest/Abdomen/Pelvis CT 12/07/21 20:02 IMPRESSION: 1. Cardiomegaly. 2. Coronary artery atherosclerotic calcifications. 3. Minimal dependent atelectasis. 4. Several chronic left-sided rib fractures. 5. Spinal stimulator. IMPRESSION: 1. Negative for acute inflammatory process in the abdomen or pelvis. 2. Possible ulcer seen in the posterior gluteal region midline, please correlate clinically. 3. Calcified biliary sludge suspected. 4. Umbilical hernia containing omentum without bowel or inflammation. 5. Lumbar spine surgical hardware. 6. Constipation. 7. Diverticulosis without diverticulitis. 8. Several prominent bilateral inguinal lymph nodes measuring up to 13 mm on the right, nonspecific. 9. Wolfe catheter in the urinary bladder with some air presumed iatrogenic. Laboratory Results WBC 14.0 10^3/uL (4.0-10.0) H 12/07/21 20:05 RBC 4.99 10^6/uL (4.1-5.3) 12/07/21 20:05 Hgb 13.3 g/dL (11.5-15.3) 12/07/21 20:05 Hct 42.7 % (37.0-47.0) 12/07/21 20:05 MCV 85.6 fl (81-99) 12/07/21 20:05 MCH 26.7 pg (28.0-34.0) L 12/07/21 20:05 MCHC 31.1 g/dL (30.0-36.0) 12/07/21 20:05 RDW 16.1 % (12.1-15.1) H 12/07/21 20:05 Plt Count 401 10^3/cmm (130-400) H 12/07/21 20:05 MPV 9.2 fL (7.4-10.4) 12/07/21 20:05 Neut % (Auto) 81.6 % 12/07/21 20:05 Lymph % (Auto) 13.3 % 12/07/21 20:05 Waldo % (Auto) 3.9 % 12/07/21 20:05 Eos % (Auto) 0.2 % 12/07/21 20:05 Baso % (Auto) 0.5 % 12/07/21 20:05 Neut # (Auto) 11.45 10^3/uL (1.8-7.7) H 12/07/21 20:05 Lymph # (Auto) 1.9 10^3/uL (0.8-4.8) 12/07/21 20:05 Waldo # (Auto) 0.5 10^3/uL (0.2-0.9) 12/07/21 20:05 Eos # (Auto) 0.0 10^3/uL (0.0-0.8) 12/07/21 20:05 Baso # (Auto) 0.1 10^3/uL (0.0-0.1) 12/07/21 20:05 Nucleated RBC % (auto) 0 % 12/07/21 20:05 Nucleated RBCs # 0.0 /100WBC 12/07/21 20:05 ESR 115 mm/hr (0-15) H 12/07/21 20:05 Specimen Type Arterial 12/07/21 20:21 Sample Site Radial, right 12/07/21 20:21 ABG pH 7.60 (7.35-7.45) H* 12/07/21 20:21 ABG pCO2 20.8 mmHg (35-45) L 12/07/21 20:21 ABG pO2 90.5 mmHg (80.0-100.0) 12/07/21 20:21 ABG HCO3 20.3 mmol/L (22-26) L 12/07/21 20:21 ABG Base Excess 0.6 mmol/L (-2.0-2.0) 12/07/21 20:21 David Test Pos 12/07/21 20:21 Hematocrit 40.2 % (37-47) 12/07/21 20:21 O2 Delivery Device None 12/07/21 20:21 O2 Liters/Min 0.0 % 12/07/21 20:21 FiO2 21.0 % 12/07/21 20:21 Ship Pilot Dispatcher ID [email or web address] 12/07/21 20:21 Sodium 131 mmol/L (136-145) L 12/07/21 20:05 Potassium 5.1 mmol/L (3.5-5.1) 12/07/21 20:05 Chloride 94 mmol/L (98-107) L 12/07/21 20:05 Carbon Dioxide 21 mmol/L (22-29) L 12/07/21 20:05 Anion Gap 21.1 (5-19) H 12/07/21 20:05 BUN 19 mg/dL (8-23) 12/07/21 20:05 Creatinine 1.1 mg/dL (0.5-0.9) H 12/07/21 20:05 GFR Calculation Not Reportable 12/07/21 20:05 Glucose 151 mg/dL (65-115) H 12/07/21 20:05 Calculated Osmolality 277 mOsm/kg (285-295) L 12/07/21 20:05 Lactate 2.5 mmol/L (0.5-2.2) H 12/07/21 20:05 Calcium 10.1 mg/dL (8.5-10.5) 12/07/21 20:05 Magnesium 1.8 mg/dL (1.7-2.3) 12/07/21 20:05 Total Bilirubin 0.5 mg/dL (0.15-1.2) 12/07/21 20:05 AST 14 U/L (0-32) 12/07/21 20:05 ALT 14 U/L (0-33) 12/07/21 20:05 Alkaline Phosphatase 115 IU/L (35-105) H 12/07/21 20:05 Troponin T Baseline 54 ng/L (0-10) H 12/07/21 20:05 C-Reactive Protein 39.5 mg/L (0.0-4.9) H 12/07/21 20:05 NT-Pro-B Natriuret Pep 2014 pg/mL (0-125) H 12/07/21 20:05 Total Protein 8.2 g/dL (6.6-8.7) 12/07/21 20:05 Albumin 3.8 g/dL (3.5-5.2) 12/07/21 20:05 Globulin 4.4 g/dL (1.3-4.6) 12/07/21 20:05 Lipase 38 U/L (13-60) 12/07/21 20:05 Procalcitonin 0.08 ng/mL (0-0.5) 12/07/21 20:05 Procalcitonin 0.09 ng/mL (0-0.5) 12/07/21 20:05 TSH 2.25 uIU/mL (0.27-4.20) 12/07/21 20:05 Urine Color Yellow (Yellow) 12/07/21 20:38 Urine Appearance Clear (CLEAR) 12/07/21 20:38 Urine pH 9 (5-7) H 12/07/21 20:38 Ur Specific Ward 1.015 (1.005-1.030) 12/07/21 20:38 Urine Protein Neg (Negative) 12/07/21 20:38 Urine Glucose (UA) Norm (Normal) 12/07/21 20:38 Urine Ketones Negative (Negative) 12/07/21 20:38 Urine Blood 3+ (Negative) H 12/07/21 20:38 Urine Nitrate Negative (Negative) 12/07/21 20:38 Urine Bilirubin Neg (Negative) 12/07/21 20:38 Prot Sulfosalicylic Acd Negative (Negative) 12/07/21 20:38 Urine Urobilinogen Norm mg/dL (Negative) 12/07/21 20:38 Ur Leukocyte Esterase 1+ (Negative) H 12/07/21 20:38 Urine RBC 0-4 /hpf (0-2) H 12/07/21 20:38 Urine WBC 40-55 /hpf (0-5) H 12/07/21 20:38 Ur Squamous Epith Cells 0-4 /hpf (0-5) H 12/07/21 20:38 Amorphous Sediment Not Reportable 12/07/21 20:38 Urine Bacteria Trace /hpf (NONE) 12/07/21 20:38 SARS-CoV-2 Ag (Rapid) Negative (Negative) 12/07/21 20:20 Critical Care Time Critical Care Time: Critical Care Time: Yes Total Critical Care Time: 35 Attestation: The high probability of a clinically significant, sudden or life threatening deterioration of the patient's infectious and neuro system(s) required my full and direct attention, intervention and personal management. The critical care time is as shown. This time is in addition to time spent performing any reported procedures but includes the following: [x] Data and vital sign review and interpretation [x] Patient assessment, examination and intervention [x] Documentation [x] Medication orders and management Discharge Plan Discharge Patient Disposition: Admitted As Inpatient Admit Provider: Dimitri Do Clinical Impression: Altered mental status, Sepsis, PRINCE (acute kidney injury), Skin ulcer, Skin ulcer of foot, Acute UTI, MRSA infection within last 3 months Condition: Stable Coding Level of Care Code ED Container Filler for Chg Fwd Exam Comprehensive
[2021-12-07 19:58] VITALS: BP 183/102; PULSE 96; RESP 18; TEMP 38.4; O2SAT 98; BMI 29.8
--- NOTE | 2021-12-07 20:00 | CTR_ITS ---
PROCEDURE INFORMATION: Exam: CT Head Without Contrast Exam date and time: 12/07/2021 8:45 PM Age: 71 years old Clinical indication: Altered mental status/memory loss; Additional info: AMS TECHNIQUE: Imaging protocol: Computed tomography of the head without contrast. Radiation optimization: All CT scans at this facility use at least one of these dose optimization techniques: automated exposure control; mA and/or kV adjustment per patient size (includes targeted exams where dose is matched to clinical indication); or iterative reconstruction. COMPARISON: CT head wo con* [id number] 11/25/2021 12:04 AM RADIATION DOSE METRICS: Total DLP (mGy-cm): 593.78 FINDINGS: Brain: Normal. No hemorrhage. Unremarkable white matter. No mass effect. Cerebral ventricles: No ventriculomegaly. Paranasal sinuses: Visualized sinuses are unremarkable. No fluid levels. Mastoid air cells: Visualized mastoid air cells are well aerated. Bones/joints: Unremarkable. No acute fracture. Soft tissues: Unremarkable. CT/CT head wo con* [id number] IMPRESSION: No acute intracranial abnormality.
--- NOTE | 2021-12-07 20:02 | CTR_ITS ---
PROCEDURE INFORMATION: Exam: CT Cervical Spine Without Contrast Exam date and time: 12/07/2021 8:48 PM Age: 71 years old Clinical indication: Pain; Cervicalgia; Additional info: AMS TECHNIQUE: Imaging protocol: Computed tomography of the cervical spine without contrast. Radiation optimization: All CT scans at this facility use at least one of these dose optimization techniques: automated exposure control; mA and/or kV adjustment per patient size (includes targeted exams where dose is matched to clinical indication); or iterative reconstruction. COMPARISON: CT cervical spin wo con* [id number] 11/27/2021 2:26 PM RADIATION DOSE METRICS: Total DLP (mGy-cm): 204.97 FINDINGS: Bones/joints: Grade 1 anterolisthesis of C3 relative to C4 of 4.2 mm appears chronic and degenerative. Multilevel severe disc space narrowing and productive degenerative changes throughout the spine. C2-C3: No significant disc protrusion. No severe spinal canal stenosis. No significant neural foraminal narrowing. C3-C4: No significant disc protrusion. No severe spinal canal stenosis. No significant neural foraminal narrowing. C4-C5: No significant disc protrusion. No severe spinal canal stenosis. No significant neural foraminal narrowing. C5-C6: No significant disc protrusion. No severe spinal canal stenosis. No significant neural foraminal narrowing. C6-C7: No significant disc protrusion. No severe spinal canal stenosis. No significant neural foraminal narrowing. C7-T1: No significant disc protrusion. No severe spinal canal stenosis. No significant neural foraminal narrowing. Lungs: Lung apices are normal. Soft tissues: Unremarkable. CT/CT cervical spin wo con* [id number] IMPRESSION: 1. Grade 1 anterolisthesis of C3 relative to C4 of 4.2 mm appears chronic and degenerative. 2. Multilevel severe disc space narrowing and productive degenerative changes throughout the spine.
--- NOTE | 2021-12-07 20:02 | CTR_ITS ---
PROCEDURE INFORMATION: Exam: CT Chest Without Contrast; Diagnostic Exam date and time: 12/07/2021 8:51 PM Age: 71 years old Clinical indication: Condition or disease; Other: Sepsis, HX of recent hospitaliztion w pressure wounds; Other: HX of recent sepsis; Additional info: AMS, pressure wounds, HX sepsis TECHNIQUE: Imaging protocol: Diagnostic computed tomography of the chest without contrast. Radiation optimization: All CT scans at this facility use at least one of these dose optimization techniques: automated exposure control; mA and/or kV adjustment per patient size (includes targeted exams where dose is matched to clinical indication); or iterative reconstruction. COMPARISON: [place] [id number] 11/27/2021 2:33 PM RADIATION DOSE METRICS: Total DLP (mGy-cm): 1484.12 FINDINGS: Tubes, catheters and devices: Spinal stimulator. Lungs: Minimal dependent atelectasis. Pleural spaces: Unremarkable. No pneumothorax. No pleural effusion. Heart: Cardiomegaly. Coronary artery atherosclerotic calcifications. Lymph nodes: Unremarkable. No enlarged lymph nodes. Vasculature: Unremarkable. No aortic aneurysm. Bones/joints: Several chronic left-sided rib fractures. Soft tissues: Unremarkable. PROCEDURE INFORMATION: Exam: CT Abdomen And Pelvis Without Contrast Exam date and time: 12/07/2021 8:51 PM Age: 71 years old Clinical indication: Condition or disease; Other: Sepsis, HX of recent hospitaliztion w pressure wounds; Other: HX of recent sepsis; Additional info: AMS, pressure wounds, HX sepsis TECHNIQUE: Imaging protocol: Computed tomography of the abdomen and pelvis without contrast. Radiation optimization: All CT scans at this facility use at least one of these dose optimization techniques: automated exposure control; mA and/or kV adjustment per patient size (includes targeted exams where dose is matched to clinical indication); or iterative reconstruction. COMPARISON: [place] [id number] 11/27/2021 2:33 PM RADIATION DOSE METRICS: Total DLP (mGy-cm): 1484.12 FINDINGS: Liver: Normal. No mass. Gallbladder and bile ducts: Calcified biliary sludge suspected. Pancreas: Normal. No ductal dilation. Spleen: Normal. No splenomegaly. Adrenal glands: Normal. No mass. Kidneys and ureters: Normal. No hydronephrosis. Stomach and bowel: Constipation. Diverticulosis without diverticulitis. Appendix: No evidence of appendicitis. Intraperitoneal space: Unremarkable. No free air. No significant fluid collection. Vasculature: Unremarkable. No abdominal aortic aneurysm. Lymph nodes: Several prominent bilateral inguinal lymph nodes measuring up to 13 mm on the right, nonspecific. Urinary bladder: Wolfe catheter in the urinary bladder with some air presumed iatrogenic. Reproductive: Unremarkable as visualized. Bones/joints: Lumbar spine surgical hardware. Soft tissues: Possible ulcer seen in the posterior gluteal region midline, please correlate clinically. Umbilical hernia containing omentum without bowel or inflammation. Left inguinal hernia containing omentum without bowel or inflammation. [place] [id number] IMPRESSION: 1. Cardiomegaly. 2. Coronary artery atherosclerotic calcifications. 3. Minimal dependent atelectasis. 4. Several chronic left-sided rib fractures. 5. Spinal stimulator. IMPRESSION: 1. Negative for acute inflammatory process in the abdomen or pelvis. 2. Possible ulcer seen in the posterior gluteal region midline, please correlate clinically. 3. Calcified biliary sludge suspected. 4. Umbilical hernia containing omentum without bowel or inflammation. 5. Lumbar spine surgical hardware. 6. Constipation. 7. Diverticulosis without diverticulitis. 8. Several prominent bilateral inguinal lymph nodes measuring up to 13 mm on the right, nonspecific. 9. Wolfe catheter in the urinary bladder with some air presumed iatrogenic.
[2021-12-07 20:11] LABS: Basophils # 0.1 10^3/uL (0.0-0.1); Basophils % 0.5 %; Eosinophils % 0.2 %; Hematocrit 42.7 % (37.0-47.0); Hemoglobin 13.3 g/dL (11.5-15.3); Lymphocytes # 1.9 10^3/uL (0.8-4.8); Lymphocytes % 13.3 %; Mean Corpuscular HGB Conc 31.1 g/dL (30.0-36.0); Mean Corpuscular Hemoglobin 26.7 pg (28.0-34.0); Mean Corpuscular Volume 85.6 fl (81-99); Mean Platelet Volume 9.2 fL (7.4-10.4); Monocytes # 0.5 10^3/uL (0.2-0.9); Monocytes % 3.9 %; Neutrophils # 11.45 10^3/uL (1.8-7.7); Neutrophils % 81.6 %; Nucleated Red Blood Cells % 0 %; Platelet Count 401 10^3/cmm (130-400); Red Blood Count 4.99 10^6/uL (4.1-5.3); Red Cell Distribution Width 16.1 % (12.1-15.1)
[2021-12-07 20:28] LABS: Lactate (Lactic Acid level) 2.5 mmol/L (0.5-2.2)
[2021-12-07 20:30] LABS: ABG PCO2 20.8 mmHg (35-45); Arterial Blood Gas Hematocrit 40.2 % (37-47); Base Excess ABG 0.6 mmol/L (-2.0-2.0); Blood Gas Allen Test Pos; Blood Gas Sample Site Radial, right; Blood Gas Sample Type Arterial; HCO3 ABG 20.3 mmol/L (22-26); PO2 ABG 90.5 mmHg (80.0-100.0)
[2021-12-07] MEDS: fentaNYL 50 mcg/mL INJ 2mL 25 MCG IVP (20:37)
[2021-12-07] MEDS: haloperidol inj 5 mg/mL INJ 1 mL 2 MG IVP (20:37)
[2021-12-07 20:40] LABS: Troponin(5th) Baseline 54 ng/L (0-10)
[2021-12-07 20:47] LABS: NT Pro B Type Natriuretic Pept 2014 pg/mL (0-125); Procalcitonin 0.09 ng/mL (0-0.5); Thyroid Stimulating Hormone 2.25 uIU/mL (0.27-4.20)
[2021-12-07 20:49] LABS: Add Urine Culture? Yes; Add Urine Microscopic? YES; Bacteria Urine TRACE /hpf; Bilirubin Urine Neg (Negative); Blood Urine 3+ (Negative); Glucose Urine UA Norm (Normal); Ketones Urine Negative (Negative); Leukocyte Esterase Urine 1+ (Negative); Nitrate Urine Negative (Negative); Protein Urine Neg (Negative); RBC Urine 0-4 /hpf (0-2); Specific Gravity, Urine 1.015 (1.005-1.030); Squamous Epithelial Cell Urine 0-4 /hpf (0-5); Sulfosalicylic Acid Urine Negative (Negative); Urine Appearance Clear (CLEAR); Urine Color Yellow (Yellow); Urobilinogen Urine Norm (Negative); WBC Urine 40-55 /hpf (0-5); pH Urine 9 (5-7)
[2021-12-07 20:59] LABS: Alanine Aminotransferase 14 U/L (0-33); Albumin Level 3.8 g/dL (3.5-5.2); Alkaline Phosphatase 115 IU/L (35-105); Anion Gap 21.1 (5-19); Aspartate Amino Transferase 14 U/L (0-32); Blood Urea Nitrogen 19 mg/dL (8-23); C Reactive Protein 39.5 mg/L (0.0-4.9); Calcium 10.1 mg/dL (8.5-10.5); Carbon Dioxide 21 mmol/L (22-29); Chloride 94 mmol/L (98-107); Creatinine Clr Calc Pharmacy 49.7205; Globulin 4.4 g/dL (1.3-4.6); Glucose 151 mg/dL (65-115); Lipase 38 U/L (13-60); Magnesium 1.8 mg/dL (1.7-2.3); Osmolality Calculated 277 mOsm/kg (285-295); Potassium 5.1 mmol/L (3.5-5.1); Sodium 131 mmol/L (136-145); Total Bilirubin 0.5 mg/dL (0.15-1.2); Total Protein 8.2 g/dL (6.6-8.7)
[2021-12-07] MEDS: acetaminophen 1,000 MG/100 ML PIGGYBACK 400 MG IV (21:04)
[2021-12-07 21:07] LABS: SARS Covid-2 Antigen Negative (Negative)
--- NOTE | 2021-12-07 22:01 | ECG_ITS ---
[facility] Test Date: 2021-12-07 Pat Name: Fany Webber Department: Room: 257 Gender: Female Telephone Station Installer: : 1950 Requested By: Russell Cox Order Number: [id number] Moshe MD: Donta Ambrocio M.D. Measurements Intervals [place] Rate: 102 P: 50 [place]: 134 QRS: -24 QRSD: 113 T: 61 QT: 373 QTc: 486 Interpretive Statements SINUS TACHYCARDIA PROBABLE LATERAL MYOCARDIAL INFARCTION , OF INDETERMINATE AGE [35 ms Q WAVE IN I/aVL/V5/V6] Compared to ECG 12/01/2021 04:16:39 Myocardial infarct finding now present Sinus rhythm no longer present Left-axis deviation no longer present Electronically Signed On 12-08-2021 19:03:13 CDT by Donta Ambrocio M.D. [id number]
[2021-12-07 22:05] VITALS: BP 186/100; PULSE 87; RESP 16; O2SAT 96
[2021-12-07 22:05] LABS: Glucose Point of Care 126 mg/dL (70-110)
--- NOTE | 2021-12-07 22:13 | P.HP_ITS ---
Providers/Chief Complaint Admitting Physician: Dimitri Do MD Primary Care Provider: Rasheeda Hernandez MD Chief Complaint: AMS History of Present Illness Fany Webber is a 71 year old female with a past medical history of atrial fibrillation on Xarelto, breast cancer, insulin-dependent type 2 diabetes mellitus, hypertension, hyperlipidemia, diastolic CHF, dementia, who presents [facility] due to altered mental status. Currently patient is alert to person, not to place, not to time, she does awaken to sternal rub, but falls back asleep. She is received Haldol, fentanyl currently in the emergency room, she is hypertensive, saturating in the high 90s on 2 L, temperature 101.2, pulse 87, respiratory rate 16. Patient was recently discharged from [facility] for MRSA bacteremia, etiology unknown, but possible sources of infection was endocarditis versus infected spinal hardware, patient did not want further work-up, she also declined PICC line placement for IV antibiotics, she was discharged on Zyvox. She also had ESBL UTI. Work-up in the emergency room shows white blood cell count 14, lactic acid 2.5, creatinine 1.1, blood sugar 151, Pro-Dwayne 0.09. UA with evidence of UTI. COVID-negative. [place] CT scan no acute findings Review of Systems General: Reports: ROS unobtainable due to mental status Medications/Allergies Home Medications Medication Instructions Recorded Confirmed Last Taken Type acetaminophen 325 mg tablet 650 mg PO Q6H PRN pain/temp 08/24/21 12/04/21 Unknown History albuterol sulfate 90 mcg/actuation 2 puff inhalation Q4H PRN 08/24/21 11/25/21 Unknown History aerosol inhaler Shortness Of Breath aluminum-mag hydroxide-simethicone 30 ml PO Q24H PRN Heartburn 08/24/21 12/04/21 Unknown History 400 mg-400 mg-40 mg/5 mL oral susp (Almacone-2) atorvastatin 20 mg tablet 30 mg PO DAILY@20 08/24/21 12/04/21 11/24/21 History bisacodyl 5 mg tablet 5 mg PO Q24H PRN Constipation 08/24/21 12/04/21 Unknown History duloxetine 60 mg capsule,delayed 60 mg PO DAILY@08 08/24/21 12/04/21 11/24/21 History release mirabegron 50 mg tablet,extended 50 mg PO DAILY@08 08/24/21 12/04/21 11/24/21 History release 24 hr (Myrbetriq) multivitamin 1 tab PO DAILY@08/24/21 12/04/21 11/24/21 History nystatin 100,000 unit/gram topical 1 applic topical DAILY 08/24/21 12/04/21 11/24/21 History powder (Nyamyc) pantoprazole 20 mg tablet,delayed 20 mg PO DAILY@08/24/21 12/04/21 11/24/21 History release rivaroxaban 10 mg tablet (Xarelto) 10 mg PO DAILY@08/24/21 12/04/21 11/24/21 History ropinirole 2 mg tablet 2 mg PO DAILY@08/24/21 12/04/21 11/24/21 History ropinirole 4 mg tablet 4 mg PO DAILY@08/24/21 12/04/21 11/24/21 History insulin aspart U-100 100 unit/mL See Rx Instructions .Route 08/31/21 12/04/21 11/24/21 Rx (3 mL) subcutaneous pen (Novolog .COMPLEX #15 mL Flexpen U-100 Insulin aspart) metoprolol tartrate 50 mg tablet 75 mg PO BID #0 tabs 08/31/21 12/04/21 11/24/21 Rx alprazolam 0.25 mg tablet 0.25 mg PO BID PRN Anxiety 10/24/21 12/04/21 Unknown History triamcinolone acetonide 0.1 % 1 applic topical BID 10/24/21 12/04/21 11/24/21 History topical cream amlodipine 10 mg tablet 10 mg PO DAILY 30 days #30 tabs 11/03/21 12/04/21 11/24/21 Rx hydralazine 50 mg tablet 75 mg PO TID 30 days #90 tabs 11/03/21 12/04/21 11/24/21 Rx amino acids-protein hydrolysate 17 30 ea PO BID 11/25/21 11/25/21 11/24/21 History gram-100 kcal/30 mL oral liquid (Pro-Stat AWC) bumetanide 1 mg tablet 1 mg PO DAILY@08 PRN Edema #1 tab 08/06/2312/04/21 11/24/21 Rx linezolid 600 mg tablet 600 mg PO BID 6 weeks #84 tabs 12/01/21 12/04/21 Unknown Rx potassium chloride 20 mEq/15 mL 20 meq (15 mL) PO DAILY #1 mL 12/01/21 12/04/21 11/24/21 Rx oral liquid amiodarone 100 mg tablet tab PO 12/04/21 12/04/21 Unknown History spironolactone 25 mg tablet tab PO 12/04/21 12/04/21 Unknown History Allergies Allergy/AdvReac Type Severity Reaction Status Date / Time levofloxacin [From Levaquin] Allergy Unknown Verified 12/04/21 08:03 PFSH Acute PFSH: Medical History Acute kidney failure Acute non-ST elevation myocardial infarction (NSTEMI) Altered mental status Bipolar disorder Cardiac arrest CHF (congestive heart failure) COPD (chronic obstructive pulmonary disease) Deep tissue injury Dementia Depression Diabetes mellitus type 2 in obese DJD (degenerative joint disease) Elevated troponin Fibromyalgia GERD (gastroesophageal reflux disease) Heart murmur History of breast cancer History of DVT (deep vein thrombosis) Hyperlipidemia Hypertension Hypokalemia Oliguria Prolonged QT interval Respiratory failure, acute Sepsis Uncontrolled hypertension UTI (urinary tract infection) UTI due to extended-spectrum beta lactamase (ESBL) producing Escherichia coli Ventilator dependence Ventricular tachyarrhythmia Surgical History History of hysterectomy History of mastectomy Family History Other CAD (coronary artery disease) Diabetes Social History Smoking and tobacco status: never smoked Alcohol intake: never Vitals/I&O/Wt Last Vital Signs Temp 101.2 F H 12/07/21 19:58 Pulse 87 12/07/21 22:05 Resp 16 12/07/21 22:05 BP 186/100 12/07/21 22:05 Pulse Ox 96 12/07/21 22:05 O2 Del Method 12/07/21 19:58 12/07/21 12/07/21 12/07/21 06:59 14:59 22:59 Intake Total 100 / 100 Balance 100 / 100 Weight last 48 hrs Weight 83.915 kg Physical Exam Const: COMMON NORMALS: no acute distress HENMT: COMMON NORMALS: normocephalic HEAD & SCALP: normocephalic Eye: COMMON NORMALS: Equal, round and reactive pupils present and EOMs intact bilaterally Lymph: LYMPHATIC: no lymphadenopathy noted Resp: COMMON NORMALS: normal respiratory effort, No retractions, No use of accessory muscles and clear to auscultation bilaterally AUSCULTATION: clear to auscultation bilaterally Cardio: COMMON NORMALS: regular rate, regular rhythm, S1 normal heart sound present and S2 normal heart sound present RATE: regular rate RHYTHM: r egular rhythm HEART SOUNDS: S1 normal heart sound present and S2 normal heart sound present GI: COMMON NORMALS: Normal to inspection, nondistended, normoactive bowel sounds present, Soft to palpation, non-tender, No hepatosplenomegaly present, no masses and no bruits PALPATION: Yes Soft to palpation and Yes No hepatosplenomegaly present Neuro: OTHER: Does not follow neurologic testing, awakens to her name, awakens to sternal rub, but falls back asleep, cannot do neurologic testing Skin: NARRATIVE SKIN EXAM: 1+ pitting edema bilateral lower extremity Urinary Catheter Management: Wolfe: Cath Placed During This Visit: yes Urinary Catheter Date of Insertion: 12/07/21 Urinary Catheter Time of Insertion: 20:15 Data : 12/07/21 20:05 12/07/21 20:05 Micro: Microbiology 12/07/21 21:44 Blood Culture - Preliminary Blood SPECIMEN COLLECTED 12/07/21 21:47 Blood Culture - Preliminary Blood SPECIMEN COLLECTED A&P Assessment and plan (1) Sepsis: Status: Acute (2) PRINCE (acute kidney injury): Status: Acute (3) Altered mental status: Status: Acute (4) MRSA bacteremia: Status: Acute (5) UTI (urinary tract infection): Status: Acute Plan Altered mental status -History of MRSA bacteremia, etiology unclear -Sources of infection could be endocarditis versus infected spinal hardware -Patient declined further testing, declined transesophageal echocardiogram -Patient declined PICC line placement, discharged on Zyvox -Transthoracic echo ?Normal left ventricular size, systolic function and wall ?thickness, with no regional wall motion abnormalities. Grade ?I/IV diastolic dysfunction (abnormal relaxation filling ?pattern), normal to mildly elevated filling pressures. Left ?ventricular ejection fraction is estimated at 60 %. ?Structurally normal mitral valve. Mild mitral annular ?calcification.? The annular calcification is especially ?prominent in the posterior leaflet.? In this area there is, just ?in 1 view, a portion of the mitral valve leaflet which looks ?mildly suspicious for vegetation.? This is difficult given the ?lack of clarity and the calcified mitral valve.? This does not ?perfectly fit the criteria for vegetation but is mildly ?suspicious.? If there is high enough clinical suspicion for ?endocarditis, transesophageal echo should be considered. -CT scan of spine CT lumbar spine lumbar curve. Extensive postoperative changes pedicle screw fixation L3-L5. Interbody bony fusion. Slight anterolisthesis L3 on L4 and L4 on L5. Interbody bony fusion at T12-L1 and L1-L2. Dorsal spinal stimulator ascends cephalad off the [id number]. Laminectomy defects in the lower lumbar spine. Hardware degrades images with beam hardening artifact L1-L2: Disc osteophyte complex with endplate ridging. Prior interbody fusion at this level. Moderate to severe central canal stenosis at this level due to osteophytic ridging combination with facet arthropathy. Moderate bilateral bony foraminal narrowing. L2-L3: Moderate central canal stenosis with slight retrolisthesis. Disc osteophyte complex. Impingement on the LEFT subarticular recess. Dorsal laminectomy defects. Moderate bilateral bony foraminal narrowing. L3-L4: Pedicle screw fixation. Mild residual central canal stenosis. Laminectomy defects. Moderate LEFT foraminal narrowing. L4-L5: Pedicle screw fixation with laminectomy defects. Spinal canal is patent. Moderate LEFT greater than RIGHT bony foraminal narrowing. 1.? Advanced spondylitic changes thoracic spine with moderate thoracic curve and kyphosis. Multilevel degenerative disc disease. 2.? Spinal stimulator in the mid dorsal spinal canal. 3.? No evidence of discitis or osteomyelitis. 4.? No high-grade central canal stenosis. 5.? Disc osteophyte complex T9-T10 with mild central canal stenosis and slight indentation on the RIGHT ventricle thoracic cord. 6.? Mild central canal stenosis T10-T11 and T11-T12 7.? Multilevel bony foraminal narrowing in the lower thoracic spine described above. L5-S1: Pedicle screw fixation. Disc osteophytic ridging eccentric to the LEFT. Slight impingement LEFT S1 nerve root. Laminectomy defects. Moderate facet arthropathy. Moderate RIGHT and mild LEFT foraminal narrowing. -ESR during last hospitalization was 71 Plan -Monitor mentation -Keep n.p.o. -IV vancomycin -IV Primaxin -Follow blood cultures, urine cultures -Once her mentation improves we will have to discuss with her goals of care -Discuss considering hospice versus IV antibiotics versus further work-up -Full code, once mentation improves can clarify goals of care, CODE STATUS -Xarelto for DVT prophylaxis Concerns for UTI, history of ESBL E. coli UTI continue Primaxin Type 2 diabetes mellitus, low-dose sliding scale Hypertension, continue home medications Hyponatremia, acute on chronic, monitor Diastolic CHF has 1+ pitting edema, continue home medications Attestations Medical Necessity Statement*: Patient requires hospitalization, inpatient, greater than 2 midnights, for altered mental status, concerning for MRSA bacteremia, ESBL E. coli UTI, sepsis, PRINCE Coding Level of Care Code Acute Vice President [employer] for [facility] Fwd Diagnoses Sepsis A41.9 PRINCE (acute kidney injury) N17.9 Altered mental status R41.82 MRSA bacteremia R78.81; B95.62 UTI (urinary tract infection) N39.0
[2021-12-07 22:24] VITALS: BP 186/100; PULSE 87; RESP 16; O2SAT 96
[2021-12-07 22:25] LABS: Troponin 5 2HR 57.68 ng/L (0-10)
[2021-12-07 22:27] LABS: Troponin 5 2HR Delta 3.68 ABS# (0-10)
[2021-12-07 22:38] LABS: Procalcitonin 0.08 ng/mL (0-0.5)
[2021-12-07 22:55] VITALS: PULSE 92
[2021-12-07 23:22] VITALS: O2SAT 96
[2021-12-08] VITALS (8 sets, daily range): BP systolic 110–174; BP diastolic 68–83; PULSE 59–115; RESP 16–18; TEMP 36.6–37.1; O2SAT 93–96; BMI 31.8
[2021-12-08 00:13] LABS: Erythrocyte Sedimentation Rate 115 mm/hr (0-15)
--- NOTE | 2021-12-08 00:21 | PC.PHAR ---
Pharmacokinetic dosing service Date: 12/08/21 Time: 29 Objective: Patient: Fany Webber Floor: 257-1 Age: 71 yo Serum creatinine: 1.1 mg/dL Height: 66.0 Inches Weight (kg): 83.915 Diagnosis: Relevant medical/social history: Cultures and sensitivities: Other labs: Assessment: IBW (kg): 59.30 Dosing wt(kg): 83.915 Estimated Creatinine clearance (ml/min): 42.6 CRCL method: Cockcroft and Gault using ibw(default). Drug selected: Vancomycin Loading dose (mg): 0 Vd (liters): 75.5 (factor used: 0.9 L/kg) Silvino (hr-1): 0.040 Half life (hrs): 17.33 Recommended dose: 1500 mg Interval: 24 hrs Infusion time (hrs): 1.5 Predicted peak (mcg/mL): 31.2 Predicted trough (mcg/mL): 12.68 Total body weight is being used for vancomycin dosing. Renal function is stable [ ] /unstable [ ] Recommendations: Give Vancomycin 1500 mg q 24 hrs with an expected Cpeak of 31.2 mcg/ml and an expected Ctrough of 12.68 mcg/ml Renal dosing of other antibiotics (review renal dosing of other medications and list guidelines here): Thank you for the consult, will continue to follow. Signature: Jelena Lan [facility]
[2021-12-08] MEDS: pantoprazole 40 mg SDV IVP ×2 (01:43→23:07)
[2021-12-08 01:52] LABS: Glucose Point of Care 127 mg/dL (70-110)
--- NOTE | 2021-12-08 02:01 | ECG_ITS ---
[facility] Test Date: 2021-12-07 Pat Name: Fany Webber Department: Room: 257 Gender: Female Warning Analyst: : 1950 Requested By: Russell Cox Order Number: [id number] Moshe MD: Donta Ambrocio M.D. Measurements Intervals [place] Rate: 100 P: 56 NE: 178 QRS: -14 QRSD: 102 T: 61 QT: 366 QTc: 473 Interpretive Statements SINUS TACHYCARDIA ABNORMAL RHYTHM ECG Compared to ECG 12/07/2021 22:31:23 Myocardial infarct finding no longer present Electronically Signed On 12-08-2021 19:02:58 CDT by Donta Ambrocio M.D. [email or web address] rehabilitation [email or web address] defiance [id number] f
[2021-12-08] MEDS: acetaminophen 325 mg Tablet 650 MG PO ×2 (04:29→17:59)
[2021-12-08 04:34] LABS: Basophils # 0.1 10^3/uL (0.0-0.1); Basophils % 0.7 %; Eosinophils % 0.4 %; Hematocrit 40.3 % (37.0-47.0); Hemoglobin 12.5 g/dL (11.5-15.3); Lymphocytes # 2.1 10^3/uL (0.8-4.8); Lymphocytes % 18.9 %; Mean Platelet Volume 9.2 fL (7.4-10.4); Monocytes # 0.6 10^3/uL (0.2-0.9); Monocytes % 5.7 %; Neutrophils # 8.01 10^3/uL (1.8-7.7); Nucleated Red Blood Cells % 0 %; Platelet Count 337 10^3/cmm (130-400); Red Blood Count 4.63 10^6/uL (4.1-5.3); Red Cell Distribution Width 16.1 % (12.1-15.1); White Blood Count 10.8 10^3/uL (4.0-10.0)
[2021-12-08 04:57] LABS: Lactic Sepsis W/Reflex 0.9 mmol/L (0.5-2.2)
[2021-12-08 04:59] LABS: Troponin 5 6HR 72.71 ng/L (0-10)
[2021-12-08 05:04] LABS: Alanine Aminotransferase 12 U/L (0-33); Albumin Level 3.5 g/dL (3.5-5.2); Alkaline Phosphatase 103 IU/L (35-105); Anion Gap 19.9 (5-19); Aspartate Amino Transferase 14 U/L (0-32); Blood Urea Nitrogen 15 mg/dL (8-23); C Reactive Protein 40.6 mg/L (0.0-4.9); Calcium 9.6 mg/dL (8.5-10.5); Carbon Dioxide 20 mmol/L (22-29); Chloride 97 mmol/L (98-107); Glucose 131 mg/dL (65-115); Magnesium 1.8 mg/dL (1.7-2.3); NT Pro B Type Natriuretic Pept 2943 pg/mL (0-125); Osmolality Calculated 279 mOsm/kg (285-295); Potassium 3.9 mmol/L (3.5-5.1); Sodium 133 mmol/L (136-145); Total Bilirubin 0.5 mg/dL (0.15-1.2); Total Protein 7.5 g/dL (6.6-8.7)
[2021-12-08 05:12] LABS: Troponin 5 6HR Delta 18.71 ng/L (0-12)
[2021-12-08 06:22] LABS: Glucose Point of Care 139 mg/dL (70-110)
[2021-12-08] MEDS: amlodipine 10 mg Tablet PO (08:36)
[2021-12-08] MEDS: rivaroxaban 10 mg Tablet PO (08:37)
[2021-12-08] MEDS: spironolactone 25 mg Tablet PO (08:37)
[2021-12-08] MEDS: ropinirole 2 mg Tablet PO (08:38)
[2021-12-08] MEDS: hyDRALAzine 50 mg Tablet 75 MG PO ×3 (08:44→22:03)
[2021-12-08] MEDS: metoprolol tartrate 50 mg Tablet 75 MG PO ×2 (08:45→17:59)
[2021-12-08] MEDS: amiodarone 200 mg Tablet 100 MG PO (08:45)
--- NOTE | 2021-12-08 10:06 | PC.CHAP ---
Pastoral Care Encounter/Spiritual Assessment Type of Contact [] Declined human resources support specialist visit [] Patient/Family/Request visit [] Outpatient visit [] Follow-up visit [] Physician referral [] Code/Alert [x] Routine visit [] Staff referral [] Actively dying [] Patient sleeping [] Family support [] [] Out of room [] Palliative care [] [x] Receiving care in room [] Pre-surgical visit [] Trauma [] Long length of stay [] ICU visit [] Other: Relational/Emotional Strength [] Patient feels connected with others/family/visitors/staff [] Distress [] Loneliness/isolation [] Abandonment Spirituality of Patient [] Person of Lindsey [] Attends Catholic of their [place] [] Believes in Prayer [] Reads Bible or Quaker materials [] There are Spiritual issues to be addressed Supervisor [employer] Interventions [] Prayer [] Active listening [] Non-anxious presence [] Spiritual/emotional support [] Crisis/trauma care [] Spiritual counseling [] Bereavement support [] Provided bereavement packet [] Provided Bible/devotional materials [] Provided toy/stuffed animal, coloring book to patient or family member [] Provided Communion [] Anointing/[place]ph[place] [] Salvation [] Completed spiritual assessment [] Other: Impact on Illness or Injury [] Angry [] Fearful [] Anxious [] Often cries [] Exhaustion [] Unable to work [] Unable to attend mosque [] Unable to walk/stand [] Unable to read [] Unable to drive [] Unable to eat/drink [] Unable to sleep [] Unable to be with family [] Patient intubated [] Other: Summary Time spent with patient
--- NOTE | 2021-12-08 10:21 | PC.PHAR ---
Addendum entered by Janey Bronson 12/08/21 11:20: attempted to call [facility] at [phone] - no answer - will try again to reach Original Note: attempted to reach [facility] twice at [phone] with no answer
[2021-12-08 10:53] LABS: Glucose Point of Care 129 mg/dL (70-110)
--- NOTE | 2021-12-08 11:37 | PM.PN ---
Subjective Subjective: is at the bedside Patient is able to tell me her name, as per the she is back to her baseline Patient is oriented to herself She is holding her 's hand and casing his hands repeatedly She is not complaining of any active tl pain chest pain or shortness of breath As per the she does not ambulate, she is wheelchair-bound She has venous stasis ulcers Cultures negative to date, no significant leukocytosis, she had 1 episode of febrile episode last night Abnormal UA history of ESBL UTI Vitals/I&O/Wt Last Vital Signs Temp 98.7 F 12/08/21 04:00 Pulse 78 12/08/21 08:29 Resp 18 12/08/21 04:00 BP 156/83 12/08/21 04:00 Pulse Ox 94 12/08/21 08:29 O2 Del Method 12/08/21 08:29 12/07/21 12/08/21 12/08/21 22:59 06:59 14:59 Intake Total 200 / 200 2439 / 2639 100 / 100 Output Total 1200 / 1200 Balance 200 / 200 1239 / 1439 100 / 100 Weight last 48 hrs Weight 89.358 kg Weight 83.915 kg Physical Exam Narrative: Patient is awake and alert Oriented to herself at the bedside is stating she is back to her baseline I do not appreciate any strokelike features She is on room air Looks euvolemic Venous dermatitis with healing ulcer No active cellulitis Heel pressure ulcer Nontender abdomen however distended No audible stridor or wheezing Urinary Catheter Management: Wolfe: Cath Placed During This Visit: yes Reason for Continuing Indwelling Catheter: Chronic Indwelling Urinary Catheter on Admission Urinary Catheter Date of Insertion: 12/07/21 Urinary Catheter Time of Insertion: 20:15 Data : 12/08/21 04:20 12/08/21 04:20 Micro: Microbiology 12/07/21 21:44 Blood Culture - Preliminary Blood SPECIMEN COLLECTED 12/07/21 21:47 Blood Culture - Preliminary Blood SPECIMEN COLLECTED A&P Assessment and plan (1) UTI (urinary tract infection): Status: Acute (2) Altered mental status: Status: Acute (3) Skin ulcer of foot: Status: Acute (4) Acute UTI: Status: Acute (5) MRSA infection within last 3 months: Status: Acute (6) Hypertension: Status: Acute (7) History of DVT (deep vein thrombosis): Status: Acute (8) Dementia: Status: Acute (9) COPD (chronic obstructive pulmonary disease): Status: Acute (10) Metabolic encephalopathy: Status: Acute Plan Metabolic encephalopathy related to UTI Acute delirium with underlying dementia related to UTI Encephalopathy: Resolved She is back to her baseline as per her no strokelike features History of ESBL UTI Abnormal UA Continue antibiotics Febrile event noted She is not septic History of MRSA bacteremia, cultures negative to date, febrile event noted EF 60%, she was discharged on Zyvox as she refused PICC line Sedentary lifestyle Pressure ulcer of lower extremity venous stasis dermatitis, venous ulcer with good granulation tissue no active signs of infection Will examine her back with the help of nurse Diastolic congestive heart failure without acute exacerbation, continue Bumex 1 mg daily DNR/DNI A. fib continue amiodarone, history of DVT continue Xarelto I will put her on GI soft diet Attestations Medical Necessity Statement*: Continue medical management Time Spent in Patient Care: 35 Coding Level of Care Code Acute Software Database Architect for [facility] Diagnoses UTI (urinary tract infection) N39.0 Altered mental status R41.82 Skin ulcer of foot L97.509 Acute UTI N39.0 MRSA infection within last 3 months Z86.14 Hypertension I10 History of DVT (deep vein thrombosis) Z86.718 Dementia F03.90 COPD (chronic obstructive pulmonary disease) J44.9 Metabolic encephalopathy G93.41
[2021-12-08 16:51] LABS: Glucose Point of Care 130 mg/dL (70-110)
[2021-12-08 18:13] LABS: SARS Covid-2 Antigen Negative (Negative)
[2021-12-08] MEDS: ropinirole 2 mg Tablet 4 MG PO (22:04)
[2021-12-08] MEDS: atorvastatin 40 mg Tablet 30 MG PO (22:06)
[2021-12-08] MEDS: vancomycin 1,500 MG/300 ML PIGGYBACK 200 MG IV (23:08)
[2021-12-08 23:38] LABS: Glucose Point of Care 135 mg/dL (70-110)
[2021-12-09] VITALS (8 sets, daily range): BP systolic 114–169; BP diastolic 63–90; PULSE 59–75; RESP 14–18; TEMP 36.6–37; O2SAT 94–100
--- NOTE | 2021-12-09 04:25 | NUR.SHIFT ---
Patient in bed resting, at beginning of shift she was restless and when I came in to access her she was sideways across the bed, the nurses aide and I straightened her out and she had no needs at assessment, bed is locked and low with the call light on. call light is in reach
[2021-12-09 06:21] LABS: Glucose Point of Care 110 mg/dL (70-110)
[2021-12-09] MEDS: spironolactone 25 mg Tablet PO (08:28)
[2021-12-09] MEDS: amiodarone 200 mg Tablet 100 MG PO (08:29)
[2021-12-09] MEDS: ropinirole 2 mg Tablet PO (08:30)
[2021-12-09] MEDS: metoprolol tartrate 50 mg Tablet 75 MG PO (08:30)
[2021-12-09] MEDS: rivaroxaban 10 mg Tablet PO (08:31)
[2021-12-09] MEDS: amlodipine 10 mg Tablet PO (08:31)
[2021-12-09] MEDS: hyDRALAzine 50 mg Tablet 75 MG PO (08:31)
[2021-12-09 09:11] LABS: Basophils # 0.1 10^3/uL (0.0-0.1); Eosinophils # 0.3 10^3/uL (0.0-0.8); Eosinophils % 3.1 %; Hematocrit 40.8 % (37.0-47.0); Hemoglobin 12.8 g/dL (11.5-15.3); Lymphocytes # 1.4 10^3/uL (0.8-4.8); Mean Corpuscular HGB Conc 31.4 g/dL (30.0-36.0); Mean Corpuscular Hemoglobin 26.8 pg (28.0-34.0); Mean Corpuscular Volume 85.5 fl (81-99); Mean Platelet Volume 9.3 fL (7.4-10.4); Monocytes # 0.6 10^3/uL (0.2-0.9); Monocytes % 6.2 %; Neutrophils # 6.53 10^3/uL (1.8-7.7); Neutrophils % 73.4 %; Nucleated Red Blood Cells % 0 %; Platelet Count 324 10^3/cmm (130-400); Red Blood Count 4.77 10^6/uL (4.1-5.3); Red Cell Distribution Width 15.9 % (12.1-15.1); White Blood Count 8.9 10^3/uL (4.0-10.0)
[2021-12-09 09:43] LABS: Alanine Aminotransferase 14 U/L (0-33); Albumin Level 3.3 g/dL (3.5-5.2); Alkaline Phosphatase 99 IU/L (35-105); Anion Gap 18.7 (5-19); Aspartate Amino Transferase 17 U/L (0-32); Blood Urea Nitrogen 11 mg/dL (8-23); C Reactive Protein 33.1 mg/L (0.0-4.9); Calcium 9.6 mg/dL (8.5-10.5); Carbon Dioxide 21 mmol/L (22-29); Chloride 101 mmol/L (98-107); Globulin 3.8 g/dL (1.3-4.6); Glucose 143 mg/dL (65-115); Magnesium 1.9 mg/dL (1.7-2.3); Osmolality Calculated 286 mOsm/kg (285-295); Phosphorus 4.2 mg/dL (2.5-4.5); Potassium 3.7 mmol/L (3.5-5.1); Sodium 137 mmol/L (136-145); Total Bilirubin 0.4 mg/dL (0.15-1.2); Total Protein 7.1 g/dL (6.6-8.7)
[2021-12-09 11:03] LABS: Glucose Point of Care 188 mg/dL (70-110)
[2021-12-09] MEDS: insulin lispro 100 unit/1 mL SUBCUT (11:07)
--- NOTE | 2021-12-09 11:07 | PM.DCS ---
Discharge Providers Date of Admission: 12/07/21 21:42 Date of Discharge: December 09, 2021 Attending Provider at Admission: Dimitri Do MD Attending Provider at Discharge: Jordy Patel MD Primary Care Provider: Rasheeda Hernandez MD Diagnoses at Discharge Discharge Diagnosis (1) UTI (urinary tract infection): Status: Acute (2) Altered mental status: Status: Acute (3) Skin ulcer of foot: Status: Acute (4) Acute UTI: Status: Acute (5) MRSA infection within last 3 months: Status: Acute (6) Hypertension: Status: Acute (7) History of DVT (deep vein thrombosis): Status: Acute (8) Dementia: Status: Acute (9) COPD (chronic obstructive pulmonary disease): Status: Acute (10) Metabolic encephalopathy: Status: Acute Reason for Visit Reason for Visit: AMS Hospital Course Hospital Course 71 female who was recently discharged from the hospital after extensive work-up for her MRSA bacteremia, patient refused PICC line placement and transesophageal echo she was released from the hospital on Zyvox to a residential. She was also diagnosed with ESBL UTI. She was sent back to the hospital for worsening of her confusion. She was diagnosed with PRINCE related metabolic encephalopathy which resolved. I did not find any signs of confusion during my encounters with her. She remained on IV antibiotics and IV fluids. hemodynamically stable. 1 episode of fever, no signs of serotonin syndrome. Hemodynamically stable, cultures negative to date. COVID-[address] scan did not show acute pathological findings. I will discharge her back to her residential on her Zyvox regimen. She is at risk of deterioration. I do believe there is underlying dementia which seems to be gradually getting worse. was at the bedside who agreed that patient is back to her baseline. Please see Dr. Taveras's previous discharge note for further details. Physical Exam Narrative: Patient is awake and alert Oriented to herself I do not appreciate any strokelike features She is on room air Looks euvolemic Venous dermatitis with healing ulcer Skin wrinkling with good granulation tissue of her leg ulcers Heel pressure ulcer Nontender abdomen however distended No audible stridor or wheezing Urinary Catheter Management: Wolfe: Cath Placed During This Visit: yes Reason for Continuing Indwelling Catheter: Perioperative Use in Selected Surgeries Urinary Catheter Date of Insertion: 12/07/21 Urinary Catheter Time of Insertion: 20:15 Discharge Data Studies Completed and Pending Completed Studies During Hospitalization Category Date Time Status CT cervical spin wo con* [id number] Stat Cat Scan 12/07/21 20:[address] chest abdomen pelvis [[place] [id number] Cat Scan 12/07/21 20:02 Completed ] Stat CT head wo con* [id number] Stat Cat Scan 12/07/21 20:00 Completed Pending at discharge Category Date Time Status Blood Culture Stat Lab 12/07/21 21:44 Results CRP [C Reactive Protein] AM LABS Lab 12/10/21 04:00 Ordered Complete Blood Count w/Auto AM LABS Lab 12/10/21 04:00 Ordered Comprehensive Metabolic Panel AM LABS Lab 12/10/21 04:00 Ordered Magnesium AM LABS Lab 12/10/21 04:00 Ordered Phosphorus AM LABS Lab 12/10/21 04:00 Ordered Vancomycin Trough Timed Lab 12/10/21 21:00 Ordered Radiology Impressions Head CT 12/07/21 20:00 IMPRESSION: No acute intracranial abnormality. Cervical Spine CT 12/07/21 20:02 IMPRESSION: 1. Grade 1 anterolisthesis of C3 relative to C4 of 4.2 mm appears chronic and degenerative. 2. Multilevel severe disc space narrowing and productive degenerative changes throughout the spine. Chest/Abdomen/Pelvis CT 12/07/21 20:02 IMPRESSION: 1. Cardiomegaly. 2. Coronary artery atherosclerotic calcifications. 3. Minimal dependent atelectasis. 4. Several chronic left-sided rib fractures. 5. Spinal stimulator. IMPRESSION: 1. Negative for acute inflammatory process in the abdomen or pelvis. 2. Possible ulcer seen in the posterior gluteal region midline, please correlate clinically. 3. Calcified biliary sludge suspected. 4. Umbilical hernia containing omentum without bowel or inflammation. 5. Lumbar spine surgical hardware. 6. Constipation. 7. Diverticulosis without diverticulitis. 8. Several prominent bilateral inguinal lymph nodes measuring up to 13 mm on the right, nonspecific. 9. Wolfe catheter in the urinary bladder with some air presumed iatrogenic. Laboratory Results WBC 8.9 10^3/uL (4.0-10.0) 12/09/21 09:00 RBC 4.77 10^6/uL (4.1-5.3) 12/09/21 09:00 Hgb 12.8 g/dL (11.5-15.3) 12/09/21 09:00 Hct 40.8 % (37.0-47.0) 12/09/21 09:00 MCV 85.5 fl (81-99) 12/09/21 09:00 MCH 26.8 pg (28.0-34.0) L 12/09/21 09:00 MCHC 31.4 g/dL (30.0-36.0) 12/09/21 09:00 RDW 15.9 % (12.1-15.1) H 12/09/21 09:00 Plt Count 324 10^3/cmm (130-400) 12/09/21 09:00 MPV 9.3 fL (7.4-10.4) 12/09/21 09:00 Neut % (Auto) 73.4 % 12/09/21 09:00 Lymph % (Auto) 16.0 % 12/09/21 09:00 [place] % (Auto) 6.2 % 12/09/21 09:00 Eos % (Auto) 3.1 % 12/09/21 09:00 Baso % (Auto) 1.0 % 12/09/21 09:00 Neut # (Auto) 6.53 10^3/uL (1.8-7.7) 12/09/21 09:00 Lymph # (Auto) 1.4 10^3/uL (0.8-4.8) 12/09/21 09:00 [place] # (Auto) 0.6 10^3/uL (0.2-0.9) 12/09/21 09:00 Eos # (Auto) 0.3 10^3/uL (0.0-0.8) 12/09/21 09:00 Baso # (Auto) 0.1 10^3/uL (0.0-0.1) 12/09/21 09:00 Nucleated RBC % (auto) 0 % 12/09/21 09:00 Nucleated RBCs # 0.0 /100WBC 12/09/21 09:00 ESR 115 mm/hr (0-15) H 12/07/21 20:05 Specimen Type Arterial 12/07/21 20:21 Sample Site Radial, right 12/07/21 20:21 ABG pH 7.60 (7.35-7.45) H* 12/07/21 20:21 ABG pCO2 20.8 mmHg (35-45) L 12/07/21 20:21 ABG pO2 90.5 mmHg (80.0-100.0) 12/07/21 20:21 ABG HCO3 20.3 mmol/L (22-26) L 12/07/21 20: ABG Base Excess 0.6 mmol/L (-2.0-2.0) 12/07/21 20:21 David Test Pos 12/07/21 20:21 Hematocrit 40.2 % (37-47) 12/07/21 20:21 O2 Delivery Device None 12/07/21 20: O2 Liters/Min 0.0 % 12/07/21 20: FiO2 21.0 % 12/07/21 20:21 Car Mechanic ID [email or web address] 12/07/21 20:21 Sodium 137 mmol/L (136-145) 12/09/21 09:00 Potassium 3.7 mmol/L (3.5-5.1) 12/09/21 09:00 Chloride 101 mmol/L (98-107) 12/09/21 09:00 Carbon Dioxide 21 mmol/L (22-29) L 12/09/21 09:00 Anion Gap 18.7 (5-19) 12/09/21 09:00 BUN 11 mg/dL (8-23) 12/09/21 09:00 Creatinine 0.8 mg/dL (0.5-0.9) 12/09/21 09:00 GFR Calculation Not Reportable 12/09/21 09:00 Glucose 143 mg/dL (65-115) H 12/09/21 09:00 POC Glucose 188 mg/dL (70-110) H 12/09/21 10:57 Calculated Osmolality 286 mOsm/kg (285-295) 12/09/21 09:00 Lactic Acid 0.9 mmol/L (0.5-2.2) 12/08/21 04:20 Lactate 2.5 mmol/L (0.5-2.2) H 12/07/21 20:05 Calcium 9.6 mg/dL (8.5-10.5) 12/09/21 09:00 Phosphorus 4.2 mg/dL (2.5-4.5) 12/09/21 09:00 Magnesium 1.9 mg/dL (1.7-2.3) 12/09/21 09:00 Total Bilirubin 0.4 mg/dL (0.15-1.2) 12/09/21 09:00 AST 17 U/L (0-32) 12/09/21 09:00 ALT 14 U/L (0-33) 12/09/21 09:00 Alkaline Phosphatase 99 IU/L (35-105) 12/09/21 09:00 Troponin T Baseline 54 ng/L (0-10) H 12/07/21 20:05 Troponin T 120 Minute 57.68 ng/L (0-10) H 12/07/21 21:47 Delta Troponin T 3.68 ABS# (0-10) 12/07/21 21:47 Troponin T Hi Sens 6Hr 72.71 ng/L (0-10) H 12/08/21 04:20 Troponin T Hi Sens 6Hr Delta 18.71 ng/L (0-12) H* 12/08/21 04:20 C-Reactive Protein 33.1 mg/L (0.0-4.9) H 12/09/21 09:00 NT-Pro-B Natriuret Pep 2943 pg/mL (0-125) H 12/08/21 04:20 Total Protein 7.1 g/dL (6.6-8.7) 12/09/21 09:00 Albumin 3.3 g/dL (3.5-5.2) L 12/09/21 09:00 Globulin 3.8 g/dL (1.3-4.6) 12/09/21 09:00 Lipase 38 U/L (13-60) 12/07/21 20:05 Procalcitonin 0.08 ng/mL (0-0.5) 12/07/21 20:05 Procalcitonin 0.09 ng/mL (0-0.5) 12/07/21 20:05 TSH 2.25 uIU/mL (0.27-4.20) 12/07/21 20:05 Urine Color Yellow (Yellow) 12/07/21 20:38 Urine Appearance Clear (CLEAR) 12/07/21 20:38 Urine pH 9 (5-7) H 12/07/21 20:38 Ur Specific [place] 1.015 (1.005-1.030) 12/07/21 20:38 Urine Protein Neg (Negative) 12/07/21 20:38 Urine Glucose (UA) Norm (Normal) 12/07/21 20:38 Urine Ketones Negative (Negative) 12/07/21 20:38 Urine Blood 3+ (Negative) H 12/07/21 20:38 Urine Nitrate Negative (Negative) 12/07/21 20:38 Urine Bilirubin Neg (Negative) 12/07/21 20:38 Prot Sulfosalicylic Acd Negative (Negative) 12/07/21 20:38 Urine Urobilinogen Norm mg/dL (Negative) 12/07/21 20:38 Ur Leukocyte Esterase 1+ (Negative) H 12/07/21 20:38 Urine RBC 0-4 /hpf (0-2) H 12/07/21 20:38 Urine WBC 40-55 /hpf (0-5) H 12/07/21 20:38 Ur Squamous Epith Cells 0-4 /hpf (0-5) H 12/07/21 20:38 Amorphous Sediment Not Reportable 12/07/21 20:38 Urine Bacteria Trace /hpf (NONE) 12/07/21 20:38 SARS-CoV-2 Ag (Rapid) Negative (Negative) 12/08/21 16:38 Vitals Last Vital Signs Temp 97.8 F 12/09/21 04:17 Pulse 74 12/09/21 07:33 Resp 18 12/09/21 07:33 BP 157/84 12/09/21 07:33 Pulse Ox 94 12/09/21 07:33 O2 Del Method 12/09/21 07:33 Discharge Plan Discharge Patient Disposition: Xfer SNF Condition: Stable Prescriptions: Continued amiodarone 100 mg tablet 100 tab PO DAILY spironolactone 25 mg tablet 1 tab PO DAILY multivitamin Tablet 1 tab PO DAILY@08 acetaminophen 325 mg Tablet 650 mg PO Q6H PRN (Reason: pain/temp) atorvastatin 20 mg Tablet 30 mg PO DAILY@20 pantoprazole 20 mg tablet,delayed release (DR/EC) 20 mg PO DAILY@08 ropinirole 2 mg tablet 2 mg PO DAILY@08 nystatin [Nyamyc] 100,000 unit/gram powder 1 applic TOPICAL DAILY Rx Instructions: apply to abdominal folds albuterol sulfate 90 mcg/actuation Hfa Aerosol Inhaler 2 puff INHALATION Q4H PRN (Reason: Shortness Of Breath) alum-mag hydroxide-simeth [Almacone-2] 400-400-40 mg/5 mL Suspension 30 ml PO Q24H PRN (Reason: Heartburn) ropinirole 4 mg tablet 4 mg PO DAILY@20 bisacodyl 5 mg Tablet 5 mg PO Q24H PRN (Reason: Constipation) duloxetine 60 mg Capsule,Delayed Release(Dr/Ec) 60 mg PO DAILY@08 Xarelto 10 mg tablet 10 mg PO DAILY@08 Myrbetriq 50 mg tablet extended release 24 hr 50 mg PO DAILY@08 insulin aspart U-100 [Novolog Flexpen U-100 Insulin] 100 unit/mL (3 mL) insulin pen See Rx Instructions .ROUTE .COMPLEX Qty: 15 0RF Rx Instructions: Inject, subcu, 3 times daily, after meals, based on sliding scale metoprolol tartrate 50 mg tablet 75 mg PO BID Qty: 0 0RF Hold Instructions: Resume on 11/24/21. Rx Instructions: hold for sbp <100,dbp <60, or hr<60 alprazolam 0.25 mg Tablet 0.25 mg PO BID PRN (Reason: Anxiety) triamcinolone acetonide 0.1 % Cream 1 applic TOPICAL BID amlodipine 10 mg Tablet 10 mg PO DAILY 30 Days Qty: 30 3RF hydralazine 50 mg Tablet 75 mg PO TID 30 Days Qty: 90 3RF Pro-Stat AWC 17-100 gram-kcal/30 mL Liquid 30 ea PO BID potassium chloride 20 mEq/15 mL liquid 20 meq PO DAILY Qty: 1 0RF bumetanide 1 mg Tablet 1 mg PO DAILY@08 PRN (Reason: Edema) Qty: 1 0RF linezolid 600 mg tablet 600 mg PO BID 42 Days Qty: 84 0RF oxycodone-acetaminophen 5-325 mg Tablet 1 tab PO Q6H PRN (Reason: Pain) Santyl 250 unit/gram Ointment 1 applic TOPICAL DAILY diclofenac sodium 1 % Gel 2 g TOPICAL Q8H PRN (Reason: Pain) Rx Instructions: apply to single elbow, wrist or hand; for hand includes palm/fingers/back of hand Discharge Orders: Discharge Order (Routine); Ordered 12/09/21 Ordered By: Jordy Patel Referrals: [facility] [Outside] Rasheeda Hernandez MD [Primary Care Provider] - Discharge Attestations Time Spent in Discharge Care*: less than 30 min Quality Metrics Clinical Quality Measures [ No reported AMI, CVA or VTE this stay] Coding Level of Care Code Acute Chg FW DC note Diagnoses UTI (urinary tract infection) N39.0 Altered mental status R41.82 Skin ulcer of foot L97.509 Acute UTI N39.0 MRSA infection within last 3 months Z86.14 Hypertension I10 History of DVT (deep vein thrombosis) Z86.718 Dementia F03.90 COPD (chronic obstructive pulmonary disease) J44.9 Metabolic encephalopathy G93.41
== END 2021-12-09 16:35 | disposition skilled nursing facility (03) ==
LOC: ER 21:42 → MEDSURG 22:33
PROVIDERS: Admitting Provider Family Medicine; Emergency Provider Emergency Medicine; PCP Family Medicine; Visit Provider Internal Medicine
DX: N39.0 Urinary tract infection, site not specified (principal); R41.82 Altered mental status, unspecified; L97.509 Non-pressure chronic ulcer of other part of unspecified foot with unspecified severity; Z86.14 Personal history of Methicillin resistant Staphylococcus aureus infection; Z86.718 Personal history of other venous thrombosis and embolism; F03.90 Unspecified dementia, unspecified severity, without behavioral disturbance, psychotic disturbance, mood disturbance, and anxiety; J44.9 Chronic obstructive pulmonary disease, unspecified; G93.41 Metabolic encephalopathy; Z99.3 Dependence on wheelchair; I11.0 Hypertensive heart disease with heart failure; I50.30 Unspecified diastolic (congestive) heart failure; Z66 Do not resuscitate; L89.899 Pressure ulcer of other site, unspecified stage; I48.91 Unspecified atrial fibrillation; Z85.3 Personal history of malignant neoplasm of breast; Z79.01 Long term (current) use of anticoagulants; I10 Essential (primary) hypertension; E78.5 Hyperlipidemia, unspecified
CPT/HCPCS: 36415; 36416; 36600; 51702; 70450; 71250; 72125; 74176; 80053; 81001; 82803; 82962; 83605; 83690; 83735; 83880; 84100; 84145; 84443; 84484; 85025; 85651; 86140; 87040; 87086; 87205; 87426; 92523; 92610; 93005; 94664; 96365; 96366; 96367; 96372; 96375; 99213; 99214; 99285; C9113; G0378; J0743; J1630; J1815; J3010; J3370; J7030; J7040

== ENCOUNTER → 2021-12-17 11:19 | Outpatient (BNVA) | payer MEDICARE, MEDICAID, SELFPAY | PROVIDERS: PCP Family Medicine; Referring Provider Internal Medicine; Visit Provider Student in an Organized Health Care Education/Training Program | DX: R78.81 Bacteremia (principal); B95.62 Methicillin resistant Staphylococcus aureus infection as the cause of diseases classified elsewhere; I89.0 Lymphedema, not elsewhere classified | CPT/HCPCS: 99203; 99205 ==

== ENCOUNTER 2022-01-02 10:55 | Inpatient (IN) | payer MEDICARE, MEDICAID, SELFPAY ==
[2022-01-02] VITALS (21 sets, daily range): BP systolic 97–172; BP diastolic 56–90; PULSE 81–119; RESP 14–33; TEMP 37.4–38.7; O2SAT 87–98; BMI 45.1
--- NOTE | 2022-01-02 11:03 | W.ED.AMS ---
HPI - Altered Mental Status General: Chief Complaint: Altered Mental Status Stated Complaint: AMS Time Seen by Provider: 01/02/22 11:01 Limitations: altered mental status History of Present Illness: Ms Webber is a 71 year old female with PMH of breast cancer, IDDM, DJD, GERD, DVT, HLD, HTN, CHF, Bipolar disorder, Dementia and recurrent hospital admissions starting in September with altered mental status, history of sepsis, recurrent MRSA bacteremia of unclear etiology eventually declining PICC line and 6 weeks of outpatient antibiotics in favor of p.o. linezolid. Per chart review she should be nearing completion of 6 weeks of treatment however history is significantly limited by patient's mental status. Per penitentiary report exact time of altered mental status is unclear. Sounds like at least 1 day. Per EMS report they were also told that patient had low oxygen saturations however they found her on a nonrebreather mask with a oxygen flow rate of 3 L/min. Upon remedying this attempt at therapeutic misadventure the patient became less ashen in appearance and more responsive with improved oxygen saturation however continues to not provide meaningful clinical history. Review of Systems General: Reports: ROS unobtainable due to mental status PFS ED PFSH: Medical History Acute kidney failure Acute non-ST elevation myocardial infarction (NSTEMI) Acute UTI PRINCE (acute kidney injury) Altered mental status Altered mental status Bipolar disorder Cardiac arrest CHF (congestive heart failure) COPD (chronic obstructive pulmonary disease) Deep tissue injury Dementia Depression Diabetes mellitus type 2 in obese DJD (degenerative joint disease) Elevated troponin Fibromyalgia GERD (gastroesophageal reflux disease) Heart murmur History of breast cancer History of DVT (deep vein thrombosis) Hyperlipidemia Hypertension Hypokalemia Metabolic encephalopathy MRSA bacteremia MRSA infection within last 3 months Oliguria Prolonged QT interval Respiratory failure, acute Sepsis Sepsis Skin ulcer Skin ulcer of foot Uncontrolled hypertension UTI (urinary tract infection) UTI (urinary tract infection) UTI due to extended-spectrum beta lactamase (ESBL) producing Escherichia coli Ventilator dependence Ventricular tachyarrhythmia Surgical History History of hysterectomy History of mastectomy Family History Other CAD (coronary artery disease) Diabetes Social History Smoking and tobacco status: never smoked Alcohol intake: never Physical Exam Const: COMMON NORMALS: alert GENERAL APPEARANCE: combative and ill appearing HENMT: COMMON NORMALS: normocephalic and atraumatic HEAD & SCALP: normocephalic and atraumatic OTHER: Dry mucous membranes, crusting noted in oral cavity Eye: COMMON NORMALS: conjunctivae normal CONJUNCTIVA: Yes conjunctivae normal SCLERA: sclerae normal Neck/C-Spine: COMMON NORMALS: supple GENERAL: Yes trachea midline Resp: EFFORT & INSPECTION: Yes tachypneic AUSCULTATION: rhonchi lower bilaterally Cardio: COMMON NORMALS: regular rate and regular rhythm RATE: regular rate RHYTHM: regular rhythm GI: COMMON NORMALS: Soft to palpation PALPATION: Yes Soft to palpation, No Tenderness to palpation present (GI), No Guarding due to palpation present (GI) and No Rigid due to palpation PERCUSSION: normal to percussion Extremity: GENERAL: Yes normal exam except as noted and No edema Neuro: SENSORIUM/ORIENTATION: Yes alert and Yes Orientation impaired Psych: ATTENTION/CONCENTRATION: Yes attention grossly impaired MEMORY/COGNITION: Yes cognition grossly impaired Procedures Central Line Placement Right IJ: Time Out Performed: Yes Patient Placed on Monitor/Pulse Ox: Yes MD Prep: mask, gown and gloves Central Line Prep: Chlorhexidine scrub and sterile drapes applied Local Anesthetic: lidocaine 1% Amount of anesthesia used (mL): 3 Ultrasound Used for Placement: Yes Complications: other Additional Comments: Able to easily access IJ with finder needle however unable to advance wire beyond 8-10 cm despite ultrasound guidance/troubleshooting. Requested Dr Connell's assistance in central line placement. Placement under emergent conditions given severe sepsis and unable to obtain consent due to patient's altered mental status. EJ/Peripheral Line Arm L: Time Out Performed: Yes Skin Cleansed in Sterile Fashion: Yes (standard PIV prep) Size (gauge): 20 IV Secured and Dressing Applied: Yes Patient Tolerated Procedure: well and no complications Additional Comments: 2nd attempt, ultrasound guided Course ED course: - Patient was seen and evaluated by me at bedside - Patient placed on cardiac monitors, IV access obtained - Initial evaluation notable for altered mental status, patient appears to primarily have respiratory symptoms, she is ill in appearance - Labs and xrays personally interpreted by me - Given level of agitation Haldol ordered for anxiolysis - Labs notable for leukocytosis, normocytic anemia. ABG with hypoxemia and respiratory compensation for metabolic acidosis with adequate pH. Lactic acid initially elevated. Initial troponin elevated. Urinalysis not concerning for urinary tract infection. Chemistry panel and other labs pending due to repeat hemolysis and inability to draw blood. - Imaging notable for pneumonia, no acute changes identified on head CT. Post line placement appears in satisfactory condition without pneumothorax, pending radiology read - Antibiotics and fluids ordered. There was a delay in antibiotic administration and fluid administration secondary to extreme difficulty with IV access. There were numerous attempts at peripheral IVs that subsequently blew and required ultrasound guidance. Ultimately central venous access felt to be warranted given evidence of severe sepsis without sustainable peripheral IV access. Given risks of patient moving and not being cooperative with instructions I felt that patient required sedation with ketamine. - Upon serial reexamination after treatment the patient was improved with ketamine - Based on patient history, evaluation, and testing as interpreted the most likely cause of the patient's condition is pneumonia with severe sepsis - The results of ED evaluation were discussed with the patient including plan for admission due to requirement for level of care not available if discharged to prevent significant worsening/deterioration. - Admitting service was contacted and Dr Taveras with the hospitalist service agreed to admit the patient - Patient was admitted to ICU in critical condition with guarded prognosis. Note: Hepatitis and HIV panel ordered per needlestick protocol of employee with 's consent. Note: Click bubbles or prepopulated rubio in note writing are used for assistance with data collection and billing and are inherently more limited than narrative and other text portions of this note. Please use narrative for additional clinical history and defer to narrative/free test for any case of contradictory information. If information appears in only free text or click bubble it should be considered present or absent as reported. Please contact note music writer for clarifications of clinical information or contradictory information. MDM is a brief summary, contradictory or erroneous seeming information should be clarified and full note should be reviewed. Vital Signs: Vital signs: Vital Signs Temperature 99.7 F H 01/02/22 10:56 Pulse Rate 85 01/02/22 12:49 Respiratory Rate 18 01/02/22 12:49 Blood Pressure 147/85 01/02/22 12:49 Pulse Oximetry 94 01/02/22 12:49 Oxygen Delivery Pr thod 01/02/22 11:40 Oxygen Flow Rate 4 01/02/22 12:49 MDM - Altered Mental Status Medical Decision Making 71-year-old lady with complex past medical history including multiple hospitalizations for metabolic encephalopathy and near completion of treatment for MRSA bacteremia presenting to the emergency department for altered mental status. Patient appears to primarily have respiratory symptoms. ED evaluation notable for pneumonia with severe sepsis. Antibiotics and fluids ordered. Admitted for further management. Lab Data : 01/02/22 12:40 01/02/22 12:[address] 01/02/22 11:08 IMPRESSION: No acute intracranial abnormality. Laboratory Results WBC 22.0 10^3/uL (4.0-10.0) H 01/02/22 12:40 RBC 4.07 10^6/uL (4.1-5.3) L 01/02/22 12:40 Hgb 11.2 g/dL (11.5-15.3) L 01/02/22 12:40 Hct 36.6 % (37.0-47.0) L 01/02/22 12:40 MCV 89.9 fl (81-99) 01/02/22 12:40 MCH 27.5 pg (28.0-34.0) L 01/02/22 12:40 MCHC 30.6 g/dL (30.0-36.0) 01/02/22 12:40 RDW 19.4 % (12.1-15.1) H 01/02/22 12:40 Plt Count 169 10^3/cmm (130-400) 01/02/22 12:40 MPV 11.1 fL (7.4-10.4) H 01/02/22 12:40 Neut % (Auto) 92.4 % 01/02/22 12:40 Lymph % (Auto) 4.0 % 01/02/22 12:40 [place] % (Auto) 2.1 % 01/02/22 12:40 Eos % (Auto) 0.3 % 01/02/22 12:40 Baso % (Auto) 0.2 % 01/02/22 12:40 Neut # (Auto) 20.34 10^3/uL (1.8-7.7) H 01/02/22 12:40 Lymph # (Auto) 0.9 10^3/uL (0.8-4.8) 01/02/22 12:40 [place] # (Auto) 0.5 10^3/uL (0.2-0.9) 01/02/22 12:40 Eos # (Auto) 0.1 10^3/uL (0.0-0.8) 01/02/22 12:40 Baso # (Auto) 0.1 10^3/uL (0.0-0.1) 01/02/22 12:40 Nucleated RBC % (auto) 0 % 01/02/22 12:40 Nucleated RBCs # 0.0 /100WBC 01/02/22 12:40 Specimen Type Arterial 01/02/22 11:37 Sample Site Radial, left 01/02/22 11:37 ABG pH 7.42 (7.35-7.45) 01/02/22 11:37 ABG pCO2 30.2 mmHg (35-45) L 01/02/22 11:37 ABG pO2 63.2 mmHg (80.0-100.0) L 01/02/22 11:37 ABG HCO3 19.7 mmol/L (22-26) L 01/02/22 11:37 ABG Base Excess -3.9 mmol/L (-2.0-2.0) L 01/02/22 11:37 David Test Pos 01/02/22 11:37 Hematocrit 35.9 % (37-47) L 01/02/22 11:37 O2 Delivery Device Nc 01/02/22 11:37 O2 Liters/Min 3.0 % 01/02/22 11:37 FiO2 32.0 % 01/02/22 11:37 Wood Machinist ID [place] 01/02/22 11:37 Lactic Acid 4.2 mmol/L (0.5-2.2) H* 01/02/22 12:40 Troponin T Baseline 68 ng/L (0-10) H 01/02/22 12:40 Urine Color Yellow (Yellow) 01/02/22 12:40 Urine Appearance Clear (CLEAR) 01/02/22 12:40 Urine pH 6 (5-7) 01/02/22 12:40 Ur Specific [place] 1.015 (1.005-1.030) 01/02/22 12:40 Urine Protein 1+ (Negative) H 01/02/22 12:40 Urine Glucose (UA) Norm (Normal) 01/02/22 12:40 Urine Ketones Negative (Negative) 01/02/22 12:40 Urine Blood 2+ (Negative) H 01/02/22 12:40 Urine Nitrate Negative (Negative) 01/02/22 12:40 Urine Bilirubin Neg (Negative) 01/02/22 12:40 Urine Urobilinogen Norm mg/dL (Negative) 01/02/22 12:40 Ur Leukocyte Esterase Negative (Negative) 01/02/22 12:40 Urine RBC 5-10 /hpf (0-2) H 01/02/22 12:40 Urine WBC None /hpf (0-5) 01/02/22 12:40 Ur Squamous Epith Cells 5-10 /hpf (0-5) H 01/02/22 12:40 Amorphous Sediment Not Reportable 01/02/22 12:40 Urine Bacteria Trace /hpf (NONE) 01/02/22 12:40 Hepatitis A IgM Ab Non-reactive (Nonreactive) 01/02/22 12:40 Hep Bs Antigen Non-reactive (Nonreactive) 01/02/22 12:40 Hep B Core IgM Ab Non-reactive (Nonreactive) 01/02/22 12:40 Hepatitis C Antibody Non-reactive (Nonreactive) 01/02/22 12:40 HIV 1&2 Ab & HIV 1 Ag Non-reactive (Non-Reactiv) 01/02/22 12:40 HIV 1&2 Antibody Non-reactive (Non-Reactiv) 01/02/22 12:40 SARS-CoV-2 Ag (Rapid) Negative (Negative) 01/02/22 12:40 Critical Care Time Critical Care Time: Critical Care Time: Yes Total Critical Care Time: 110 Attestation: Due to a high probability of clinically significant, possibly life threatening deterioration, the patient required my highest level of attention and preparedness to intervene emergently and I personally spent this critical care time directly and personally managing the patient. This critical care time included obtaining a history; examining the patient; pulse oximetry; ordering and review of laboratory and imaging studies; arranging urgent treatment with development of a management plan; evaluation of patient's response to treatment; frequent reassessment; and, discussions with other providers as applicable. It was exclusive of separately billable procedures. Primary system involved is cardiopulmonary with infectious disease Discharge Plan Discharge Patient Disposition: Admitted As Inpatient Clinical Impression: Pneumonia, Altered mental status, Severe sepsis, Acute and chronic respiratory failure with hypoxia Condition: Critical Coding Level of Care Code ED Boat Mechanic for Delma Fwd Exam Comprehensive
--- NOTE | 2022-01-02 11:08 | XRR_ITS ---
PROCEDURE INFORMATION: Exam: XR Chest Exam date and time: 01/02/2022 11:15 AM Age: 71 years old Clinical indication: Shortness of breath; Additional info: AMS, SOB TECHNIQUE: Imaging protocol: Radiologic exam of the chest. Views: 1 view. COMPARISON: CT chest abdpel [id number] 12/07/2021 8:51 PM FINDINGS: Lungs: Parenchymal consolidation is seen in the left upper lobes consistent with pneumonia this finding has increased since prior exam examination. There is interstitial densities in the area of the minor fissure. Pleural spaces: Unremarkable. No pleural effusion. No pneumothorax. Heart/Mediastinum: Unremarkable. No cardiomegaly. Bones/joints: Unremarkable. Electronic stimulator wire leads extend to the mid dorsal spine. XR/XR chest 1V portable [id number] IMPRESSION: 1. Left upper lobe pneumonia new since prior 2. Interstitial congestion along the minor fissure 3. Electronic stimulator wires in the mid dorsal spine
--- NOTE | 2022-01-02 11:08 | CTR_ITS ---
PROCEDURE INFORMATION: Exam: CT Head Without Contrast Exam date and time: 01/02/2022 11:21 AM Age: 71 years old Clinical indication: Altered mental status/memory loss; Confusion or disorientation; Additional info: AMS TECHNIQUE: Imaging protocol: Computed tomography of the head without contrast. Radiation optimization: All CT scans at this facility use at least one of these dose optimization techniques: automated exposure control; mA and/or kV adjustment per patient size (includes targeted exams where dose is matched to clinical indication); or iterative reconstruction. COMPARISON: CT head wo con* [id number] 12/07/2021 8:45 PM RADIATION DOSE METRICS: Total DLP (mGy-cm): 1034.88 FINDINGS: Brain: Cerebral volume loss appropriate for age. No hemorrhage. Unremarkable white matter. No mass effect. Cerebral ventricles: Moderate ventriculomegaly appropriate for age. Paranasal sinuses: Visualized sinuses are unremarkable. No fluid levels. Mastoid air cells: Visualized mastoid air cells are well aerated. Bones/joints: Unremarkable. No acute fracture. Soft tissues: Unremarkable. CT/CT head wo con* [id number] IMPRESSION: No acute intracranial abnormality.
--- NOTE | 2022-01-02 11:15 | ECG_ITS ---
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 Measurements Intervals [place] Rate: 99 P: 36 NE: 149 QRS: -24 QRSD: 109 T: 20 QT: 327 QTc: 420 Interpretive Statements SINUS RHYTHM WITH FREQUENT SUPRAVENTRICULAR PREMATURE COMPLEXES BORDERLINE LEFT AXIS DEVIATION [QRS AXIS < -20] NONSPECIFIC ST & T-WAVE ABNORMALITY Compared to ECG 12/07/2021 23:10:54 T-wave abnormality now present Sinus tachycardia no longer present Electronically Signed On 01-02-2022 13:12:38 CDT by Donna Machado M.D. [id number]
[2022-01-02 11:48] LABS: ABG PCO2 30.2 mmHg (35-45); ABG PH Result 7.42 (7.35-7.45); Arterial Blood Gas Hematocrit 35.9 % (37-47); Base Excess ABG -3.9 mmol/L (-2.0-2.0); Blood Gas Allen Test Pos; Blood Gas Sample Type Arterial; HCO3 ABG 19.7 mmol/L (22-26); PO2 ABG 63.2 mmHg (80.0-100.0)
[2022-01-02 11:49] LABS: Blood Gas Operator Identificat MONRO; Blood Gas Sample Site Radial, left; Oxygen Device NC
[2022-01-02] MEDS: haloperidol inj 5 mg/mL INJ 1 mL 2 MG IM (12:15)
[2022-01-02 12:59] LABS: Basophils # 0.1 10^3/uL (0.0-0.1); Basophils % 0.2 %; Eosinophils # 0.1 10^3/uL (0.0-0.8); Eosinophils % 0.3 %; Hematocrit 36.6 % (37.0-47.0); Hemoglobin 11.2 g/dL (11.5-15.3); Lymphocytes # 0.9 10^3/uL (0.8-4.8); Mean Corpuscular HGB Conc 30.6 g/dL (30.0-36.0); Mean Corpuscular Hemoglobin 27.5 pg (28.0-34.0); Mean Corpuscular Volume 89.9 fl (81-99); Mean Platelet Volume 11.1 fL (7.4-10.4); Monocytes # 0.5 10^3/uL (0.2-0.9); Monocytes % 2.1 %; Neutrophils # 20.34 10^3/uL (1.8-7.7); Neutrophils % 92.4 %; Nucleated Red Blood Cells % 0 %; Platelet Count 169 10^3/cmm (130-400); Red Blood Count 4.07 10^6/uL (4.1-5.3); Red Cell Distribution Width 19.4 % (12.1-15.1)
[2022-01-02 13:05] LABS: Bilirubin Urine Neg (Negative); Blood Urine 2+ (Negative); Glucose Urine UA Norm (Normal); Ketones Urine Negative (Negative); Nitrate Urine Negative (Negative); Protein Urine 1+ (Negative); Specific Gravity, Urine 1.015 (1.005-1.030); Urine Appearance Clear (CLEAR); Urine Color Yellow (Yellow); Urobilinogen Urine Norm (Negative); pH Urine 6 (5-7)
[2022-01-02 13:06] LABS: Add Urine Microscopic? YES; Leukocyte Esterase Urine Negative (Negative)
[2022-01-02 13:08] LABS: Add Urine Culture? No; Bacteria Urine TRACE /hpf
--- NOTE | 2022-01-02 13:09 | ECG_ITS ---
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 Measurements Intervals [place] Rate: 114 P: 55 TX: 174 QRS: -10 QRSD: 104 T: 70 QT: 346 QTc: 478 Interpretive Statements SINUS TACHYCARDIA POSSIBLE LATERAL MYOCARDIAL INFARCTION , PROBABLY OLD Compared to ECG 01/02/2022 11:15:56 Myocardial infarct finding now present Sinus rhythm no longer present T-wave abnormality no longer present Electronically Signed On 01-03-2022 13:17:41 CDT by Donna Machado M.D. [id number]
[2022-01-02 13:25] LABS: Troponin(5th) Baseline 68 ng/L (0-10)
[2022-01-02 13:27] LABS: Lactic Sepsis W/Reflex 4.2 mmol/L (0.5-2.2)
[2022-01-02 13:33] LABS: SARS Covid-2 Antigen Negative (Negative)
[2022-01-02 14:03] LABS: HIV 1 & 2 Antibody Non-Reactive (Non-Reactiv); HIV 1 & 2 Antigen Non-Reactive (Non-Reactiv)
[2022-01-02 14:11] LABS: Hepatitis A Antibody IgM Non-Reactive (Nonreactive); Hepatitis B Core IgM Non-Reactive (Nonreactive); Hepatitis B Surface Antigen Non-Reactive (Nonreactive); Hepatitis C Virus Antibody Non-Reactive (Nonreactive)
[2022-01-02 14:16] LABS: Reflex Lactate Order REFLEX LACTIC ORDERD
--- NOTE | 2022-01-02 15:35 | XRR_ITS ---
PROCEDURE INFORMATION: Exam: XR Chest Exam date and time: 01/02/2022 4:03 PM Age: 71 years old Clinical indication: Device placement; Other: Central line; Additional info: Line placement TECHNIQUE: Imaging protocol: Radiologic exam of the chest. Views: 1 view. COMPARISON: CR (CHEST, ) 01/02/2022 11:15 AM FINDINGS: Lungs: Scattered ground-glass type interstitial densities are present in the bilateral upper lobes. These findings were present on prior examination and appears similar.. Pleural spaces: Unremarkable. No pleural effusion. No pneumothorax. Heart/Mediastinum: Unremarkable. No cardiomegaly. Bones/joints: Unremarkable. A left central line extends into the right atrium. Spinal stimulator wire is tends to the mid dorsal spine Metallic clips are seen in the left axilla XR/XR chest 1V portable [id number] IMPRESSION: 1. Stable interstitial densities in the bilateral upper lobes. 2. Low lung volumes. 3. Left central line terminates in the right atrium. 4. Negative for pneumothorax 5. Stable metallic clips left axillary tissues. 6. Spinal stimulator wire extends to the mid dorsal spine
[2022-01-02] MEDS: cefepime 2,000 MG in sodium chloride 0.9% (plus) 50 ML 100 MG IV (16:02)
[2022-01-02] MEDS: haloperidol inj 5 mg/mL INJ 1 mL 2 MG IVP (16:30)
[2022-01-02 16:46] LABS: Lactic Acid level (Lactate) 4.8 mmol/L (0.5-2.2)
[2022-01-02 16:56] LABS: NT Pro B Type Natriuretic Pept 29507 pg/mL (0-125); Procalcitonin 9.56 ng/mL (0-0.5); Thyroid Stimulating Hormone 2.56 uIU/mL (0.27-4.20)
[2022-01-02 17:08] LABS: Alanine Aminotransferase 7 U/L (0-33); Albumin Level 3.2 g/dL (3.5-5.2); Alkaline Phosphatase 80 U/L (35-105); Anion Gap 19.8 (5-19); Aspartate Amino Transferase 22 U/L (0-32); Blood Urea Nitrogen 16 mg/dL (8-23); C Reactive Protein 155.2 mg/L (0.0-4.9); Calcium 8.8 mg/dL (8.5-10.5); Carbon Dioxide 19 mmol/L (22-29); Chloride 101 mmol/L (98-107); Globulin 2.7 g/dL (1.3-4.6); Glucose 106 mg/dL (65-115); Osmolality Calculated 284 mOsm/kg (285-295); Potassium 3.8 mmol/L (3.5-5.1); Sodium 136 mmol/L (136-145); Total Bilirubin 0.3 mg/dL (0.15-1.2); Total Protein 5.9 g/dL (6.6-8.7)
[2022-01-02 17:12] LABS: Creatine Phosphokinase 531 U/L (26-192)
[2022-01-02] MEDS: vancomycin 1,500 MG/300 ML PIGGYBACK 200 MG IV (17:32)
--- NOTE | 2022-01-02 17:39 | PC.NURSE ---
arrived from ED. cesar and gt. responds to pain only
--- NOTE | 2022-01-02 17:44 | PC.NURSE ---
this nurse notifed dr. Singh of temp of 101.7, o2 sat high 80s on 5L NS, responsive to pain only Hcp to come to bedside
--- NOTE | 2022-01-02 17:50 | ECG_ITS ---
[facility] Test Date: 2022-01-02 Pat Name: Fany Webber Department: Room: [facility] [place] Gender: Female Managing Manager: : 1950 Requested By: Russell Cox Order Number: [id number] Moshe MD: Donna Machado M.D. Measurements Intervals [place] Rate: 111 P: 60 MT: 161 QRS: 3 QRSD: 106 T: 73 QT: 354 QTc: 482 Interpretive Statements SINUS TACHYCARDIA MODERATE ST DEPRESSION [0.05+ mV ST DEPRESSION] Compared to ECG 01/02/2022 14:01:20 ST (T wave) deviation now present Myocardial infarct finding no longer present Electronically Signed On 01-03-2022 13:15:40 CDT by Donna Machado M.D. [id number]
--- NOTE | 2022-01-02 19:04 | PM.HP ---
Providers/Chief Complaint Admitting Physician: Teddy Taveras Primary Care Provider: Rasheeda Hernandez MD Chief Complaint: AMS History of Present Illness 71-year-old lady was brought in from retirement due to altered mental status with confusion, hypoxia, initially per report required 10 L nonrebreather, currently down to 6 L nasal cannula, with noted leukocytosis 22,000, sinus tachycardia, fever one 1.7, lactic acidosis 4.2-4.8, acute kidney injury, creatinine 1.4, CK elevation of 531, troponin abnormality 68-110, chest x-ray with left upper lobe pneumonia, interstitial congestion along the minor fissure. ABG 7.42/30.2/63.2. Head CT nonacute. In ER due to difficulties with blood draws, multiple lost IVs had a CVC placed. She is currently confused, unable to provide history. She has been recently finishing up linezolid course, this was going to be discontinued, and blood cultures were going to be repeated for reassessment previously of MRSA bacteremia after having declined IV antibiotics. On prior admission also underwent treatment for ESBL E. coli UTI, on readmission subsequently with negative cultures. Urinalysis currently with 5-10 RBC, no WBC, 5-10 squamous epithelial cells, negative nitrate, trace bacteria. Rapid COVID antigen is negative. Blood cultures were drawn. She received 30 mill per KG fluid resuscitation. Started on Primaxin, vancomycin. Required 2 doses of 2 mg of Haldol, received also 400 mg of ketamine due to restlessness, agitation in ER. Review of Systems General: Reports: ROS unobtainable due to mental status Medications/Allergies Home Medications Medication Instructions Recorded Confirmed Last Taken Type acetaminophen 325 mg tablet 650 mg PO Q6H PRN pain/temp 08/24/21 01/02/22 Unknown History albuterol sulfate 90 mcg/actuation 2 puff inhalation Q4H PRN 08/24/21 01/02/22 Unknown History aerosol inhaler Shortness Of Breath aluminum-mag hydroxide-simethicone 30 ml PO Q24H PRN Heartburn 08/24/21 01/02/22 Unknown History 400 mg-400 mg-40 mg/5 mL oral susp (Almacone-2) atorvastatin 20 mg tablet 30 mg PO DAILY@20 08/24/21 01/02/22 12/07/21 History bisacodyl 5 mg tablet 5 mg PO Q24H PRN Constipation 08/24/21 01/02/22 Unknown History duloxetine 60 mg capsule,delayed 60 mg PO DAILY@08/24/21 01/02/22 12/07/21 History release mirabegron 50 mg tablet,extended 50 mg PO DAILY@08/24/21 01/02/22 12/07/21 History release 24 hr (Myrbetriq) multivitamin 1 tab PO DAILY@08/24/21 01/02/22 12/07/21 History nystatin 100,000 unit/gram topical 1 applic topical DAILY 08/24/21 01/02/22 12/07/21 History powder (Nyamy) pantoprazole 20 mg tablet,delayed 20 mg PO DAILY@08/24/21 01/02/22 12/07/21 History release rivaroxaban 10 mg tablet (Xarelto) 10 mg PO DAILY@08/24/21 01/02/22 12/07/21 History ropinirole 2 mg tablet 2 mg PO DAILY@08/24/21 01/02/22 12/07/21 History ropinirole 4 mg tablet 4 mg PO DAILY@08/24/21 01/02/22 12/07/21 History insulin aspart U-100 100 unit/mL See Rx Instructions .Route 08/31/21 01/02/22 12/07/21 Rx (3 mL) subcutaneous pen (Novolog .COMPLEX #15 mL Flexpen U-100 Insulin aspart) metoprolol tartrate 50 mg tablet 75 mg PO BID #0 tabs 08/31/21 01/02/22 12/07/21 Rx alprazolam 0.25 mg tablet 0.25 mg PO BID PRN Anxiety 10/24/21 01/02/22 Unknown History triamcinolone acetonide 0.1 % 1 applic topical BID 10/24/21 01/02/22 11/24/21 History topical cream amlodipine 10 mg tablet 10 mg PO DAILY 30 days #30 tabs 11/03/21 01/02/22 12/07/21 Rx hydralazine 50 mg tablet 75 mg PO TID 30 days #90 tabs 11/03/21 01/02/22 12/07/21 Rx bumetanide 1 mg tablet 1 mg PO DAILY@08 PRN Edema #1 tab 12/01/21 01/02/22 11/24/21 Rx linezolid 600 mg tablet 600 mg PO BID 6 weeks #84 tabs 12/01/21 01/02/22 12/07/21 Rx amiodarone 100 mg tablet 100 tab PO DAILY 12/04/21 01/02/22 12/07/21 History spironolactone 25 mg tablet 1 tab PO DAILY 12/04/21 01/02/22 12/07/21 History collagenase clostridium histo. 250 1 applic topical DAILY 12/08/21 01/02/22 12/07/21 History unit/gram topical ointment (Santyl) oxycodone-acetaminophen 5 mg-325 1 tab PO Q6H PRN Pain 12/08/21 01/02/22 12/05/21 History mg tablet haloperidol lactate 2 mg/mL oral 0.5 mg PO ONCE PRN dementia 01/02/22 01/02/22 01/02/22 History concentrate potassium chloride 20 mEq/15 mL 30 meq PO DAILY 01/02/22 01/02/22 Unknown History oral liquid Allergies Allergy/AdvReac Type Severity Reaction Status Date / Time levofloxacin [From Levaquin] Allergy Unknown Verified 12/17/21 11:27 PFSH Acute PFSH: Medical History Acute kidney failure Acute non-ST elevation myocardial infarction (NSTEMI) Acute UTI PRINCE (acute kidney injury) Altered mental status Altered mental status Bipolar disorder Cardiac arrest CHF (congestive heart failure) COPD (chronic obstructive pulmonary disease) Deep tissue injury Dementia Depression Diabetes mellitus type 2 in obese DJD (degenerative joint disease) Elevated troponin Fibromyalgia GERD (gastroesophageal reflux disease) Heart murmur History of breast cancer History of DVT (deep vein thrombosis) Hyperlipidemia Hypertension Hypokalemia Metabolic encephalopathy MRSA bacteremia MRSA infection within last 3 months Oliguria Prolonged QT interval Respiratory failure, acute Sepsis Sepsis Skin ulcer Skin ulcer of foot Uncontrolled hypertension UTI (urinary tract infection) UTI (urinary tract infection) UTI due to extended-spectrum beta lactamase (ESBL) producing Escherichia coli Ventilator dependence Ventricular tachyarrhythmia Surgical History History of hysterectomy History of mastectomy Family History Other CAD (coronary artery disease) Diabetes Social History Smoking and tobacco status: never smoked Alcohol intake: never Vitals/I&O/Wt Last Vital Signs Temp 101.7 F H 01/02/22 17:31 Pulse 110 H 01/02/22 18:30 Resp 19 H 01/02/22 18:00 BP 137/73 01/02/22 18:30 Pulse Ox 95 01/02/22 18:30 O2 Del Method 01/02/22 18:05 O2 Flow Rate 4 01/02/22 16:32 Weight last 48 hrs Weight 127.006 kg Physical Exam Const: COMMON NORMALS: alert GENERAL APPEARANCE: cooperative (Intermittently) NUTRITIONAL APPEARANCE: obese ORIENTATION/CONSCIOUSNESS: Yes confused OTHER: Confused, moving about, lifting legs up in the air, shifting them side to side in the bed. Occasionally trying to sit up. Soft restraints to be placed due to pulling on tubing, leads. HENMT: COMMON NORMALS: oropharynx normal Neck/C-Spine: COMMON NORMALS: no JVD OTHER: L CVC Resp: COMMON NORMALS: normal respiratory effort and clear to auscultation bilaterally AUSCULTATION: clear to auscultation bilaterally Cardio: COMMON NORMALS: no JVD, regular rhythm, S1 normal heart sound present, S2 normal heart sound present and No murmurs present (Cardio) RHYTHM: regular rhythm HEART SOUNDS: S1 normal heart sound present and S2 normal heart sound present GI: COMMON NORMALS: Normal to inspection, nondistended, normoactive bowel sounds present, Soft to palpation and non-tender PALPATION: Yes Soft to palpation Extremity: COMMON NORMALS: no joint enlargement and no pedal edema Neuro: COMMON NORMALS: moves all extremities SENSORIUM/ORIENTATION: Yes alert Skin: COMMON NORMALS: no rashes or lesions noted OTHER: Shear injury, strain drink sacrum, buttocks, small areas of loss of epidermis, no deep ulcers, no DTI. Chronic venous stasis changes lower extremities, venous stasis ulcerations. Heel pressure ulceration. Sepsis: Is patient septic: Yes Focused sepsis exam performed: Yes Data : 01/02/22 12:40 09/03/22 16:20 Micro: Microbiology 01/02/22 12:46 Blood Culture - Preliminary Blood SPECIMEN COLLECTED A&P Assessment and plan (1) Severe sepsis: Severe sepsis with endorgan injury with acute metabolic encephalopathy, with acute kidney injury, creatinine 1.4, with troponin elevation, possible NSTEMI. Leukocytosis 22, sinus tachycardia 110s. Fever one 1.7. Source is pneumonia. Does not appear to have urinary tract infection. Does not appear to have significant skin infection. Recently treated for MRSA bacteremia has been completing linezolid course, plan was for repeat culture in 2 weeks. Blood cultures redrawn. Additionally noted blood culture during last admission with bacillus, not on process. Possibility of anaerobic infection. Source would be unclear. Primaxin, vancomycin empirically. Follow-up cultures. Urine bacterial antigens, MRSA PCR. Status: Acute (2) Pneumonia: As above. Additionally support oxygenation, wean down as tolerating. Status: Acute (3) Altered mental status: Acute metabolic encephalopathy secondary to pneumonia, hypoxia, severe sepsis. Also acute kidney injury. Possible toxicity from her medications, possibly ropinirole. Received Haldol, ketamine. Continue Haldol as needed. Check daily EKG. As she is still restless, requiring soft restraints, add Primaxin. Status: Acute (4) Acute and chronic respiratory failure with hypoxia: 6 L nasal cannula oxygen. Treat pneumonia as above. Per discussion with her she would not want intubation, mechanical ventilation, nor would she want CPR in case of cardiopulmonary arrest. Status: Acute (5) Acute kidney failure: With severe sepsis. Creatinine 1.4. Received fluid resuscitation. So far maintaining blood pressure. Monitor vitals. Treat sepsis as above. Reassess renal function. Status: Acute (6) Acute non-ST elevation myocardial infarction (NSTEMI): Possible NSTEMI, aspirin, Lovenox, currently unable to tolerate oral medications. We will add IV metoprolol scheduled. Status: Acute Plan Recent MRSA bacteremia, source unclear, possibly cellulitis Recurrent ESBL E. coli UTI, negative recent urine culture, currently UA not suggestive of UTI. Empiric coverage for ESBL organism just in case. Shear stress, surgery of sacrum, buttocks: Reposition, keep dry Chronic pressure ulcer: Float heels History of cardiac arrest CHF COPD Dementia Depression DM2 GERD History Other chronic medical problems noted Attestations Medical Necessity Statement*: Admission of over 2 midnights is anticipated for assessment of management of severe sepsis with endorgan injury, acute encephalopathy, PRINCE, possible NSTEMI, pneumonia, acute on chronic hypoxic respiratory failure. Critical Care Time: The high probability of a clinically significant, sudden or life threatening deterioration of the patient's hemodynamic, neurologic, cardiac, respiratory, infectious disease system(s) required my full and direct attention, intervention and personal management. The critical care time is as shown. 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 Comprehensive Diagnoses Severe sepsis A41.9; R65.20 Pneumonia J18.9 Altered mental status R41.82 Acute and chronic respiratory failure with hypoxia J96.21 Acute kidney failure N17.9 Acute non-ST elevation myocardial infarction (NSTEMI) I21.4 Sepsis Event Note Evaluation Sepsis screening result: No Definite Risk Current stage of sepsis: severe sepsis Focused Exam Vital Signs Temp Pulse Resp BP Pulse Ox O2 Del Method O2 Flow Rate 01/02/22 18:30 110 H 137/73 95 01/02/22 18:05 Nasal Cannula 01/02/22 18:00 86 19 H 108/69 01/02/22 17:30 111 H 139/87 88 L 01/02/22 17:10 105 H 01/02/22 17:31 101.7 F H 01/02/22 17:02 104 H 19 H 124/88 92 01/02/22 16:32 104 H 19 H 121/84 90 Nasal Cannula 4 01/02/22 12:49 85 18 147/85 94 4 01/02/22 11:40 90 14 121/56 90 Nasal Cannula 3 01/02/22 10:56 99.7 F H 98 16 154/70 94 Non-Rebreather 10 Respiratory exam: Present CTAB Cardiovascular exam: Present tachycardia Capillary refill: < 3 Seconds Date exam was performed: 01/02/22 Time exam was performed: 19:46
--- NOTE | 2022-01-02 19:08 | PC.PHAR ---
Vancomycin is dosed at 1500mg IVPB every24 hours to produce a predicted trough level of 14.85 (population based pharmacokinetic analysis). A trough level has been ordered from the lab to be obtained before the fourth dose to confirm and adjust if needed.
[2022-01-02] MEDS: pantoprazole 40 mg SDV IVP (19:09)
--- NOTE | 2022-01-02 19:11 | PC.NURSE ---
patient trying to get out of bed and kick at staff. dr. Singh notified
[2022-01-02] MEDS: dexmedeTOMIDine 0.9 % NaCL 400 MCG/100 ML PREMIX IV (19:20)
[2022-01-02] MEDS: enoxaparin 150 mg/mL Syringe 130 MG SUBCUT (19:28)
--- NOTE | 2022-01-02 19:29 | PC.NURSE ---
Addendum entered by Barbara العراقي RN 01/03/22 04:51: Lovenox dose unable to scan, dose verified with this RN. Original Note: I am unable to scan Lovenox. 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 Pharmacist does not know how to fix issue. Dose verified with second RN. Also, weight based Precedex is infusing at 2.2 mls per hour per smart pump. Infusion rate in MAR incorrect.
[2022-01-02] MEDS: aspirin 300 mg Supp PR (19:37)
[2022-01-02 19:52] LABS: Troponin 5 6HR 112.9 ng/L (0-10); Troponin 5 6HR Delta 44.9 ng/L (0-12)
[2022-01-02] MEDS: metoprolol tartrate 1 mg/1 mL SDV 5 mL 5 MG IVP (20:03)
--- NOTE | 2022-01-02 20:33 | PC.NURSE ---
Pt tells me her name. She does not know where she is. She states that the year is 1978. She is thrashing in bed, able to get bilateral legs out of bed. She follows commands. She attempts to pinch staff. She attempts to pull taveras tubing. Taveras anchor replaced. Pt's lower extremities are discolored, pink and purple.
--- NOTE | 2022-01-02 20:36 | PC.NURSE ---
This nurse is 1 on 1 with pt due to risk of injury to self and others. Pt thrashing in bed, throwing legs out of bed. Pt screaming things over and over, such as fpc.
--- NOTE | 2022-01-02 20:45 | PC.NURSE ---
Heel protectors applied per physician's order.
--- NOTE | 2022-01-02 22:17 | PC.NURSE ---
Pt continues to thrash in bed and yell out. She will answer questions. She knows where she is and who she is. She continues to call out, Father, please take me. Constant observer at bedside.
[2022-01-03] VITALS (46 sets, daily range): BP systolic 100–194; BP diastolic 58–117; PULSE 74–108; RESP 22; TEMP 37–37.7; O2SAT 80–97
[2022-01-03] MEDS: haloperidol inj 5 mg/mL INJ 1 mL 2 MG IM (00:01)
[2022-01-03] MEDS: metoprolol tartrate 1 mg/1 mL SDV 5 mL 5 MG IVP ×7 (00:03→23:28)
[2022-01-03] MEDS: FUROsemide 10 mg/mL SDV 4mL 40 MG IVP (00:03)
--- NOTE | 2022-01-03 00:28 | PC.NURSE ---
Pt rocking back and forth in bed screaming. Pt will occasionally stop screaming long enough to tell us to hurry up and get her swabs for her mouth. While screaming I realized that pt's tongue and roof of mouth are covered with blackened scabs. Pt tells me that it hurts very much. Oral care provided frequently.
--- NOTE | 2022-01-03 00:33 | PC.NURSE ---
Pt continues to thrash in bed, turning self from side to side. Pt will not keep heel protectors on.
[2022-01-03] MEDS: dexmedeTOMIDine 0.9 % NaCL 400 MCG/100 ML PREMIX 34.93 MCG IV (01:45)
--- NOTE | 2022-01-03 02:37 | PC.NURSE ---
Pt allowed us to change dressings and bathe her. This did require max assist of 2 people. Pt did unintentionally almost kick nursing staff multiple times during bath/dressing changes. Pt has yeasty appearing rash covering groin, buttocks, and under right breast. Pt continues to be diaphoretic. Mouth and tongue look improved since frequent oral care initiated.
--- NOTE | 2022-01-03 04:34 | PC.NURSE ---
Dressings had to be changed twice. Pt removed bandages on bilateral legs herself by rubbing legs in bed.
--- NOTE | 2022-01-03 04:50 | XRR_ITS ---
PROCEDURE INFORMATION: Exam: XR Chest Exam date and time: 01/03/2022 9:43 AM Age: 71 years old Clinical indication: Dyspnea; Additional info: Increased oxygen demand TECHNIQUE: Imaging protocol: Radiologic exam of the chest. Views: 1 view. COMPARISON: CR XR chest 1V portable [id number] 01/02/2022 4:03 PM FINDINGS: Tubes, catheters and devices: Left-sided central venous line noted with the distal tip in the right atrium. Left axillary clips again noted. Lungs: Increased dense consolidation in the lungs more prominent on the left versus the right. Pleural spaces: No pneumothorax. No pleural effusion. Heart/Mediastinum: The cardiomediastinal silhouette is mildly enlarged. Bones/joints: Unremarkable. Partially visualized spinal lead wires noted. XR/XR chest 1V portable [id number] IMPRESSION: Worsening bilateral pneumonia.
[2022-01-03 05:06] LABS: Basophils % 0.3 %; Hematocrit 34.4 % (37.0-47.0); Hemoglobin 10.8 g/dL (11.5-15.3); Lymphocytes # 1.3 10^3/uL (0.8-4.8); Lymphocytes % 8.5 %; Mean Corpuscular HGB Conc 31.4 g/dL (30.0-36.0); Mean Corpuscular Hemoglobin 27.8 pg (28.0-34.0); Mean Corpuscular Volume 88.7 fl (81-99); Monocytes # 0.6 10^3/uL (0.2-0.9); Neutrophils # 12.63 10^3/uL (1.8-7.7); Neutrophils % 86.2 %; Nucleated Red Blood Cells % 0 %; Platelet Count 177 10^3/cmm (130-400); Red Blood Count 3.88 10^6/uL (4.1-5.3); Red Cell Distribution Width 18.9 % (12.1-15.1); White Blood Count 14.6 10^3/uL (4.0-10.0)
[2022-01-03 05:41] LABS: Alanine Aminotransferase 10 U/L (0-33); Albumin Level 3.3 g/dL (3.5-5.2); Alkaline Phosphatase 135 U/L (35-105); Anion Gap 16.7 (5-19); Aspartate Amino Transferase 43 U/L (0-32); Blood Urea Nitrogen 21 mg/dL (8-23); Calcium 8.7 mg/dL (8.5-10.5); Carbon Dioxide 22 mmol/L (22-29); Chloride 108 mmol/L (98-107); Glucose 124 mg/dL (65-115); Osmolality Calculated 300 mOsm/kg (285-295); Potassium 3.7 mmol/L (3.5-5.1); Sodium 143 mmol/L (136-145); Total Bilirubin 0.3 mg/dL (0.15-1.2); Total Protein 6.3 g/dL (6.6-8.7)
[2022-01-03] MEDS: dexmedeTOMIDine 0.9 % NaCL 400 MCG/100 ML PREMIX 38.1 MCG IV ×3 (05:49→19:32)
--- NOTE | 2022-01-03 06:00 | PC.NURSE ---
Pt moaning and talking constantly, but is not attempting to get out of bed. Awaiting CXR.
[2022-01-03] MEDS: pantoprazole 40 mg SDV IVP (08:02)
--- NOTE | 2022-01-03 10:00 | ECG_ITS ---
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 Measurements Intervals [place] Rate: 91 P: 58 CT: 147 QRS: -7 QRSD: 107 T: 42 QT: 414 QTc: 511 Interpretive Statements SINUS RHYTHM Compared to ECG 01/02/2022 17:50:08 Sinus tachycardia no longer present ST (T wave) deviation no longer present Electronically Signed On 01-03-2022 13:08:35 CDT by Donna Machado M.D. [id number]
[2022-01-03] MEDS: enoxaparin 80 mg/0.8 mL Syringe SUBCUT ×2 (10:58→21:01)
[2022-01-03] MEDS: dexmedeTOMIDine 0.9 % NaCL 400 MCG/100 ML PREMIX 47.63 MCG IV ×3 (11:36→17:01)
[2022-01-03] MEDS: vancomycin 1,500 MG/300 ML PIGGYBACK 150 MG IV (16:02)
--- NOTE | 2022-01-03 18:00 | PM.PN ---
Subjective Subjective: She is a little bit less confused today, states she is aching all over. But still somewhat lethargic, intermittently getting restless. Vitals/I&O/Wt Last Vital Signs Temp 99.6 F 01/03/22 09:00 Pulse 88 01/03/22 16:00 Resp 22 H 01/03/22 00:30 BP 145/85 01/03/22 16:00 Pulse Ox 91 01/03/22 16:00 O2 Del Method 01/03/22 06:30 O2 Flow Rate 7 01/03/22 06:30 01/03/22 01/03/22 01/03/22 06:59 14:59 22:59 Intake Total 363.426 / 2729.000 300.000 / 300.000 100 / 400.000 Output Total 1300 / 1750 950 / 950 Balance -936.574 / 979.000 -650.000 / -650.000 100 / -550.000 Weight last 48 hrs Weight 86.409 kg Weight 88.813 kg Weight 127.006 kg Physical Exam Const: COMMON NORMALS: alert GENERAL APPEARANCE: cooperative (Intermittently) NUTRITIONAL APPEARANCE: obese ORIENTATION/CONSCIOUSNESS: Yes confused; not oriented to place ( Take me to the hospital ) OTHER: Confused, not as restless as yesterday. Soft restraints to be placed due to pulling on tubing, leads. HENMT: COMMON NORMALS: oropharynx normal Neck/C-Spine: COMMON NORMALS: no JVD OTHER: L CVC Resp: COMMON NORMALS: normal respiratory effort and clear to auscultation bilaterally AUSCULTATION: clear to auscultation bilaterally Cardio: COMMON NORMALS: no JVD, regular rhythm, S1 normal heart sound present, S2 normal heart sound present and No murmurs present (Cardio) RHYTHM: regular rhythm HEART SOUNDS: S1 normal heart sound present and S2 normal heart sound present GI: COMMON NORMALS: Normal to inspection, nondistended, normoactive bowel sounds present, Soft to palpation and non-tender PALPATION: Yes Soft to palpation Extremity: COMMON NORMALS: no joint enlargement and no pedal edema Neuro: COMMON NORMALS: moves all extremities SENSORIUM/ORIENTATION: Yes alert and No oriented to place ( Take me to the hospital ) Skin: COMMON NORMALS: no rashes or lesions noted GENERAL SKIN EXAM: no rashes or lesions noted OTHER: Shear injury, strain drink sacrum, buttocks, small areas of loss of epidermis, no deep ulcers, no DTI. Chronic venous stasis changes lower extremities, venous stasis ulcerations left anterior menon, shallow, minimal surrounding erythema, raised area. Minimal serous drainage. Heel pressure ulceration about 2 x 3 cm, necrotic base. Piece of skin in the center. Data : 01/03/22 03:45 01/03/22 03:45 Micro: Microbiology 01/02/22 21:00 MRSA Culture - Final Nose 01/02/22 12:46 Blood Culture - Preliminary Blood NEGATIVE TO DATE 01/02/22 18:40 Legionella Urinary Antigen - Final Urine,Clean Catch 01/02/22 19:05 Blood Culture - Preliminary Blood SPECIMEN COLLECTED A&P Assessment and plan (1) Severe sepsis: Improving with some improvement in tachycardia, fever. Some improvement in leukocytosis. Still encephalopathy, PRINEC, slightly better. Continue IV antibiotics for pneumonia with Primaxin, vancomycin. Recently with bacillus and blood culture as well, possibility of anaerobic infection. Unclear source, unclear if could have been from right heel wound. Repeat blood cultures pending. MRSA PCR negative. Severe sepsis with endorgan injury with acute metabolic encephalopathy, with acute kidney injury, creatinine 1.4, with troponin elevation, possible NSTEMI. Does not appear to have urinary tract infection. Recently treated for MRSA bacteremia has been completing linezolid course, plan was for repeat culture in 2 weeks. Blood cultures redrawn. Additionally noted blood culture during last admission with bacillus, not on process. Possibility of anaerobic infection. Source would be unclear. Status: Acute (2) Pneumonia: Continue antibiotics. Oxygen support. Urine Legionella antigen negative. MRSA PCR negative. Follow-up blood cultures. Sputum culture once she will be able to provide. Repeat chest x-ray. Returning with worsening bilateral pneumonia. COVID-19 rapid antigen negative. Will check PCR. Status: Acute (3) Altered mental status: Mild improvement. So far has not been seen to take oral intake. Episodes of restlessness. Needed Haldol, Precedex. One-to-one sitter. Acute metabolic encephalopathy secondary to pneumonia, hypoxia, severe sepsis. Also acute kidney injury. Possible toxicity from her medications, possibly ropinirole. On presentation received Haldol, ketamine. Check daily EKG. Status: Acute (4) Acute and chronic respiratory failure with hypoxia: Treat pneumonia as above. Per discussion with her she would not want intubation, mechanical ventilation, nor would she want CPR in case of cardiopulmonary arrest. Status: Acute (5) Acute kidney failure: With mild improvement. Currently likely ATN. Received fluid resuscitation. So far maintaining blood pressure. Monitor vitals. Treat sepsis as above. Reassess renal function. Status: Acute (6) Acute non-ST elevation myocardial infarction (NSTEMI): Possible NSTEMI, aspirin [place], Lovenox, currently unable to tolerate oral medications. IV metoprolol scheduled. Would benefit from additional cardiac evaluation once she is more stable. Status: Acute Plan Recent MRSA bacteremia, source unclear, possibly cellulitis Recurrent ESBL E. coli UTI, negative recent urine culture, currently UA not suggestive of UTI. Empiric coverage for ESBL organism just in case. Shear stress, surgery of sacrum, buttocks: Reposition, keep dry Chronic pressure ulcer: Float heels collagenase for necrotic. Base. Will benefit from surgical debridement once she is more stable. Chronic venous stasis, venous stasis ulceration anterior left menon History of cardiac arrest CHF COPD Dementia Depression DM2 GERD History Other chronic medical problems noted Attestations Medical Necessity Statement*: Continue admission for assessment management of severe sepsis, respiratory failure, pneumonia, acute encephalopathy, PRINCE, NSTEMI and additional problems as above. Critical Care Time: The high probability of a clinically significant, sudden or life threatening deterioration of the patient's infectious disease, neurologic system(s) required my full and direct attention, intervention and personal management. The critical care time is as shown. This time is in addition to time spent performing any reported procedures but includes the following: x Data and vital sign review and interpretation x Patient assessment, examination and intervention x Documentation x Medication orders and management Critical Care Time (min): 40 Coding Level of Care Code Acute Spreader Operator Automatic for [facility] Fwd Diagnoses Severe sepsis A41.9; R65.20 Pneumonia J18.9 Altered mental status R41.82 Acute and chronic respiratory failure with hypoxia J96.21 Acute kidney failure N17.9 Acute non-ST elevation myocardial infarction (NSTEMI) I21.4
[2022-01-03] MEDS: aspirin 300 mg Supp PR (19:04)
[2022-01-03] MEDS: FUROsemide 10 mg/mL SDV 10mL 60 MG IVP (19:33)
[2022-01-03 21:28] LABS: SARS Covid-2 Antigen Negative (Negative)
[2022-01-03] MEDS: lanolin oint 7 gm 1 APPLIC TOPICAL (23:08)
[2022-01-03] MEDS: dexmedeTOMIDine 0.9 % NaCL 400 MCG/100 ML PREMIX 31.75 MCG IV (23:27)
[2022-01-04] VITALS (40 sets, daily range): BP systolic 92–183; BP diastolic 57–106; PULSE 71–111; RESP 24; TEMP 36.9–38.2; O2SAT 88–97
--- NOTE | 2022-01-04 00:13 | PC.NURSE ---
Pt continues to have coarse crackles greater on the left than right. Pt now more alert, having spontaneous speech at times. Pt remains confused.
--- NOTE | 2022-01-04 00:16 | PC.NURSE ---
Bubbler placed on oxygen.
[2022-01-04] MEDS: dexmedeTOMIDine 0.9 % NaCL 400 MCG/100 ML PREMIX 31.75 MCG IV ×2 (03:35→07:11)
[2022-01-04] MEDS: metoprolol tartrate 1 mg/1 mL SDV 5 mL 5 MG IVP ×6 (04:04→23:52)
[2022-01-04 04:16] LABS: Basophils % 0.2 %; Hematocrit 36.5 % (37.0-47.0); Hemoglobin 11.5 g/dL (11.5-15.3); Lymphocytes # 1.7 10^3/uL (0.8-4.8); Lymphocytes % 13.6 %; Mean Corpuscular HGB Conc 31.5 g/dL (30.0-36.0); Mean Corpuscular Hemoglobin 27.4 pg (28.0-34.0); Mean Corpuscular Volume 87.1 fl (81-99); Mean Platelet Volume 9.5 fL (7.4-10.4); Monocytes # 0.8 10^3/uL (0.2-0.9); Monocytes % 6.5 %; Neutrophils # 10.11 10^3/uL (1.8-7.7); Neutrophils % 79.2 %; Nucleated Red Blood Cells % 0 %; Platelet Count 173 10^3/cmm (130-400); Red Blood Count 4.19 10^6/uL (4.1-5.3); Red Cell Distribution Width 18.9 % (12.1-15.1); White Blood Count 12.8 10^3/uL (4.0-10.0)
--- NOTE | 2022-01-04 04:39 | PC.NURSE ---
This nurse continues to encourage coughing and deep breathing, but without success. Pt now tells me, I can cough, but I won't.
[2022-01-04 04:41] LABS: Alanine Aminotransferase 12 U/L (0-33); Albumin Level 3.2 g/dL (3.5-5.2); Alkaline Phosphatase 118 U/L (35-105); Aspartate Amino Transferase 37 U/L (0-32); Blood Urea Nitrogen 16 mg/dL (8-23); Calcium 8.8 mg/dL (8.5-10.5); Carbon Dioxide 24 mmol/L (22-29); Chloride 105 mmol/L (98-107); Globulin 3.6 g/dL (1.3-4.6); Glucose 145 mg/dL (65-115); Osmolality Calculated 304 mOsm/kg (285-295); Sodium 145 mmol/L (136-145); Total Bilirubin 0.6 mg/dL (0.15-1.2); Total Protein 6.8 g/dL (6.6-8.7)
[2022-01-04 04:43] LABS: Creatine Phosphokinase 407 U/L (26-192)
--- NOTE | 2022-01-04 06:22 | PC.NURSE ---
Pt resting quietly in bed with eyes closed. Respirations are even and unlabored. Pt's lungs sound improved, but crackles persist.
[2022-01-04 07:43] LABS: Magnesium 1.6 mg/dL (1.7-2.3)
[2022-01-04] MEDS: pantoprazole 40 mg SDV IVP (08:07)
[2022-01-04] MEDS: collagenase oint 30 gm 1 APPLIC TOPICAL (08:16)
[2022-01-04] MEDS: lidocaine 1% 5 ML in potassium chloride premix 100 ML 25 ML IV (08:51)
[2022-01-04] MEDS: magnesium sulfate premix 2 GM/50 ML PIGGYBACK IV (08:51)
[2022-01-04] MEDS: enoxaparin 80 mg/0.8 mL Syringe SUBCUT ×2 (09:50→21:51)
--- NOTE | 2022-01-04 10:22 | PC.CHAP ---
Pastoral Care Encounter/Spiritual Assessment Type of Contact [] Declined shell maker lockstitch visit [] Patient/Family/Request visit [] Outpatient visit [] Follow-up visit [] Physician referral [] Code/Alert [x] Routine visit [] Staff referral [] Actively dying [x] Patient sleeping [] Family support [] [] Out of room [] Palliative care [] [] Receiving care in room [] Pre-surgical visit [] Trauma [] Long length of stay [x] ICU visit [x] Other: sitter Relational/Emotional Strength [] Patient feels connected with others/family/visitors/staff [] Distress [] Loneliness/isolation [] Abandonment Spirituality of Patient [] Person of [place] [] Attends Yazidi of their [place] [] Believes in Prayer [] Reads Bible or Sikh materials [] There are Spiritual issues to be addressed Tie Inspector Interventions [x] Prayer [] Active listening [] Non-anxious presence [] Spiritual/emotional support [] Crisis/trauma care [] Spiritual counseling [] Bereavement support [] Provided bereavement packet [] Provided Bible/devotional materials [] Provided toy/stuffed animal, coloring book to patient or family member [] Provided Communion [] Anointing/[place] [] Salvation [x] Completed spiritual assessment [] Other: Impact on Illness or Injury [] Angry [] Fearful [] Anxious [] Often cries [] Exhaustion [] Unable to work [] Unable to attend buddhist [] Unable to walk/stand [] Unable to read [] Unable to drive [] Unable to eat/drink [] Unable to sleep [] Unable to be with family [] Patient intubated [] Other: Summary Time spent with patient
[2022-01-04] MEDS: dexmedeTOMIDine 0.9 % NaCL 400 MCG/100 ML PREMIX 16.32 MCG IV (11:55)
--- NOTE | 2022-01-04 12:53 | PC.SLP ---
Patient not alert enough at this time to assess swallowing function. Patient unable to stay awake. Not appropriate at this time to assess swallowing.
[2022-01-04] MEDS: vancomycin 1,500 MG/300 ML PIGGYBACK 150 MG IV (16:55)
--- NOTE | 2022-01-04 18:06 | PC.NURSE ---
Shift Note Frequent safety and comfort rounds continue. Orders and/or nursing care completed as indicated. Patient monitored for response to intervention and treatment(s). Education provided includes need for continued treatment and diet orders. Patient and verbalize understanding but pt remains confused at most times and requires frequent redirection and teaching. VSS, no issues throughout the day. Sitter at bedside, restraints removed and replaced per protocol. Will continue to monitor.
[2022-01-04] MEDS: aspirin 300 mg Supp PR (19:07)
[2022-01-04] MEDS: dexmedeTOMIDine 0.9 % NaCL 400 MCG/100 ML PREMIX 12.24 MCG IV (19:42)
--- NOTE | 2022-01-04 20:18 | PM.PN ---
Subjective Subjective: She is lethargic, confused, arouses to loud voice, shoulder squeeze, tells me her name, seems to know she is in the hospital, not able to provide review of systems. Not following directions. Vitals/I&O/Wt Last Vital Signs Temp 99.6 F 01/04/22 16:00 Pulse 93 01/04/22 16:00 Resp 22 H 01/03/22 00:30 BP 148/83 01/04/22 16:00 Pulse Ox 95 01/04/22 16:00 O2 Del Method 01/04/22 11:28 O2 Flow Rate 6 01/04/22 11:28 01/04/22 01/04/22 01/04/22 06:59 14:59 22:59 Intake Total 400 / 1300.000 460.168 / 460.168 394.832 / 855.000 Output Total 1000 / 4200 350 / 350 Balance -600 / -2900.000 460.168 / 460.168 44.832 / 505.000 Weight last 48 hrs Weight 81.647 kg Weight 86.409 kg Physical Exam Const: GENERAL APPEARANCE: cooperative (Intermittently) NUTRITIONAL APPEARANCE: obese ORIENTATION/CONSCIOUSNESS: Yes confused OTHER: Confused, lethargic, arousable to loud voice, shoulder squeeze. HENMT: COMMON NORMALS: oropharynx normal Neck/C-Spine: COMMON NORMALS: no JVD OTHER: L CVC Resp: COMMON NORMALS: normal respiratory effort and clear to auscultation bilaterally AUSCULTATION: clear to auscultation bilaterally Cardio: COMMON NORMALS: no JVD, regular rhythm, S1 normal heart sound present, S2 normal heart sound present and No murmurs present (Cardio) RHYTHM: regular rhythm HEART SOUNDS: S1 normal heart sound present and S2 normal heart sound present GI: COMMON NORMALS: Normal to inspection, nondistended, normoactive bowel sounds present, Soft to palpation and non-tender PALPATION: Yes Soft to palpation Extremity: COMMON NORMALS: no joint enlargement and no pedal edema Neuro: COMMON NORMALS: moves all extremities Skin: COMMON NORMALS: no rashes or lesions noted GENERAL SKIN EXAM: no rashes or lesions noted OTHER: Shear injury, strain drink sacrum, buttocks, small areas of loss of epidermis, no deep ulcers, no DTI. Chronic venous stasis changes lower extremities, venous stasis ulcerations left anterior menon, shallow, minimal surrounding erythema, raised area. Minimal serous drainage. Heel pressure ulceration about 2 x 3 cm, necrotic base. Piece of skin in the center. Data : 01/04/22 03:58 01/04/22 03:58 Micro: Microbiology 01/02/22 18:40 Legionella Urinary Antigen - Final Urine,Clean Catch Bacterial Antigens - Final 01/02/22 19:05 Blood Culture - Preliminary Blood NEGATIVE TO DATE A&P Assessment and plan (1) Altered mental status: Acute encephalopathy secondary to pneumonia, respiratory failure, improving sepsis, possibly related to some of her medications in the setting of PRINCE, possibly ICU delirium. Precedex, Haldol for episodes of restlessness. Check daily EKG. One-to-one sitter. Continue to reorient. Not yet safe to resume oral intake. Improving PRINCE. Status: Acute (2) Severe sepsis: Improving, improving leukocytosis, some improvement in tachycardia and fever. Still encephalopathy. PRINCE improving. Continue IV antibiotics for pneumonia with Primaxin, vancomycin. Recently with bacillus and blood culture as well, possibility of anaerobic infection. Unclear source, unclear if could have been from right heel wound. Repeat blood cultures pending. On presentation severe sepsis with endorgan injury with acute metabolic encephalopathy, with acute kidney injury, creatinine 1.4, with troponin elevation, possible NSTEMI. Does not appear to have urinary tract infection. Recently treated for MRSA bacteremia has been completing linezolid course, plan was for repeat culture in 2 weeks. Blood cultures redrawn. Additionally noted blood culture during last admission with bacillus, not on process. Possibility of anaerobic infection. Source would be unclear. Status: Acute (3) Pneumonia: Continue antibiotics. Oxygen support. Urine bacterial antigens negative. Follow-up blood cultures. Sputum culture once she will be able to provide. Repeat chest x-ray with worsened pneumonia. COVID-19 rapid antigen negative. Requested PCR, however, for some reason this was canceled without being performed. Requested again. Status: Acute (4) Acute and chronic respiratory failure with hypoxia: Treat pneumonia as above. Per discussion with her she would not want intubation, mechanical ventilation, nor would she want CPR in case of cardiopulmonary arrest. Status: Acute (5) Acute kidney failure: Improving. Currently likely ATN. Received fluid resuscitation. So far maintaining blood pressure. Monitor vitals. Treat sepsis as above. Reassess renal function. Status: Acute (6) Acute non-ST elevation myocardial infarction (NSTEMI): Possible NSTEMI, aspirin [place], Lovenox, currently unable to tolerate oral medications. IV metoprolol scheduled. Would benefit from additional cardiac evaluation once she is more stable. Status: Acute Plan Recent MRSA bacteremia, source unclear, possibly cellulitis Recurrent ESBL E. coli UTI, negative recent urine culture, currently UA not suggestive of UTI. Empiric coverage for ESBL organism just in case. Shear stress, surgery of sacrum, buttocks: Reposition, keep dry Chronic pressure ulcer: Float heels collagenase for necrotic. Base. Will benefit from surgical debridement once she is more stable. Chronic venous stasis, venous stasis ulceration anterior left menon History of cardiac arrest CHF COPD Dementia Depression DM2 GERD History Other chronic medical problems noted Attestations Medical Necessity Statement*: Continue admission for assessment of management of respiratory failure, community-acquired pneumonia, improving sepsis, persistent acute encephalopathy, possible NSTEMI in a lady with multiple comorbidities as above. Coding Level of Care Code Acute Field Installation Technician for [facility] Diagnoses Altered mental status R41.82 Severe sepsis A41.9; R65.20 Pneumonia J18.9 Acute and chronic respiratory failure with hypoxia J96.21 Acute kidney failure N17.9 Acute non-ST elevation myocardial infarction (NSTEMI) I21.4
[2022-01-05] VITALS (36 sets, daily range): BP systolic 96–174; BP diastolic 54–107; PULSE 55–113; RESP 16; TEMP 36.4–37.4; O2SAT 93–100
[2022-01-05 02:21] LABS: Adenovirus Not Detected (NOT DETECT); Chlamydia Pneumoniae Not Detected (NOT DETECT); Coronavirus 229E,HKU1,NL63,OC4 Not Detected (NOT DETECT); Human Metapneumovirus Not Detected (NOT DETECT); Human Rhinovirus/Enterovirus Not Detected (NOT DETECT); Influenza A Not Detected (NOT DETECT); Influenza A H1 Not Detected (NOT DETECT); Influenza A H1-2009 Not Detected (NOT DETECT); Influenza A H3 Not Detected (NOT DETECT); Influenza B Not Detected (NOT DETECT); Mycoplasma Pneumoniae Not Detected (NOT DETECT); Parainfluenza Virus Type 1 Not Detected (NOT DETECT); Parainfluenza Virus Type 2 Not Detected (NOT DETECT); Parainfluenza Virus Type 3 Not Detected (NOT DETECT); Parainfluenza Virus Type 4 Not Detected (NOT DETECT); Respiratory Syncytial Virus A Not Detected (NOT DETECT); Respiratory Syncytial Virus B Not Detected (NOT DETECT); SARS-COV-2 Not Detected (NOT DETECT)
--- NOTE | 2022-01-05 03:53 | PC.NURSE ---
Fine crackles are greater on the left than right.
[2022-01-05] MEDS: metoprolol tartrate 1 mg/1 mL SDV 5 mL 5 MG IVP ×6 (03:59→23:58)
[2022-01-05 04:27] LABS: Basophils % 0.4 %; Eosinophils # 0.1 10^3/uL (0.0-0.8); Eosinophils % 0.7 %; Hematocrit 35.2 % (37.0-47.0); Hemoglobin 10.7 g/dL (11.5-15.3); Lymphocytes # 1.4 10^3/uL (0.8-4.8); Lymphocytes % 19.1 %; Mean Corpuscular HGB Conc 30.4 g/dL (30.0-36.0); Mean Corpuscular Hemoglobin 27.1 pg (28.0-34.0); Mean Corpuscular Volume 89.1 fl (81-99); Monocytes # 0.8 10^3/uL (0.2-0.9); Monocytes % 11.2 %; Neutrophils # 5.09 10^3/uL (1.8-7.7); Neutrophils % 68.1 %; Nucleated Red Blood Cells % 0 %; Platelet Count 162 10^3/cmm (130-400); Red Blood Count 3.95 10^6/uL (4.1-5.3); White Blood Count 7.5 10^3/uL (4.0-10.0)
[2022-01-05 04:52] LABS: Alanine Aminotransferase 11 U/L (0-33); Albumin Level 3.2 g/dL (3.5-5.2); Alkaline Phosphatase 76 U/L (35-105); Anion Gap 13.7 (5-19); Aspartate Amino Transferase 26 U/L (0-32); Blood Urea Nitrogen 18 mg/dL (8-23); Carbon Dioxide 26 mmol/L (22-29); Chloride 113 mmol/L (98-107); Globulin 3.4 g/dL (1.3-4.6); Glucose 112 mg/dL (65-115); Magnesium 2.1 mg/dL (1.7-2.3); Osmolality Calculated 313 mOsm/kg (285-295); Sodium 150 mmol/L (136-145); Total Bilirubin 0.5 mg/dL (0.15-1.2); Total Protein 6.6 g/dL (6.6-8.7)
[2022-01-05 04:54] LABS: Potassium 2.7 mmol/L (3.5-5.1)
[2022-01-05] MEDS: lidocaine 1% 5 ML in potassium chloride premix 100 ML 25 ML IV ×3 (05:11→18:15)
--- NOTE | 2022-01-05 05:14 | PC.NURSE ---
Addendum entered by Roxann Guzman RN 01/05/22 05:16: witnessed precedex waste. Original Note: 37.678 mls of Precedex wasted with second RN witness.
--- NOTE | 2022-01-05 06:01 | PC.NURSE ---
Constant observer not needed for this shift and discontinued on 01/04/22 at 1900
--- NOTE | 2022-01-05 07:23 | P.PN_ITS ---
Subjective Subjective: Fany awakens easily. No specific complaints. History and physical, progress notes reviewed. Patient denies any shortness of breath or pain. Medications: Reviewed: Yes Vitals/I&O/Wt Last Vital Signs Temp 99.4 F 01/05/22 03:51 Pulse 76 01/05/22 06:00 Resp 24 H 01/04/22 23:00 BP 148/81 01/05/22 06:00 Pulse Ox 98 01/05/22 06:00 O2 Del Method 01/05/22 06:00 O2 Flow Rate 6 01/05/22 06:00 01/04/22 01/05/22 01/05/22 22:59 06:59 14:59 Intake Total 425.160 / 885.328 161.994 / 1047.322 100 / 100 Output Total 700 / 700 200 / 900 Balance -274.840 / 185.328 -38.006 / 147.322 100 / 100 Weight last 48 hrs Weight 82.1 kg Weight 81.647 kg Physical Exam Narrative: General exam is a white female sleeping when I entered the room, who wakes up and says hi during exam Neck is supple no lymphadenopathy thyromegaly Cardiovascular regular rate and rhythm without murmur Lungs clear no wheezing or crackles Abdomen is soft with positive bowel sounds Extremities no cyanosis clubbing. Right wound he will reviewed. Data : 01/05/22 03:47 01/05/22 03:47 Micro: Microbiology 01/02/22 18:40 Legionella Urinary Antigen - Final Urine,Clean Catch Bacterial Antigens - Final A&P Assessment and plan (1) Altered mental status: Presented with acute encephalopathy, multifactorial. She required Haldol, and Precedex Precedex has since been discontinued. No Haldol in over 24 hours. She may be back to baseline this morning. Speech therapy to assess to see if she can resume p.o. intake. Status: Acute (2) Severe sepsis: Resolved Continue IV Primaxin and vancomycin On presentation had severe sepsis with endorgan injury including acute metabolic encephalopathy, with acute kidney injury, creatinine 1.4, with troponin elevation, possible NSTEMI. Recently treated for MRSA bacteremia has been completing linezolid course, plan was for repeat culture in 2 weeks. Blood cultures redrawn and pending. Still on vancomycin currently despite MRSA PCR negative. Status: Acute (3) Pneumonia: Continue IV antibiotics consisting of vancomycin and Primaxin Wean oxygen as tolerated Last x-ray demonstrated worsening pneumonia COVID PCR negative Status: Acute (4) Acute and chronic respiratory failure with hypoxia: Improving Allow natural Status: Acute (5) Acute kidney failure: Resolved. Likely secondary to ATN. Creatinine 0.9 today. Status: Acute (6) Acute non-ST elevation myocardial infarction (NSTEMI): Possible NSTEMI, aspirin, Lovenox, currently . IV metoprolol scheduled. Depending on patient desire could consider outpatient cardiology evaluation Status: Acute Plan Recent MRSA bacteremia, source unclear, possibly cellulitis. Cultures negative to date Recurrent ESBL E. coli UTI, negative recent urine culture, currently UA not suggestive of UTI. Empiric coverage for ESBL organism just in case. Hypokalemia. Supplement Hypernatremia. Add D5W. Recheck BMP in the afternoon Shear stress, surgery of sacrum, buttocks: Reposition, keep dry Chronic pressure ulcer:, Right heel. Keep pressure off area may need debridement in the future. Multiple other medical problems as outlined in past medical history Allow natural Lovenox for DVT prophylaxis probable transfer out of the ICU today. Attestations Medical Necessity Statement*: Needs continued hospitalization for IV antibiotics secondary to pneumonia. Coding Level of Care Code Acute Needle Molder for [facility] Diagnoses Altered mental status R41.82 Severe sepsis A41.9; R65.20 Pneumonia J18.9 Acute and chronic respiratory failure with hypoxia J96.21 Acute kidney failure N17.9 Acute non-ST elevation myocardial infarction (NSTEMI) I21.4
[2022-01-05] MEDS: dextrose 5% 1,000 ML 75 ML IV ×2 (07:36→20:39)
[2022-01-05] MEDS: collagenase oint 30 gm 1 APPLIC TOPICAL (08:10)
[2022-01-05] MEDS: pantoprazole 40 mg SDV IVP (08:11)
[2022-01-05] MEDS: enoxaparin 80 mg/0.8 mL Syringe SUBCUT ×2 (09:31→22:24)
--- NOTE | 2022-01-05 10:30 | PC.SOCIAL ---
Pg 2 IMM Explained to pt Pg 2 IMM. No questions voiced. Provided pt a copy. Initialed, dated, & timed a copy & placed in chart.
--- NOTE | 2022-01-05 12:13 | PC.CHAP ---
Pastoral Care Encounter/Spiritual Assessment Type of Contact [] Declined wet silk hanger visit [] Patient/Family/Request visit [] Outpatient visit [] Follow-up visit [] Physician referral [] Code/Alert [x] Routine visit [] Staff referral [] Actively dying [] Patient sleeping [] Family support [] [] Out of room [] Palliative care [] [] Receiving care in room [] Pre-surgical visit [] Trauma [] Long length of stay [x] ICU visit [x] Other: no sitter... can respond some.. Relational/Emotional Strength [] Patient feels connected with others/family/visitors/staff [] Distress [] Loneliness/isolation [] Abandonment Spirituality of Patient [] Person of [place] [] Attends Druze of their [place] [] Believes in Prayer [] Reads Bible or Hinduism materials [] There are Spiritual issues to be addressed Municipal Services Manager Interventions [x] Prayer [] Active listening [] Non-anxious presence [] Spiritual/emotional support [] Crisis/trauma care [] Spiritual counseling [] Bereavement support [] Provided bereavement packet [] Provided Bible/devotional materials [] Provided toy/stuffed animal, coloring book to patient or family member [] Provided Communion [] Anointing/[place] [] Salvation [x] Completed spiritual assessment [] Other: Impact on Illness or Injury [] Angry [] Fearful [] Anxious [] Often cries [] Exhaustion [] Unable to work [] Unable to attend methodist [] Unable to walk/stand [] Unable to read [] Unable to drive [] Unable to eat/drink [] Unable to sleep [] Unable to be with family [] Patient intubated [] Other: Summary Time spent with patient
[2022-01-05 16:37] LABS: Vancomycin Trough 14.6 ug/mL (10-15)
[2022-01-05 17:03] LABS: Anion Gap 12.4 (5-19); Blood Urea Nitrogen 16 mg/dL (8-23); Calcium 9.1 mg/dL (8.5-10.5); Carbon Dioxide 25 mmol/L (22-29); Chloride 114 mmol/L (98-107); Glucose 127 mg/dL (65-115); Osmolality Calculated 309 mOsm/kg (285-295); Potassium 3.4 mmol/L (3.5-5.1); Sodium 148 mmol/L (136-145)
[2022-01-05] MEDS: vancomycin 1,500 MG/300 ML PIGGYBACK 150 MG IV (17:04)
[2022-01-05] MEDS: acetaminophen 325 mg Tablet 650 MG PO (18:57)
[2022-01-06] VITALS (11 sets, daily range): BP systolic 127–158; BP diastolic 75–100; PULSE 60–92; RESP 15–18; TEMP 36.4–37.1; O2SAT 91–98
--- NOTE | 2022-01-06 04:55 | NUR.SHIFT ---
Pt came to me from ICU, no needs at pt handoff, meds given per mar, call light in reach, bed low and locked
[2022-01-06 07:52] LABS: Basophils % 0.3 %; Eosinophils # 0.3 10^3/uL (0.0-0.8); Eosinophils % 3.7 %; Hematocrit 38.3 % (37.0-47.0); Hemoglobin 11.8 g/dL (11.5-15.3); Lymphocytes # 1.4 10^3/uL (0.8-4.8); Lymphocytes % 17.2 %; Mean Corpuscular HGB Conc 30.8 g/dL (30.0-36.0); Mean Corpuscular Hemoglobin 27.9 pg (28.0-34.0); Mean Corpuscular Volume 90.5 fl (81-99); Monocytes # 0.6 10^3/uL (0.2-0.9); Monocytes % 7.6 %; Neutrophils # 5.57 10^3/uL (1.8-7.7); Neutrophils % 70.6 %; Nucleated Red Blood Cells % 0 %; Platelet Count 174 10^3/cmm (130-400); Red Blood Count 4.23 10^6/uL (4.1-5.3); White Blood Count 7.9 10^3/uL (4.0-10.0)
--- NOTE | 2022-01-06 07:57 | PC.NURSE ---
I spoke with Christine Acosta, RN and she states that Metoprolol was not given at 0345 and Imipenem was not given at 0600. I called and spoke with Jessika Pressley RN and inquired about this. She states that she gave both medications, they must have not scanned. I informed Christine Acosta RN of this. She documented these medications as not administered. Education provided to Jessika Pressley on ensuring ok and save are both chosen before closing the MAR. She verbalizes understanding.
[2022-01-06] MEDS: metoprolol tartrate 1 mg/1 mL SDV 5 mL 5 MG IVP (08:00)
[2022-01-06] MEDS: pantoprazole 40 mg SDV IVP (08:00)
[2022-01-06 08:20] LABS: Alanine Aminotransferase 12 U/L (0-33); Albumin Level 2.7 g/dL (3.5-5.2); Alkaline Phosphatase 76 U/L (35-105); Anion Gap 12.3 (5-19); Aspartate Amino Transferase 25 U/L (0-32); Blood Urea Nitrogen 13 mg/dL (8-23); Calcium 9.2 mg/dL (8.5-10.5); Carbon Dioxide 24 mmol/L (22-29); Chloride 105 mmol/L (98-107); Globulin 3.9 g/dL (1.3-4.6); Glucose 118 mg/dL (65-115); Magnesium 1.7 mg/dL (1.7-2.3); Osmolality Calculated 287 mOsm/kg (285-295); Potassium 3.3 mmol/L (3.5-5.1); Sodium 138 mmol/L (136-145); Total Bilirubin 0.5 mg/dL (0.15-1.2); Total Protein 6.6 g/dL (6.6-8.7)
--- NOTE | 2022-01-06 09:39 | PC.CHAP ---
Pastoral Care Encounter/Spiritual Assessment Type of Contact [] Declined theater teacher visit [] Patient/Family/Request visit [] Outpatient visit [] Follow-up visit [] Physician referral [] Code/Alert [x] Routine visit [] Staff referral [] Actively dying [] Patient sleeping [] Family support [] [] Out of room [] Palliative care [] [] Receiving care in room [] Pre-surgical visit [] Trauma [] Long length of stay [] ICU visit [] Other: Relational/Emotional Strength [x] Patient feels connected with others/family/visitors/staff [] Distress [] Loneliness/isolation [] Abandonment Spirituality of Patient [x] Person of [place] [] Attends Rastafari of their [place] [x] Believes in Prayer [] Reads Bible or Alevism materials [] There are Spiritual issues to be addressed Rn Recovery Interventions [x] Prayer [x] Active listening [x] Non-anxious presence [x] Spiritual/emotional support [] Crisis/trauma care [] Spiritual counseling [] Bereavement support [] Provided bereavement packet [] Provided Bible/devotional materials [] Provided toy/stuffed animal, coloring book to patient or family member [] Provided Communion [] Anointing/[place] [] Salvation [x] Completed spiritual assessment [] Other: Impact on Illness or Injury [] Angry [] Fearful [] Anxious [] Often cries [] Exhaustion [] Unable to work [] Unable to attend scientology [] Unable to walk/stand [] Unable to read [] Unable to drive [] Unable to eat/drink [] Unable to sleep [] Unable to be with family [] Patient intubated [] Other: Summary Pt had large scrape on nose. Inquired if Pt had fell and she stated no it was a scratch. She is hoping to be released today or tomorrow from the hospital. She resides in a local nursing care facility. She requested prayer. Time spent with patient 5m
[2022-01-06] MEDS: potassium chloride oral liq 20 mEq/15 mL UDC 40 MEQ PO (11:03)
[2022-01-06] MEDS: enoxaparin 80 mg/0.8 mL Syringe SUBCUT ×2 (11:03→21:21)
[2022-01-06] MEDS: acetaminophen 325 mg Tablet 650 MG PO (11:04)
[2022-01-06] MEDS: amiodarone 200 mg Tablet 100 MG PO (11:04)
[2022-01-06] MEDS: metoprolol tartrate 50 mg Tablet 75 MG PO (11:04)
[2022-01-06] MEDS: collagenase oint 30 gm 1 APPLIC TOPICAL (11:05)
--- NOTE | 2022-01-06 13:09 | PM.PN ---
Subjective Subjective: Fany reports she is doing okay today. She wonders when she can eat. Denies any pain. Medications: Reviewed: Yes Vitals/I&O/Wt Last Vital Signs Temp 98.8 F 01/06/22 11:03 Pulse 85 01/06/22 11:03 Resp 16 01/06/22 11:03 BP 152/75 01/06/22 11:03 Pulse Ox 98 01/06/22 11:03 O2 Del Method 01/06/22 11:03 O2 Flow Rate 3 01/06/22 08:54 01/05/22 01/06/22 01/06/22 22:59 06:59 14:59 Intake Total 2118.75 / 2548.75 1565 / 1565 Output Total 950 / 950 Balance 1168.75 / 1598.75 1565 / 1565 Weight last 48 hrs Weight 83.092 kg Weight 82.1 kg Physical Exam Narrative: General exam is a white female alert with no complaints Neck is supple no lymphadenopathy thyromegaly Cardiovascular regular rate and rhythm without murmur Lungs clear no wheezing or crackles Abdomen is soft with positive bowel sounds Extremities no cyanosis clubbing. Right heel wound with dressing Data : 01/06/22 07:44 01/06/22 07:44 A&P Assessment and plan (1) Altered mental status: Presented with acute encephalopathy, multifactorial. She required Haldol, and Precedex Precedex has since been discontinued. No Haldol in over 48 hours. She is back to baseline Diet has been initiated, minced meats, moist foods Status: Acute (2) Severe sepsis: Resolved Continue IV Primaxin and vancomycin Probable discharge tomorrow if cultures remain negative On presentation had severe sepsis with endorgan injury including acute metabolic encephalopathy, with acute kidney injury, creatinine 1.4, with troponin elevation, possible NSTEMI. Recently treated for MRSA bacteremia has been completing linezolid course, plan was for repeat culture in 2 weeks. Blood cultures redrawn and pending. Still on vancomycin currently despite MRSA PCR negative. Plan discharged on Augmentin and linezolid Status: Acute (3) Pneumonia: Continue IV antibiotics consisting of vancomycin and Primaxin Wean oxygen as tolerated Last x-ray demonstrated worsening pneumonia COVID PCR negative Now down to 3 L of oxygen. Try to wean further today. Status: Acute (4) Acute and chronic respiratory failure with hypoxia: Improving Allow natural Status: Acute (5) Acute kidney failure: Resolved. Likely secondary to ATN. Creatinine 0.9 today. Status: Acute (6) Acute non-ST elevation myocardial infarction (NSTEMI): Possible NSTEMI, aspirin, Lovenox, currently . IV metoprolol scheduled. Depending on patient desire could consider outpatient cardiology evaluation Status: Acute Plan Recent MRSA bacteremia, source unclear, possibly cellulitis. Cultures negative to date Recurrent ESBL E. coli UTI, negative recent urine culture, currently UA not suggestive of UTI. Empiric coverage for ESBL organism just in case. Hypokalemia. Supplement again today Hypernatremia. Resolved. IV fluids discontinued Shear stress, surgery of sacrum, buttocks: Reposition, keep dry Chronic pressure ulcer:, Right heel. Keep pressure off area may need debridement in the future. Multiple other medical problems as outlined in past medical history Allow natural Lovenox for DVT prophylaxis Attestations Medical Necessity Statement*: Needs continued hospitalization for IV antibiotics secondary to sepsis. 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
[2022-01-06] MEDS: vancomycin 1,500 MG/300 ML PIGGYBACK 150 MG IV (17:55)
[2022-01-07 03:57] VITALS: BP 121/78; PULSE 67; RESP 16; TEMP 36.8; O2SAT 97
[2022-01-07 05:26] VITALS: PULSE 80
[2022-01-07 08:00] VITALS: BP 121/77; PULSE 80; RESP 18; TEMP 36.4; O2SAT 97
[2022-01-07] MEDS: metoprolol tartrate 50 mg Tablet 75 MG PO (09:33)
[2022-01-07] MEDS: amiodarone 200 mg Tablet 100 MG PO (09:33)
[2022-01-07] MEDS: pantoprazole 40 mg SDV IVP (09:34)
[2022-01-07] MEDS: enoxaparin 80 mg/0.8 mL Syringe SUBCUT (09:34)
[2022-01-07] MEDS: aspirin 325 mg Tablet PO (09:35)
--- NOTE | 2022-01-07 10:37 | PM.DCS ---
Discharge Providers Date of Admission: 01/02/22 17:23 Date of Discharge: January 07, 2022 Attending Provider at Admission: Teddy Taveras Attending Provider at Discharge: Saturnino Hernandez MD Primary Care Provider: Rasheeda Hernandez MD Diagnoses at Discharge Discharge Diagnosis (1) Altered mental status: Status: Acute (2) Severe sepsis: Status: Acute (3) Pneumonia: Status: Acute (4) Acute and chronic respiratory failure with hypoxia: Status: Acute (5) Acute kidney failure: Status: Acute (6) Acute non-ST elevation myocardial infarction (NSTEMI): Status: Acute Reason for Visit Reason for Visit: AMS Hospital Course Hospital Course Fany is a 71-year-old female, currently on oral antibiotics for possible endocarditis who presented to the hospital with concerns of sepsis and pneumonia. She was placed on broad-spectrum antibiotics consisting of Primaxin and vancomycin and admitted to the ICU initially. Acute kidney injury was noted. Cultures were obtained. Elevation in troponin was noted, consistent with type II elevation. Acute metabolic encephalopathy was noted. With this treatment she had gradual improvement of her severe sepsis, acute kidney injury. Oxygen was able to be weaned. Cultures did not grow any significant organisms. I visited with her again during her hospital stay regarding her refusal of PICC line placement, IV antibiotics and she reconfirmed this to me. She reported in the future she may not even want an IV. She was alert, oriented and appropriate the time at this conversation. On January 07 it was thought she could be discharged. She been afebrile for over 48 hours. On 3 L of oxygen she had an O2 sat of 99%. Renal function was back to normal. She will take 7 days of Augmentin. She will continue her linezolid until January 10. She has follow-up with infectious disease already scheduled. This is secondary to a previous blood culture with 1 bottle with MRSA and concern of endocarditis for which she refused a CYRIL.. Physical Exam Narrative: General exam no apparent distress Neck supple no lymphadenopathy thyromegaly Cardiovascular regular rate and rhythm with a 2/6 systolic murmur Lungs clear Abdomen is soft with positive bowel sounds Extremities no cyanosis clubbing or edema Discharge Data Studies Completed and Pending Completed Studies During Hospitalization Category Date Time Status CT head wo con* [id number] Stat Cat Scan 01/02/22 11:08 Completed XR chest 1V portable [id number] Routine Exams 01/03/22 04:50 Completed XR chest 1V portable [id number] Stat Exams 01/02/22 11:08 Completed XR chest 1V portable [id number] Stat Exams 01/02/22 15:35 Completed Pending at discharge Category Date Time Status Blood Culture Stat Lab 01/02/22 19:05 Results CBC Auto Diff [Complete Blood Count w/Auto] AM LABS Lab 01/07/22 04:00 Ordered CMP [Comprehensive Metabolic Panel] AM LABS Lab 01/07/22 04:00 Ordered Magnesium Timed Lab 01/07/22 04:00 Ordered Sputum Culture and Gram Stain Routine Lab 01/02/22 18:00 Uncollected Radiology Impressions Head CT 01/02/22 11:08 IMPRESSION: No acute intracranial abnormality. Chest X-Ray 01/03/22 04:50 IMPRESSION: Worsening bilateral pneumonia. Laboratory Results WBC 7.9 10^3/uL (4.0-10.0) 01/06/22 07:44 Corrected WBC Cancelled 01/06/22 05:44 RBC 4.23 10^6/uL (4.1-5.3) 01/06/22 07:44 Hgb 11.8 g/dL (11.5-15.3) 01/06/22 07:44 Hct 38.3 % (37.0-47.0) 01/06/22 07:44 MCV 90.5 fl (81-99) 01/06/22 07:44 MCH 27.9 pg (28.0-34.0) L 01/06/22 07:44 MCHC 30.8 g/dL (30.0-36.0) 01/06/22 07:44 RDW 19.0 % (12.1-15.1) H 01/06/22 07:44 Plt Count 174 10^3/cmm (130-400) 01/06/22 07:44 MPV 10.0 fL (7.4-10.4) 01/06/22 07:44 Gran % Cancelled 01/06/22 05:44 Neut % (Auto) 70.6 % 01/06/22 07:44 Lymph % (Auto) 17.2 % 01/06/22 07:44 [place] % (Auto) 7.6 % 01/06/22 07:44 Eos % (Auto) 3.7 % 01/06/22 07:44 Baso % (Auto) 0.3 % 01/06/22 07:44 Neut # (Auto) 5.57 10^3/uL (1.8-7.7) 01/06/22 07:44 Lymph # (Auto) 1.4 10^3/uL (0.8-4.8) 01/06/22 07:44 [place] # (Auto) 0.6 10^3/uL (0.2-0.9) 01/06/22 07:44 Eos # (Auto) 0.3 10^3/uL (0.0-0.8) 01/06/22 07:44 Baso # (Auto) 0.0 10^3/uL (0.0-0.1) 01/06/22 07:44 Absolute Gran (auto) Cancelled 01/06/22 05:44 Nucleated RBC % (auto) 0 % 01/06/22 07:44 Nucleated RBCs # 0.0 /100WBC 01/06/22 07:44 Specimen Type Arterial 01/02/22 11:37 Sample Site Radial, left 01/02/22 11:37 ABG pH 7.42 (7.35-7.45) 01/02/22 11:37 ABG pCO2 30.2 mmHg (35-45) L 01/02/22 11:37 ABG pO2 63.2 mmHg (80.0-100.0) L 01/02/22 11:37 ABG HCO3 19.7 mmol/L (22-26) L 01/02/22 11:37 ABG Base Excess -3.9 mmol/L (-2.0-2.0) L 01/02/22 11:37 David Test Pos 01/02/22 11:37 Hematocrit 35.9 % (37-47) L 01/02/22 11:37 O2 Delivery Device Nc 01/02/22 11:37 O2 Liters/Min 3.0 % 01/02/22 11:37 FiO2 32.0 % 01/02/22 11:37 Allied [employer] Professional ID [place] 01/02/22 11:37 Sodium 138 mmol/L (136-145) 01/06/22 07:44 Potassium 3.3 mmol/L (3.5-5.1) L 01/06/22 07:44 Chloride 105 mmol/L (98-107) 01/06/22 07:44 Carbon Dioxide 24 mmol/L (22-29) 01/06/22 07:44 Anion Gap 12.3 (5-19) 01/06/22 07:44 BUN 13 mg/dL (8-23) 01/06/22 07:44 Creatinine 0.8 mg/dL (0.5-0.9) 01/06/22 07:44 GFR Calculation Not Reportable 01/06/22 07:44 Glucose 118 mg/dL (65-115) H 01/06/22 07:44 Calculated Osmolality 287 mOsm/kg (285-295) 01/06/22 07:44 Lactic Acid 4.2 mmol/L (0.5-2.2) H* 01/02/22 12:40 Lactic Acid (Sepsis) 4.8 mmol/L (0.5-2.2) H* 01/02/22 16:20 Calcium 9.2 mg/dL (8.5-10.5) 01/06/22 07:44 Magnesium 1.7 mg/dL (1.7-2.3) 01/06/22 07:44 Total Bilirubin 0.5 mg/dL (0.15-1.2) 01/06/22 07:44 AST 25 U/L (0-32) 01/06/22 07:44 ALT 12 U/L (0-33) 01/06/22 07:44 Alkaline Phosphatase 76 U/L (35-105) 01/06/22 07:44 Creatine Kinase 407 U/L (26-192) H* 01/04/22 03:58 Troponin T Baseline 68 ng/L (0-10) H 01/02/22 12:40 Troponin T 120 Minute 110.0 ng/L (0-10) H 01/02/22 16:20 Delta Troponin T 42.0 ABS# (0-10) H* 01/02/22 16:20 Troponin T Hi Sens 6Hr 112.9 ng/L (0-10) H 01/02/22 19:05 Troponin T Hi Sens 6Hr Delta 44.9 ng/L (0-12) H* 01/02/22 19:05 C-Reactive Protein 155.2 mg/L (0.0-4.9) H 01/02/22 16:20 NT-Pro-B Natriuret Pep 59234 pg/mL (0-125) H 01/02/22 16:20 Total Protein 6.6 g/dL (6.6-8.7) 01/06/22 07:44 Albumin 2.7 g/dL (3.5-5.2) L 01/06/22 07:44 Globulin 3.9 g/dL (1.3-4.6) 01/06/22 07:44 Procalcitonin 9.56 ng/mL (0-0.5) H 01/02/22 16:20 TSH 2.56 uIU/mL (0.27-4.20) 01/02/22 16:20 Urine Color Yellow (Yellow) 01/02/22 12:40 Urine Appearance Clear (CLEAR) 01/02/22 12:40 Urine pH 6 (5-7) 01/02/22 12:40 Ur Specific [place] 1.015 (1.005-1.030) 01/02/22 12:40 Urine Protein 1+ (Negative) H 01/02/22 12:40 Urine Glucose (UA) Norm (Normal) 01/02/22 12:40 Urine Ketones Negative (Negative) 01/02/22 12:40 Urine Blood 2+ (Negative) H 01/02/22 12:40 Urine Nitrate Negative (Negative) 01/02/22 12:40 Urine Bilirubin Neg (Negative) 01/02/22 12:40 Urine Urobilinogen Norm mg/dL (Negative) 01/02/22 12:40 Ur Leukocyte Esterase Negative (Negative) 01/02/22 12:40 Urine RBC 5-10 /hpf (0-2) H 01/02/22 12:40 Urine WBC None /hpf (0-5) 01/02/22 12:40 Ur Squamous Epith Cells 5-10 /hpf (0-5) H 01/02/22 12:40 Amorphous Sediment Not Reportable 01/02/22 12:40 Urine Bacteria Trace /hpf (NONE) 01/02/22 12:40 Vancomycin Trough 14.6 ug/mL (10-15) 01/05/22 15:34 Coronavirus 229E (PCR) Not detected (NOT DETECT) 01/05/22 00:01 Hepatitis A IgM Ab Non-reactive (Nonreactive) 01/02/22 12:40 Hep Bs Antigen Non-reactive (Nonreactive) 01/02/22 12:40 Hep B Core IgM Ab Non-reactive (Nonreactive) 01/02/22 12:40 Hepatitis C Antibody Non-reactive (Nonreactive) 01/02/22 12:40 HIV 1&2 Ab & HIV 1 Ag Non-reactive (Non-Reactiv) 01/02/22 12:40 HIV 1&2 Antibody Non-reactive (Non-Reactiv) 01/02/22 12:40 SARS-CoV-2 (PCR) Not detected (NOT DETECT) 01/05/22 00:01 SARS-CoV-2 Ag (Rapid) Negative (Negative) 01/03/22 20:50 Vitals Last Vital Signs Temp 97.5 F L 01/07/22 08:00 Pulse 80 01/07/22 08:00 Resp 18 01/07/22 08:00 BP 121/77 01/07/22 08:00 Pulse Ox 97 01/07/22 08:00 O2 Del Method 01/07/22 08:00 O2 Flow Rate 3 01/07/22 08:00 Discharge Plan Discharge Patient Disposition: Xfer SNF Condition: Stable Prescriptions: New amoxicillin-pot clavulanate 875-125 mg tablet 1 tab PO BID Qty: 14 0RF Continued amiodarone 100 mg tablet 100 tab PO DAILY spironolactone 25 mg tablet 1 tab PO DAILY multivitamin Tablet 1 tab PO DAILY@08 acetaminophen 325 mg Tablet 650 mg PO Q6H PRN (Reason: pain/temp) atorvastatin 20 mg Tablet 30 mg PO DAILY@20 pantoprazole 20 mg tablet,delayed release (DR/EC) 20 mg PO DAILY@08 nystatin [Nyamyc] 100,000 unit/gram powder 1 applic TOPICAL DAILY Rx Instructions: apply to abdominal folds albuterol sulfate 90 mcg/actuation Hfa Aerosol Inhaler 2 puff INHALATION Q4H PRN (Reason: Shortness Of Breath) alum-mag hydroxide-simeth [Almacone-2] 400-400-40 mg/5 mL Suspension 30 ml PO Q24H PRN (Reason: Heartburn) bisacodyl 5 mg Tablet 5 mg PO Q24H PRN (Reason: Constipation) duloxetine 60 mg Capsule,Delayed Release(Dr/Ec) 60 mg PO DAILY@08 Xarelto 10 mg tablet 10 mg PO DAILY@08 Myrbetriq 50 mg tablet extended release 24 hr 50 mg PO DAILY@08 insulin aspart U-100 [Novolog Flexpen U-100 Insulin] 100 unit/mL (3 mL) insulin pen See Rx Instructions .ROUTE .COMPLEX Qty: 15 0RF Rx Instructions: Inject, subcu, 3 times daily, after meals, based on sliding scale metoprolol tartrate 50 mg tablet 75 mg PO BID Qty: 0 0RF Hold Instructions: Resume on 11/24/21. Rx Instructions: hold for sbp <100,dbp <60, or hr<60 alprazolam 0.25 mg Tablet 0.25 mg PO BID PRN (Reason: Anxiety) triamcinolone acetonide 0.1 % Cream 1 applic TOPICAL BID bumetanide 1 mg Tablet 1 mg PO DAILY@08 PRN (Reason: Edema) Qty: 1 0RF linezolid 600 mg tablet 600 mg PO BID 42 Days Qty: 84 0RF oxycodone-acetaminophen 5-325 mg Tablet 1 tab PO Q6H PRN (Reason: Pain) Santyl 250 unit/gram Ointment 1 applic TOPICAL DAILY haloperidol lactate 2 mg/mL Concentrate 0.5 mg PO ONCE PRN (Reason: dementia) potassium chloride 20 mEq/15 mL liquid 30 meq PO DAILY Changed hydralazine 50 mg Tablet 25 mg PO TID 30 Days Qty: 90 3RF Discontinued ropinirole 2 mg tablet 2 mg PO DAILY@08 ropinirole 4 mg tablet 4 mg PO DAILY@20 amlodipine 10 mg Tablet 10 mg PO DAILY 30 Days Qty: 30 3RF Discharge Orders: Discharge Order (Routine); Ordered 01/07/22 Ordered By: Saturnino Hernandez Referrals: [facility] [Outside] Rasheeda Hernandez MD [Primary Care Provider] - 4-7 days (CBC, BMP in 4 days) Discharge Diet: Usual diet Discharge Activity: Increase activity as tolerated Activity Restrictions/Additional Instructions: Oxygen 3 L per nasal cannula, titrate for sat greater than or equal to 92% Take all medicine as prescribed CBC and BMP in 4 days Keep regular follow-up with infectious disease, finish course of linezolid Discharge Attestations Time Spent in Discharge Care*: greater than 30 min Quality Metrics Clinical Quality Measures [ No reported AMI, CVA or VTE this stay] Coding Level of Care Code Acute g DC note Diagnoses Altered mental status R41.82 Severe sepsis A41.9; R65.20 Pneumonia J18.9 Acute and chronic respiratory failure with hypoxia J96.21 Acute kidney failure N17.9 Acute non-ST elevation myocardial infarction (NSTEMI) I21.4
[2022-01-07] MEDS: collagenase oint 30 gm 1 APPLIC TOPICAL (10:56)
--- NOTE | 2022-01-07 11:03 | PC.SOCIAL ---
IMM Updated Updated pt on IMM. No questions voiced. Provided pt a copy. Initialed, dated, & timed copy in chart.
[2022-01-07 12:00] VITALS: BP 122/80; PULSE 60; RESP 17; TEMP 36.6; O2SAT 99
== END 2022-01-07 14:30 | disposition skilled nursing facility (03) | DRG 871 ==
LOC: ER 16:16 → ICU 17:26 → MEDSURG 01-05 22:49
PROVIDERS: Family Medicine; Admitting Provider Internal Medicine; Emergency Provider Emergency Medicine; PCP Family Medicine; Visit Provider Internal Medicine
DX: A41.9 Sepsis, unspecified organism (principal); G93.41 Metabolic encephalopathy; J18.9 Pneumonia, unspecified organism; J96.01 Acute respiratory failure with hypoxia; I21.A1 Myocardial infarction type 2; N17.9 Acute kidney failure, unspecified; E87.0 Hyperosmolality and hypernatremia; R65.20 Severe sepsis without septic shock; Z86.14 Personal history of Methicillin resistant Staphylococcus aureus infection; Z86.718 Personal history of other venous thrombosis and embolism; Z79.01 Long term (current) use of anticoagulants; Z87.440 Personal history of urinary (tract) infections; L89.609 Pressure ulcer of unspecified heel, unspecified stage; I87.8 Other specified disorders of veins; F03.90 Unspecified dementia, unspecified severity, without behavioral disturbance, psychotic disturbance, mood disturbance, and anxiety; E87.6 Hypokalemia; I50.9 Heart failure, unspecified; I11.0 Hypertensive heart disease with heart failure; E11.9 Type 2 diabetes mellitus without complications; Z79.84 Long term (current) use of oral hypoglycemic drugs; K21.9 Gastro-esophageal reflux disease without esophagitis; E78.5 Hyperlipidemia, unspecified; R45.1 Restlessness and agitation
CPT/HCPCS: 36415; 36592; 36600; 70450; 71045; 80048; 80053; 80074; 80202; 81001; 82550; 82803; 83605; 83735; 83880; 84145; 84443; 84484; 85025; 86140; 86403; 87040; 87426; 87449; 87635; 87641; 87806; 92523; 92526; 92610; 93005; 96365; 96367; 96372; 96375; 99285; A4570; C1751; C9113; J0692; J0743; J1630; J1650; J1940; J3370; J3475; J3480; J3490; J7030

== ENCOUNTER 2022-01-18 21:40 | Inpatient (IN) | payer MEDICARE, MEDICAID, SELFPAY ==
[2022-01-18 21:51] VITALS: BP 156/89; PULSE 102; RESP 18; TEMP 37.3; O2SAT 91; BMI 37.1
[2022-01-18 22:12] VITALS: BP 156/97; PULSE 97; RESP 26; O2SAT 100
--- NOTE | 2022-01-18 22:18 | XRR_ITS ---
PROCEDURE INFORMATION: Exam: XR Chest Exam date and time: 01/18/2022 11:01 PM Age: 71 years old Clinical indication: Fever and other: Aolc; Additional info: Fever; ALOC TECHNIQUE: Imaging protocol: Radiologic exam of the chest. Views: 1 view. COMPARISON: CR (CHEST, ) 01/03/2022 9:43 AM FINDINGS: Tubes, catheters and devices: Neurostimulator electrodes are again seen in the thoracic region. Lungs: There is some minimal subsegmental atelectasis or residual infiltrate right lung. Left lung is clear. Pleural spaces: Unremarkable. No pleural effusion. No pneumothorax. Heart/Mediastinum: Heart is within normal limits of size. Bones/joints: Unremarkable. XR/XR chest 1V portable [id number] IMPRESSION: Pneumonia improved compared with 01/03/2022. No acute infiltrate.
--- NOTE | 2022-01-18 22:18 | CTR_ITS ---
PROCEDURE INFORMATION: Exam: CT Head Without Contrast Exam date and time: 01/18/2022 10:51 PM Age: 71 years old Clinical indication: Altered mental status/memory loss; Additional info: Confusion TECHNIQUE: Imaging protocol: Computed tomography of the head without contrast. Radiation optimization: All CT scans at this facility use at least one of these dose optimization techniques: automated exposure control; mA and/or kV adjustment per patient size (includes targeted exams where dose is matched to clinical indication); or iterative reconstruction. COMPARISON: CT head wo con* [id number] 01/02/2022 11:21 AM RADIATION DOSE METRICS: Total DLP (mGy-cm): 1056.84 FINDINGS: Brain: There is moderate cortical atrophy. Low-density changes in the white matter are consistent with nonspecific small vessel chronic ischemic change. There is no intracranial mass, hemorrhage or edema. Cerebral ventricles: No ventriculomegaly. Paranasal sinuses: Visualized sinuses are unremarkable. No fluid levels. Mastoid air cells: Visualized mastoid air cells are well aerated. Bones/joints: Unremarkable. No acute fracture. Soft tissues: Unremarkable. CT/CT head wo con* [id number] IMPRESSION: No acute intracranial finding.
--- NOTE | 2022-01-18 22:25 | ED_ITS ---
HPI - Altered Mental Status General: Chief Complaint: Altered Mental Status Stated Complaint: FEVER Time Seen by Provider: 01/18/22 21:55 Source: EMS Mode of arrival: EMS Limitations: altered mental status History of Present Illness: Patient with decreased level consciousness today. Yesterday patient reportedly was off according to nursing personnel. Patient had documented fever today and patient normally is talkative. However, patient has advanced dementia. Patient with decreased talking today and more yelling today. Patient is nonverbal with me and does not give any history. See nursing assessment Onset (ago): week(s) (1) Review of Systems General: Reports: ROS unobtainable due to mental status Const: Reports: fever(s) and malaise; Denies: chills Eyes: Denies: change in vision ENMT: Denies: throat pain Card: Denies: chest pain or palpitations Resp: Denies: dyspnea or wheezing GI: Denies: abdominal pain, nausea or vomiting : Denies: flank pain Musc: Denies: neck pain or back pain Neuro: Reports: confusion; Denies: headache(s) or numbness in extremities Daniel/Lymph: Denies: enlarged lymph nodes PFS ED PFSH: Medical History Acute kidney failure Acute non-ST elevation myocardial infarction (NSTEMI) Acute UTI PRINCE (acute kidney injury) Altered mental status Altered mental status Bipolar disorder Cardiac arrest CHF (congestive heart failure) COPD (chronic obstructive pulmonary disease) Deep tissue injury Dementia Depression Diabetes mellitus type 2 in obese DJD (degenerative joint disease) Elevated troponin Fibromyalgia GERD (gastroesophageal reflux disease) Heart murmur History of breast cancer History of DVT (deep vein thrombosis) Hyperlipidemia Hypertension Hypokalemia Metabolic encephalopathy MRSA bacteremia MRSA infection within last 3 months Oliguria Prolonged QT interval Respiratory failure, acute Sepsis Sepsis Skin ulcer Skin ulcer of foot Uncontrolled hypertension UTI (urinary tract infection) UTI (urinary tract infection) UTI due to extended-spectrum beta lactamase (ESBL) producing Escherichia coli Ventilator dependence Ventricular tachyarrhythmia Surgical History History of hysterectomy History of mastectomy Family History Other CAD (coronary artery disease) Diabetes Social History Smoking and tobacco status: never smoked Alcohol intake: never Supplemental [facility] Information: Patient reportedly has DO NOT RESUSCITATE status. Physical Exam Const: EXAM LIMITATIONS: altered mental status OTHER: Patient was screaming upon arrival. However, patient will not answer any of my questions. She is somnolent. HENMT: COMMON NORMALS: normocephalic and atraumatic HEAD & SCALP: normocephalic and atraumatic Eye: COMMON NORMALS: EOMs intact bilaterally OTHER: Pupils equal round reactive light Neck/C-Spine: COMMON NORMALS: full ROM, no lymphadenopathy, supple and no JVD Lymph: LYMPHATIC: no lymphadenopathy noted Chest: OTHER: Patient has a stage II ulcer to the left anterior chest along her mastectomy scar. Resp: COMMON NORMALS: normal respiratory effort, No retractions, No use of accessory muscles and clear to auscultation bilaterally AUSCULTATION: clear to auscultation bilaterally Cardio: COMMON NORMALS: no JVD, regular rate, regular rhythm and Peripheral pulses 2+ throughout RATE: regular rate RHYTHM: regular rhythm PERIPHERAL PULSES: Peripheral pulses 2+ throughout GI: COMMON NORMALS: Normal to inspection, nondistended, normoactive bowel sounds present, Soft to palpation and non-tender PALPATION: Yes Soft to palpation : COMMON NORMALS: Yes no CVA tenderness BLADDER/KIDNEY EXAM: Yes no CVA tenderness Back/Pelvis: COMMON NORMALS: no CVA tenderness Extremity: COMMON NORMALS: full ROM Neuro: OTHER: Patient not give any history. No focal neurological deficits appreciated. Psych: OTHER: Flat affect. Skin: OTHER: Patient has stage II ulcer to right heel. Patient also has stage II ulcer to left menon. No induration. Area to the left chest wall feels warm. No abscess seen. Urinary Catheter Management: Wolfe: Cath Placed During This Visit: yes Urinary Catheter Date of Insertion: 01/18/22 Urinary Catheter Time of Insertion: 22:10 Course Vital Signs: Vital signs: Vital Signs Temperature 99.2 F 01/18/22 21:51 Pulse Rate 111 H 01/19/22 00:38 Respiratory Rate 28 H 01/19/22 00:38 Blood Pressure 156/94 01/19/22 00:38 Pulse Oximetry 95 01/19/22 00:38 Oxygen Delivery Me thod 01/18/22 22:12 Oxygen Flow Rate 3 01/18/22 22:12 MDM - Altered Mental Status Medical Decision Making Patient is DNR. Patient likely has altered level consciousness due to infection. 2358: Discussed with hospitalist Dr. Do. He will admit the patient to medical floor. He will write admission orders. He asked that vancomycin and Primaxin antibiotics be started. Lab Data : 01/18/22 22:35 01/18/22 22:35 Radiology Impressions Chest X-Ray 01/18/22:18 IMPRESSION: Pneumonia improved compared with 01/03/2022. No acute infiltrate. Head CT 01/18/22 22:18 IMPRESSION: No acute intracranial finding. Laboratory Results WBC 22.3 10^3/uL (4.0-10.0) H 01/18/22 22:35 RBC 3.68 10^6/uL (4.1-5.3) L 01/18/22 22:35 Hgb 10.5 g/dL (11.5-15.3) L 01/18/22 22:35 Hct 33.5 % (37.0-47.0) L 01/18/22 22:35 MCV 91.0 fl (81-99) 01/18/22 22:35 MCH 28.5 pg (28.0-34.0) 01/18/22 22:35 MCHC 31.3 g/dL (30.0-36.0) 01/18/22 22:35 RDW 21.5 % (12.1-15.1) H 01/18/22 22:35 Plt Count 302 10^3/cmm (130-400) 01/18/22 22:35 MPV 9.6 fL (7.4-10.4) 01/18/22 22:35 Neut % (Auto) 91.8 % 01/18/22 22:35 Lymph % (Auto) 4.1 % 01/18/22 22:35 [place] % (Auto) 2.7 % 01/18/22 22:35 Eos % (Auto) 0.3 % 01/18/22 22:35 Baso % (Auto) 0.2 % 01/18/22 22:35 Neut # (Auto) 20.49 10^3/uL (1.8-7.7) H 01/18/22 22:35 Lymph # (Auto) 0.9 10^3/uL (0.8-4.8) 01/18/22 22:35 [place] # (Auto) 0.6 10^3/uL (0.2-0.9) 01/18/22 22:35 Eos # (Auto) 0.1 10^3/uL (0.0-0.8) 01/18/22 22:35 Baso # (Auto) 0.1 10^3/uL (0.0-0.1) 01/18/22 22:35 Nucleated RBC % (auto) 0 % 01/18/22 22:35 Nucleated RBCs # 0.0 /100WBC 01/18/22 22:35 Specimen Type Arterial 01/18/22 23:15 Sample Site Radial, right 01/18/22 23:15 ABG pH 7.47 (7.35-7.45) H 01/18/22 23:15 ABG pCO2 29.0 mmHg (35-45) L 01/18/22 23:15 ABG pO2 75.4 mmHg (80.0-100.0) L 01/18/22 23:15 ABG HCO3 21.3 mmol/L (22-26) L 01/18/22 23:15 ABG O2 Saturation 96.9 01/18/22 23:15 ABG Base Excess -1.5 mmol/L (-2.0-2.0) 01/18/22 23:15 David Test Pos 01/18/22 23:15 Hematocrit 33.3 % (37-47) L 01/18/22 23:15 Hgb O2 Saturation 94.9 % (95-100) L 01/18/22 23:15 Carboxyhemoglobin 1.3 %THgb (0.4-20.1) 01/18/22 23:15 Methemoglobin 0.7 % (0.4-1.5) 01/18/22 23:15 Total Hemoglobin 10.9 g/dL (12-16) L 01/18/22 23:15 Sodium 136.0 mmol/L (131-143) 01/18/22 23:15 Potassium 3.6 mmol/L (3.5-5.0) 01/18/22 23:15 Glucose 149.0 mg/dL (70-115) H 01/18/22 23:15 Ionized Calcium 1.2 mmol/L (1.1-1.4) 01/18/22 23:15 O2 Delivery Device Nc 01/18/22 23:15 O2 Liters/Min 2.5 % 01/18/22 23:15 FiO2 0.0 % 01/18/22 23:15 Coat Operator Insulator ID [email or web address] 01/18/22 23:15 Sodium 133 mmol/L (136-145) L 01/18/22 22:35 Potassium 3.8 mmol/L (3.5-5.1) 01/18/22 22:35 Chloride 99 mmol/L (98-107) 01/18/22 22:35 Carbon Dioxide 21 mmol/L (22-29) L 01/18/22 22:35 Anion Gap 16.8 (5-19) 01/18/22 22:35 BUN 12 mg/dL (8-23) 01/18/22 22:35 Creatinine 1.2 mg/dL (0.5-0.9) H 01/18/22 22:35 GFR Calculation Not Reportable 01/18/22 22:35 Glucose 141 mg/dL (65-115) H 01/18/22 22:35 Calculated Osmolality 278 mOsm/kg (285-295) L 01/18/22 22:35 Lactate 1.5 mmol/L (0.5-2.2) 01/18/22 22:35 Calcium 8.8 mg/dL (8.5-10.5) 01/18/22 22:35 Total Bilirubin 0.6 mg/dL (0.15-1.2) 01/18/22 22:35 AST 15 U/L (0-32) 01/18/22 22:35 ALT < 5 U/L (0-33) 01/18/22 22:35 Alkaline Phosphatase 73 U/L (35-105) 01/18/22 22:35 Total Protein 6.8 g/dL (6.6-8.7) 01/18/22 22:35 Albumin 3.1 g/dL (3.5-5.2) L 01/18/22 22:35 Globulin 3.7 g/dL (1.3-4.6) 01/18/22 22:35 Urine Color Yellow (Yellow) 01/18/22 22:08 Urine Appearance Clear (CLEAR) 01/18/22 22:08 Urine pH 5 (5-7) 01/18/22 22:08 Ur Specific [place] 1.010 (1.005-1.030) 01/18/22 22:08 Urine Protein 2+ (Negative) H 01/18/22 22:08 Urine Glucose (UA) Norm (Normal) 01/18/22 22:08 Urine Ketones Negative (Negative) 01/18/22 22:08 Urine Blood 3+ (Negative) H 01/18/22 22:08 Urine Nitrate Negative (Negative) 01/18/22 22:08 Urine Bilirubin 1+ (Negative) H 01/18/22 22:08 Urine Urobilinogen Norm mg/dL (Negative) 01/18/22 22:08 Ur Leukocyte Esterase Negative (Negative) 01/18/22 22:08 Urine RBC 25-40 /hpf (0-2) H 01/18/22 22:08 Urine WBC None /hpf (0-5) 01/18/22 22:08 Ur Squamous Epith Cells 5-10 /hpf (0-5) H 01/18/22 22:08 Amorphous Sediment 1+ /hpf 01/18/22 22:08 Urine Bacteria Trace /hpf (NONE) 01/18/22 22:08 Influenza Type A Ag Negative (Negative) 01/18/22 22:30 Influenza Type B Ag Negative (Negative) 01/18/22 22:30 SARS-CoV-2 Ag (Rapid) Negative (Negative) 01/18/22 22:[address] Head: Radiologist's impression: PROCEDURE INFORMATION: Exam: CT Head Without Contrast Exam date and time: 01/18/2022 10:51 PM Age: 71 years old Clinical indication: Altered mental status/memory loss; Additional info: Confusion TECHNIQUE: Imaging protocol: Computed tomography of the head without contrast. Radiation optimization: All CT scans at this facility use at least one of these dose optimization techniques: automated exposure control; mA and/or kV adjustment per patient size (includes targeted exams where dose is matched to clinical indication); or iterative reconstruction. COMPARISON: CT head wo con* [id number] 01/02/2022 11:21 AM RADIATION DOSE METRICS: Total DLP (mGy-cm): 1056.84 FINDINGS: Brain: There is moderate cortical atrophy. Low-density changes in the white matter are consistent with nonspecific small vessel chronic ischemic change. There is no intracranial mass, hemorrhage or edema. Cerebral ventricles: No ventriculomegaly. Paranasal sinuses: Visualized sinuses are unremarkable. No fluid levels. Mastoid air cells: Visualized mastoid air cells are well aerated. Bones/joints: Unremarkable. No acute fracture. Soft tissues: Unremarkable. CT/CT head wo con* [id number] IMPRESSION: No acute intracranial finding. ? Dictated By: Duke Wilkins Signed By: Duke Wilkins Signed Date/Time: 01/18/22 0509 CXR: Radiologist's impression: Ordering Provider/Ordering MD: Smith Chao MD Date of Service: 01/18/22 Procedure(s): XR chest 1V portable [id number] Accession Number(s): [id number] Report Number: [id number] PROCEDURE INFORMATION: Exam: XR Chest Exam date and time: 01/18/2022 11:01 PM Age: 71 years old Clinical indication: Fever and other: Aolc; Additional info: Fever; ALOC TECHNIQUE: Imaging protocol: Radiologic exam of the chest. Views: 1 view. COMPARISON: CR (CHEST, ) 01/03/2022 9:43 AM FINDINGS: Tubes, catheters and devices: Neurostimulator electrodes are again seen in the thoracic region. Lungs: There is some minimal subsegmental atelectasis or residual infiltrate right lung. Left lung is clear. Pleural spaces: Unremarkable. No pleural effusion. No pneumothorax. Heart/Mediastinum: Heart is within normal limits of size. Bones/joints: Unremarkable. XR/XR chest 1V portable [id number] IMPRESSION: Pneumonia improved compared with 01/03/2022. No acute infiltrate. ? Dictated By: Duke Wilkins Signed By: Duke Wilkins Signed Date/Time: 01/18/22 2352 Discharge Plan Discharge Patient Disposition: Admitted As Inpatient Clinical Impression: Cellulitis of chest wall Altered mental status Qualifiers: Altered mental status type: unspecified Qualified Code(s): R41.82 - Altered mental status, unspecified Dementia Qualifiers: Dementia type: unspecified type Dementia behavioral disturbance: without behavioral disturbance Qualified Code(s): F03.90 - Unspecified dementia without behavioral disturbance Fever Qualifiers: Fever type: due to other condition Qualified Code(s): R50.81 - Fever presenting with conditions classified elsewhere Condition: Stable Coding Level of Care Code ED 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
[2022-01-18 22:26] LABS: Urine Appearance Clear (CLEAR); Urine Color Yellow (Yellow); pH Urine 5 (5-7)
[2022-01-18 22:32] LABS: Add Urine Microscopic? YES; Bilirubin Urine 1+ (Negative); Blood Urine 3+ (Negative); Glucose Urine UA Norm (Normal); Ketones Urine Negative (Negative); Leukocyte Esterase Urine Negative (Negative); Nitrate Urine Negative (Negative); Protein Urine 2+ (Negative); Urobilinogen Urine Norm (Negative)
[2022-01-18 22:33] LABS: Add Urine Culture? No; Amorphous Sediment Urine 1+ /hpf; Bacteria Urine TRACE /hpf; RBC Urine 25-40 /hpf (0-2)
[2022-01-18] MEDS: acetaminophen 650 mg Supp PR (22:34)
[2022-01-18 22:52] LABS: Basophils # 0.1 10^3/uL (0.0-0.1); Basophils % 0.2 %; Eosinophils # 0.1 10^3/uL (0.0-0.8); Eosinophils % 0.3 %; Hematocrit 33.5 % (37.0-47.0); Hemoglobin 10.5 g/dL (11.5-15.3); Lymphocytes # 0.9 10^3/uL (0.8-4.8); Lymphocytes % 4.1 %; Mean Corpuscular HGB Conc 31.3 g/dL (30.0-36.0); Mean Corpuscular Hemoglobin 28.5 pg (28.0-34.0); Mean Platelet Volume 9.6 fL (7.4-10.4); Monocytes # 0.6 10^3/uL (0.2-0.9); Monocytes % 2.7 %; Neutrophils # 20.49 10^3/uL (1.8-7.7); Neutrophils % 91.8 %; Nucleated Red Blood Cells % 0 %; Platelet Count 302 10^3/cmm (130-400); Red Blood Count 3.68 10^6/uL (4.1-5.3); Red Cell Distribution Width 21.5 % (12.1-15.1); White Blood Count 22.3 10^3/uL (4.0-10.0)
[2022-01-18 23:10] LABS: Alanine Aminotransferase < 5 U/L (0-33); Albumin Level 3.1 g/dL (3.5-5.2); Alkaline Phosphatase 73 U/L (35-105); Anion Gap 16.8 (5-19); Aspartate Amino Transferase 15 U/L (0-32); Blood Urea Nitrogen 12 mg/dL (8-23); Calcium 8.8 mg/dL (8.5-10.5); Carbon Dioxide 21 mmol/L (22-29); Chloride 99 mmol/L (98-107); Globulin 3.7 g/dL (1.3-4.6); Glucose 141 mg/dL (65-115); Osmolality Calculated 278 mOsm/kg (285-295); Potassium 3.8 mmol/L (3.5-5.1); Sodium 133 mmol/L (136-145); Total Bilirubin 0.6 mg/dL (0.15-1.2); Total Protein 6.8 g/dL (6.6-8.7)
[2022-01-18 23:10] LABS: Influenza A by IFA Negative (Negative)
[2022-01-18 23:11] LABS: Influenza B by IFA Negative (Negative)
[2022-01-18 23:11] LABS: Lactate (Lactic Acid level) 1.5 mmol/L (0.5-2.2)
[2022-01-18 23:16] VITALS: BP 135/91; PULSE 102; RESP 26; O2SAT 95
[2022-01-18 23:26] LABS: ABG PH Result 7.47 (7.35-7.45); Arterial Blood Gas Hematocrit 33.3 % (37-47); Base Excess ABG -1.5 mmol/L (-2.0-2.0); Blood Gas Allen Test Pos; Blood Gas LPM 2.5 %; Blood Gas Operator Identificat WALCI; Blood Gas Sample Site Radial, right; Blood Gas Sample Type Arterial; Carboxyhemoglobin 1.3 %THgb (0.4-20.1); HCO3 ABG 21.3 mmol/L (22-26); HGB O2 Sat 94.9 % (95-100); Ionized Calcium Level - ABG 1.2 mmol/L (1.1-1.4); Methemoglobin 0.7 % (0.4-1.5); Oxygen Device NC; Oxygen Saturation ABG 96.9; PO2 ABG 75.4 mmHg (80.0-100.0); Potassium Level - ABG 3.6 mmol/L (3.5-5.0); Total Hemoglobin 10.9 g/dL (12-16)
[2022-01-19] VITALS (11 sets, daily range): BP systolic 97–156; BP diastolic 65–94; PULSE 77–114; RESP 16–28; TEMP 36.5–39.6; O2SAT 90–97
[2022-01-19 00:12] LABS: SARS Covid-2 Antigen Negative (Negative)
--- NOTE | 2022-01-19 00:31 | P.HP_ITS ---
Providers/Chief Complaint Primary Care Provider: Rasheeda Hernandez MD Chief Complaint: FEVER History of Present Illness Fany Webber is a 71 year old female with a past medical history of dementia, 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 antibiotics as patient has refused IV antibiotics, refused transesophageal echocardiogram, did have possible mitral valve vegetation, on his transthoracic echo, has a spinal stimulator and hardware in the back, history of ESBL E. coli UTI, recent hospitalizations for pneumonia, has multiple hospitalizations for confusion. Currently patient is awake, not alert to person place or time, no history could be provided by the patient, she is currently on 3 L, blood pressure 135/91, heart rate 102 respiratory 20, she does not follow commands, she is a bit restless, she is DNR/DNI, has underlying dementia. History was provided by the jail who tells me that patient is able to ambulate on her own, she does have dementia but can carry on conversations, starting this morning she started to suddenly act confused, she had a fever of 101.4, no complaints of chest pain, no complaints of shortness of breath, no complains abdominal pain, no complaints of diarrhea, she recently was on Augmentin for potential UTI. Review of Systems General: Reports: ROS unobtainable due to mental status Medications/Allergies Home Medications Medication Instructions Recorded Confirmed Last Taken Type acetaminophen 325 mg tablet 650 mg PO Q6H PRN pain/temp 08/24/21 01/02/22 Unknown History albuterol sulfate 90 mcg/actuation 2 puff inhalation Q4H PRN 08/24/21 01/02/22 Unknown History aerosol inhaler Shortness Of Breath aluminum-mag hydroxide-simethicone 30 ml PO Q24H PRN Heartburn 08/24/21 01/02/22 Unknown History 400 mg-400 mg-40 mg/5 mL oral susp (Almacone-2) atorvastatin 20 mg tablet 30 mg PO DAILY@08/24/21 01/02/22 12/07/21 History bisacodyl 5 mg tablet 5 mg PO Q24H PRN Constipation 08/24/21 01/02/22 Unknown History duloxetine 60 mg capsule,delayed 60 mg PO DAILY@08/24/21 01/02/22 12/07/21 History release mirabegron 50 mg tablet,extended 50 mg PO DAILY@ 08/24/21 01/02/22 12/07/21 History release 24 hr (Myrbetriq) multivitamin 1 tab PO DAILY@08 08/24/21 01/02/22 12/07/21 History nystatin 100,000 unit/gram topical 1 applic topical DAILY 08/24/21 01/02/22 12/07/21 History powder (Nyamyc) pantoprazole 20 mg tablet,delayed 20 mg PO DAILY@08 08/24/21 01/02/22 12/07/21 History release rivaroxaban 10 mg tablet (Xarelto) 10 mg PO DAILY@08 08/24/21 01/02/22 12/07/21 History insulin aspart U-100 100 unit/mL See Rx Instructions .Route 08/31/21 01/02/22 12/07/21 Rx (3 mL) subcutaneous pen (Novolog .COMPLEX #15 mL Flexpen U-100 Insulin aspart) metoprolol tartrate 50 mg tablet 75 mg PO BID #0 tabs 08/31/21 01/02/22 12/07/21 Rx alprazolam 0.25 mg tablet 0.25 mg PO BID PRN Anxiety 10/24/21 01/02/22 Unknown History triamcinolone acetonide 0.1 % 1 applic topical BID 10/24/21 01/02/22 11/24/21 History topical cream bumetanide 1 mg tablet 1 mg PO DAILY@08 PRN Edema #1 tab 12/01/21 01/02/22 11/24/21 Rx amiodarone 100 mg tablet 100 tab PO DAILY 12/04/21 01/02/22 12/07/21 History spironolactone 25 mg tablet 1 tab PO DAILY 12/04/21 01/02/22 12/07/21 History collagenase clostridium histo. 250 1 applic topical DAILY 12/08/21 01/02/22 12/07/21 History unit/gram topical ointment (Santyl) oxycodone-acetaminophen 5 mg-325 1 tab PO Q6H PRN Pain 12/08/21 01/02/22 12/05/21 History mg tablet haloperidol lactate 2 mg/mL oral 0.5 mg PO ONCE PRN dementia 01/02/22 01/02/22 01/02/22 History concentrate potassium chloride 20 mEq/15 mL 30 meq PO DAILY 01/02/22 01/02/22 Unknown Hist ory oral liquid amoxicillin 875 mg-potassium 1 tab PO BID #14 tabs 01/07/22 Unknown Rx clavulanate 125 mg tablet hydralazine 50 mg tablet 25 mg PO TID 30 days #90 tabs 01/07/22 01/02/22 12/07/21 Rx Allergies Allergy/AdvReac Type Severity Reaction Status Date / Time levofloxacin [From Levaquin] Allergy Unknown Verified 12/17/21 11:27 PFSH Acute PFSH: Medical History Acute kidney failure Acute non-ST elevation myocardial infarction (NSTEMI) Acute UTI PRINEC (acute kidney injury) Altered mental status Altered mental status Bipolar disorder Cardiac arrest CHF (congestive heart failure) COPD (chronic obstructive pulmonary disease) Deep tissue injury Dementia Depression Diabetes mellitus type 2 in obese DJD (degenerative joint disease) Elevated troponin Fibromyalgia GERD (gastroesophageal reflux disease) Heart murmur History of breast cancer History of DVT (deep vein thrombosis) Hyperlipidemia Hypertension Hypokalemia Metabolic encephalopathy MRSA bacteremia MRSA infection within last 3 months Oliguria Prolonged QT interval Respiratory failure, acute Sepsis Sepsis Skin ulcer Skin ulcer of foot Uncontrolled hypertension UTI (urinary tract infection) UTI (urinary tract infection) UTI due to extended-spectrum beta lactamase (ESBL) producing Escherichia coli Ventilator dependence Ventricular tachyarrhythmia Surgical History History of hysterectomy History of mastectomy Family History Other CAD (coronary artery disease) Diabetes Social History Smoking and tobacco status: never smoked Alcohol intake: never Vitals/I&O/Wt Last Vital Signs Temp 99.2 F 01/18/22 21:51 Pulse 102 H 01/18/22 23:16 Resp 26 H 01/18/22 23:16 BP 135/91 01/18/22 23:16 Pulse Ox 95 01/18/22 23:16 O2 Del Method 01/18/22 22:12 O2 Flow Rate 3 01/18/22 22:12 Weight last 48 hrs Weight 104.326 kg Physical Exam Const: COMMON NORMALS: no acute distress EXAM LIMITATIONS: altered mental status ORIENTATION/CONSCIOUSNESS: Yes awake and Yes confused; not oriented to person, not oriented to place and not oriented to time HENMT: COMMON NORMALS: normocephalic HEAD & SCALP: normocephalic Eye: COMMON NORMALS: Equal, round and reactive pupils present Resp: COMMON NORMALS: normal respiratory effort, No retractions, No use of accessory muscles and clear to auscultation bilaterally AUSCULTATION: clear to auscultation bilaterally Cardio: COMMON NORMALS: regular rate, regular rhythm, S1 normal heart sound present and S2 normal heart sound present RATE: regular rate RHYTHM: regular rhythm HEART SOUNDS: S1 normal heart sound present and S2 normal heart sound present GI: COMMON NORMALS: Normal to inspection, nondistended, normoactive bowel sounds present, Soft to palpation, non-tender and No hepatosplenomegaly present Extremity: COMMON NORMALS: no pedal edema NARRATIVE EXTREMITY EXAM: Multiple superficial diabetic ulcers, bilateral shins, largest on the left measuring 1 x 1 cm Has a rash, over mastectomy site, with erythema, slight drainage Skin: NARRATIVE SKIN EXAM: Left chest, left breast location, has a superficial ulcer, with surrounding erythema Bilateral shins, has superficial ulcerations, with surrounding erythema, slight drainage Urinary Catheter Management: Wolfe: Cath Placed During This Visit: yes Urinary Catheter Date of Insertion: 01/18/22 Urinary Catheter Time of Insertion: 22:10 Data : 01/18/22 22:35 01/18/22 22:35 Micro: Microbiology 01/18/22 22:44 Blood Culture - Preliminary Blood SPECIMEN COLLECTED A&P Assessment and plan (1) Altered mental status: Status: Acute Qualifiers: Altered mental status type: unspecified Qualified Code(s): R41.82 - Altered mental status, unspecified (2) Dementia: Status: Acute Qualifiers: Dementia behavioral disturbance: without behavioral disturbance Dementia type: unspecified type Qualified Code(s): F03.90 - Unspecified dementia without behavioral disturbance (3) Cellulitis of chest wall: Status: Acute (4) Hyperlipidemia: Status: Acute (5) CHF (congestive heart failure): Status: Acute Plan Acute encephalopathy -Etiology unclear, potentially secondary cellulitis of chest, bilateral shins -She has a history of recurrent MRSA bacteremia, etiology and source unclear, treated with p.o. antibiotics as patient has refused IV antibiotics through PICC line -Has a history of fairly resistant ESBL E. coli UTI, resistant to Zosyn in the past -Recent hospitalization for pneumonia Plan -Admit to general medical floors -Is on 3 L, to respiratory status closely -Monitor superficial ulcers, wound care as needed -Start broad-spectrum antibiotic therapy vancomycin, Primaxin -Monitor blood cultures, sputum cultures, urine cultures, Pro-Dwayne, CRP -I am concerned as patient has a history of recurrent MRSA bacteremia without clear etiology, and does have a possible mitral valve vegetation however refused use transesophageal echocardiogram, in addition she refused a PICC line for long-term IV antibiotic therapy so was treated with Zyvox she does also have spinal stimulator in back hardware but could be a source -DNR/DNI -Lovenox for DVT prophylaxis Type 2 diabetes mellitus, low-dose sliding scale History of dementia CHF, does not look fluid overloaded, monitor for now Attestations Medical Necessity Statement*: Patient requires hospitalization, inpatient, greater than 2 midnights, for acute encephalopathy Coding Level of Care Code Acute Building Construction 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
[2022-01-19] MEDS: vancomycin 1,500 MG/300 ML PIGGYBACK 250 MG IV (01:02)
[2022-01-19 01:13] LABS: C Reactive Protein 125.4 mg/L (0.0-4.9); Procalcitonin 6.82 ng/mL (0-0.5)
[2022-01-19 01:43] LABS: Glucose Point of Care 162 mg/dL (70-110)
[2022-01-19] MEDS: sodium chloride 0.9% 1,000 ML 50 ML IV (02:30)
[2022-01-19] MEDS: pantoprazole 40 mg SDV IVP (02:34)
--- NOTE | 2022-01-19 02:34 | PC.PHAR ---
Pharmacokinetic dosing service Date: 01/19/22 Time: 235 Objective: Patient: Fany Webber Floor: 254-2 Age: 71 yo Serum creatinine: 1.2 mg/dL Height: 66.0 Inches Weight (kg): 104.326 Diagnosis: Relevant medical/social history: Cultures and sensitivities: Other labs: Assessment: IBW (kg): 59.30 Dosing wt(kg): 104.326 Estimated Creatinine clearance (ml/min): 39.1 CRCL method: Cockcroft and Gault using ibw(default). Drug selected: Vancomycin Loading dose (mg): 0 Vd (liters): 93.9 (factor used: 0.9 L/kg) Silvino (hr-1): 0.037 Half life (hrs): 18.73 Recommended dose: 1500 mg Interval: 24 hrs Infusion time (hrs): 1.5 Predicted peak (mcg/mL): 26.4 Predicted trough (mcg/mL): 11.48 Total body weight is being used for vancomycin dosing. Renal function is stable [ ] /unstable [ ] Recommendations: Give Vancomycin 1500 mg q 24 hrs with an expected Cpeak of 26.4 mcg/ml and an expected Ctrough of 11.48 mcg/ml Renal dosing of other antibiotics (review renal dosing of other medications and list guidelines here): Thank you for the consult, will continue to follow. Signature: Jelena Lan [facility]
[2022-01-19] MEDS: aspirin 300 mg Supp PR (02:46)
[2022-01-19] MEDS: acetaminophen 1,000 MG/100 ML PIGGYBACK 400 MG IV (04:49)
[2022-01-19 06:19] LABS: Glucose Point of Care 135 mg/dL (70-110)
--- NOTE | 2022-01-19 10:01 | PC.PHAR ---
waiting for [facility] to fax mar per wilberto from [facility] will fax
[2022-01-19] MEDS: amiodarone 200 mg Tablet 100 MG PO (10:49)
[2022-01-19] MEDS: metoprolol tartrate 50 mg Tablet 75 MG PO ×2 (10:51→17:18)
[2022-01-19] MEDS: hyDRALAzine 50 mg Tablet 25 MG PO ×3 (10:51→20:54)
[2022-01-19] MEDS: nystatin powder 15 gm Btl 1 APPLIC TOPICAL (10:52)
[2022-01-19] MEDS: rivaroxaban 10 mg Tablet PO (10:52)
[2022-01-19 10:57] LABS: Glucose Point of Care 151 mg/dL (70-110)
[2022-01-19] MEDS: duloxetine 60 mg Capsule PO (11:48)
[2022-01-19] MEDS: insulin lispro 100 unit/1 mL SUBCUT (11:48)
[2022-01-19 12:37] LABS: Bacillus cereus group Not Detected (NOT DETECT); Bacillus subtillis group Not Detected (NOT DETECT); Corynebacterium Not Detected (NOT DETECT); Cutibacterium acnes (P.acnes) Not Detected (NOT DETECT); Enterococcus Not Detected (NOT DETECT); Enterococcus faecalis Not Detected (NOT DETECT); Enterococcus faecium Not Detected (NOT DETECT); Lactobacillus species Not Detected (NOT DETECT); Listeria Not Detected (NOT DETECT); Listeria monocytogenes Not Detected (NOT DETECT); Micrococcus Not Detected (NOT DETECT); Pan Candida Not Detected (NOT DETECT); Pan Gram-Negative Not Detected (NOT DETECT); Staphylococcus epidermidis Not Detected (NOT DETECT); Staphylococcus lugdunensis Not Detected (NOT DETECT); Staphylococcus species Detected (NOT DETECT); Streptococcus agalactiae Not Detected (NOT DETECT); Streptococcus anginosus group Not Detected (NOT DETECT); Streptococcus pneumoniae Not Detected (NOT DETECT); Streptococcus pyogenes Not Detected (NOT DETECT); Streptococcus species Not Detected (NOT DETECT); mecA Detected (NOT DETECT); mecC Not Detected (NOT DETECT)
--- NOTE | 2022-01-19 12:41 | P.PN_ITS ---
Subjective Subjective: Overnight labs and H&P reviewed. Patient continues to be significantly encephalopathic this morning. T-max of 103 Fahrenheit overnight. Blood pressure currently stable. Medications: Reviewed: Yes Vitals/I&O/Wt Last Vital Signs Temp 97.7 F 01/19/22 11:10 Pulse 109 H 01/19/22 11:10 Resp 18 01/19/22 11:10 BP 126/83 01/19/22 11:10 Pulse Ox 95 01/19/22 11:10 O2 Del Method 01/19/22 11:10 O2 Flow Rate 3 01/18/22 22:12 01/18/22 01/19/22 01/19/22 22:59 06:59 14:59 Intake Total 600 / 600 Output Total 650 / 650 Balance -50 / -50 Weight last 48 hrs Weight 104.326 kg Physical Exam Narrative: General: lying in bed, fidgeting, encephalopathic, unable to participate in any conversation. Ill-appearing woman. HEENT: PERRLA, pupils bilaterally equal and reactive Chest: Normal vesicular breath sounds, no added sounds anteriorly CVS: S1-S2 regular, no murmurs, no tachycardia, no gallops, no rubs. Anterior chest wall left side with superficial ulcerations, patient's reports this is from scratching. Abdomen: Soft, nontender, no organomegaly, bowel sounds present Neuro: Fidgets in bed, does not move any extremity to command, unable to complete a neuro assessment at this time. Urinary Catheter Management: Wolfe: Cath Placed During This Visit: yes Reason for Continuing Indwelling Catheter: Other Urinary Catheter Date of Insertion: 01/18/22 Urinary Catheter Time of Insertion: 22:10 Data : 01/18/22 22:35 01/18/22 22:35 Micro: Microbiology 01/18/22 22:44 Blood Culture - Preliminary Blood SPECIMEN COLLECTED A&P Assessment and plan (1) Altered mental status: Status: Acute Qualifiers: Altered mental status type: unspecified Qualified Code(s): R41.82 - Altered mental status, unspecified (2) Dementia: Status: Acute Qualifiers: Dementia behavioral disturbance: without behavioral disturbance Dementia type: unspecified type Qualified Code(s): F03.90 - Unspecified dementia without behavioral disturbance (3) Cellulitis of chest wall: Status: Acute (4) Hyperlipidemia: Status: Acute (5) CHF (congestive heart failure): Status: Acute Plan #Sepsis This was present upon admission. As evidenced by tachycardia, fever of 103 Fahrenheit, leukocytosis, endorgan failure by way of acute encephalopathy. Source of sepsis is currently under evaluation. UA without signs of UTI. Chest x-ray shows improving pneumonia. Blood culture is currently pending. Patient has a significant history of bacterial endocarditis which was treated with oral Zyvox which she has refused placement of PICC line at the time. She had additionally refused CYRIL. Her transthoracic echocardiogram had been suspicious of a mitral valve vegetation. After completing the 6 weeks of Zyvox, it was discussed as an outpatient to start treatment and obtain surveillance cultures versus place her on chronic suppression presuming since patient has multiple hardware in her body. Patient had elected as an outpatient to stop antibiotics and go for surveillance cultures which eventually were negative. Suspicious that patient may have positive blood cultures with MRSA again. If develops diarrhea, will check C. difficile given she has been on multiple ant ibiotic regimens recently. Her acute encephalopathy currently is most likely related to sepsis. She is currently on IV fluids normal saline at 50 cc an hour. I will increase this today as patient clinically appears to be dehydrated. Continue empiric treatment with imipenem and vancomycin while awaiting culture data Add mupirocin for local wound care with Optifoam. -Prognosis is extremely poor. I have discussed with the patient's to consider transition to palliative care and possible hospice given multiple hospital admissions this year, patient's known wishes of not going for any aggr essive measures. However states for now he would like for all medical management to be done while she is encephalopathic and he is able to make decisions for her. -DNR/DNI -Lovenox for DVT prophylaxis Type 2 diabetes mellitus, low-dose sliding scale History of dementia CHF, does not look fluid overloaded, monitor for now Attestations Medical Necessity Statement*: Sepsis, needs IV antibiotics, source evaluation is ongoing. Coding Level of Care Code Acute Debt Collector for [facility] Fwd Diagnoses Altered mental status R41.82 Altered mental status type: unspecified Dementia F03.90 Dementia behavioral disturbance: without behavioral disturbance Dementia type: unspecified type Cellulitis of chest wall L03.313 Hyperlipidemia E78.5 CHF (congestive heart failure) I50.9
--- NOTE | 2022-01-19 13:21 | PC.CHAP ---
Pastoral Care Encounter/Spiritual Assessment Type of Contact [] Declined outside laborer visit [] Patient/Family/Request visit [] Outpatient visit [] Follow-up visit [] Physician referral [] Code/Alert [x] Routine visit [] Staff referral [] Actively dying [] Patient sleeping [] Family support [] [] Out of room [] Palliative care [] [] Receiving care in room [] Pre-surgical visit [] Trauma [] Long length of stay [] ICU visit [] Other: Relational/Emotional Strength [x] Patient feels connected with others/family/visitors/staff [] Distress [] Loneliness/isolation [] Abandonment Spirituality of Patient [x] Person of Lindsey [] Attends Holiness of their [place] [x] Believes in Prayer [] Reads Bible or Mandaen materials [] There are Spiritual issues to be addressed Associate Biological Sales Interventions x[] Prayer [] Active listening [x] Non-anxious presence []x Spiritual/emotional support [] Crisis/trauma care [] Spiritual counseling [] Bereavement support [] Provided bereavement packet [] Provided Bible/devotional materials [] Provided toy/stuffed animal, coloring book to patient or family member [] Provided Communion [] Anointing/[place] [] Salvation [x] Completed spiritual assessment [] Other: Impact on Illness or Injury [] Angry [] Fearful [] Anxious [] Often cries [] Exhaustion [] Unable to work [] Unable to attend restorationism [] Unable to walk/stand [] Unable to read [] Unable to drive [] Unable to eat/drink [] Unable to sleep [] Unable to be with family [] Patient intubated [] Other: Summary Time spent with patient 10 min
[2022-01-19 16:54] LABS: Glucose Point of Care 135 mg/dL (70-110)
[2022-01-19 20:20] LABS: Glucose Point of Care 123 mg/dL (70-110)
[2022-01-19] MEDS: sodium chloride 0.9% 1,000 ML 75 ML IV (20:53)
[2022-01-19] MEDS: atorvastatin 40 mg Tablet 30 MG PO (20:54)
[2022-01-20] VITALS (7 sets, daily range): BP systolic 112–150; BP diastolic 62–91; PULSE 78–98; RESP 18–24; TEMP 36.5–37.2; O2SAT 94–100
[2022-01-20] MEDS: pantoprazole 40 mg SDV IVP (01:10)
[2022-01-20] MEDS: vancomycin 1,500 MG/300 ML PIGGYBACK 150 MG IV (01:14)
[2022-01-20] MEDS: haloperidol inj 5 mg/mL INJ 1 mL 1 MG IM ×2 (02:36→20:35)
--- NOTE | 2022-01-20 02:46 | PC.NURSE ---
Patient heard yelling from her bed. RN at bedside and asked pt what was wrong. Patient verbalized that she want to get out of here . Explained to patient that she can discuss this with the physician in the morning, but RN unable to redirect patient. Patient continues to yell, despite verbal attempts to redirect her and provide comfort to her through repositioning and applying mouth swabs. Patient given 1mg Haldol IM per PRN order for agitation at 0236.
[2022-01-20] MEDS: acetaminophen 325 mg Tablet 650 MG PO (04:37)
[2022-01-20 06:47] LABS: Glucose Point of Care 125 mg/dL (70-110)
[2022-01-20] MEDS: hyDRALAzine 50 mg Tablet 25 MG PO ×3 (10:16→20:34)
[2022-01-20] MEDS: duloxetine 60 mg Capsule PO (10:19)
[2022-01-20] MEDS: metoprolol tartrate 50 mg Tablet 75 MG PO ×2 (10:19→17:28)
[2022-01-20] MEDS: amiodarone 200 mg Tablet 100 MG PO (10:19)
[2022-01-20] MEDS: rivaroxaban 10 mg Tablet PO (10:20)
[2022-01-20] MEDS: nystatin powder 15 gm Btl 1 APPLIC TOPICAL ×2 (10:22→17:29)
[2022-01-20 11:03] LABS: Glucose Point of Care 125 mg/dL (70-110)
--- NOTE | 2022-01-20 13:54 | PC.CHAP ---
Pastoral Care Encounter/Spiritual Assessment Type of Contact [] Declined three knife trimmer visit [] Patient/Family/Request visit [] Outpatient visit [] Follow-up visit [] Physician referral [] Code/Alert [x] Routine visit [] Staff referral [] Actively dying [] Patient sleeping [] Family support [] [] Out of room [] Palliative care [] [x] Receiving care in room [] Pre-surgical visit [] Trauma [] Long length of stay [] ICU visit [] Other: Relational/Emotional Strength [] Patient feels connected with others/family/visitors/staff [] Distress [] Loneliness/isolation [] Abandonment Spirituality of Patient [] Person of Lindsey [] Attends Orthodoxy of their [place] [] Believes in Prayer [] Reads Bible or Religion materials [] There are Spiritual issues to be addressed Bottle House Cleaners Supervisor Interventions [] Prayer [] Active listening [] Non-anxious presence [] Spiritual/emotional support [] Crisis/trauma care [] Spiritual counseling [] Bereavement support [] Provided bereavement packet [] Provided Bible/devotional materials [] Provided toy/stuffed animal, coloring book to patient or family member [] Provided Communion [] Anointing/[place] [] Salvation [] Completed spiritual assessment [] Other: Impact on Illness or Injury [] Angry [] Fearful [] Anxious [] Often cries [] Exhaustion [] Unable to work [] Unable to attend mandaeism [] Unable to walk/stand [] Unable to read [] Unable to drive [] Unable to eat/drink [] Unable to sleep [] Unable to be with family [] Patient intubated [] Other: Summary Time spent with patient
[2022-01-20 16:38] LABS: Glucose Point of Care 119 mg/dL (70-110)
--- NOTE | 2022-01-20 17:00 | PM.PN ---
Subjective Subjective: Patient has refused all labs today. Additionally she has pulled out her IVs and refusing for it to be placed back. Patient is alert and awake today. Her mental status is much improved compared to yesterday. She is sitting up in bed. Able to have a full conversation. She has some short-term memory gaps, however she is correctly able to tell me today her name, age, date of , the fact that she is in the hospital. She needed to be reminded that she is in a [facility]pc but once reminded was able to state that she is at below care. She remembered me from her outpatient encounters. She was also able to tell me that she knows her heart is infected and she has bacteria in her blood . I updated her that her blood cultures are positive again, though this time it is coag negative staph thus far. Given her clinical picture I would not be surprised if this is a true bacteremia. I have discussed again CYRIL and PICC line with her for IV antibiotics, however she adamantly refuses this again. It has been stated in as many words that if she continues to refuse blood work and IV antibiotics there is a good chance that she is going to pass in the next few weeks to which she responds so be it . She states she has had enough and does not want to be poked anymore. Her stated wishes today are also which she has expressed on her outpatient encounters and on previous hospital admissions. Her blood cultures reported positive for gram-positive cocci in clusters, appearing to be coag negative staph thus far. Medications: Reviewed: Yes Vitals/I&O/Wt Last Vital Signs Temp 97.3 F L 01/21/22 08:18 Pulse 91 01/21/22 08:18 Resp 20 H 01/21/22 08:18 BP 150/97 01/21/22 08:18 Pulse Ox 97 01/21/22 08:18 O2 Del Method 01/21/22 08:18 O2 Flow Rate 2 01/21/22 08:18 01/20/22 01/21/22 01/21/22 22:59 06:59 14:59 Intake Total 2520 / 2520 240 / 240 Output Total 500 / 500 351 / 851 Balance 2019 / 2019 -351 / 1669 240 / 240 Physical Exam Narrative: General: No acute distress, AO x3 HEENT: PERRLA, pupils bilaterally equal and reactive, pallors not present Chest: Crackles to auscultation bilaterally CVS: S1-S2 regular, systolic murmur Abdomen: Soft, nontender, no organomegaly, bowel sounds present Neuro: No focal deficits, no facial deformity, AO x3, power 5/5 in all limbs Urinary Catheter Management: Wolfe: Cath Placed During This Visit: yes Reason for Continuing Indwelling Catheter: Hospice/Comfort/Palliative Care Urinary Catheter Date of Insertion: 01/18/22 Urinary Catheter Time of Insertion: 22:10 Data : 01/18/22 22:35 01/18/22 22:35 Micro: Microbiology 01/20/22 09:25 Blood Culture - Preliminary Blood SPECIMEN COLLECTED 01/18/22 22:08 Urine Culture - Final Urine Catheterized A&P Assessment and plan (1) Altered mental status: Status: Acute Qualifiers: Altered mental status type: unspecified Qualified Code(s): R41.82 - Altered mental status, unspecified (2) Dementia: Status: Acute Qualifiers: Dementia behavioral disturbance: without behavioral disturbance Dementia type: unspecified type Qualified Code(s): F03.90 - Unspecified dementia without behavioral disturbance (3) Cellulitis of chest wall: Status: Acute (4) Hyperlipidemia: Status: Acute (5) CHF (congestive heart failure): Status: Acute Plan #Sepsis This was present upon admission As evidenced by tachycardia, fever of 103 Fahrenheit, leukocytosis, endorgan failure by way of acute encephalopathy. Source of sepsis is currently under evaluation UA without signs of UTI. Chest x-ray shows improving pneumonia Blood culture with GPC cocci. prelim coag negative staph. Patient has a significant history of bacterial endocarditis which was treated with oral Zyvox which she has refused placement of PICC line at the time. She had additionally refused CYRIL. Please see above discussion. She is currently on IV fluids normal saline at 50 cc an hour. I will increase this today as patient clinically appears to be dehydrated. Refusing iv imipenem and iv vancomycin. Start po Zyvox 600mg BID. Add mupirocin for local wound care with Optifoam. -Prognosis is extremely poor. I have discussed with the patient's and her to consider transition to palliative care since those seem to be consistent with her infection. -DNR/DNI -Lovenox for DVT prophylaxis Type 2 diabetes mellitus, low-dose sliding scale History of dementia CHF, does not look fluid overloaded, monitor for now Attestations Medical Necessity Statement*: sepsis, need for iv abx and iv hydration Coding Level of Care Code Acute Supervisor Telephone Information for [facility] Fwd Diagnoses Altered mental status R41.82 Altered mental status type: unspecified Dementia F03.90 Dementia behavioral disturbance: without behavioral disturbance Dementia type: unspecified type Cellulitis of chest wall L03.313 Hyperlipidemia E78.5 CHF (congestive heart failure) I50.9
[2022-01-20] MEDS: linezolid 600 mg Tablet PO (17:28)
[2022-01-20] MEDS: atorvastatin 40 mg Tablet 30 MG PO (20:34)
[2022-01-20 20:46] LABS: Glucose Point of Care 125 mg/dL (70-110)
[2022-01-21] VITALS (8 sets, daily range): BP systolic 122–157; BP diastolic 76–106; PULSE 83–113; RESP 18–22; TEMP 36.3–37.9; O2SAT 96–100
[2022-01-21] MEDS: haloperidol inj 5 mg/mL INJ 1 mL 1 MG IM (03:05)
[2022-01-21 06:49] LABS: Glucose Point of Care 117 mg/dL (70-110)
[2022-01-21 11:28] LABS: Glucose Point of Care 100 mg/dL (70-110)
--- NOTE | 2022-01-21 14:34 | PM.PN ---
Subjective Subjective: Patient doing very poorly today. She is able to tell me her name, date of and the fact that she is in a hospital, however not as alert as yesterday. She is lethargic. Moaning and complaining of pain all over. She is visibly dyspneic. Respiratory rate at the time of exam is at 26/min. I was able to convince her to place her IV back to give her IV Lasix. She agreed to the same. However stated that she does not want to prolong things any further and just wants to be comfortable. She refused her p.o. meds this morning. Blood culture today has been corrected to reflect MRSA rather than coagulase-negative Staphylococcus from admission. Medications: Reviewed: Yes Vitals/I&O/Wt Last Vital Signs Temp 100.3 F H 01/21/22 11:17 Pulse 92 01/21/22 11:17 Resp 22 H 01/21/22 11:17 BP 143/86 01/21/22 11:17 Pulse Ox 96 01/21/22 11:17 O2 Del Method 01/21/22 11:17 O2 Flow Rate 2 01/21/22 11:17 01/20/22 01/21/22 01/21/22 22:59 06:59 14:59 Intake Total 2520 / 2520 240 / 240 Output Total 500 / 500 351 / 851 Balance 2019 / 2019 -351 / 1669 240 / 240 Physical Exam Narrative: General: Lethargic, becoming somnolent during the course of morning and afternoon, tachypneic, diaphoretic. HEENT: pupils bilaterally equal and reactive Chest: Bilateral coarse crackles to auscultation. CVS: S1-S2 regular, systolic murmur present Abdomen: Soft, nontender, no organomegaly, bowel sounds present Urinary Catheter Management: Wolfe: Cath Placed During This Visit: yes Reason for Continuing Indwelling Catheter: Hospice/Comfort/Palliative Care Urinary Catheter Date of Insertion: 01/18/22 Urinary Catheter Time of Insertion: 22:10 Data : 01/18/22 22:35 01/18/22 22:35 Micro: Microbiology 01/18/22 22:44 Blood Culture - Final Blood Methicillin Resis Staph Aureus 01/20/22 09:25 Blood Culture - Preliminary Blood NEGATIVE TO DATE NAME: Fany Webber [facility] U #: [id number] AGE/SX: 71/F ROOM: 257 RE01/19/[address]: Yara Pressley MD : [id number] BED: 1 DIS: FAX #: STATUS: ADM IN TLOC: Spec #: [id number] Ibeth: 01/18/22 Status: COMP Req #: [id number] Recd: 01/18/[address]: Smith Chao MD Src: Blood SpDesc: Ordered: Bcult Procedure Result Verified Site Blood Culture Final 01/21/22-1343 1 BOTTLE COLLECTED DIRECT GRAM STAIN: GRAM POSITIVE COCCI IN CLUSTERS PROBABLE CONTAMINANT Organism 1 Methicillin Resis Staph Aureus Growth IN 1 BOTTLE Gram Stain Charge Charge for Gram Stain CRITICAL RESULT YES/NO: YES CRITICAL CALLED BY: ISAC TO AND READ BACK BY: YOU DATE: 01/19/22 TIME: 153 2ND CRITICAL RES YES/NO: YES 2ND CRITICAL CALLED BY: 2ND TO AND READ BACK BY: TIKA DATE: 01/21/22 2ND CRITICAL TIME: 134 MRSA M.I.C. RX --------- ------ * Ampicillin >8 R * Ciprofloxacin >2 R * Clindamycin <=0.5 S * Erythromycin >4 R * Gentamicin <=4 S * Levofloxacin 4 I * Linezolid 4 S * Oxacillin >2 R * Penicillin >8 R * Rifampin <=1 S * Tetracycline <=4 S * Trimethoprim/Sulfamethoxazole <=0.5/9.5 S Vancomycin 2 S Daptomycin <=0.5 S Blood Culture Preliminary (changed) 01/19/22-1533 1 BOTTLE COLLECTED DIRECT GRAM STAIN: GRAM POSITIVE COCCI IN CLUSTERS PROBABLE CONTAMINANT Organism 1 Staphylococcus sp coag neg Growth IN 1 BOTTLE Gram Stain Charge Charge for Gram Stain CRITICAL RESULT YES/NO: YES CRITICAL CALLED BY: ISAC TO AND READ BACK BY: YOU DATE: 01/19/22 TIME: 153 A&P Assessment and plan (1) Altered mental status: Status: Acute Qualifiers: Altered mental status type: unspecified Qualified Code(s): R41.82 - Altered mental status, unspecified (2) Dementia: Status: Acute Qualifiers: Dementia behavioral disturbance: without behavioral disturbance Dementia type: unspecified type Qualified Code(s): F03.90 - Unspecified dementia without behavioral disturbance (3) Cellulitis of chest wall: Status: Acute (4) Hyperlipidemia: Status: Acute (5) CHF (congestive heart failure): Status: Acute Plan #Sepsis This was present upon admission As evidenced by tachycardia, fever of 103 Fahrenheit, leukocytosis, endorgan failure by way of acute encephalopathy. Source of sepsis is MRSA septicemia. Patient has a significant history of bacterial endocarditis which was treated with oral Zyvox when she has refused repeatedly placement of PICC line at the time. She had additionally refused CYRIL. She was followed closely both in the usp and as an outpatient at which time she has been offered treatment with IV vancomycin multiple times and a CYRIL all of which time she has refused. When she completed her oral Zyvox treatment, presuming partially treated endocarditis and or possible hardware infection she had been offered chronic suppression, however patient had again repeatedly refused any IV or oral antibiotics. Blood culture today has now been corrected to reflect MRSA instead of coag negative staph on 01/18/2022. This is most certainly not a contaminant given her clinical history. Today patient is appearing to be sicker. She is more lethargic, more tachypneic. Is diaphoretic. Complaining of generalized aches and pains including in her chest. She has continued to refuse IV treatment since yesterday including IV antibiotics. She pulled out her IV lines and did not allow them to be replaced. Currently I have convinced her to get an IV line placed for IV Lasix. She indicates to me again that she would not want to continue any interventions and just wants to be made comfortable. I had an extensive discussion with her Curtis Webber yesterday evening and again this afternoon regarding her goals of care. Patient's states that him and his have also been discussing since yesterday and as recently as this morning he tried to convince her to get treatment, however she has refused any further treatment. Please see my progress note from yesterday for details regarding my discussion with the patient. She understands that not treating her infection will lead to in the coming days as MRSA bloodstream infections and endocarditis are very aggressive infections. She acknowledged understanding and stated so be it and that she is ready to pass. She is tired of being poked and prodded for tests and medications. She expresses her wishes to be made comfortable. Though she is lethargic compared to yesterday, she is able to tell me her name date of and her 's name. And states time and again that she is in pain and wants the pain to go away. Additionally with tachypnea, interval development of Rales, she has clinical signs of heart failure at this time. In the absence of an echocardiogram I am unable to ascertain if anything new has happened with her valves, however from October 2021 we know that a portion of her mitral valve leaflet has looked suspicious for vegetation. This may very well have progressed since she has positive blood cultures again. patient is also known to have CHF and IV fluid resuscitation since admission may have precipitated an acute exacerbation at this time alongside of sepsis. With clinical deterioration, above goals of care discussion, decision has been made in discussion with his to transition to comfort care measures only. Patient will transition back to usp with comfort care measures should she survive this hospitalization. Prognosis extremely poor. Discontinue medications except those pertaining to pain and anxiety. Insulin may continue if patient comfortable Attestations Medical Necessity Statement*: transition to comfort care Coding Level of Care Code Acute Technology Infusion Specialist for [facility] Diagnoses Altered mental status R41.82 Altered mental status type: unspecified Dementia F03.90 Dementia behavioral disturbance: without behavioral disturbance Dementia type: unspecified type Cellulitis of chest wall L03.313 Hyperlipidemia E78.5 CHF (congestive heart failure) I50.9
[2022-01-21] MEDS: FUROsemide 10 mg/mL SDV 4mL 40 MG IVP (15:07)
[2022-01-21] MEDS: morphine 4 mg/mL SDV 1 mL IVP ×2 (16:03→22:46)
--- NOTE | 2022-01-21 16:43 | PC.NURSE ---
Facilities Director called number on chart, patient would like him to come up and sit with her, left voicemail for .
[2022-01-21 17:14] LABS: Glucose Point of Care 132 mg/dL (70-110)
[2022-01-21] MEDS: metoprolol tartrate 50 mg Tablet 75 MG PO (20:36)
[2022-01-21] MEDS: nystatin powder 15 gm Btl 1 APPLIC TOPICAL (20:39)
[2022-01-21 21:47] LABS: Glucose Point of Care 169 mg/dL (70-110)
--- NOTE | 2022-01-21 23:04 | PC.NURSE ---
Spoke with patients daughter Adrienne Traore, she called for an update. Gave her and update regarding patients vitals and comfort. She expressed concern over patient not being treated for her infection. Asked if they would restart antibiotics if the patient agreed to take them. She also wanted to ask about if an implanted port was an option for the patient, as part of the reason she was refusing medications was she was tired of being poked. The daughter said she had spoke to her father about this and he was in agreement. Adrienne wanted the nurse to make a note about it and to pass it on to the day shift. Also was asking about a CYRIL if it can be done if the patient agrees. Nurse did exaplain that if the patient agrees it does still take time to set up the procedure. Nurse explained that she would write a nursing note regarding the port and would pass it on to the day shift for the nurse to address with the doctor.
[2022-01-22] MEDS: pantoprazole 40 mg SDV IVP (01:03)
[2022-01-22 01:10] VITALS: RESP 24
[2022-01-22] MEDS: morphine 4 mg/mL SDV 1 mL IVP (01:10)
[2022-01-22 04:00] VITALS: BP 123/81; PULSE 76; RESP 17; TEMP 36.7; O2SAT 96
[2022-01-22 06:55] LABS: Glucose Point of Care 83 mg/dL (70-110)
[2022-01-22 08:00] VITALS: BP 116/72; PULSE 81; RESP 20; TEMP 37.1; O2SAT 100
[2022-01-22] MEDS: metoprolol tartrate 50 mg Tablet 75 MG PO (08:46)
[2022-01-22] MEDS: duloxetine 60 mg Capsule PO (08:46)
--- NOTE | 2022-01-22 11:36 | P.DS_ITS ---
Discharge Providers Date of Admission: 01/19/22 01:41 Date of Discharge: January 22, 2022 Attending Provider at Admission: Dimitri Do MD Attending Provider at Discharge: Yara Pressley MD Primary Care Provider: Rasheeda Hernandez MD Diagnoses at Discharge Discharge Diagnosis (1) Altered mental status: Status: Acute Qualifiers: Altered mental status type: unspecified Qualified Code(s): R41.82 - Altered mental status, unspecified (2) Dementia: Status: Acute Qualifiers: Dementia behavioral disturbance: without behavioral disturbance Dementia type: unspecified type Qualified Code(s): F03.90 - Unspecified dementia without behavioral disturbance (3) Cellulitis of chest wall: Status: Acute (4) Hyperlipidemia: Status: Acute (5) CHF (congestive heart failure): Status: Acute (6) Endocarditis: Status: Acute (7) MRSA bacteremia: Status: Acute Reason for Visit Reason for Visit: FEVER Brief History: Taken from H&P: Fany Webber is a 71 year old female with a past medical history of dementia, 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 antibiotics as patient has refused IV antibiotics, refused transesophageal echocardiogram, did have possible mitral valve vegetation, on his transthoracic echo, has a spinal stimulator and hardware in the back, history of ESBL E. coli UTI, recent hospitalizations for pneumonia, has multiple hospitalizations for confusion.??starting this morning she started to suddenly act confused, she had a fever of 101.4, no complaints of chest pain, no complaints of shortness of breath, no complains abdominal pain, no complaints of diarrhea, when patient was brought into the emergency room she was not alert to person place or time. She was extremely lethargic. Hospital Course Hospital Course Upon admission patient was noted to be extremely lethargic, somnolent, disoriented unable to participate in any history taking. She was admitted in view of sepsis. Once admitted she was started on treatment with IV antibiotics including imipenem and vancomycin and received IV hydration following 24 hours of which she became much more alert awake and oriented. Once she became more alert she started to refuse all interventions including IV antibiotics, IV fluids. Eventually she also started refusing all of her oral medications. Her blood culture returned positive for MRSA. 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 While patient was lucid on 01/20/2022 she clearly expressed her wishes. On this day patient had some short-term memory gaps, however she was able to correctly tell me her name, age, date of , the fact that she is at [facility]. She remembered that she is in a group home once reminded and stated the name is [place] adriana. She remembered me from her outpatient encounters. She also understood that she is in the hospital because her heart is infected and that she has bacteria in her blood. I updated her that ideally treatment at this point in time would include completing CYRIL and treat her with prolonged course of IV antibiotics. Patient once again declined both and also oral antibiotics, which is in keeping with her known wishes from her outpatient encounters and last hospital admissions as well. She understood that without these interventions she is likely to in the next few days to weeks to which she responded so be it. She stated that she had had enough and does not want to be poked and prodded anymore for any tests or medications. She consistently refused blood draws. I had an extensive goals of care discussion with her Curtis Webber. Her additionally tried to convince her to consider treatment, however patient refused any further interventions. Given patient's consistent expressed wishes not to receive any further treatment on multiple occasions and after discussion with patient and her , decision was made to transition her to comfort care management only on 01/21/2022. Patient's prognosis is extremely poor given current MRSA bloodstream infection and her multiple other comorbidities. She is being discharged back to group home with hospice. Physical Exam Narrative: General: somnolent, lethargic, does not participate in conversation, appears comfortable. Urinary Catheter Management: Wolfe: Cath Placed During This Visit: yes Reason for Continuing Indwelling Catheter: Chronic Indwelling Urinary Catheter on Admission Urinary Catheter Date of Insertion: 01/18/22 Urinary Catheter Time of Insertion: 22:10 Discharge Data Studies Completed and Pending Completed Studies During Hospitalization Category Date Time Status CT head wo con* [id number] Urgent Cat Scan 01/18/22 22:18 Completed XR chest 1V portable [id number] Urgent Exams 01/18/22 22:18 Completed Pending at discharge Category Date Time Status Blood Culture Stat Lab 01/20/22 08:54 Results Radiology Impressions Chest X-Ray 01/18/22:18 IMPRESSION: Pneumonia improved compared with 01/03/2022. No acute infiltrate. Head CT 01/18/22 22:18 IMPRESSION: No acute intracranial finding. Laboratory Results WBC 22.3 10^3/uL (4.0-10.0) H 01/18/22 22:35 RBC 3.68 10^6/uL (4.1-5.3) L 01/18/22 22:35 Hgb 10.5 g/dL (11.5-15.3) L 01/18/22 22:35 Hct 33.5 % (37.0-47.0) L 01/18/22 22:35 MCV 91.0 fl (81-99) 01/18/22 22:35 MCH 28.5 pg (28.0-34.0) 01/18/22 22:35 MCHC 31.3 g/dL (30.0-36.0) 01/18/22 22:35 RDW 21.5 % (12.1-15.1) H 01/18/22 22:35 Plt Count 302 10^3/cmm (130-400) 01/18/22 22:35 MPV 9.6 fL (7.4-10.4) 01/18/22 22:35 Neut % (Auto) 91.8 % 01/18/22 22:35 Lymph % (Auto) 4.1 % 01/18/22 22:35 [place] % (Auto) 2.7 % 01/18/22 22:35 Eos % (Auto) 0.3 % 01/18/22 22:35 Baso % (Auto) 0.2 % 01/18/22 22:35 Neut # (Auto) 20.49 10^3/uL (1.8-7.7) H 01/18/22 22:35 Lymph # (Auto) 0.9 10^3/uL (0.8-4.8) 01/18/22 22:35 [place] # (Auto) 0.6 10^3/uL (0.2-0.9) 01/18/22 22:35 Eos # (Auto) 0.1 10^3/uL (0.0-0.8) 01/18/22 22:35 Baso # (Auto) 0.1 10^3/uL (0.0-0.1) 01/18/22 22:35 Nucleated RBC % (auto) 0 % 01/18/22 22:35 Nucleated RBCs # 0.0 /100WBC 01/18/22 22:35 Specimen Type Arterial 01/18/22 23:15 Sample Site Radial, right 01/18/22 23:15 ABG pH 7.47 (7.35-7.45) H 01/18/22 23:15 ABG pCO2 29.0 mmHg (35-45) L 01/18/22 23:15 ABG pO2 75.4 mmHg (80.0-100.0) L 01/18/22 23:15 ABG HCO3 21.3 mmol/L (22-26) L 01/18/22 23:15 ABG O2 Saturation 96.9 01/18/22 23:15 ABG Base Excess -1.5 mmol/L (-2.0-2.0) 01/18/22 23:15 David Test Pos 01/18/22 23:15 A-a O2 Gradient Not Reportable 01/18/22 23:15 Hematocrit 33.3 % (37-47) L 01/18/22 23:15 Hgb O2 Saturation 94.9 % (95-100) L 01/18/22 23:15 Carboxyhemoglobin 1.3 %THgb (0.4-20.1) 01/18/22 23:15 Methemoglobin 0.7 % (0.4-1.5) 01/18/22 23:15 Total Hemoglobin 10.9 g/dL (12-16) L 01/18/22 23:15 Sodium 136.0 mmol/L (131-143) 01/18/22 23:15 Potassium 3.6 mmol/L (3.5-5.0) 01/18/22 23:15 Glucose 149.0 mg/dL (70-115) H 01/18/22 23:15 Ionized Calcium 1.2 mmol/L (1.1-1.4) 01/18/22 23:15 O2 Delivery Device Nc 01/18/22 23:15 O2 Liters/Min 2.5 % 01/18/22 23:15 FiO2 0.0 % 09/19/22 23:15 Drum Puller ID [place] 01/18/22 23:15 Sodium 133 mmol/L (136-145) L 01/18/22 22:35 Potassium 3.8 mmol/L (3.5-5.1) 01/18/22 22:35 Chloride 99 mmol/L (98-107) 01/18/22 22:35 Carbon Dioxide 21 mmol/L (22-29) L 01/18/22 22:35 Anion Gap 16.8 (5-19) 01/18/22 22:35 BUN 12 mg/dL (8-23) 01/18/22 22:35 Creatinine 1.2 mg/dL (0.5-0.9) H 01/18/22 22:35 GFR Calculation Not Reportable 01/18/22 22:35 Glucose 141 mg/dL (65-115) H 01/18/22 22:35 POC Glucose 83 mg/dL (70-110) 01/22/22 06:44 Calculated Osmolality 278 mOsm/kg (285-295) L 01/18/22 22:35 Lactate 1.5 mmol/L (0.5-2.2) 01/18/22 22:35 Calcium 8.8 mg/dL (8.5-10.5) 01/18/22 22:35 Total Bilirubin 0.6 mg/dL (0.15-1.2) 01/18/22 22:35 AST 15 U/L (0-32) 01/18/22 22:35 ALT < 5 U/L (0-33) 01/18/22 22:35 Alkaline Phosphatase 73 U/L (35-105) 01/18/22 22:35 C-Reactive Protein 125.4 mg/L (0.0-4.9) H 01/18/22 22:35 NT-Pro-B Natriuret Pep 15840 pg/mL (0-125) H 01/19/22 07:27 Total Protein 6.8 g/dL (6.6-8.7) 01/18/22 22:35 Albumin 3.1 g/dL (3.5-5.2) L 01/18/22 22:35 Globulin 3.7 g/dL (1.3-4.6) 01/18/22 22:35 Procalcitonin 6.82 ng/mL (0-0.5) H 01/18/22 22:35 Urine Color Yellow (Yellow) 01/18/22 22:08 Urine Appearance Clear (CLEAR) 01/18/22 22:08 Urine pH 5 (5-7) 01/18/22 22:08 Ur Specific [place] 1.010 (1.005-1.030) 01/18/22 22:08 Urine Protein 2+ (Negative) H 01/18/22 22:08 Urine Glucose (UA) Norm (Normal) 01/18/22 22:08 Urine Ketones Negative (Negative) 01/18/22 22:08 Urine Blood 3+ (Negative) H 01/18/22 22:08 Urine Nitrate Negative (Negative) 01/18/22 22:08 Urine Bilirubin 1+ (Negative) H 01/18/22 22:08 Urine Urobilinogen Norm mg/dL (Negative) 01/18/22 22:08 Ur Leukocyte Esterase Negative (Negative) 01/18/22 22:08 Urine RBC 25-40 /hpf (0-2) H 01/18/22 22:08 Urine WBC None /hpf (0-5) 01/18/22 22:08 Ur Squamous Epith Cells 5-10 /hpf (0-5) H 01/18/22 22:08 Amorphous Sediment 1+ /hpf 01/18/22 22:08 Urine Bacteria Trace /hpf (NONE) 01/18/22 22:08 Influenza Type A Ag Negative (Negative) 01/18/22 22:30 Influenza Type B Ag Negative (Negative) 01/18/22 22:30 SARS-CoV-2 Ag (Rapid) Negative (Negative) 01/18/22 22:30 Vitals Last Vital Signs Temp 98.7 F 01/22/22 08:00 Pulse 81 01/22/22 08:00 Resp 20 H 01/22/22 08:00 BP 116/72 01/22/22 08:00 Pulse Ox 100 01/22/22 08:00 O2 Del Method 01/22/22 08:00 O2 Flow Rate 2 01/22/22 04:00 Discharge Plan Discharge Patient Disposition: Xfer SNF Condition: Stable Prescriptions: New morphine concentrate 10 mg/0.5 mL Syringe 2 - 10 mg sublingual Q2H PRN (Reason: Moderate To Severe Pain or SOB) 7 Days Qty: 1 0RF Isopto Tears 0.5 % Drops 2 drp eye-both Q2H PRN (Reason: Dry Eye(S)) Qty: 15 0RF Saliva Stimulant [Biotene] 1 spray mucous membrane Q2H PRN (Reason: dry mouth) 7 Days Qty: 1 0RF Continued acetaminophen 325 mg Tablet 650 mg PO Q6H PRN (Reason: pain/temp) pantoprazole 20 mg tablet,delayed release (DR/EC) 20 mg PO DAILY@06 nystatin [Nyamyc] 100,000 unit/gram powder 1 applic TOPICAL DAILY Rx Instructions: apply to abdominal folds albuterol sulfate 90 mcg/actuation Hfa Aerosol Inhaler 2 puff INHALATION Q4H PRN (Reason: Shortness Of Breath) alum-mag hydroxide-simeth [Almacone-2] 400-400-40 mg/5 mL Suspension 30 ml PO Q24H PRN (Reason: Heartburn) bisacodyl 5 mg Tablet 5 mg PO Q24H PRN (Reason: Constipation) duloxetine 60 mg Capsule,Delayed Release(Dr/Ec) 60 mg PO DAILY@08 insulin aspart U-100 [Novolog Flexpen U-100 Insulin] 100 unit/mL (3 mL) insulin pen See Rx Instructions .ROUTE .COMPLEX Qty: 15 0RF Rx Instructions: Inject, subcu, 3 times daily, after meals, based on sliding scale triamcinolone acetonide 0.1 % Cream 1 applic TOPICAL BID Rx Instructions: apply to ble oxycodone-acetaminophen 5-325 mg Tablet 1 tab PO Q6H PRN (Reason: Pain) Santyl 250 unit/gram Ointment 1 applic TOPICAL DAILY Rx Instructions: apply to right heel Changed alprazolam 0.25 mg Tablet 0.25 mg PO Q6H PRN (Reason: Anxiety) Qty: 20 0RF Discontinued spironolactone 25 mg tablet 25 mg PO DAILY@08 multivitamin Tablet 1 tab PO DAILY@08 atorvastatin 20 mg Tablet 30 mg PO DAILY@20 Xarelto 10 mg tablet 10 mg PO DAILY@08 Myrbetriq 50 mg tablet extended release 24 hr 50 mg PO DAILY@08 metoprolol tartrate 50 mg tablet 75 mg PO BID Qty: 0 0RF Hold Instructions: Resume on 11/24/21. Rx Instructions: hold for sbp <100,dbp <60, or hr<60 bumetanide 1 mg Tablet 1 mg PO DAILY@08 PRN (Reason: Edema) Qty: 1 0RF amiodarone 200 mg Tablet 100 mg PO DAILY@08 Rx Instructions: hold if sbp <100 dbp <60 or p <60 potassium chloride 20 mEq/15 mL liquid 30 meq PO DAILY Rx Instructions: must mix with at least 12 ounces of fluid hydralazine 50 mg Tablet 25 mg PO TID 30 Days Qty: 90 3RF Rx Instructions: hold for sbp <100 and pulse <60 Discharge Orders: Discharge Order (Routine); Ordered 01/22/22 Ordered By: Yara Pressley Referrals: Rasheeda Hernandez MD [Primary Care Provider] - Discharge Diet: Advance as tolerated Discharge Activity: Resume usual activity Discharge Attestations Time Spent in Discharge Care*: greater than 30 min Quality Metrics Clinical Quality Measures [ No reported AMI, CVA or VTE this stay] Coding Level of Care Code Acute g FW DC note Diagnoses Altered mental status R41.82 Altered mental status type: unspecified Dementia F03.90 Dementia behavioral disturbance: without behavioral disturbance Dementia type: unspecified type Cellulitis of chest wall L03.313 Hyperlipidemia E78.5 CHF (congestive heart failure) I50.9 Endocarditis I38 MRSA bacteremia R78.81; B95.62
[2022-01-22 12:00] VITALS: BP 116/72; PULSE 81; RESP 20; TEMP 37.1
[2022-01-22 12:09] LABS: Glucose Point of Care 133 mg/dL (70-110)
[2022-01-22] MEDS: nystatin powder 15 gm Btl 1 APPLIC TOPICAL (12:29)
--- NOTE | 2022-01-22 13:38 | PC.SOCIAL ---
Pg 2 IMM Explained to pt's , Pg 2 IMM. No questions voiced. Provided pt a copy. Initialed, dated, & timed a copy & placed in chart.
--- NOTE | 2022-01-22 14:08 | PC.NURSE ---
Report called to [facility] and given to Galina Ewing RN.
[2022-01-22 15:58] VITALS: BP 116/72; PULSE 81; RESP 20; TEMP 37.1
== END 2022-01-22 15:10 | disposition hospice, home (50) | DRG 871 ==
LOC: ER 01-19 00:01 → MEDSURG 01-19 02:12
PROVIDERS: Admitting Provider Family Medicine; Emergency Provider Family Medicine; PCP Family Medicine; Visit Provider Student in an Organized Health Care Education/Training Program
DX: A41.02 Sepsis due to Methicillin resistant Staphylococcus aureus (principal); G93.41 Metabolic encephalopathy; J18.9 Pneumonia, unspecified organism; L03.311 Cellulitis of abdominal wall; L03.116 Cellulitis of left lower limb; L03.115 Cellulitis of right lower limb; I50.32 Chronic diastolic (congestive) heart failure; I38 Endocarditis, valve unspecified; F03.90 Unspecified dementia, unspecified severity, without behavioral disturbance, psychotic disturbance, mood disturbance, and anxiety; Z86.14 Personal history of Methicillin resistant Staphylococcus aureus infection; Z96.82 Presence of neurostimulator; Z87.440 Personal history of urinary (tract) infections; Z87.01 Personal history of pneumonia (recurrent); Z66 Do not resuscitate; I11.0 Hypertensive heart disease with heart failure; J44.9 Chronic obstructive pulmonary disease, unspecified; E11.9 Type 2 diabetes mellitus without complications; E66.9 Obesity, unspecified; Z68.37 Body mass index [BMI] 37.0-37.9, adult; M79.7 Fibromyalgia; K21.9 Gastro-esophageal reflux disease without esophagitis; Z85.3 Personal history of malignant neoplasm of breast; Z86.718 Personal history of other venous thrombosis and embolism; E78.5 Hyperlipidemia, unspecified; Z79.891 Long term (current) use of opiate analgesic; Z79.51 Long term (current) use of inhaled steroids; Z79.4 Long term (current) use of insulin; Z51.5 Encounter for palliative care
CPT/HCPCS: 36415; 36416; 36600; 51702; 70450; 71045; 80051; 80053; 81001; 82330; 82805; 82962; 83605; 83880; 84145; 85025; 86140; 87040; 87077; 87086; 87150; 87186; 87205; 87426; 87804; 96365; 96367; 96372; 99285; C9113; J0743; J1630; J1815; J1940; J2270; J3370; J7030